=== PATIENT | female | born 1990 | race Caucasian/White ===

== ENCOUNTER 2016-09-25 00:46 | Emergency (ER) | payer BC, OTHER ==
[~2016-09-25] VITALS: Ht 160 cm; Wt 53.3 kg
[~2016-09-25 00:46] MED LIST: AZIT250T PO; CYAN500T PO; EFFSR150 PO; HYDR-3785 PO; LAMO100T16 PO; LAMO25TA PO; LITH300T2 PO; LITH600C PO; MULT-506 PO; NRNUNK PO
[2016-09-25 00:50] VITALS: Ht 160 cm; Wt 53.3 kg
[2016-09-25] MEDS ORDERED: ACETAMINOPHEN IV 1,000 MG in EMPTY BAG 0 ML IV STA (01:07)
[2016-09-25] MEDS ORDERED: SODIUM CHLORIDE 0.9% 1000ML 1,000 ML IV STA ×2 (01:07→05:06)
--- NOTE | 2016-09-25 01:07 | EMERGENCY ROOM VISIT NOTE ---
History Report prepared by Radha: Benjamin Howard Under the Supervision of: Dr. To Mccormick M.D. First contact with patient: 00:57 Chief Complaint: FEVER Stated Complaint: REFERRED BY DOCTOR History of Present Illness The patient is a 26 year old female who has a fistula and new ileostomy who presents to the Emergency Room with complaints of a worsening fever that started prior to arrival tonight. The patient says that she had 5 surgeries at [facility] last month, including a gastric bypass, a cleaning of her abdomen, and removal of 95% of her small intestine. She does have a feeding tube. The patient says that he was told that her white blood cell count was elevated, and to keep track of her temperature. Her temperature became elevated today, so she called [facility], and was told to come to the nearest ER for evaluation. The patient says that prior to arrival, she went to lay down, but started getting cold and shaky. She adds that her muscles tensed up, and she has been having abdominal pain around her feeding tube. The patient says that her tube has drained all day, and made her dress soaked. She states that this amount of drainage is unusual for her. The patient says that she had 1 tablet of Tylenol within the past 6 hours. She notes that she has a bit of sinus congestion. She denies any shortness of breath, cough, or urinary symptoms. She has Hepatitis C. The patient notes no history of kidney failure. She takes Heparin. Source of History: patient Onset: Prior to arrival tonight Position: other (global - fever) Timing: worsening Associated Symptoms: + chills, + abdominal pain, No cough, No SOB, No urinary symptoms Note: Associated symptoms: Increased drainage around tube. Sinus congestion. Shaky. Review of Systems See HPI for pertinent positives & negatives. A total of 10 systems reviewed and were otherwise negative. Past Medical & Surgical Medical Problems: (1) Depressive Disorder Nec (2) Fx Femur Shaft-Closed (3) Gastrojejunal Ulcer Nos (4) Nausea Alone (5) Opioid Abuse-Unspec Family History No pertinent family history Social History Smoking Status: Never Smoker Alcohol Use: none Marital Status: single Occupation Status: employed Current/Historical Medications Scheduled Calcium Carbonate-Vitamin D (Calcium), 1 TAB PO DAILY Cholecalciferol (Vitamin D3), Unknown Dose PO DAILY Citalopram Hydrobromide (Celexa), 40 MG PO DAILY Cyanocobalamin (Vitamin B-12), 500 MCG PO DAILY Loperamide Hcl (Imodium A-D), 4 MG PO TID Methadone Hcl (Methadone Hcl), 80 MG PO DAILY Methadone Hcl (Dolophine), 5 MG PO DAILY Multivitamin (Multivitamin), 1 TAB PO DAILY Omeprazole (Prilosec), 40 MG PO DAILY Scheduled PRN Acetaminophen (Tylenol), 500 MG PO Q4H PRN for Pain Allergies Coded Allergies: Adhesives (Verified Allergy, Mild, ERRYTHEMA, 09/25/16) Eucalyptus Oil (Verified Allergy, Mild, hives, 02/23/11) Physical Exam Vital Signs Date Time Temp Pulse Resp B/P (MAP) Pulse Ox O2 Delivery O2 Flow Rate FiO2 09/25/16 07:43 74 18 90/53 98 09/25/16 07:00 80 20 101/58 98 Room Air 09/25/16 06:32 76 20 96/55 92 Room Air 09/25/16 05:58 83 20 101/53 97 Room Air 09/25/16 05:30 38.6 09/25/16 05:20 90 20 104/50 98 Room Air 09/25/16 05:00 65 16 100/40 94 Room Air 09/25/16 04:03 39.3 105 18 105/55 95 Room Air 09/25/16 02:39 38.7 09/25/16 02:39 38.7 81 16 97/53 97 Room Air 09/25/16 00:50 39.4 102 16 103/68 99 Room Air Physical Exam GENERAL: Patient is uncomfortable and malnourished appearing and in mild acute distress. HEENT: No acute trauma, normocephalic atraumatic, mucous membranes moist, no nasal congestion, no scleral icterus. NECK: No stridor, no adenopathy, no meningismus, trachea is midline. CHEST: Central line in right upper chest with 2 ports - 1 with IV infusing. LUNGS: No dyspnea. Clear to auscultation and equal bilaterally. No wheeze, no rhonchi. HEART: Regular rate and rhythm. No murmurs, rubs, gallops appreciated. ABDOMEN: Left mid-abdominal PEG tube. Some purulent drainage around insertion site, minimal erythema. Large midline insertion which is dressed. Ostomy in left lower abdomen, draining green clear fluid. Vague left upper quadrant tenderness to palpation. BACK: No midline tenderness, no CVA tenderness EXTREMITIES: Normal motion all extremities, no cyanosis, no edema. NEUROLOGIC: Alert and oriented, no acute motor or sensory deficits, no focal weakness, cranial nerves grossly intact. SKIN: No rash, no jaundice, no diaphoresis. Medical Decision & Procedures ER Provider Diagnostic Interpretation: X ray results are stated below per my interpretation: Chest: 1 view: No infiltrate, no effusion, normal cardiac border. Zaldivar catheter in right upper chest, old rib fracture right lower chest. CT ABDOMEN & PELVIS: Minimal focal density at the right lung base may represent atelectasis versus early infectious/inflammatory process. Cholelithiasis with mild pericholecystic fluid and trace fluid among the inferior right hepatic lobe. Acute cholecystitis cannot be entirely excluded. Further evaluation could be performed with ultrasound if clinically indicated. Changes of prior gastric surgery. Percutaneous G-tube in place. Mild swelling and fat stranding in the left anterior abdominal wall at the G-tube site. Superimposed infection cannot be excluded. No organized fluid collection identified. Drain also noted along the central anterior abdominal wall with surrounding fat stranding as it courses through the subcutaneous fat of the abdominal wall. Superimposed infection again cannot be excluded. No organized fluid collection identified. Mild to moderate free fluid in the pelvis. Correlate with any recent surgery. Mild diffuse body wall edema. Intramedullary jeffrey in the left femur partially visualized. Mild hepatomegaly. Radiologist: Barber Larson M.D. Study ready at 02:18 and initial results transmitted at 03:05 Laboratory Results 09/25/16 01:14 Red Blood Count 3.15, Mean Corpuscular Volume 89.5, Mean Corpuscular Hemoglobin 27.9, Mean Corpuscular Hemoglobin Concent 31.2, Mean Platelet Volume 12.7, Neutrophils (%) (Auto) 87.7, Lymphocytes (%) (Auto) 5.7, Monocytes (%) (Auto) 5.5, Eosinophils (%) (Auto) 0.8, Basophils (%) (Auto) 0.3, Neutrophils # (Auto) 5.59, Lymphocytes # (Auto) 0.36, Monocytes # (Auto) 0.35, Eosinophils # (Auto) 0.05, Basophils # (Auto) 0.02 7/23/17 01:14 Test 09/25/16 01:14 09/25/16 01:20 09/25/16 01:23 09/25/16 04:08 White Blood Count 6.37 K/uL (4.8-10.8) Red Blood Count 3.15 M/uL (4.2-5.4) Hemoglobin 8.8 g/dL (12.0-16.0) Hematocrit 28.2 % (37-47) Mean Corpuscular Volume 89.5 fL (80-100) Mean Corpuscular Hemoglobin 27.9 pg (25-34) Mean Corpuscular Hemoglobin Concent 31.2 g/dl (32-36) Platelet Count 142 K/uL (130-400) Mean Platelet Volume 12.7 fL (7.4-10.4) Neutrophils (%) (Auto) 87.7 % Lymphocytes (%) (Auto) 5.7 % Monocytes (%) (Auto) 5.5 % Eosinophils (%) (Auto) 0.8 % Basophils (%) (Auto) 0.3 % Neutrophils # (Auto) 5.59 K/uL (1.4-6.5) Lymphocytes # (Auto) 0.36 K/uL (1.2-3.4) Monocytes # (Auto) 0.35 K/uL (0.11-0.59) Eosinophils # (Auto) 0.05 K/uL (0-0.5) Basophils # (Auto) 0.02 K/uL (0-0.2) RDW Standard Deviation 50.1 fL (36.4-46.3) RDW Coefficient of Variation 15.3 % (11.5-14.5) Immature Granulocyte % (Auto) 0.0 % Immature Granulocyte # (Auto) 0.00 K/uL (0.00-0.02) Platelet Estimate NORMAL Polychromasia 1+ Anisocytosis PRESENT Prothrombin Time 12.1 SECONDS (9.0-12.0) Prothromb Time International Ratio 1.1 (0.9-1.1) Est Creatinine Clear Calc Drug Dose 133.2 ml/min Estimated GFR () > 150.0 Estimated GFR (Non- 130.0 BUN/Creatinine Ratio 65.8 (10-20) Calcium Level 8.8 mg/dl (8.5-10.1) Phosphorus Level 1.6 mg/dl (2.5-4.9) Magnesium Level 1.9 mg/dl (1.8-2.4) Total Bilirubin 1.2 mg/dl (0.2-1) Direct Bilirubin 0.8 mg/dl (0-0.2) Aspartate Amino Transf (AST/SGOT) 18 U/L (15-37) Alanine Aminotransferase (ALT/SGPT) 27 U/L (12-78) Alkaline Phosphatase 226 U/L (45-117) Total Creatine Kinase 123 U/L (26-192) Creatine Kinase MB 0.7 ng/ml (0.5-3.6) Creatine Kinase MB Ratio 0.6 (0-3.0) Troponin I < 0.015 ng/ml (0-0.045) Total Protein 7.2 gm/dl (6.4-8.2) Albumin 2.8 gm/dl (3.4-5.0) Human Chorionic Gonadotropin, Qual NEG (NEG) [place] Level < 0.2 mMOL/L (0.6-1.2) Bedside Lactic Acid Venous 0.82 mmol/L (0.90-1.70) Bedside Hemoglobin 9.5 g/dl (12.0-16.0) Bedside Hematocrit 28 % (37-47) Bedside Sodium 136 mEq/L (135-144) Bedside Potassium 3.3 mEq/L (3.3-5.0) Bedside Chloride 96 mEq/L (101-112) Bedside Total CO2 26 mEq/l (24-31) Anion Gap 19.0 mmol/L (16-25) Bedside Blood Urea Nitrogen 32 mg/dl (7-18) Bedside Creatinine 0.5 mg/dl (0.6-1.3) Bedside Glucose (other) 110 mg/dl (70-99) Bedside Ionized Calcium (Cheryl) 1.19 mmol/l (1.12-1.32) Urine Color DK YELLOW Urine Appearance CLEAR (CLEAR) Urine pH 6.0 (4.5-7.5) Urine Specific [place] > 1.045 (1.000-1.030) Urine Protein NEG (NEG) Urine Glucose (UA) NEG (NEG) Urine Ketones NEG (NEG) Urine Occult Blood TRACE (NEG) Urine Nitrite NEG (NEG) Urine Bilirubin 1+ (NEG) Urine Urobilinogen NEG (NEG) Urine Leukocyte Esterase SMALL (NEG) Urine WBC (Auto) 1-5 /hpf (0-5) Urine RBC (Auto) 5-10 /hpf (0-4) Urine Hyaline Casts (Auto) 1-5 /lpf (0-5) Urine Epithelial Cells (Auto) 20-30 /lpf (0-5) Urine Bacteria (Auto) NEG (NEG) Date/Time Source Procedure Growth Status 09/25/16 01:43 Stool C.difficile Toxin B Gene (PCR) - Final No C. difficile toxin B gene detected Complete Laboratory results as reviewed by me. Medications Administered Medications (Trade) Dose Ordered Sig/Faith Route Start Time Stop Time Status Last Admin Dose Admin Sodium Chloride 1,000 ml @ 999 mls/hr Q1H1M STAT IV 09/25/16 01:07 09/25/16 02:07 DC 09/25/16 01:35 999 MLS/HR Acetaminophen 1000 mg/Empty Bag 100 ml @ 400 mls/hr NOW STAT IV 09/25/16 01:07 09/25/16 01:21 DC 09/25/16 01:35 400 MLS/HR Cefepime HCl 2000 mg/Dextrose 122.6 ml @ 200 mls/hr NOW STAT IV 09/25/16 03:30 09/25/16 04:06 DC 09/25/16 04:55 200 MLS/HR Vancomycin HCl 1250 mg/Sodium Chloride 525 ml @ 125 mls/hr ONE STAT IV 09/25/16 03:30 09/25/16 07:41 DC 09/25/16 05:45 125 MLS/HR Morphine Sulfate (MoRPHine SULFATE INJ) 8 mg STK-MED ONCE .ROUTE 09/25/16 03:50 09/25/16 03:51 DC 09/25/16 04:00 8 MG Morphine Sulfate (MoRPHine SULFATE INJ) 8 mg NOW STAT IV 09/25/16 05:06 09/25/16 05:07 DC 09/25/16 05:24 8 MG Sodium Chloride 1,000 ml @ 150 mls/hr Q6H40M STAT IV 09/25/16 05:06 09/25/16 08:22 DC 09/25/16 05:24 150 MLS/HR ECG Indication: abdominal pain Rate (beats per minute): 93 Rhythm: normal sinus Findings: no acute ischemic change, no ectopy ED Course 0058: The patient was evaluated in room B3B. A complete history and physical exam was performed. 0107: Ordered Acetaminophen 1000 mg/Empty Bag 100 ml @ 400 mls/hr IV, NSS 1000 ml @ 999 mls/hr IV. 0313: I reevaluated the patient and she notes feeling better, and is agreeable to call [facility] for treatment and possible transfer. 0327: I discussed the patient with Dr. Tanner - minimally invasive surgery at [facility] - he will accept the patient via transfer. 0330: Ordered Vancomycin HCl 1250 mg/Sodium Chloride 525 ml @ 200 mls/hr IV, Cefepime HCl 2000 m/Dextrose 122.6 ml @ 200 mls/hr IV. 0342: I reevaluated the patient and she says that her pain is increasing. She notes that she tolerated Morphine well previously. The patient is agreeable to be transferred to [facility] by ground. 0343: Ordered Morphine Sulfate Inj 8 mg IV. 0506: I reevaluated the patient and she says her pain improved but is coming back a bit. Her fever is breaking. Medical Decision Differential: Viral, Pharyngitis, Cellulitis, Pneumonia, Influenza, Meningitis, Sepsis, Bacteremia, UTI/Pyelonephritis, Endocrine, Toxicologic, amongst other pathologies entertained. 26 yr old female with complex abdominal surgical history arrives with complaint of fevers. In brief she had natalio-en-y gastric bypass in 2006, then had ruptured peptic ulcer in 2008 requiring emergent surgery. In Apr 2016 she had ventral hernia repair, however in August 2016 developed volvulus resulting in bowel and ~75% small bowel resection. Peg tube/ostomy in place with open wound. Has been on TPN through right chest Zaldivar catheter since. This morning she looks ill and clearly uncomfortable. No significant peritonitis on abdominal exam though is uncomfortable to palpation. Some drainage around G tube that is more than I would expect from typical irritation and she notes it was draining more over the last 24 hours. WBC is not elevated but she is febrile, tachycardic, mildly hypotension. Blood cultures from zaldivar and peripheral obtained. Lactic acid unremarkable. CXR clear. Concentrated urine though not infected. CT abdo with three areas of concern... doubt cholecystitis as no RUQ TTP, free fluid in pelvis likely surgical as she does not seem uncomfortable enough for this to be diffuse infectious free fluid , however G tube does demonstrate surrounding inflammation. Would have to suspect this is may cause of sepsis though can not be sure not other location, or possibly zaldivar for that matter. I do not feel it would be safe to discharge this patient from ED without surgical evaluation and she has far to complex history to be treated at this facility and needs to be at the tertiary care center she has been receiving treatment. Given empiric Cefepime/Vanco for broad spectrum coverage. Morphine PRN for pain. Fluids/Tylenol with improvement in vitals. Some continued fever but with her history will avoid NSAIDs. Discussed with MIS at [facility] who accept for further evaluation/ treatment. Monitored in ED over several hours as no available transfer ambulance and given morphine/fluids. Medication Reconcilliation Current Medication List: was personally reviewed by me Blood Pressure Screening Patient's blood pressure: Normal blood pressure Consults Time Called: 032 Consulting Physician: Dr. Tanner - minimally invasive surgery at [facility] Returned Call: 032 I discussed the patient with Dr. Tanner - minimally invasive surgery at [facility] - he will accept the patient via transfer. Impression Primary Impression: Sepsis Additional Impressions: Post op infection Free fluid in pelvis Abnormal computed tomography of gallbladder Critical Care I have personally spent greater than 45 minutes of critical care time in the direct management of this patient. This was a life/limb threatening event. This includes time spent evaluating patient, direct bedside care, chart review, placing orders, interpretation of diagnostic studies, discussion with consultants, patient, and family members, as well as other required patient management activities. This 45 minutes is in excess of all separately billable procedures. Scribe Attestation The scribe's documentation has been prepared under my direction and personally reviewed by me in its entirety. I confirm that the note above accurately reflects all work, treatment, procedures, and medical decision making performed by me. Departure Information Dispostion Transfer Acute Care Facility (by ground to [facility]) Referrals Edward Chin M.D. (PCP) Patient Instructions My [facility] Problem Qualifiers Primary Impression: Sepsis
[2016-09-25] MEDS ORDERED: OPTIRAY 320 IV PRN (01:15)
[2016-09-25] MEDS ORDERED: CITA40TA12 PO (01:26)
[2016-09-25] MEDS ORDERED: METH40TA15 PO (01:28)
[2016-09-25] MEDS ORDERED: METH5TAB PO (01:30)
[2016-09-25] MEDS ORDERED: PRLSR20 PO (01:32)
[2016-09-25] MEDS ORDERED: OMEP40CA41 PO (01:32)
[2016-09-25] MEDS ORDERED: LOPE-5 PO (01:33)
[2016-09-25] MEDS ORDERED: CHOL1000 PO (01:34)
[2016-09-25 01:36] LABS: ISTAT CREATININE 0.5 mg/dl (0.6-1.3); ISTAT HEMOGLOBIN 9.5 g/dl (12.0-16.0); ISTAT IONIZED CALCIUM 1.19 mmol/l (1.12-1.32)
[2016-09-25] MEDS ORDERED: CALC-51 PO (01:36)
[2016-09-25] MEDS ORDERED: ACET-1256 PO (01:37)
[2016-09-25 01:41] LABS: INR 1.1 (0.9-1.1); PROTHROMBIN TIME (PATIENT) 12.1 SECONDS (9.0-12.0)
[2016-09-25 01:54] LABS: ALT/SGPT 27 U/L (12-78); AST/SGOT 18 U/L (15-37); BLOOD UREA NITROGEN 34 mg/dl (7-18); BUN/CREATININE RATIO 65.8 (10-20); CALCIUM 8.8 mg/dl (8.5-10.1); CARBON DIOXIDE 31 mmol/L (21-32); CHLORIDE 102 mmol/L (98-107); CREATININE 0.52 mg/dl (0.60-1.20); GLUCOSE 106 mg/dl (70-99); MAGNESIUM 1.9 mg/dl (1.8-2.4); POTASSIUM 3.4 mmol/L (3.5-5.1); SODIUM 136 mmol/L (136-145)
[2016-09-25 02:02] LABS: MEAN CORPUSCULAR HGB CONC 31.2 g/dl (32-36)
[2016-09-25 02:05] LABS: ALKALINE PHOSPHATASE 226 U/L (45-117); CKMB/CK RATIO 0.6 (0-3.0); PHOSPHORUS 1.6 mg/dl (2.5-4.9)
[2016-09-25 02:06] LABS: HEMATOCRIT 28.2 % (37-47); MEAN CELL VOLUME 89.5 fL (80-100); MEAN CORPUSCULAR HEMOGLOBIN 27.9 pg (25-34); RED BLOOD COUNT 3.15 M/uL (4.2-5.4); WHITE BLOOD COUNT 6.37 K/uL (4.8-10.8)
[2016-09-25 02:20] LABS: ANISOCYTOSIS PRESENT; BASO % 0.3 %; BASO ABS # 0.02 K/uL (0-0.2); COMPLETE YES; EOS % 0.8 %; LYMPH % 5.7 %; LYMPH ABS # 0.36 K/uL (1.2-3.4); MEAN PLATELET VOLUME 12.7 fL (7.4-10.4); MONO % 5.5 %; NEUT % 87.7 %; PLATELET COUNT 142 K/uL (130-400); PLT ESTIMATE NORMAL; POLYCHROMASIA 1+
[2016-09-25 02:38] LABS: PREG INTERNAL NEGATIVE QC NEG CLEAR BACKGROUND; PREG INTERNAL POSITIVE QC POS CONTROL LINE
[2016-09-25] MEDS ORDERED: VANCOMYCIN INJ 1,250 MG in SODIUM CHLORIDE 0.9% 500ML 500 ML IV STA (03:30)
[2016-09-25] MEDS ORDERED: CEFEPIME IV 2,000 MG in DEXTROSE 5% 100ML 100 ML IV STA (03:30)
[2016-09-25] MEDS ORDERED: MoRPHine SULFATE 10 MG/ML CARP/VIAL IV STA ×2 (03:43→05:06)
[2016-09-25] MEDS ORDERED: MoRPHine SULFATE 4 MG/ML 1 ML CARP\\VIAL ONE (03:50)
[2016-09-25 04:19] LABS: URINE APPEARANCE CLEAR (CLEAR); URINE COLOR DK YELLOW; URINE EPITHELIAL CELL AUTO 20-30 /lpf (0-5); URINE NITRITE NEG (NEG); URINE SPECIFIC GRAVITY > 1.045 (1.000-1.030); UROBILINOGEN NEG (NEG); ZZUR CULT IF INDIC CLEAN CATCH NO
[2016-09-25 04:27] LABS: MANUAL MICROSCOPIC REQUIRED? NO; REVIEW REQ? NO; URINE BILIRUBIN 1+ (NEG)
[2016-09-25 05:30] VITALS: TEMP 38.6
--- NOTE | 2016-09-25 07:24 | DIAGNOSTIC IMAGING REPORT ---
CHEST ONE VIEW PORTABLE CLINICAL HISTORY: fever ELEVATED WHITE COUNT COMPARISON STUDY: 07/27/2008 FINDINGS: The cardiac and mediastinal contours are normal. There is no evidence of focal pulmonary consolidation. There is no evidence of failure. No pleural effusions are visualized.[ A right-sided A-Port catheter is visualized. IMPRESSION: No active disease in the chest. Electronically signed by: Eugene Luna M.D. 09/25/2016 7:23 AM Dictated Date/Time: 09/25/2016 7:22 AM
[2016-09-25 07:43] VITALS: BP 90/53; PULSE 74; O2SAT 98
--- NOTE | 2016-09-25 07:48 | DIAGNOSTIC IMAGING REPORT ---
CT ABD/PELVIS IV CONTRAST ONLY CLINICAL HISTORY: Fever, elevated white count. Drainage from PEG tube. History of gastric bypass reversal. COMPARISON STUDY: 06/16/2009 TECHNIQUE: Following the IV administration of 94 mL of Optiray-320, CT scan of the abdomen and pelvis was performed from the lung bases to the proximal femurs. Images are reviewed in the axial, sagittal, and coronal planes. IV contrast was administered without complication. A dose lowering technique was utilized adhering to the principles of ALARA. CT DOSE: 290.58 mGy.cm FINDINGS: Lower chest: There are minor basilar atelectatic changes. Liver: The contrast-enhanced liver is normal in size, contour, and attenuation. There is no intrahepatic biliary ductal dilatation. The hepatic veins and portal veins are patent. Gallbladder: Cholelithiasis Spleen: Mildly enlarged measuring 13 cm. No focal masses identified Pancreas: There is mild peripancreatic edema. Adrenal glands: Unremarkable. Kidneys: There is symmetric renal cortical enhancement. The kidneys are normal in size without hydronephrosis. Bowel: There are no transition zones indicate bowel obstruction. There is no acute diverticulitis. By history the appendix is surgically absent. Evaluation the bowel is limited due to the lack of orally administered contrast. There are postsurgical changes involving the stomach. There is a left upper quadrant percutaneous gastrostomy tube. There are defects within the left and right anterior abdominal wall with suture lines/drains. There is a left anterior abdominal wall drainage bag. Peritoneum: There is pelvic ascites. There is diffuse edema within the mesentery. There is a small amount of fluid within the right paracolic gutter. Vasculature: The abdominal aorta is normal in course and caliber. Adenopathy: None. Pelvic viscera: The bladder, and pelvic viscera are unremarkable. Skeletal structures: No destructive osseous lesions are seen. There is a left femoral intramedullary jeffrey IMPRESSION: 1. Difficult study to interpret given the postsurgical changes and lack of orally administered contrast 2. No evidence of bowel obstruction. No evidence of free air 3. Postsurgical changes involving the stomach with a left-sided gastrostomy tube 4. Soft tissue defects within the anterior abdominal wall bilaterally containing suture lines/drains. There is a left anterior abdominal wall drainage bag.. Correlation with surgical history is recommended 5. Mild diffuse mesenteric edema and peripancreatic edema. Correlation with appropriate biochemical markers is recommended to exclude pancreatitis. 6. Ascites 7. Cholelithiasis. 8. Generalized body wall edema Electronically signed by: Eugene Luna M.D. 09/25/2016 7:47 AM Dictated Date/Time: 09/25/2016 7:33 AM
[2016-11-21] MEDS ORDERED: METR-163 PO (16:17)
[2016-11-21] MEDS ORDERED: CNCI50 IV (16:17)
[2016-11-21] MEDS ORDERED: FLV400 PO (16:17)
[2016-11-21] MEDS ORDERED: CNT PO (16:17)
[2016-11-21] MEDS ORDERED: HYD10 PO (16:17)
[2016-11-21] MEDS ORDERED: ZNCS220 PO (16:17)
== END 2016-09-25 07:44 | disposition short-term general hospital (02) ==
LOC: C.EDB 00:48
DX: T81.4XXA Infection following a procedure, initial encounter (principal); Y83.8 Other surgical procedures as the cause of abnormal reaction of the patient, or of later complication, without mention of misadventure at the time of the procedure; A41.9 Sepsis, unspecified organism; Z98.84 Bariatric surgery status; Z93.1 Gastrostomy status; B19.20 Unspecified viral hepatitis C without hepatic coma; F32.9 Major depressive disorder, single episode, unspecified; F11.90 Opioid use, unspecified, uncomplicated; Z79.899 Other long term (current) drug therapy; Z93.3 Colostomy status

== ENCOUNTER → 2016-10-10 | Outpatient (CLI) | payer OTHER ==
[~2016-10-10] MED LIST changes: +ACET-1256 PO; +CALC-51 PO; +CHOL1000 PO; +CITA40TA12 PO; +CNCI50 IV; +CNT PO; -EFFSR150 PO; +FLV400 PO; +HYD10 PO; -HYDR-3785 PO; -LAMO100T16 PO; -LAMO25TA PO; -LITH300T2 PO; -LITH600C PO; +LOPE-5 PO; +METH10CO PO; +METH40TA15 PO; +METH5TAB PO; +METR-163 PO; -NRNUNK PO; +OMEP40CA41 PO; +SODI0.9S; +TPN; +ZNCS220 PO
[2016-10-10 17:31] LABS: HEMATOCRIT 34.6 % (37-47); MEAN CELL VOLUME 87.2 fL (80-100); MEAN CORPUSCULAR HGB CONC 30.9 g/dl (32-36); MEAN PLATELET VOLUME 12.6 fL (7.4-10.4); PLATELET COUNT 412 K/uL (130-400); RED BLOOD COUNT 3.97 M/uL (4.2-5.4); WHITE BLOOD COUNT 7.71 K/uL (4.8-10.8)
[2016-10-10 18:02] LABS: ALB/GLOB RATIO 0.7 (0.9-2); ALT/SGPT 40 U/L (12-78); AST/SGOT 29 U/L (15-37); BLOOD UREA NITROGEN 62 mg/dl (7-18); CALCIUM 10.6 mg/dl (8.5-10.1); CARBON DIOXIDE 34 mmol/L (21-32); CHLORIDE 101 mmol/L (98-107); GLUCOSE 85 mg/dl (70-99); MAGNESIUM 2.4 mg/dl (1.8-2.4); POTASSIUM 3.6 mmol/L (3.5-5.1); SODIUM 140 mmol/L (136-145)
[2016-10-10 18:07] LABS: ALKALINE PHOSPHATASE 357 U/L (45-117); PHOSPHORUS 4.1 mg/dl (2.5-4.9); PREALBUMIN 41.9 mg/dl (20-40)
--- NOTE | 2016-11-29 08:11 | CODING QUERY NO DIAGNOSIS ---
Valid Physician Order Needed 88 A valid physician order must be submitted in order to properly bill for the service(s) provided, including date of service(s), valid diagnosis, and physician signature. If these tests are done on a recurring basis the original physician order must be submitted in order to code and bill for the service(s) provided. Please fax us the original, signed physician order so that we may expedite billing to [phone] DOS 10/10/16 * CBC * MAGNESIUM * PHOSPHORUS * TRANSFERRIN * COMP METABOLIC Thank you [facility] Management
== END | disposition home or self-care (01) ==
LOC: C.LABSPEC 15:10
PROVIDERS: ATTEND Surgery
DX: Z48.815 Encounter for surgical aftercare following surgery on the digestive system (principal); Z43.2 Encounter for attention to ileostomy; Z45.2 Encounter for adjustment and management of vascular access device; J18.9 Pneumonia, unspecified organism; F32.9 Major depressive disorder, single episode, unspecified; F41.9 Anxiety disorder, unspecified

== ENCOUNTER → 2016-10-13 | Outpatient (CLI) | payer OTHER ==
[2016-10-13 16:23] LABS: HEMATOCRIT 32.5 % (37-47); MEAN CELL VOLUME 86.7 fL (80-100); MEAN CORPUSCULAR HEMOGLOBIN 27.5 pg (25-34); MEAN CORPUSCULAR HGB CONC 31.7 g/dl (32-36); MEAN PLATELET VOLUME 12.7 fL (7.4-10.4); PLATELET COUNT 303 K/uL (130-400); RED BLOOD COUNT 3.75 M/uL (4.2-5.4); WHITE BLOOD COUNT 6.19 K/uL (4.8-10.8)
[2016-10-13 16:31] LABS: ALT/SGPT 69 U/L (12-78); AST/SGOT 44 U/L (15-37); BLOOD UREA NITROGEN 54 mg/dl (7-18); BUN/CREATININE RATIO 55.4 (10-20); CALCIUM 10.2 mg/dl (8.5-10.1); CARBON DIOXIDE 34 mmol/L (21-32); CHLORIDE 98 mmol/L (98-107); CREATININE 0.98 mg/dl (0.60-1.20); GLUCOSE 67 mg/dl (70-99); MAGNESIUM 2.3 mg/dl (1.8-2.4); POTASSIUM 3.4 mmol/L (3.5-5.1); SODIUM 136 mmol/L (136-145)
[2016-10-13 16:34] LABS: ALB/GLOB RATIO 0.7 (0.9-2); ALKALINE PHOSPHATASE 366 U/L (45-117); PHOSPHORUS 3.8 mg/dl (2.5-4.9)
--- NOTE | 2016-11-10 08:36 | CODING QUERY NO DIAGNOSIS ---
Valid Physician Order Needed A valid physician order must be submitted in order to properly bill for the service(s) provided, including date of service(s), valid diagnosis, and physician signature. If these tests are done on a recurring basis the original physican order must be submitted in order to code and bill for the service(s) provided. Please fax us the original, signed physician order so that we may expedite billing to [phone] DOS 10/13/2016 * CBC W/O DIFF * CMP * MAGNESIUM * PHOSPHORUS Thank you Selena [facility] Information Management
== END | disposition home or self-care (01) ==
LOC: C.LABSPEC 16:03
PROVIDERS: ATTEND Surgery
DX: Z48.815 Encounter for surgical aftercare following surgery on the digestive system (principal)

== ENCOUNTER → 2016-10-17 | Outpatient (CLI) | payer OTHER ==
[2016-10-17 11:45] LABS: HEMATOCRIT 36.2 % (37-47); MEAN CORPUSCULAR HEMOGLOBIN 27.2 pg (25-34); MEAN CORPUSCULAR HGB CONC 31.2 g/dl (32-36); MEAN PLATELET VOLUME 13.1 fL (7.4-10.4); PLATELET COUNT 272 K/uL (130-400); RED BLOOD COUNT 4.16 M/uL (4.2-5.4); WHITE BLOOD COUNT 7.15 K/uL (4.8-10.8)
[2016-10-17 11:53] LABS: AST/SGOT 44 U/L (15-37); BLOOD UREA NITROGEN 63 mg/dl (7-18); BUN/CREATININE RATIO 57.5 (10-20); CALCIUM 10.8 mg/dl (8.5-10.1); CARBON DIOXIDE 37 mmol/L (21-32); CHLORIDE 92 mmol/L (98-107); GLUCOSE 271 mg/dl (70-99); MAGNESIUM 2.4 mg/dl (1.8-2.4); SODIUM 134 mmol/L (136-145)
[2016-10-17 12:05] LABS: ALB/GLOB RATIO 0.7 (0.9-2); ALKALINE PHOSPHATASE 357 U/L (45-117); ALT/SGPT 67 U/L (12-78); PHOSPHORUS 2.6 mg/dl (2.5-4.9)
[2016-10-17 12:40] LABS: PREALBUMIN 42.9 mg/dl (20-40)
--- NOTE | 2016-10-19 10:26 | CODING QUERY NO DIAGNOSIS ---
Valid Physician Order Needed A valid physician order must be submitted in order to properly bill for the service(s) provided, including date of service(s), valid diagnosis, and physician signature. If these tests are done on a recurring basis the original physician order must be submitted in order to code and bill for the service(s) provided. Please fax us the original, signed physician order so that we may expedite billing to [phone] DOS 10/17/2016 * CBC W/O DIFF * SERUM PHOSPHORUS * TRIGLYCERIDES * MAGNESIUM * CMP * TRANSFERRIN * PREALBUMIN * BILIRUBIN DIRECT Thank you [facility] Information Management
== END | disposition home or self-care (01) ==
LOC: C.LABSPEC 11:35
PROVIDERS: ATTEND Surgery
DX: Z48.815 Encounter for surgical aftercare following surgery on the digestive system (principal)

== ENCOUNTER → 2016-10-24 | Outpatient (CLI) | payer OTHER ==
[2016-10-24 12:50] LABS: BASO % 0.5 %; BASO ABS # 0.03 K/uL (0-0.2); COMPLETE YES; EOS % 6.8 %; HEMATOCRIT 35.4 % (37-47); IG% 0.2 %; LYMPH % 39.2 %; LYMPH ABS # 2.24 K/uL (1.2-3.4); MEAN CELL VOLUME 83.9 fL (80-100); MEAN CORPUSCULAR HEMOGLOBIN 26.5 pg (25-34); MEAN CORPUSCULAR HGB CONC 31.6 g/dl (32-36); MONO % 7.7 %; NEUT % 45.6 %; PLATELET COUNT 181 K/uL (130-400); RED BLOOD COUNT 4.22 M/uL (4.2-5.4); WHITE BLOOD COUNT 5.71 K/uL (4.8-10.8)
[2016-10-24 13:29] LABS: ALT/SGPT 72 U/L (12-78); BLOOD UREA NITROGEN 75 mg/dl (7-18); BUN/CREATININE RATIO 62.6 (10-20); CALCIUM 10.3 mg/dl (8.5-10.1); CARBON DIOXIDE 31 mmol/L (21-32); CHLORIDE 99 mmol/L (98-107); GLUCOSE 95 mg/dl (70-99); MAGNESIUM 2.1 mg/dl (1.8-2.4); POTASSIUM 3.5 mmol/L (3.5-5.1); SODIUM 136 mmol/L (136-145)
[2016-10-24 13:32] LABS: ALB/GLOB RATIO 0.7 (0.9-2); ALKALINE PHOSPHATASE 350 U/L (45-117); AST/SGOT 50 U/L (15-37); PHOSPHORUS 3.3 mg/dl (2.5-4.9); TRIGLYCERIDES 49 mg/dl (0-150)
== END | disposition home or self-care (01) ==
LOC: C.LABSPEC 11:59
PROVIDERS: ATTEND Surgery
DX: J18.9 Pneumonia, unspecified organism (principal); F32.9 Major depressive disorder, single episode, unspecified; F41.9 Anxiety disorder, unspecified

== ENCOUNTER → 2016-11-07 | Outpatient (CLI) | payer OTHER ==
[2016-11-07 14:41] LABS: BASO % 0.3 %; BASO ABS # 0.02 K/uL (0-0.2); COMPLETE YES; EOS % 5.4 %; HEMATOCRIT 31.9 % (37-47); IG% 0.2 %; LYMPH % 38.4 %; LYMPH ABS # 2.29 K/uL (1.2-3.4); MEAN CELL VOLUME 85.1 fL (80-100); MEAN CORPUSCULAR HEMOGLOBIN 25.6 pg (25-34); MEAN CORPUSCULAR HGB CONC 30.1 g/dl (32-36); MONO % 4.9 %; NEUT % 50.8 %; PLATELET COUNT 176 K/uL (130-400); RED BLOOD COUNT 3.75 M/uL (4.2-5.4); WHITE BLOOD COUNT 5.96 K/uL (4.8-10.8)
[2016-11-07 14:54] LABS: ALT/SGPT 67 U/L (12-78); AST/SGOT 43 U/L (15-37); BLOOD UREA NITROGEN 40 mg/dl (7-18); BUN/CREATININE RATIO 44.5 (10-20); CALCIUM 9.1 mg/dl (8.5-10.1); CARBON DIOXIDE 25 mmol/L (21-32); CHLORIDE 106 mmol/L (98-107); CREATININE 0.89 mg/dl (0.60-1.20); GLUCOSE 80 mg/dl (70-99); POTASSIUM 4.1 mmol/L (3.5-5.1); SODIUM 137 mmol/L (136-145); TRIGLYCERIDES 50 mg/dl (0-150)
[2016-11-07 14:56] LABS: ALB/GLOB RATIO 0.7 (0.9-2); ALKALINE PHOSPHATASE 349 U/L (45-117); PHOSPHORUS 3.2 mg/dl (2.5-4.9)
--- NOTE | 2016-11-09 20:11 | CODING QUERY NO DIAGNOSIS ---
Valid Physician Order Needed 88 A valid physician order must be submitted in order to properly bill for the service(s) provided, including date of service(s), valid diagnosis, and physician signature. If these tests are done on a recurring basis the original physician order must be submitted in order to code and bill for the service(s) provided. Please fax us the original, signed physician order so that we may expedite billing to [phone] DOS * COMPREHENSIVE METABOLIC * MAGNESIUM * PHOSPHORUS * TRIGLYCERIDES * CBC W/AUTO DIFF * GGT Thank you Amy [facility] Information Management
== END | disposition home or self-care (01) ==
LOC: C.LABSPEC 08:37
PROVIDERS: ATTEND Surgery
DX: Z45.2 Encounter for adjustment and management of vascular access device (principal); F32.9 Major depressive disorder, single episode, unspecified; J18.9 Pneumonia, unspecified organism; F41.9 Anxiety disorder, unspecified

== ENCOUNTER 2016-11-14 11:06 | Inpatient (IN) | payer OTHER ==
[~2016-11-14] VITALS: Ht 160 cm; Wt 72.1 kg
[~2016-11-14 11:06] MED LIST changes: -CNCI50 IV; -CNT PO; -FLV400 PO; -HYD10 PO; -METH10CO PO; -METR-163 PO; -SODI0.9S; -TPN; -ZNCS220 PO
[2016-11-14] MEDS ORDERED: TPN (11:21)
[2016-11-14] MEDS ORDERED: SODI0.9S (11:21)
[2016-11-14] MEDS ORDERED: METH10CO PO (11:21)
[2016-11-14] MEDS ORDERED: ACETAMINOPHEN 500 MG TAB PO STA (12:09)
[2016-11-14 12:51] LABS: URINE APPEARANCE CLOUDY (CLEAR); URINE COLOR DK YELLOW; URINE EPITHELIAL CELL AUTO >30 /lpf (0-5); URINE NITRITE NEG (NEG); URINE PH 5.5 (4.5-7.5); URINE SPECIFIC GRAVITY 1.027 (1.000-1.030); UROBILINOGEN NEG (NEG); ZZUR CULT IF INDIC CLEAN CATCH YES
[2016-11-14 12:58] LABS: URINE BILIRUBIN 2+ (NEG)
[2016-11-14 12:59] LABS: MANUAL MICROSCOPIC REQUIRED? NO; REVIEW REQ? YES
--- NOTE | 2016-11-14 13:08 | DIAGNOSTIC IMAGING REPORT ---
CHEST 2 VIEWS ROUTINE CLINICAL HISTORY: fever BODY ACHES, COUGH. COMPARISON STUDY: 09/25/2016 FINDINGS: The cardiac and mediastinal contours are normal. There is no evidence of focal pulmonary consolidation. There is no evidence of failure. No pleural effusions are visualized.[The left-sided dual-lumen central venous catheter remains unchanged in position. IMPRESSION: No active disease in the chest. Electronically signed by: Eugene Luna M.D. 11/14/2016 1:07 PM Dictated Date/Time: 11/14/2016 1:06 PM
[2016-11-14 13:12] LABS: MEAN CORPUSCULAR HGB CONC 33.3 g/dl (32-36)
[2016-11-14 13:13] LABS: URINE PATH CASTS 0-3 GRANULAR CASTS /lpf (0)
[2016-11-14 13:22] LABS: HEMATOCRIT 21.9 % (37-47); MEAN CORPUSCULAR HEMOGLOBIN 27.3 pg (25-34); RED BLOOD COUNT 2.67 M/uL (4.2-5.4); WHITE BLOOD COUNT 2.41 K/uL (4.8-10.8)
[2016-11-14 13:26] LABS: INR 1.2 (0.9-1.1); PARTIAL THROMBOPLASTIN RATIO 1.4
[2016-11-14 13:29] LABS: PLATELET COUNT 52 K/uL (130-400)
[2016-11-14 13:32] LABS: BUN/CREATININE RATIO 31.5 (10-20); CALCIUM 7.9 mg/dl (8.5-10.1); CREATININE 0.6 mg/dl (0.60-1.20); POTASSIUM 3.6 mmol/L (3.5-5.1)
[2016-11-14] MEDS ORDERED: OPTIRAY 320 IV PRN (13:45)
[2016-11-14 14:01] LABS: BASO % 0.4 %; BASO ABS # 0.01 K/uL (0-0.2); COMPLETE YES; DOHLE BODIES 1+; GIANT PLATELETS 3+; IG% 0.4 %; LYMPH % 17.8 %; LYMPH ABS # 0.43 K/uL (1.2-3.4); MONO % 4.6 %; NEUT % 76.8 %; PLT ESTIMATE DECREASED; POIKILOCYTOSIS PRESENT; VACUOLIZATION 1+
--- NOTE | 2016-11-14 14:15 | DIAGNOSTIC IMAGING REPORT ---
CT ABD/PELVIS IV CONTRAST ONLY CLINICAL HISTORY: Fever, bodyaches, history of multiple surgery. Sepsis. COMPARISON STUDY: 09/25/2016 TECHNIQUE: Following the IV administration of 94 mL of Optiray-320, CT scan of the abdomen and pelvis was performed from the lung bases to the proximal femurs. Images are reviewed in the axial, sagittal, and coronal planes. IV contrast was administered without complication. A dose lowering technique was utilized adhering to the principles of ALARA. CT DOSE: 292.52 mGy.cm FINDINGS: Lower chest: There are mild dependent atelectatic changes Liver: There is mild periportal edema, finding which may be secondary to aggressive hydration. There are no focal hepatic masses. Gallbladder: There is a gallstone present. There is pericholecystic fluid/ascites. Spleen: The spleen is enlarged measuring 13.2 cm. Pancreas: Unremarkable. Adrenal glands: Unremarkable. Kidneys: There is symmetric renal cortical enhancement. The kidneys are normal in size without hydronephrosis. Bowel: Postsurgical changes are present within the bowel. Anterior ostomies are visualized. There are no transition zones to indicate a bowel obstruction. The patient appears be status post resection of a significant portion of small bowel. There is a gastrostomy tube present. Peritoneum: There is increasing ascites which is of low to moderate volume. Vasculature: The abdominal aorta is normal in course and caliber. Adenopathy: None. Pelvic viscera: The bladder, and pelvic viscera are unremarkable. Skeletal structures: No destructive osseous lesions are seen. There is generalized body wall edema. IMPRESSION: 1. No evidence of bowel obstruction. No evidence of free air 2. Postsurgical changes involving the stomach and partial small bowel resection 3. Postsurgical changes involving the anterior abdominal wall presumably indicative of current or remote ostomies. 4. Cholelithiasis 5. Generalized body wall edema 6. Increasing ascites. Electronically signed by: Eugene Luna M.D. 11/14/2016 2:14 PM Dictated Date/Time: 11/14/2016 2:06 PM
--- NOTE | 2016-11-14 15:50 | EMERGENCY ROOM VISIT NOTE ---
History First contact with patient: 11:30 Chief Complaint: ILLNESS Stated Complaint: BODY ACHES, PAIN, FEVER, COUGH, MIGRAINE, SINUS History of Present Illness The patient is a 26 year old female who presents to the Emergency Room with complaints of fever, body aches, sinus congestion and headache. The patient states that she has had fever and. Frontal sinus pressure for 5 days. She states her temperature was 104 this morning. She took Tylenol. The patient also admits to diffuse body aches. The patient has had multiple abdominal surgeries as a result of gastric bypass performed in 2003 and then again in 2006. She currently has a PEG tube in place and states that she has constant pus from the PEG tube. She also has stabbing pains around her abdominal incision. She also has a ileostomy bag. The patient was seen here in September and was diagnosed with sepsis and was transferred to [facility] where she had her surgeries. Her surgeon is Dr. Chin. The patient states that her home nurse was there to see her this morning and told her to come to the emergency room. She did not call her surgeon in [place]. Review of Systems 10 system review was performed and was negative unless stated otherwise history of present illness. Past Medical/Surgical History Medical Problems: (1) Depressive Disorder Nec (2) Fx Femur Shaft-Closed (3) Gastrojejunal Ulcer Nos (4) Nausea Alone (5) Opioid Abuse-Unspec Family History No pertinent family history Social History Smoking Status: Current Every Day Smoker Alcohol Use: none Marital Status: single Occupation Status: employed Current/Historical Medications Scheduled Calcium Carbonate-Vitamin D (Calcium), 1 TAB PO DAILY Cholecalciferol (Vitamin D3), Unknown Dose PO DAILY Citalopram Hydrobromide (Celexa), 40 MG PO DAILY Cyanocobalamin (Vitamin B-12), 500 MCG PO DAILY Loperamide Hcl (Imodium A-D), 4 MG PO TID Methadone Hcl (Methadone Hcl Intensol), 103 MG PO DAILY Omeprazole (Prilosec), 40 MG PO DAILY Sodium Chloride (Gu Irrigant) (Sodium Chloride 0.9%), 500 ML DAILY Tpn Infusion (Tpn Infusion), 3,000 ML DAILY Scheduled PRN Acetaminophen (Tylenol), 500 MG PO Q4H PRN for Pain Physical Exam Vital Signs Date Time Temp Pulse Resp B/P (MAP) Pulse Ox O2 Delivery O2 Flow Rate FiO2 9/11/17 15:38 82 16 90/52 100 11/14/16 13:51 37.4 11/14/16 13:27 37.9 87 18 91/49 98 11/14/16 12:43 86 11/14/16 12:09 39.1 11/14/16 11:08 37.6 101 22 106/68 100 Room Air Physical Exam GENERAL: 26-year-old female appears in no acute distress. The patient is warm to the touch. MENTAL Status: Alert and oriented 3. EARS: Canals clear. TMs good light reflex. NOSE: Nasal mucosa with erythema and engorgement. SINUSES: Maxillary sinuses tender to percussion. PHARYNX: No erythema or edema noted. NECK: Supple, no lymphadenopathy noted. No carotid bruits noted. LUNGS: Clear auscultation without wheezes rales or rhonchi. CARDIAC: Regular rate and rhythm without murmur. Pulses is full and equal throughout. CHEST WALL: No erythema or edema noted in the anterior chest wall BACK: No CVA tenderness noted. ABDOMEN: Patient's abdomen is soft. There is no erythema surrounding the abdominal incision. There is no erythema around the ileostomy. EXTREMITIES: No cyanosis or edema noted. Medical Decision & Procedures ER Provider Diagnostic Interpretation: CT ABD/PELVIS IV CONTRAST ONLY CLINICAL HISTORY: Fever, bodyaches, history of multiple surgery. Sepsis. COMPARISON STUDY: 09/25/2016 TECHNIQUE: Following the IV administration of 94 mL of Optiray-320, CT scan of the abdomen and pelvis was performed from the lung bases to the proximal femurs. Images are reviewed in the axial, sagittal, and coronal planes. IV contrast was administered without complication. A dose lowering technique was utilized adhering to the principles of ALARA. CT DOSE: 292.52 mGy.cm FINDINGS: Lower chest: There are mild dependent atelectatic changes Liver: There is mild periportal edema, finding which may be secondary to aggressive hydration. There are no focal hepatic masses. Gallbladder: There is a gallstone present. There is pericholecystic fluid/ascites. Spleen: The spleen is enlarged measuring 13.2 cm. Pancreas: Unremarkable. Adrenal glands: Unremarkable. Kidneys: There is symmetric renal cortical enhancement. The kidneys are normal in size without hydronephrosis. Bowel: Postsurgical changes are present within the bowel. Anterior ostomies are visualized. There are no transition zones to indicate a bowel obstruction. The patient appears be status post resection of a significant portion of small bowel. There is a gastrostomy tube present. Peritoneum: There is increasing ascites which is of low to moderate volume. Vasculature: The abdominal aorta is normal in course and caliber. Adenopathy: None. Pelvic viscera: The bladder, and pelvic viscera are unremarkable. Skeletal structures: No destructive osseous lesions are seen. There is generalized body wall edema. IMPRESSION: 1. No evidence of bowel obstruction. No evidence of free air 2. Postsurgical changes involving the stomach and partial small bowel resection 3. Postsurgical changes involving the anterior abdominal wall presumably indicative of current or remote ostomies. 4. Cholelithiasis 5. Generalized body wall edema 6. Increasing ascites. Electronically signed by: Eugene Luna M.D. 11/14/2016 2:14 PM Dictated Date/Time: 11/14/2016 2:06 PM CHEST 2 VIEWS ROUTINE CLINICAL HISTORY: fever BODY ACHES, COUGH. COMPARISON STUDY: 09/25/2016 FINDINGS: The cardiac and mediastinal contours are normal. There is no evidence of focal pulmonary consolidation. There is no evidence of failure. No pleural effusions are visualized.[The left-sided dual-lumen central venous catheter remains unchanged in position. IMPRESSION: No active disease in the chest. Electronically signed by: Eugene Luna M.D. 11/14/2016 1:07 PM Dictated Date/Time: 11/14/2016 1:06 PM Laboratory Results 11/14/16 12:30 Red Blood Count 2.67, Mean Corpuscular Volume 82.0, Mean Corpuscular Hemoglobin 27.3, Mean Corpuscular Hemoglobin Concent 33.3, Neutrophils (%) (Auto) 76.8, Lymphocytes (%) (Auto) 17.8, Monocytes (%) (Auto) 4.6, Eosinophils (%) (Auto) 0.0, Basophils (%) (Auto) 0.4, Neutrophils # (Auto) 1.85, Lymphocytes # (Auto) 0.43, Monocytes # (Auto) 0.11, Eosinophils # (Auto) 0.00, Basophils # (Auto) 0.01 11/14/16 12:30 Test 11/14/16 11:17 11/14/16 12:30 Urine Color DK YELLOW Urine Appearance CLOUDY (CLEAR) Urine pH 5.5 (4.5-7.5) Urine Specific [place] 1.027 (1.000-1.030) Urine Protein 1+ (NEG) Urine Glucose (UA) NEG (NEG) Urine Ketones NEG (NEG) Urine Occult Blood 2+ (NEG) Urine Nitrite NEG (NEG) Urine Bilirubin 2+ (NEG) Urine Urobilinogen NEG (NEG) Urine Leukocyte Esterase SMALL (NEG) Urine WBC (Auto) 5-10 /hpf (0-5) Urine RBC (Auto) 5-10 /hpf (0-4) Urine Hyaline Casts (Auto) 5-10 /lpf (0-5) Urine Epithelial Cells (Auto) >30 /lpf (0-5) Urine Bacteria (Auto) NEG (NEG) Urine Pathogenic Casts 0-3 GRANULAR CASTS /lpf (0) Urine Yeast (Auto) (NONE PRSENT) White Blood Count 2.41 K/uL (4.8-10.8) Red Blood Count 2.67 M/uL (4.2-5.4) Hemoglobin 7.3 g/dL (12.0-16.0) Hematocrit 21.9 % (37-47) Mean Corpuscular Volume 82.0 fL (80-100) Mean Corpuscular Hemoglobin 27.3 pg (25-34) Mean Corpuscular Hemoglobin Concent 33.3 g/dl (32-36) Platelet Count 52 K/uL (130-400) Neutrophils (%) (Auto) 76.8 % Lymphocytes (%) (Auto) 17.8 % Monocytes (%) (Auto) 4.6 % Eosinophils (%) (Auto) 0.0 % Basophils (%) (Auto) 0.4 % Neutrophils # (Auto) 1.85 K/uL (1.4-6.5) Lymphocytes # (Auto) 0.43 K/uL (1.2-3.4) Monocytes # (Auto) 0.11 K/uL (0.11-0.59) Eosinophils # (Auto) 0.00 K/uL (0-0.5) Basophils # (Auto) 0.01 K/uL (0-0.2) RDW Standard Deviation 50.2 fL (36.4-46.3) RDW Coefficient of Variation 16.7 % (11.5-14.5) Immature Granulocyte % (Auto) 0.4 % Immature Granulocyte # (Auto) 0.01 K/uL (0.00-0.02) Toxic Vacuolation 1+ Dohle Bodies 1+ Platelet Estimate DECREASED Giant Platelets 3+ Poikilocytosis PRESENT Prothrombin Time 13.0 SECONDS (9.0-12.0) Prothromb Time International Ratio 1.2 (0.9-1.1) Activated Partial Thromboplast Time 37.0 SECONDS (21.0-31.0) Partial Thromboplastin Ratio 1.4 Anion Gap 9.0 mmol/L (3-11) Est Creatinine Clear Calc Drug Dose 115.4 ml/min Estimated GFR () 143.8 Estimated GFR (Non- 124.0 BUN/Creatinine Ratio 31.5 (10-20) Calcium Level 7.9 mg/dl (8.5-10.1) Total Bilirubin 2.0 mg/dl (0.2-1) Direct Bilirubin 1.6 mg/dl (0-0.2) Aspartate Amino Transf (AST/SGOT) 43 U/L (15-37) Alanine Aminotransferase (ALT/SGPT) 48 U/L (12-78) Alkaline Phosphatase 225 U/L (45-117) Total Protein 6.0 gm/dl (6.4-8.2) Albumin 2.2 gm/dl (3.4-5.0) Lipase 365 U/L (73-393) Medications Administered Medications (Trade) Dose Ordered Sig/Faith Route Start Time Stop Time Status Last Admin Dose Admin Acetaminophen (Tylenol Tab) 1,000 mg NOW STAT PO 11/14/16 12:09 11/14/16 12:12 DC 11/14/16 12:38 1,000 MG ED Course The patient was evaluated. I had the nurse recheck her temperature since I did not feel that the triage temperature was correct. Her temperature was 39.1. The patient's EMR medication list were reviewed. The patient was given Tylenol 1 g by mouth for fever. IV access was obtained. CBC and differential, renal profile, LFTs and lipase levels were ordered. Blood cultures 2 were ordered. Urinalysis was ordered. Urinalysis did not reveal reveal any bacteria but there was some blood as well as evidence of dehydration. Culture is pending. Chest x-ray was ordered interpreted by the radiologist as above without any acute findings Abdominal CT was ordered and interpreted by the radiologist as above no significant change from prior CT of 09/25 except for some increased ascites. No abscess collection noted. Labs are reviewed and she was pancytopenic. Her hemoglobin was also low at 7.3. It is also of note from labs that were drawn earlier today that her phosphate was only 0.9.. I contacted Dr. Chin, surgery at [facility] to discuss this patient. He stated that there was no reason that she needed to be transferred. He stated the only reason she was transferred in September was because she was only a few months out postsurgically. He stated that most likely her infection is coming from her port again which was infected the last time. I contacted Dr. Paz who wanted me to contact surgery to make sure that there was someone in- house that was able to change a line. Dr. Andrews was consulted and stated that Dr. Genao should have the line pulled and then consult him tomorrow for new line placement. I then spoke with Dr. Soliz who agreed to admit the patient. Medical Decision The patient has a history of multiple abdominal surgeries with recent sepsis. She presents today with fever. Diagnostic testing and labs to find out the etiology of the fever were performed. Due to the patient's multiple abdominal surgeries I consulted her surgeon at [place] to make sure that she did not need transferred. He stated that most likely the infection was coming from her port and that transfer was not necessary but he would be willing if our hospitalist would not admit the patient. I did not find any other source of infection. [place] Drug Monitoring Program Search Results: patient reviewed within database Medication Reconcilliation Current Medication List: was personally reviewed by me Blood Pressure Screening Patient's blood pressure: Normal blood pressure Impression Primary Impression: Fever and chills Additional Impressions: Anemia Pancytopenia Low serum phosphorus for age Departure Information Dispostion Being Evaluated By Hospitalist Condition FAIR (the initial) Referrals Talia Altamirano M.D. (PCP) Patient Instructions My [facility] Problem Qualifiers Additional Impressions: Anemia Anemia type: unspecified type Qualified Codes: D64.9 - Anemia, unspecified
[2016-11-14] MEDS ORDERED: CONSULT PHARMACY STA (16:09)
[2016-11-14] MEDS ORDERED: ONDANSETRON INJ 2 MG/ML 2 ML VIAL IV PRN (16:15)
[2016-11-14] MEDS ORDERED: MAGNESIUM HYDROXIDE SUSP 30 ML UDC PO PRN (16:15)
[2016-11-14] MEDS ORDERED: ZOLPIDEM TARTRATE 5 MG TAB PO PRN (16:15)
[2016-11-14] MEDS ORDERED: POLYETHYLENE (MIRALAX) 17 GM PACK PO PRN (16:15)
[2016-11-14] MEDS ORDERED: ALUMINUM/MAGNESIUM/SIMETH (MAALOX MAX) 30 ML UDC PO PRN (16:15)
[2016-11-14] MEDS ORDERED: TPN/PPN CONSULT PHARMACY STA (16:18)
[2016-11-14] MEDS ORDERED: POTASSIUM PHOS 3 MMOL/1 ML INFUSION IV STA (16:21)
[2016-11-14] MEDS ORDERED: PANTOprazole INJ 40 MG in SYRINGE 0 ML IV ONE (16:50)
--- NOTE | 2016-11-14 16:51 | History and Physical ---
History & Physical Date of Service Nov 14, 2016. History & Physical sepsis pancytopeniapossible peg abd area [id number]
[2016-11-14] MEDS ORDERED: AZTREONAM CONSULT ACTIVE PRN ×2 (18:00)
[2016-11-14] MEDS ORDERED: POTASSIUM PHOSPHATE INJ 40 MMOL in SODIUM CHLORIDE 0.9% 1000ML 1,000 ML IV SCH (18:00)
[2016-11-14] MEDS ORDERED: AZTREONAM IV 2,000 MG in DEXTROSE 5% 100ML 100 ML IV SCH (18:00)
[2016-11-14 18:27] LABS: TOTAL IRON BINDING CAPACITY 173 mcg/dl (250-450)
[2016-11-14 19:29] VITALS: BP 101/39; PULSE 101; TEMP 39.1; O2SAT 96; Ht 160 cm; Wt 72.1 kg
[2016-11-14] MEDS: ACETAMINOPHEN 325 MG TAB PO PRN (19:36)
--- NOTE | 2016-11-14 19:43 | HISTORY & PHYSICAL EXAMINATION ---
DATE OF ADMISSION: 11/14/2016 This is a level 3 inpatient admission, 45 minutes. CHIEF COMPLAINT: Fever, muscle ache and PEG tube area abdominal pain. HISTORY OF PRESENT ILLNESS: The patient is a 26-year-old white female with a significant past medical history of depression, femoral shaft closed fracture, GI ulceration, opiate abuse, had gastric bypass in 2003 and then again 2006. She came in to the hospital Emergency Department because of the above chief complaint. The information was obtained from the discussion with the ED physician, and patient herself, and mother at the bedside as well. Complained of fever up to 104 at home associated with muscle ache, sinus congestion, and headache. She reports to have frontal sinus pressure like sensation for 5 days associated with fever. Like I mentioned, temperature was 104 this morning. She took Tylenol. The body ache was a diffuse body ache. The patient was seen in this hospital ED in September, was diagnosed as sepsis and was transferred to [facility], where she had a surgeon Dr. Chin there. Today in the Emergency Room, the patient was found to have obvious fever, highest temperature was 39.4. She was having the PEG tube area pain in the abdomen. She was found to have pancytopenia as well. I was asked to see the patient for the admission. The patient has significant medical history of abdominal surgery. Gastric bypass 2 times. She currently has ileostomy, has some production of stools. She is having double-lumen central line in the left chest wall from that she is getting IV fluid and TPN. She was having PEG tube placed in September for as needed possible nutrition support, never been used. The patient denies anywhere new open wounds in the body. But there was some skin red/wound in the abdominal wall below the ileostomy bag. Currently, the patient denies nausea, vomiting, abdominal pain, diarrhea, or constipation. Denied chest pain, palpitation, lower extremity swelling. Denied cough, sputum, shortness of breath. Denied diarrhea or constipation. Denied dysuria, urgency and frequencies. Denied facial droop, slurry speeches or local weakness. No obvious skin rashes. PAST MEDICAL HISTORY: Like I mentioned in the above, which include, depression, femur shaft closed fracture, GI ulceration, nausea, opiate abuse, PEG tube placement, ileostomy. Gastric bypass in 2003 and 2016. She has a right anterior chest port removed. In last admission had a left double-lumen central line placed since September in [facility]. FAMILY HISTORY: Noncontributory. SOCIAL HISTORY: The patient currently smokes 1 pack per day. Denied alcohol abuse disorder. History of opiate abuse, currently is on methadone. CURRENT MEDICATIONS: Include: 1. Calcium carbonate and vitamin D one tab p.o. daily. 2. Vitamin D3 unknown dose. 3. Celexa 40 mg p.o. daily. 4. Vitamin B12 500 mcg p.o. daily. 5. Imodium 4 mg p.o. t.i.d. 6. Methadone 103 mg p.o. daily. 7. Prilosec 40 mg p.o. daily. 8. Sodium chloride 0.9% in 500 mL daily and TPN infusions. 9. As needed medications include, Tylenol 500 mg q. 4 hours p.r.n. for the pain. PHYSICAL EXAMINATION: VITAL SIGNS: Temperature 39.1, pulse highest was 101. Respiratory rate 22, blood pressure lowest was 90/52, currently is 106/68. Pulse ox was 100% on room air. GENERAL: The patient is a white female, looks much older than her age is, chronically ill looking, very frail and thin. Conversational, follows all commands. HEAD: Normocephalic. EYES: Pupils equal, round, responds to light. EARS: Ear was normal. NOSE: Normal. NECK: Supple. Thyroid no enlargement. Trachea midline. HEART: Regular rhythm. Mild tachycardia. S1, S2, has no murmur. LUNGS: Decreased breathing sounds. There was no wheezing, rhonchi or crackles. Left chest wall has double-lumen central line. Right chest wall has scars of the med port removal. There was no local tenderness in these 2 areas. ABDOMEN: Left lower abdomen PEG tube area has obvious tenderness. She also reported to have yellow drainages from the area. Ileostomy bag has clear yellow liquid in there. There was some open skin below the ileostomy bag, seems it is not new. There was no obvious drainage, nontender. Bilateral CVA was nontender. EXTREMITIES: Bilateral lower extremities: No swelling. Homans sign was negative. Calf was nontender. NEUROLOGICAL: Cranial nerves II-XII was intact. There was no local deficit. IMAGING STUDIES: In the Emergency Room, CT of abdomen with IV contrast was done. There were gallstones present in the gallbladder. There is pericholecystic fluid and ascites. Pancreas was unremarkable. There were anterior ostomies visualized and there is a gastrostomy tube present. In the peritoneum, there was increased ascites. It was low to moderate in volume. Chest x-ray has no acute disease. LABORATORY DATA: WBC 2.4, hemoglobin 7.3, platelet 52. Sodium 136, potassium 3.6, chloride 111, BUN 19, creatinine 0.6, blood glucose 117. In the Emergency Room, ED physician talked to [facility] surgeon, Dr. Chin. He does not feel the need to be transferred to [facility]. ED physician's communication with rock mason apprentice surgeon, he is happy to see the patient. ASSESSMENT AND PLAN: A 26-year-old white female with the problems below: 1. Spiking fever and pancytopenia with abdominal PEG area tenderness and double-lumen central line in place and ileostomy bag. 2. The source of sepsis is unknown for now, possible from PEG tube area infections, because it is obvious tenderness in the physical exam. So far, there was no evidence of double-lumen central line area infections because local looks good. No tenderness. 3. Pancytopenia, etiology unknown, which is definitely new. 4. Mild elevated total bili levels. 5. Significant history of gastric bypass x2, currently on TPN nutrition support. 6. Ileostomy bag. 7. PEG tube placement history. 8. Possible malnutrition. 9. History of tobacco abuse. 10. Possible history of opiate abuse, on methadone. ASSESSMENT AND PLAN: Because of the above patient's conditions, possible sepsis, I will have tele admission, continue IV fluid. Blood culture, urine culture has been sent in the Emergency Room. We will continue IV fluid. We will start broad-spectrum antibiotic coverage which include, Azactam and vancomycin. I will have infectious disease consultation. The patient's source of infection is unknown. Per physical exam, possible PEG tube area is infected. I have requested surgeon to see. Request infectious disease to be on board as well. The patient has TPN at home, we will consult pharmacist. I feel she should be okay to continue to use double-lumen central line for now. We will have wound care consultation to care upon some tiny open wounds below the ileostomy bag areas. The patient has significant new anemia. Etiology unknown. We will check H&H in midnight and tomorrow morning. Check anemia panel which include vitamin B12 and folic acid and iron panels and stool hemoccult studies. DVT prophylaxis will be SCD only. GI prophylaxis will be Protonix. We will have flu swab because she was having spiking fever. I discussed with patient and family and answered all their questions. TROY
[2016-11-14] MEDS ORDERED: VANCOMYCIN CONSULT ACTIVE PRN (19:56)
[2016-11-14 19:58] VITALS: BP 112/62; PULSE 97; TEMP 39.4; O2SAT 99
[2016-11-14 20:00] VITALS: O2SAT 95
[2016-11-14] MEDS ORDERED: VANCOMYCIN INJ 1,500 MG in SODIUM CHLORIDE 0.9% 500ML 500 ML IV SCH (20:00)
[2016-11-14] MEDS: NSS + 20MEQ KCL 1000ML 1,000 ML IV SCH (20:03)
[2016-11-14] MEDS: NICOTINE 14 MG/24 HR TDSY TD SCH (20:03)
[2016-11-14] MEDS ORDERED: MoRPHine SULFATE 2 MG/ML CARP ONE (20:28)
[2016-11-14 20:30] LABS: BUN/CREATININE RATIO 26.8 (10-20); CALCIUM 7.3 mg/dl (8.5-10.1); CREATININE 0.68 mg/dl (0.60-1.20); POTASSIUM 3.7 mmol/L (3.5-5.1)
[2016-11-14] MEDS ORDERED: NURSING VERBAL MED ORDER ONE (20:30)
[2016-11-14] MEDS: MoRPHine SULFATE 2 MG/ML CARP IV PRN (20:30)
--- NOTE | 2016-11-14 20:47 | Pharmacy Progress Note ---
Pharmacy Antibiotic Consult Date of Service: Nov 14, 2016. Pharmacy Dosing Scope Pharmacy is consulted to initiate vancomycin and Azactam IV dosing therapy, order appropriate labs and adjust drug dose/frequency. Subjective The patient is a 26 year old female admitted on Nov 14, 2016 at 16:18 with sepsis, possible source: infected A-port, possible PEG/abdominal area infection. Objective Height (Feet): 5 Height (Inches): 3.00 Weight (Kilograms): 58.000 Lab Results (24hrs): Test 11/14/16 11:17 11/14/16 12:30 11/14/16 19:44 Urine Color DK YELLOW Urine Appearance CLOUDY (CLEAR) Urine pH 5.5 (4.5-7.5) Urine Specific [place] 1.027 (1.000-1.030) Urine Protein 1+ (NEG) Urine Glucose (UA) NEG (NEG) Urine Ketones NEG (NEG) Urine Occult Blood 2+ (NEG) Urine Nitrite NEG (NEG) Urine Bilirubin 2+ (NEG) Urine Urobilinogen NEG (NEG) Urine Leukocyte Esterase SMALL (NEG) Urine WBC (Auto) 5-10 /hpf (0-5) Urine RBC (Auto) 5-10 /hpf (0-4) Urine Hyaline Casts (Auto) 5-10 /lpf (0-5) Urine Epithelial Cells (Auto) >30 /lpf (0-5) Urine Bacteria (Auto) NEG (NEG) Urine Pathogenic Casts 0-3 GRANULAR CASTS /lpf (0) Urine Yeast (Auto) (NONE PRSENT) White Blood Count 2.41 K/uL (4.8-10.8) Red Blood Count 2.67 M/uL (4.2-5.4) Hemoglobin 7.3 g/dL (12.0-16.0) Hematocrit 21.9 % (37-47) Mean Corpuscular Volume 82.0 fL (80-100) Mean Corpuscular Hemoglobin 27.3 pg (25-34) Mean Corpuscular Hemoglobin Concent 33.3 g/dl (32-36) Platelet Count 52 K/uL (130-400) Neutrophils (%) (Auto) 76.8 % Lymphocytes (%) (Auto) 17.8 % Monocytes (%) (Auto) 4.6 % Eosinophils (%) (Auto) 0.0 % Basophils (%) (Auto) 0.4 % Neutrophils # (Auto) 1.85 K/uL (1.4-6.5) Lymphocytes # (Auto) 0.43 K/uL (1.2-3.4) Monocytes # (Auto) 0.11 K/uL (0.11-0.59) Eosinophils # (Auto) 0.00 K/uL (0-0.5) Basophils # (Auto) 0.01 K/uL (0-0.2) RDW Standard Deviation 50.2 fL (36.4-46.3) RDW Coefficient of Variation 16.7 % (11.5-14.5) Immature Granulocyte % (Auto) 0.4 % Immature Granulocyte # (Auto) 0.01 K/uL (0.00-0.02) Toxic Vacuolation 1+ Dohle Bodies 1+ Platelet Estimate DECREASED Giant Platelets 3+ Poikilocytosis PRESENT Prothrombin Time 13.0 SECONDS (9.0-12.0) Prothromb Time International Ratio 1.2 (0.9-1.1) Activated Partial Thromboplast Time 37.0 SECONDS (21.0-31.0) Partial Thromboplastin Ratio 1.4 Sodium Level 136 mmol/L (136-145) 133 mmol/L (136-145) Potassium Level 3.6 mmol/L (3.5-5.1) 3.7 mmol/L (3.5-5.1) Chloride Level 111 mmol/L (98-107) 109 mmol/L (98-107) Carbon Dioxide Level 16 mmol/L (21-32) 19 mmol/L (21-32) Anion Gap 9.0 mmol/L (3-11) 5.0 mmol/L (3-11) Blood Urea Nitrogen 19 mg/dl (7-18) 18 mg/dl (7-18) Creatinine 0.60 mg/dl (0.60-1.20) 0.68 mg/dl (0.60-1.20) Est Creatinine Clear Calc Drug Dose 115.4 ml/min 101.9 ml/min Estimated GFR () 143.8 138.0 Estimated GFR (Non- 124.0 119.0 BUN/Creatinine Ratio 31.5 (10-20) 26.8 (10-20) Random Glucose 117 mg/dl (70-99) 89 mg/dl (70-99) Calcium Level 7.9 mg/dl (8.5-10.1) 7.3 mg/dl (8.5-10.1) Iron Level 8 mcg/dl (35-150) Total Iron Binding Capacity 173 mcg/dl (250-450) Total Bilirubin 2.0 mg/dl (0.2-1) Direct Bilirubin 1.6 mg/dl (0-0.2) Aspartate Amino Transf (AST/SGOT) 43 U/L (15-37) Alanine Aminotransferase (ALT/SGPT) 48 U/L (12-78) Alkaline Phosphatase 225 U/L (45-117) Total Protein 6.0 gm/dl (6.4-8.2) Albumin 2.2 gm/dl (3.4-5.0) Lipase 365 U/L (73-393) Lactic Acid Level 1.0 mmol/L (0.4-2.0) Vitamin B12 Level 482 pg/mL (211-911) Folate > 24.00 ng/mL (>5.38) Micro Results: BC's and urine cx pending Assessment & Plan Vancomycin and Azactam are ordered for sepsis, possible source: infected A-port , possible PEG/abdominal area infection. Pt with hx of gastric bypass in 2003 and again in 2006. A-port line is to be removed this evening and replaced tomorrow. Pharmacy is consulted for TPN to be started tomorrow. Vancomycin Loading dose: 1500 mg IV X 1 dose (25.8mg/kg) then: 750 mg IV every 8 hours (~13mg/kg). Goal trough level estimate: between 15 - 20 mcg/mL. Peak and trough or random level has been ordered for: 11/15 prior to 2000 dose. Azactam 2gm IV q 8 hrs, no dose adjustment for CrCl > 100ml/min. Pharmacy will continue to follow and will adjust dose/frequency as necessary. Thank you
--- NOTE | 2016-11-14 21:22 | Pre-Operative Consultation ---
History General Date of Service: Nov 14, 2016. HPI HPI: The patient is a 26 year old female being seen for possible infected PEG tube. She was admitted with fever, body aches, sinus congestion and headache. She has had subjective fevers and diffuse body aches. The patient has had multiple abdominal surgeries as a result of gastric bypass performed in 2003 and then again in 2006. She currently has a PEG tube in place and states that she has pain and drainage from the tube. She also has stabbing pains around her abdominal incision. She also has a ileostomy bag. The patient was seen here in September and was diagnosed with sepsis and was found to have an infected port. She does not have pain from the port. Historian: patient Procedure Urgency: Acute Risk Assessment Daily beta kay use?: No Problem List Medical Problems: (1) Abnormal computed tomography of gallbladder Status: Acute (2) Anemia Status: Acute (3) Fever and chills Status: Acute (4) Free fluid in pelvis Status: Acute (5) Low serum phosphorus for age Status: Acute (6) Pancytopenia Status: Acute (7) Post op infection Status: Acute (8) Sepsis Status: Acute Medical & Surgical History Past Medical History: anxiety, depression, fibromyalgia, other Past Surgical History: gastric bypass, ileostomy, orthopedic surgery, wisdom teeth, other (PEG) Family History Family History: cancer, diabetes, heart disease, lung disease Social History Smoking Status: Current Every Day Smoker Alcohol: none Marital status: single Housing status: lives with family Occupation status: employed Immunizations Have You Had Influenza Vaccine: No Date Of Influenza Vaccine: Nov 05, 2007 Have You Had Tetanus Vaccine: Unknown History of Pneumococcal: No History Hepatitis B Vaccine: Yes but date is unknown by patient Date Of Hepatitis Immunization: Feb 06, 2005 Allergies Allergies: Coded Allergies: Adhesives (Verified Allergy, Mild, ERRYTHEMA, 11/14/16) Eucalyptus Oil (Verified Allergy, Mild, hives, 11/14/16) Medications Current Inpatient Medications Current Inpatient Medications Medications (Trade) Dose Ordered Sig/Faith Route Start Time Stop Time Status Last Admin Dose Admin Ioversol (Optiray 320) 100 ml UD PRN IV 11/14/16 13:45 11/18/16 13:44 Potassium Chloride/Sodium Chloride 1,000 ml @ 150 mls/hr Q6H40M IV 11/14/16 19:30 12/14/16 19:29 11/14/16 20:03 150 MLS/HR Acetaminophen (Tylenol Tab) 650 mg Q4H PRN PO 11/14/16 16:15 12/14/16 16:14 11/14/16 19:36 650 MG Al Hydrox/Mg Hydrox/Simethicone (Maalox Max Susp) 15 ml Q4H PRN PO 11/14/16 16:15 12/14/16 16:14 Magnesium Hydroxide (Milk Of Magnesia Susp) 30 ml Q12H PRN PO 11/14/16 16:15 12/14/16 16:14 Zolpidem Tartrate (Ambien Tab) 5 mg HSZ PRN PO 11/14/16 16:15 12/14/16 16:14 Ondansetron HCl (Zofran Inj) 4 mg Q6H PRN IV 11/14/16 16:15 12/14/16 16:14 Polyethylene (Miralax Powder Packet) 17 gm DAILY PRN PO 11/14/16 16:15 12/14/16 16:14 Vancomycin HCl (Consult) 1 ea UD PRN N/A 11/14/16 19:56 12/14/16 19:55 Aztreonam 2000 mg/ Dextrose 110 ml @ 100 mls/hr Q8H IV 11/15/16 02:00 11/21/16 01:59 Citalopram Hydrobromide (celeXA TAB) 40 mg DAILY PO 11/15/16 09:00 12/15/16 08:59 Cyanocobalamin (Vitamin B-12 Tab) 500 mcg DAILY PO 11/15/16 09:00 12/15/16 08:59 Methadone HCl (Methadone HCl) 103 mg DAILY PO 11/15/16 09:00 12/15/16 08:59 Pantoprazole Sodium 40 mg/ Syringe 10 ml @ 5 mls/min DAILY@ IV 11/15/16 09:00 12/15/16 08:59 Nicotine (Nicoderm Cq 14MG Patch) 1 patch QAM TD 11/15/16 09:00 12/15/16 08:59 11/14/16 20:03 1 PATCH Miscellaneous (Remove Nicoderm Patch) 1 ea HS N/A 11/14/16 21:00 12/14/16 20:59 Aztreonam (Consult) 1 ea UD PRN N/A 11/14/16 18:00 12/14/16 17:59 Potassium Phosphate 40 mmol/ Sodium Chloride 1,013.3333 ml @ 145 mls/hr TODAY@1800 IV 11/14/16 18:00 11/15/16 01:00 11/14/16 19:36 145 MLS/HR Miscellaneous Information (Pharmacy Tpn/ Ppn Consult Active) 1 UD PRN N/A 11/15/16 16:00 12/15/16 15:59 Vancomycin HCl 1500 mg/Sodium Chloride 530 ml @ 200 mls/hr TODAY@2000 IV 11/14/16 20:00 11/14/16 22:38 11/14/16 20:17 200 MLS/HR Morphine Sulfate (MoRPHine SULFATE INJ) 2 mg Q2H PRN IV 11/14/16 20:30 11/28/16 20:29 11/14/16 20:30 2 MG Vancomycin HCl 750 mg/Sodium Chloride 265 ml @ 125 mls/hr Q8H IV 11/15/16 04:00 11/25/16 03:59 Review of Systems Review of Systems Constitutional: denies chills, fever, malaise Eyes: reports: no symptoms ENT: reports: no symptoms reported Cardiovascular: denies: chest pain, chest tightness, chest pressure, palpitations Respiratory: denies: cough, short of breath, stridor Gastrointestinal: abdominal pain, nausea, denies vomiting Genitourinary - Female: reports: no symptoms Musculoskeletal: joint pain, joint swelling Integumentary: change in hair/nails, dryness, lumps, rash Neurologic: reports: no symptoms Psychiatric: reports: no symptoms Endocrine: no symptoms Hematologic / Lymphatic: denies: anemia, easy bleeding Allergic / Immunologic: no symptoms Physical Exam Physical Exam General Appearance: + WD/WN, No distress Ears, Nose, Throat: + normal ENT inspection Neck: No tracheal deviation, No lymphadenophy, No stiffness, No tenderness Respiratory: + other (port OK), No decreased breath sounds, No rhonchi, No stridor, No wheezing Cardiovascular: No tachycardia, No gallop/S3, No diastolic murmur, No gallop/S4 , No bradycardia, No systolic murmur Abdomen: + tenderness, + other (PEG site OK; expected granulation and reactive erythema), No abnormal bowel sounds, No distension, No hernia Extremities: No deformity, No swelling, No calf tenderness, No inflammation Neurologic/Psychiatric: No motor deficit/weakness, No disorientation, No sensory deficit Skin Characteristics: No abnormal color, No diaphoresis, No pallor, No jaundice , No rash Lymphatic: No abnormal adenopathy Diagnostics Labs Labs Results Past 24 Hours Test 11/14/16 11:17 11/14/16 12:30 11/14/16 19:44 Range/Units Urine Color DK YELLOW Urine Appearance CLOUDY CLEAR Urine pH 5.5 4.5-7.5 Urine Specific [place] 1.027 1.000-1.030 Urine Protein 1+ NEG Urine Glucose (UA) NEG NEG Urine Ketones NEG NEG Urine Occult Blood 2+ NEG Urine Nitrite NEG NEG Urine Bilirubin 2+ NEG Urine Urobilinogen NEG NEG Urine Leukocyte Esterase SMALL NEG Urine WBC (Auto) 5-10 0-5 /hpf Urine RBC (Auto) 5-10 0-4 /hpf Urine Hyaline Casts (Auto) 5-10 0-5 /lpf Urine Epithelial Cells (Auto) >30 0-5 /lpf Urine Bacteria (Auto) NEG NEG Urine Pathogenic Casts 0-3 GRANULAR CASTS 0 /lpf Urine Yeast (Auto) NONE PRSENT White Blood Count 2.41 4.8-10.8 K/uL Red Blood Count 2.67 4.2-5.4 M/uL Hemoglobin 7.3 12.0-16.0 g/dL Hematocrit 21.9 37-47 % Mean Corpuscular Volume 82.0 80-100 fL Mean Corpuscular Hemoglobin 27.3 25-34 pg Mean Corpuscular Hemoglobin Concent 33.3 32-36 g/dl Platelet Count 52 130-400 K/uL Neutrophils (%) (Auto) 76.8 % Lymphocytes (%) (Auto) 17.8 % Monocytes (%) (Auto) 4.6 % Eosinophils (%) (Auto) 0.0 % Basophils (%) (Auto) 0.4 % Neutrophils # (Auto) 1.85 1.4-6.5 K/uL Lymphocytes # (Auto) 0.43 1.2-3.4 K/uL Monocytes # (Auto) 0.11 0.11-0.59 K/uL Eosinophils # (Auto) 0.00 0-0.5 K/uL Basophils # (Auto) 0.01 0-0.2 K/uL RDW Standard Deviation 50.2 36.4-46.3 fL RDW Coefficient of Variation 16.7 11.5-14.5 % Immature Granulocyte % (Auto) 0.4 % Immature Granulocyte # (Auto) 0.01 0.00-0.02 K/uL Toxic Vacuolation 1+ Dohle Bodies 1+ Platelet Estimate DECREASED Giant Platelets 3+ Poikilocytosis PRESENT Prothrombin Time 13.0 9.0-12.0 SECONDS Prothromb Time International Ratio 1.2 0.9-1.1 Activated Partial Thromboplast Time 37.0 21.0-31.0 SECONDS Partial Thromboplastin Ratio 1.4 Sodium Level 136 133 136-145 mmol/L Potassium Level 3.6 3.7 3.5-5.1 mmol/L Chloride Level 111 109 98-107 mmol/L Carbon Dioxide Level 16 19 21-32 mmol/L Anion Gap 9.0 5.0 3-11 mmol/L Blood Urea Nitrogen 19 18 7-18 mg/dl Creatinine 0.60 0.68 0.60-1.20 mg/dl Est Creatinine Clear Calc Drug Dose 115.4 101.9 ml/min Estimated GFR () 143.8 138.0 Estimated GFR (Non- 124.0 119.0 BUN/Creatinine Ratio 31.5 26.8 10-20 Random Glucose 117 89 70-99 mg/dl Calcium Level 7.9 7.3 8.5-10.1 mg/dl Iron Level 8 35-150 mcg/dl Total Iron Binding Capacity 173 250-450 mcg/dl Total Bilirubin 2.0 0.2-1 mg/dl Direct Bilirubin 1.6 0-0.2 mg/dl Aspartate Amino Transf (AST/SGOT) 43 15-37 U/L Alanine Aminotransferase (ALT/SGPT) 48 12-78 U/L Alkaline Phosphatase 225 45-117 U/L Total Protein 6.0 6.4-8.2 gm/dl Albumin 2.2 3.4-5.0 gm/dl Lipase 365 73-393 U/L Lactic Acid Level 1.0 0.4-2.0 mmol/L Vitamin B12 Level 482 211-911 pg/mL Folate > 24.00 >5.38 ng/mL Microbiology Results 11/14/16 Blood Culture, Received Pending 11/14/16 Blood Culture, Received Pending 11/14/16 Urine Culture, Received Pending Diagnostic Radiology Diagnostic Radiology CT ABD/PELVIS IV CONTRAST ONLY CLINICAL HISTORY: Fever, bodyaches, history of multiple surgery. Sepsis. COMPARISON STUDY: 09/25/2016 TECHNIQUE: Following the IV administration of 94 mL of Optiray-320, CT scan of the abdomen and pelvis was performed from the lung bases to the proximal femurs. Images are reviewed in the axial, sagittal, and coronal planes. IV contrast was administered without complication. A dose lowering technique was utilized adhering to the principles of ALARA. CT DOSE: 292.52 mGy.cm FINDINGS: Lower chest: There are mild dependent atelectatic changes Liver: There is mild periportal edema, finding which may be secondary to aggressive hydration. There are no focal hepatic masses. Gallbladder: There is a gallstone present. There is pericholecystic fluid/ascites. Spleen: The spleen is enlarged measuring 13.2 cm. Pancreas: Unremarkable. Adrenal glands: Unremarkable. Kidneys: There is symmetric renal cortical enhancement. The kidneys are normal in size without hydronephrosis. Bowel: Postsurgical changes are present within the bowel. Anterior ostomies are visualized. There are no transition zones to indicate a bowel obstruction. The patient appears be status post resection of a significant portion of small bowel. There is a gastrostomy tube present. Peritoneum: There is increasing ascites which is of low to moderate volume. Vasculature: The abdominal aorta is normal in course and caliber. Adenopathy: None. Pelvic viscera: The bladder, and pelvic viscera are unremarkable. Skeletal structures: No destructive osseous lesions are seen. There is generalized body wall edema. IMPRESSION: 1. No evidence of bowel obstruction. No evidence of free air 2. Postsurgical changes involving the stomach and partial small bowel resection 3. Postsurgical changes involving the anterior abdominal wall presumably indicative of current or remote ostomies. 4. Cholelithiasis 5. Generalized body wall edema 6. Increasing ascites. Impression Assessment and Plan Assessment and Plan Fever and possible sepsis with an Aport and PEG -Aport site looks OK -PEG without infection; patient wishes this removed; would get Surgeons approval [place] and then remove per patient but not infected or compromised
[2016-11-14 22:17] VITALS: TEMP 38.1
[2016-11-14 23:10] VITALS: BP 82/30; PULSE 82; TEMP 38.7; O2SAT 99
[2016-11-14] MEDS ORDERED: SODIUM CHLORIDE 0.9% 1000ML 1,000 ML IV STA (23:36)
[2016-11-14] MEDS ORDERED: ALBUMIN HUMAN 25% 12.5 GM/50 ML VIAL IV STA (23:36)
[2016-11-14] MEDS ORDERED: PIPERACILLIN/TAZOBACTAM 3.375 GM/100ML D5W IV STA (23:42)
[2016-11-15] VITALS (29 sets, daily range): BP systolic 72–116; BP diastolic 32–58; PULSE 68–104; TEMP 36.5–39.5; O2SAT 88–100
[2016-11-15 00:19] LABS: BUN/CREATININE RATIO 29.4 (10-20); CALCIUM 6.6 mg/dl (8.5-10.1); CREATININE 0.58 mg/dl (0.60-1.20); POTASSIUM 4.2 mmol/L (3.5-5.1)
[2016-11-15 00:29] LABS: ALB/GLOB RATIO 0.6 (0.9-2)
--- NOTE | 2016-11-15 00:29 | Progress Note ---
Progress Note Date of Service Nov 15, 2016. Progress Note Called due to high fevers and possibly hypotension - pt admitted earlier with sepsis - suspected due to possible peritonitis owing to peg tube placement Pt was evaluated by surgery on admission for removal of PEG CT abdomen obtained: 1. No evidence of bowel obstruction. No evidence of free air 2. Postsurgical changes involving the stomach and partial small bowel resection 3. Postsurgical changes involving the anterior abdominal wall presumably indicative of current or remote ostomies. 4. Cholelithiasis 5. Generalized body wall edema 6. Increasing ascites. Also reported is pericholecystic fluid without direct mention of cholecystitis Initial labs reveal worsening anemia with a Hb 7.2 - repeat pending P: We will obtain an US and contact surgery following read to r/o acute kieran Pt provided with IVF - responded with increase in BP from low 80s to 100 systolic - however, she states that she normally runs in 80s. She is not tachycardic Will transfuse 1 U PRBC Currently on broad spectrum antibiotics which are needed for multiple potential sites of infection. Will follow when results available Discussed above with pt
[2016-11-15] MEDS ORDERED: PIPERACILL/TAZOBAC CONSULT ACTIVE PRN (00:30)
[2016-11-15] MEDS ORDERED: PIPERACILL/TAZOBAC IV 3.375 GM in DEXTROSE 5% 100ML IV ONE (00:30)
[2016-11-15 00:35] LABS: HEMATOCRIT 19.6 % (37-47); MEAN CELL VOLUME 82.4 fL (80-100); MEAN CORPUSCULAR HEMOGLOBIN 25.6 pg (25-34); MEAN CORPUSCULAR HGB CONC 31.1 g/dl (32-36); PLATELET COUNT 47 K/uL (130-400); RED BLOOD COUNT 2.38 M/uL (4.2-5.4); WHITE BLOOD COUNT 2.33 K/uL (4.8-10.8)
[2016-11-15 00:39] LABS: COMPLETE YES; DOHLE BODIES 1+; LARGE PLATELETS 1+; LYMPH % 28.8 %; LYMPH ABS # 0.67 K/uL (1.2-3.4); MONO % 5.6 %; NEUT % 65.6 %; PLT ESTIMATE DECREASED; VACUOLIZATION 1+
[2016-11-15] MEDS: MoRPHine SULFATE 2 MG/ML CARP IV PRN ×3 (01:42→19:29)
[2016-11-15] MEDS: ACETAMINOPHEN 325 MG TAB PO PRN (01:42)
[2016-11-15] MEDS ORDERED: AZTREONAM IV 2,000 MG in DEXTROSE 5% 100ML 100 ML IV SCH (02:00)
[2016-11-15] MEDS: NSS + 20MEQ KCL 1000ML 1,000 ML IV SCH ×4 (02:19→23:46)
[2016-11-15] MEDS ORDERED: ACETAMINOPHEN IV 650 MG in EMPTY BAG 0 ML IV PRN (03:15)
[2016-11-15] MEDS ORDERED: CIPROFLOXACIN 400MG / 200ML D5W IV STA (03:19)
[2016-11-15] MEDS: VANCOMYCIN INJ 750 MG in SODIUM CHLORIDE 0.9% 250ML 250 ML IV SCH ×3 (03:38→19:53)
[2016-11-15 04:55] LABS: PREG INTERNAL NEGATIVE QC NEG CLEAR BACKGROUND; PREG INTERNAL POSITIVE QC POS CONTROL LINE
[2016-11-15 05:20] LABS: BENZODIAZEPINE, URINE NEG (NEG); COCAINE,URINE NEG (NEG); PHENCYCLIDINE, URINE NEG (NEG)
[2016-11-15] MEDS: PIPERACILL/TAZOBAC IV 3.375 GM in DEXTROSE 5% 100ML IV SCH ×3 (06:25→22:37)
--- NOTE | 2016-11-15 07:18 | DIAGNOSTIC IMAGING REPORT ---
GALLBLADDER-ABD LIMITED CLINICAL HISTORY: 26 years-old Female presenting with ?acute cholecystitis ?CBD dilatation, fever, abdominal pain. TECHNIQUE: Real-time grayscale and limited color Doppler ultrasound imaging of the abdomen limited to the right upper quadrant was performed. COMPARISON: CT from 11/14/2016. FINDINGS: Pancreas: Visualized portions of the pancreatic head and body normal. Liver: An apparent complex septated fluid collection along the superior lateral aspect of the left hepatic lobe may correlate to the stomach, as no discrete collection was noted on the CT performed the previous day on 11/14/2016 at 2:21 PM. Normal echogenicity and echotexture. The liver measures 19.9 cm in maximal sagittal dimension. No sonographic evidence of hepatic mass. Main portal vein patent with normal directional flow. Biliary: No intrahepatic biliary ductal dilatation. Common bile duct measures up to 2 mm in diameter. Gallbladder: Gallstones noted at the gallbladder fundus with possible associated sludge. Variable degrees of gallbladder wall thickening in some regions. No hyperemia of the gallbladder wall. The gallbladder is elongated, measuring 13.6 cm, although the lumen does not appear significantly distended in transverse dimension. Sonographic Lan's sign negative. Right kidney: No hydronephrosis. Ascites: Small amount of perihepatic ascites. IMPRESSION: 1. Gallstones with equivocal findings for cholecystitis. If there is continuing clinical concern for this diagnosis, hepatobiliary nuclear medicine scan could be obtained. 2. Hepatomegaly, which could indicate parenchymal edema. Correlate with LFTs to exclude hepatitis. 3. Septated perihepatic ascites, peritonitis/peritoneal infection not excluded. Electronically signed by: James Lobo M.D. 11/15/2016 7:17 AM Dictated Date/Time: 11/15/2016 7:08 AM
[2016-11-15 08:03] LABS: MEAN CORPUSCULAR HGB CONC 32.5 g/dl (32-36)
[2016-11-15 08:27] LABS: BUN/CREATININE RATIO 23.2 (10-20); CALCIUM 6.9 mg/dl (8.5-10.1); CREATININE 0.6 mg/dl (0.60-1.20); MAGNESIUM 1.5 mg/dl (1.8-2.4); POTASSIUM 3.9 mmol/L (3.5-5.1)
[2016-11-15 08:28] LABS: PHOSPHORUS 2.2 mg/dl (2.5-4.9)
[2016-11-15 08:29] LABS: HEMATOCRIT 27.1 % (37-47); MEAN CELL VOLUME 83.9 fL (80-100); MEAN CORPUSCULAR HEMOGLOBIN 27.2 pg (25-34); RED BLOOD COUNT 3.23 M/uL (4.2-5.4); WHITE BLOOD COUNT 3.51 K/uL (4.8-10.8)
[2016-11-15 08:34] LABS: PREG INTERNAL NEGATIVE QC NEG CLEAR BACKGROUND; PREG INTERNAL POSITIVE QC POS CONTROL LINE
[2016-11-15 08:36] LABS: PLATELET COUNT 44 K/uL (130-400)
[2016-11-15 08:39] LABS: PLT ESTIMATE DECREASED
--- NOTE | 2016-11-15 08:51 | Surgery Progress Note ---
Surgery Progress Note Date of Service Nov 15, 2016. Subjective Post OP Day: HD 2 + complaints (pain around PEG better), + pain controlled Objective Vital Signs: Date Time Temp Pulse Resp B/P (MAP) Pulse Ox O2 Delivery O2 Flow Rate FiO2 11/15/16 08:27 100 Room Air 11/15/16 07:52 100 Room Air 11/15/16 07:51 100 Room Air 11/15/16 07:37 36.8 70 20 85/49 (61) 100 Room Air 11/15/16 06:00 36.5 70 24 84/50 95 11/15/16 05:47 36.7 68 16 85/47 95 11/15/16 05:22 36.5 71 19 84/43 96 11/15/16 05:01 37.6 75 19 87/46 96 11/15/16 04:50 36.9 75 16 83/44 95 11/15/16 04:30 37.8 78 16 82/38 95 11/15/16 04:22 84 16 86/40 95 11/15/16 04:00 37.3 11/15/16 04:00 95 Room Air 11/15/16 04:00 87 19 85/40 91 11/15/16 03:45 88 14 93/45 11/15/16 03:30 38.7 89 17 94/52 93 11/15/16 03:15 39.5 90 20 85/42 95 11/15/16 03:11 39.4 93 20 72/32 95 11/15/16 02:30 39.3 99 18 87/43 91 11/15/16 02:03 39.5 103 18 86/45 92 11/15/16 01:50 39.5 97 20 95/45 91 11/15/16 01:35 39.5 104 23 90/42 88 11/15/16 01:30 39.5 92 30 88/45 90 11/15/16 01:25 39.5 96 19 88/52 95 11/15/16 00:00 95 Room Air 11/14/16 23:10 38.7 82 16 82/30 (47) 99 Room Air 11/14/16 22:17 38.1 11/14/16 20:00 95 Room Air 11/14/16 19:58 39.4 97 18 112/62 (79) 99 Room Air 11/14/16 19:29 39.1 101 18 101/39 96 Room Air 11/14/16 18:07 109 20 92/61 Room Air 11/14/16 16:50 84 11/14/16 15:38 82 16 90/52 100 11/14/16 13:51 37.4 11/14/16 13:27 37.9 87 18 91/49 98 11/14/16 12:43 86 11/14/16 12:09 39.1 11/14/16 11:08 37.6 101 22 106/68 100 Room Air General Appearance: WD/WN, no apparent distress Head: normocephalic, atraumatic Neck: supple, trachea midline Respiratory/Chest: chest non-tender, lungs clear Cardiovascular: regular rate, rhythm, no gallop, no murmur Abdomen: normal bowel sounds, soft, + distended, + tenderness (minimal diffuse) , + pertinent finding (ileostomy) Incision(s): clean, dry, intact Extremities: non-tender, no pedal edema Laboratory Results: Results Past 24 Hours Test 11/14/16 11:17 11/14/16 12:30 11/14/16 19:44 11/14/16 23:47 Range/Units Urine Color DK YELLOW Urine Appearance CLOUDY CLEAR Urine pH 5.5 4.5-7.5 Urine Specific [place] 1.027 1.000-1.030 Urine Protein 1+ NEG Urine Glucose (UA) NEG NEG Urine Ketones NEG NEG Urine Occult Blood 2+ NEG Urine Nitrite NEG NEG Urine Bilirubin 2+ NEG Urine Urobilinogen NEG NEG Urine Leukocyte Esterase SMALL NEG Urine WBC (Auto) 5-10 0-5 /hpf Urine RBC (Auto) 5-10 0-4 /hpf Urine Hyaline Casts (Auto) 5-10 0-5 /lpf Urine Epithelial Cells (Auto) >30 0-5 /lpf Urine Bacteria (Auto) NEG NEG Urine Pathogenic Casts 0-3 GRANULAR CASTS 0 /lpf Urine Yeast (Auto) NONE PRSENT White Blood Count 2.41 2.33 4.8-10.8 K/uL Red Blood Count 2.67 2.38 4.2-5.4 M/uL Hemoglobin 7.3 6.1 12.0-16.0 g/dL Hematocrit 21.9 19.6 37-47 % Mean Corpuscular Volume 82.0 82.4 80-100 fL Mean Corpuscular Hemoglobin 27.3 25.6 25-34 pg Mean Corpuscular Hemoglobin Concent 33.3 31.1 32-36 g/dl Platelet Count 52 47 130-400 K/uL Neutrophils (%) (Auto) 76.8 65.6 % Lymphocytes (%) (Auto) 17.8 28.8 % Monocytes (%) (Auto) 4.6 5.6 % Eosinophils (%) (Auto) 0.0 0.0 % Basophils (%) (Auto) 0.4 0.0 % Neutrophils # (Auto) 1.85 1.53 1.4-6.5 K/uL Lymphocytes # (Auto) 0.43 0.67 1.2-3.4 K/uL Monocytes # (Auto) 0.11 0.13 0.11-0.59 K/uL Eosinophils # (Auto) 0.00 0.00 0-0.5 K/uL Basophils # (Auto) 0.01 0.00 0-0.2 K/uL RDW Standard Deviation 50.2 50.8 36.4-46.3 fL RDW Coefficient of Variation 16.7 17.0 11.5-14.5 % Immature Granulocyte % (Auto) 0.4 0.0 % Immature Granulocyte # (Auto) 0.01 0.00 0.00-0.02 K/uL Toxic Vacuolation 1+ 1+ Dohle Bodies 1+ 1+ Platelet Estimate DECREASED DECREASED Giant Platelets 3+ Poikilocytosis PRESENT Prothrombin Time 13.0 9.0-12.0 SECONDS Prothromb Time International Ratio 1.2 0.9-1.1 Activated Partial Thromboplast Time 37.0 21.0-31.0 SECONDS Partial Thromboplastin Ratio 1.4 Sodium Level 136 133 137 136-145 mmol/L Potassium Level 3.6 3.7 4.2 3.5-5.1 mmol/L Chloride Level 111 109 111 98-107 mmol/L Carbon Dioxide Level 16 19 18 21-32 mmol/L Anion Gap 9.0 5.0 8.0 3-11 mmol/L Blood Urea Nitrogen 19 18 17 7-18 mg/dl Creatinine 0.60 0.68 0.58 0.60-1.20 mg/dl Est Creatinine Clear Calc Drug Dose 115.4 101.9 119.4 ml/min Estimated GFR () 143.8 138.0 145.4 Estimated GFR (Non- 124.0 119.0 125.4 BUN/Creatinine Ratio 31.5 26.8 29.4 10-20 Random Glucose 117 89 76 70-99 mg/dl Calcium Level 7.9 7.3 6.6 8.5-10.1 mg/dl Iron Level 8 35-150 mcg/dl Total Iron Binding Capacity 173 250-450 mcg/dl Total Bilirubin 2.0 2.3 0.2-1 mg/dl Direct Bilirubin 1.6 0-0.2 mg/dl Aspartate Amino Transf (AST/SGOT) 43 39 15-37 U/L Alanine Aminotransferase (ALT/SGPT) 48 46 12-78 U/L Alkaline Phosphatase 225 199 45-117 U/L Total Protein 6.0 5.3 6.4-8.2 gm/dl Albumin 2.2 1.9 3.4-5.0 gm/dl Lipase 365 73-393 U/L Lactic Acid Level 1.0 0.6 0.4-2.0 mmol/L Vitamin B12 Level 482 211-911 pg/mL Folate > 24.00 >5.38 ng/mL Large Platelets 1+ Globulin 3.4 2.5-4.0 gm/dl Albumin/Globulin Ratio 0.6 0.9-2 Test 11/15/16 00:00 11/15/16 00:07 11/15/16 04:30 11/15/16 07:46 Range/Units Stool Occult Blood POSITIVE NEGATIVE Procalcitonin 0.55 0-0.5 ng/ml Random Cortisol 15.06 mcg/dl Urine Test NEG NEG Urine Opiates Screen POS NEG Urine Methadone, Qualitative POS NEG Urine Barbiturates NEG NEG Urine Phencyclidine (PCP) Level NEG NEG Ur Amphetamine/Methamphetamine NEG NEG MDMA (Ecstasy) Screen NEG NEG Urine Benzodiazepines Screen NEG NEG Urine Cocaine Metabolite NEG NEG Urine Marijuana (THC) NEG NEG White Blood Count 3.51 4.8-10.8 K/uL Red Blood Count 3.23 4.2-5.4 M/uL Hemoglobin 8.8 12.0-16.0 g/dL Hematocrit 27.1 37-47 % Mean Corpuscular Volume 83.9 80-100 fL Mean Corpuscular Hemoglobin 27.2 25-34 pg Mean Corpuscular Hemoglobin Concent 32.5 32-36 g/dl RDW Standard Deviation 50.8 36.4-46.3 fL RDW Coefficient of Variation 16.4 11.5-14.5 % Platelet Count 44 130-400 K/uL Platelet Estimate DECREASED Sodium Level 135 136-145 mmol/L Potassium Level 3.9 3.5-5.1 mmol/L Chloride Level 111 98-107 mmol/L Carbon Dioxide Level 16 21-32 mmol/L Anion Gap 8.0 3-11 mmol/L Blood Urea Nitrogen 14 7-18 mg/dl Creatinine 0.60 0.60-1.20 mg/dl Est Creatinine Clear Calc Drug Dose 115.4 ml/min Estimated GFR () 143.8 Estimated GFR (Non- 124.0 BUN/Creatinine Ratio 23.2 10-20 Random Glucose 71 70-99 mg/dl Lactic Acid Level 0.8 0.4-2.0 mmol/L Calcium Level 6.9 8.5-10.1 mg/dl Phosphorus Level 2.2 2.5-4.9 mg/dl Magnesium Level 1.5 1.8-2.4 mg/dl Human Chorionic Gonadotropin, Qual NEG NEG Microbiology Results 11/14/16 Blood Culture, Received Pending 11/14/16 Blood Culture, Received Pending 11/14/16 Urine Culture, Received Pending Assessment & Plan PEG tube fine -will remove if needed ?cholecystitis -would order HIDA if positive would send to [place] for percutaneous drainage or lap kieran
[2016-11-15] MEDS: PANTOprazole INJ 40 MG in SYRINGE 0 ML IV SCH ×2 (09:34→22:37)
[2016-11-15] MEDS: MAGNESIUM SULFATE 1GM / D5W 1 GM in PREMIXED IN D5W 100 ML IV SCH ×2 (09:48→11:15)
--- NOTE | 2016-11-15 10:37 | Medical Consult ---
Consultation Date of Consultation: Nov 15, 2016. Attending Physician: Santiago Kirk MD Reason for Consultation: Sepsis, pancytopenia, possible PEG site infection History of Present Illness 18-year-old female with complicated past medical history including gastric bypass surgery x2, admission in September for gram-negative sepsis treated at [facility], who was admitted to the hospital with 5 day history beginning with sinus headache then fever as high as 104 degrees, chills and sweats, weakness and fatigue. She noted pain and some erythema and drainage around her PEG site. she has been started empirically on combination of vancomycin and Zosyn. Blood cultures and urine cultures are pending. She has significant pancytopenia, and mildly elevated procalcitonin. Further workup including abdominal CT scan and ultrasound, read by me, show evidence of gallstones and biliary sludge, some evidence of mild wall thickening but no definitive cholecystitis. HIDA scan has been ordered. Temperature appears to have decreased over the last 12 hours. No other significant travel or exposure history. Past Medical/Surgical History Medical Problems: (1) Abnormal computed tomography of gallbladder Status: Acute (2) Anemia Status: Acute (3) Fever and chills Status: Acute (4) Free fluid in pelvis Status: Acute (5) Low serum phosphorus for age Status: Acute (6) Pancytopenia Status: Acute (7) Post op infection Status: Acute (8) Sepsis Status: Acute Medical Problems: (1) Depressive Disorder Nec (2) Fx Femur Shaft-Closed (3) Gastrojejunal Ulcer Nos (4) Nausea Alone (5) Opioid Abuse-Unspec (6) sepsis pancytopeniapossible peg abd area infection Family History No pertinent family history Social History Smoking Status: Current Every Day Smoker Marital Status: single Occupation Status: employed Allergies Coded Allergies: Adhesives (Verified Allergy, Mild, ERRYTHEMA, 11/14/16) Eucalyptus Oil (Verified Allergy, Mild, hives, 11/14/16) Current Inpatient Medications Current Inpatient Medications Medications (Trade) Dose Ordered Sig/Faith Route Start Time Stop Time Status Last Admin Dose Admin Ioversol (Optiray 320) 100 ml UD PRN IV 11/14/16 13:45 11/18/16 13:44 Potassium Chloride/Sodium Chloride 1,000 ml @ 150 mls/hr Q6H40M IV 11/14/16 19:30 12/14/16 19:29 11/15/16 09:34 150 MLS/HR Acetaminophen (Tylenol Tab) 650 mg Q4H PRN PO 11/14/16 16:15 12/14/16 16:14 11/15/16 01:42 650 MG Al Hydrox/Mg Hydrox/Simethicone (Maalox Max Susp) 15 ml Q4H PRN PO 11/14/16 16:15 12/14/16 16:14 Magnesium Hydroxide (Milk Of Magnesia Susp) 30 ml Q12H PRN PO 11/14/16 16:15 12/14/16 16:14 Zolpidem Tartrate (Ambien Tab) 5 mg HSZ PRN PO 11/14/16 16:15 12/14/16 16:14 Ondansetron HCl (Zofran Inj) 4 mg Q6H PRN IV 11/14/16 16:15 12/14/16 16:14 Polyethylene (Miralax Powder Packet) 17 gm DAILY PRN PO 11/14/16 16:15 12/14/16 16:14 Vancomycin HCl (Consult) 1 ea UD PRN N/A 11/14/16 19:56 12/14/16 19:55 Citalopram Hydrobromide (celeXA TAB) 40 mg DAILY PO 11/15/16 09:00 12/15/16 08:59 Cyanocobalamin (Vitamin B-12 Tab) 500 mcg DAILY PO 11/15/16 09:00 12/15/16 08:59 Methadone HCl (Methadone HCl) 103 mg DAILY PO 11/15/16 09:00 12/15/16 08:59 Pantoprazole Sodium 40 mg/ Syringe 10 ml @ 5 mls/min DAILY@ IV 11/15/16 09:00 12/15/16 08:59 11/15/16 09:34 5 MLS/MIN Nicotine (Nicoderm Cq 14MG Patch) 1 patch QAM TD 11/15/16 09:00 12/15/16 08:59 11/14/16 20:03 1 PATCH Miscellaneous (Remove Nicoderm Patch) 1 ea HS N/A 11/14/16 21:00 12/14/16 20:59 Miscellaneous Information (Pharmacy Tpn/ Ppn Consult Active) 1 ea UD PRN N/A 11/15/16 16:00 12/15/16 15:59 Morphine Sulfate (MoRPHine SULFATE INJ) 2 mg Q2H PRN IV 11/14/16 20:30 11/28/16 20:29 11/15/16 08:04 2 MG Vancomycin HCl 750 mg/Sodium Chloride 265 ml @ 125 mls/hr Q8H IV 11/15/16 04:00 11/25/16 03:59 11/15/16 03:38 125 MLS/HR Piperacillin Sod/ Tazobactam Sod 3.375 gm/Dextrose 115 ml @ 28.75 mls/ hr Q8H IV 11/15/16 06:00 11/25/16 05:59 11/15/16 06:25 28.75 MLS/HR Piperacillin Sod/ Tazobactam Sod (Consult) 1 ea UD PRN N/A 11/15/16 00:30 12/15/16 00:29 Acetaminophen 650 mg/Empty Bag 65 ml @ 260 mls/hr Q6H PRN IV 11/15/16 03:15 12/15/16 03:14 11/15/16 03:38 260 MLS/HR Ciprofloxacin/ Dextrose 400 mg/ Prmx 200 ml @ 100 mls/hr Q12H IV 11/15/16 16:00 11/25/16 15:59 Non-Formulary Medication (Patient'S Own Controlled Med) 1 ea DAILY XX 11/15/16 09:00 11/29/16 08:59 Magnesium Sulfate 1 gm/Prmx 100 ml @ 100 mls/hr Q1H IV 11/15/16 09:30 11/15/16 11:29 11/15/16 09:48 100 MLS/HR Review of Systems Constitutional: + fever, + chills, + sweats, + weakness Eyes: No problem reported ENT: No problem reported Respiratory: No problem reported Cardiovascular: No problem reported Abdomen: + pain, + nausea, + vomiting Musculoskeletal: + joint pain, + muscle pain Genitourinary - Female: No problem reported Neurologic: No problem reported Psychiatric: No problem reported Endocrine: No problem reported Hematologic / Lymphatic: No problem reported Integumentary: + new/changing skin lesions Allergic / Immunologic: No problem reported Physical Exam Date Time Temp Pulse Resp B/P (MAP) Pulse Ox O2 Delivery O2 Flow Rate FiO2 11/15/16 08:27 100 Room Air 11/15/16 08:00 Room Air 11/15/16 07:52 100 Room Air 11/15/16 07:51 100 Room Air 11/15/16 07:37 36.8 70 20 85/49 (61) 100 Room Air 11/15/16 06:00 36.5 70 24 84/50 95 11/15/16 05:47 36.7 68 16 85/47 95 11/15/16 05:22 36.5 71 19 84/43 96 11/15/16 05:01 37.6 75 19 87/46 96 11/15/16 04:50 36.9 75 16 83/44 95 11/15/16 04:30 37.8 78 16 82/38 95 11/15/16 04:22 84 16 86/40 95 11/15/16 04:00 37.3 11/15/16 04:00 95 Room Air 11/15/16 04:00 87 19 85/40 91 11/15/16 03:45 88 14 93/45 11/15/16 03:30 38.7 89 17 94/52 93 11/15/16 03:15 39.5 90 20 85/42 95 11/15/16 03:11 39.4 93 20 72/32 95 11/15/16 02:30 39.3 99 18 87/43 91 11/15/16 02:03 39.5 103 18 86/45 92 11/15/16 01:50 39.5 97 20 95/45 91 11/15/16 01:35 39.5 104 23 90/42 88 11/15/16 01:30 39.5 92 30 88/45 90 11/15/16 01:25 39.5 96 19 88/52 95 11/15/16 00:00 95 Room Air 11/14/16 23:10 38.7 82 16 82/30 (47) 99 Room Air 11/14/16 22:17 38.1 11/14/16 20:00 95 Room Air 11/14/16 19:58 39.4 97 18 112/62 (79) 99 Room Air 11/14/16 19:29 39.1 101 18 101/39 96 Room Air 11/14/16 18:07 109 20 92/61 Room Air 11/14/16 16:50 84 11/14/16 15:38 82 16 90/52 100 11/14/16 13:51 37.4 11/14/16 13:27 37.9 87 18 91/49 98 11/14/16 12:43 86 11/14/16 12:09 39.1 11/14/16 11:08 37.6 101 22 106/68 100 Room Air General Appearance: WD/WN, no apparent distress Head: normocephalic, atraumatic Eyes: normal inspection, sclerae normal ENT: normal ENT inspection, pharynx normal Neck: supple, no adenopathy, thyroid normal, trachea midline Respiratory/Chest: chest non-tender (.), lungs clear, normal breath sounds, no respiratory distress Cardiovascular: regular rate, rhythm, no gallop, no murmur (ED) Abdomen/GI: normal bowel sounds (The), soft, no organomegaly, + tenderness ( Well. Multiple.) Back: normal inspection, no CVA tenderness Extremities/Musculoskelatal: no calf tenderness, normal capillary refill, non- tender Neurologic/Psych: alert, oriented x 3 Skin: normal color, warm/dry, no rash Lymphatic: no adenopathy Laboratory Results Date/Time Source Procedure Growth Status 11/14/16 12:40 Blood Blood Culture Pending Received 11/14/16 12:40 Blood Blood Culture Pending Received 11/14/16 11:17 Urine , Clean Catch Urine Culture Pending Received Last 24 Hours Test 11/14/16 11:17 11/14/16 12:30 11/14/16 19:44 11/14/16 23:47 Urine Color DK YELLOW Urine Appearance CLOUDY Urine pH 5.5 Urine Specific [place] 1.027 Urine Protein 1+ Urine Glucose (UA) NEG Urine Ketones NEG Urine Occult Blood 2+ Urine Nitrite NEG Urine Bilirubin 2+ Urine Urobilinogen NEG Urine Leukocyte Esterase SMALL Urine WBC (Auto) 5-10 /hpf Urine RBC (Auto) 5-10 /hpf Urine Hyaline Casts (Auto) 5-10 /lpf Urine Epithelial Cells (Auto) >30 /lpf Urine Bacteria (Auto) NEG Urine Pathogenic Casts 0-3 GRANULAR CASTS /lpf Urine Yeast (Auto) White Blood Count 2.41 K/uL 2.33 K/uL Red Blood Count 2.67 M/uL 2.38 M/uL Hemoglobin 7.3 g/dL 6.1 g/dL Hematocrit 21.9 % 19.6 % Mean Corpuscular Volume 82.0 fL 82.4 fL Mean Corpuscular Hemoglobin 27.3 pg 25.6 pg Mean Corpuscular Hemoglobin Concent 33.3 g/dl 31.1 g/dl Platelet Count 52 K/uL 47 K/uL Neutrophils (%) (Auto) 76.8 % 65.6 % Lymphocytes (%) (Auto) 17.8 % 28.8 % Monocytes (%) (Auto) 4.6 % 5.6 % Eosinophils (%) (Auto) 0.0 % 0.0 % Basophils (%) (Auto) 0.4 % 0.0 % Neutrophils # (Auto) 1.85 K/uL 1.53 K/uL Lymphocytes # (Auto) 0.43 K/uL 0.67 K/uL Monocytes # (Auto) 0.11 K/uL 0.13 K/uL Eosinophils # (Auto) 0.00 K/uL 0.00 K/uL Basophils # (Auto) 0.01 K/uL 0.00 K/uL RDW Standard Deviation 50.2 fL 50.8 fL RDW Coefficient of Variation 16.7 % 17.0 % Immature Granulocyte % (Auto) 0.4 % 0.0 % Immature Granulocyte # (Auto) 0.01 K/uL 0.00 K/uL Toxic Vacuolation 1+ 1+ Dohle Bodies 1+ 1+ Platelet Estimate DECREASED DECREASED Giant Platelets 3+ Poikilocytosis PRESENT Prothrombin Time 13.0 SECONDS Prothromb Time International Ratio 1.2 Activated Partial Thromboplast Time 37.0 SECONDS Partial Thromboplastin Ratio 1.4 Sodium Level 136 mmol/L 133 mmol/L 137 mmol/L Potassium Level 3.6 mmol/L 3.7 mmol/L 4.2 mmol/L Chloride Level 111 mmol/L 109 mmol/L 111 mmol/L Carbon Dioxide Level 16 mmol/L 19 mmol/L 18 mmol/L Anion Gap 9.0 mmol/L 5.0 mmol/L 8.0 mmol/L Blood Urea Nitrogen 19 mg/dl 18 mg/dl 17 mg/dl Creatinine 0.60 mg/dl 0.68 mg/dl 0.58 mg/dl Est Creatinine Clear Calc Drug Dose 115.4 ml/min 101.9 ml/min 119.4 ml/min Estimated GFR () 143.8 138.0 145.4 Estimated GFR (Non- 124.0 119.0 125.4 BUN/Creatinine Ratio 31.5 26.8 29.4 Random Glucose 117 mg/dl 89 mg/dl 76 mg/dl Calcium Level 7.9 mg/dl 7.3 mg/dl 6.6 mg/dl Iron Level 8 mcg/dl Total Iron Binding Capacity 173 mcg/dl Total Bilirubin 2.0 mg/dl 2.3 mg/dl Direct Bilirubin 1.6 mg/dl Aspartate Amino Transf (AST/SGOT) 43 U/L 39 U/L Alanine Aminotransferase (ALT/SGPT) 48 U/L 46 U/L Alkaline Phosphatase 225 U/L 199 U/L Total Protein 6.0 gm/dl 5.3 gm/dl Albumin 2.2 gm/dl 1.9 gm/dl Lipase 365 U/L Lactic Acid Level 1.0 mmol/L 0.6 mmol/L Vitamin B12 Level 482 pg/mL Folate > 24.00 ng/mL Large Platelets 1+ Globulin 3.4 gm/dl Albumin/Globulin Ratio 0.6 Test 11/15/16 00:00 11/15/16 00:07 11/15/16 04:30 11/15/16 07:46 Stool Occult Blood POSITIVE Procalcitonin 0.55 ng/ml 0.66 ng/ml Random Cortisol 15.06 mcg/dl Urine Test NEG Urine Opiates Screen POS Urine Methadone, Qualitative POS Urine Barbiturates NEG Urine Phencyclidine (PCP) Level NEG Ur Amphetamine/Methamphetamine NEG MDMA (Ecstasy) Screen NEG Urine Benzodiazepines Screen NEG Urine Cocaine Metabolite NEG Urine Marijuana (THC) NEG White Blood Count 3.51 K/uL Red Blood Count 3.23 M/uL Hemoglobin 8.8 g/dL Hematocrit 27.1 % Mean Corpuscular Volume 83.9 fL Mean Corpuscular Hemoglobin 27.2 pg Mean Corpuscular Hemoglobin Concent 32.5 g/dl RDW Standard Deviation 50.8 fL RDW Coefficient of Variation 16.4 % Platelet Count 44 K/uL Platelet Estimate DECREASED Sodium Level 135 mmol/L Potassium Level 3.9 mmol/L Chloride Level 111 mmol/L Carbon Dioxide Level 16 mmol/L Anion Gap 8.0 mmol/L Blood Urea Nitrogen 14 mg/dl Creatinine 0.60 mg/dl Est Creatinine Clear Calc Drug Dose 115.4 ml/min Estimated GFR () 143.8 Estimated GFR (Non- 124.0 BUN/Creatinine Ratio 23.2 Random Glucose 71 mg/dl Lactic Acid Level 0.8 mmol/L Calcium Level 6.9 mg/dl Phosphorus Level 2.2 mg/dl Magnesium Level 1.5 mg/dl Human Chorionic Gonadotropin, Qual NEG Patient Name: RHIANNA MARTINEZ Unit Number: [id number] Dictated: 11/14/161405 Transcribed: 11/14/161405 ARG Printed Date/Time: [~ rep prt dt]/[~ rep prt tm] [~ rep ct labl] - [~ rep ct ivnm] [facility] [place] [address] Dictated: 11/14/161405 Transcribed: 11/14/161405 ARG Printed Date/Time: [~ rep prt dt]/[~ rep prt tm] [~ rep ct labl] - [~ rep ct ivnm] [~ rep ct add3]] CT ABD/PELVIS IV CONTRAST ONLY CLINICAL HISTORY: Fever, bodyaches, history of multiple surgery. Sepsis. COMPARISON STUDY: 09/25/2016 TECHNIQUE: Following the IV administration of 94 mL of Optiray-320, CT scan of the abdomen and pelvis was performed from the lung bases to the proximal femurs. Images are reviewed in the axial, sagittal, and coronal planes. IV contrast was administered without complication. A dose lowering technique was utilized adhering to the principles of ALARA. CT DOSE: 292.52 mGy.cm FINDINGS: Lower chest: There are mild dependent atelectatic changes Liver: There is mild periportal edema, finding which may be secondary to aggressive hydration. There are no focal hepatic masses. Gallbladder: There is a gallstone present. There is pericholecystic fluid/ascites. Spleen: The spleen is enlarged measuring 13.2 cm. Pancreas: Unremarkable. Adrenal glands: Unremarkable. Kidneys: There is symmetric renal cortical enhancement. The kidneys are normal in size without hydronephrosis. Bowel: Postsurgical changes are present within the bowel. Anterior ostomies are visualized. There are no transition zones to indicate a bowel obstruction. The patient appears be status post resection of a significant portion of small bowel. There is a gastrostomy tube present. Peritoneum: There is increasing ascites which is of low to moderate volume. Vasculature: The abdominal aorta is normal in course and caliber. Adenopathy: None. Pelvic viscera: The bladder, and pelvic viscera are unremarkable. Skeletal structures: No destructive osseous lesions are seen. There is generalized body wall edema. IMPRESSION: 1. No evidence of bowel obstruction. No evidence of free air 2. Postsurgical changes involving the stomach and partial small bowel resection 3. Postsurgical changes involving the anterior abdominal wall presumably indicative of current or remote ostomies. 4. Cholelithiasis 5. Generalized body wall edema 6. Increasing ascites. Electronically signed by: Eugene Luna M.D. 11/14/2016 2:14 PM Dictated Date/Time: 11/14/2016 2:06 PM The status of this report is Signed. Draft = Not yet reviewed or approved by Radiologist. Signed = Reviewed and approved by Radiologist. <AttendingPhy></AttendingPhy> <FamilyPhy>Edward Chin M.D.</FamilyPhy> <PrimaryPhy >Talia Altamirano M.D.</PrimaryPhy> <UnitNumber>[id number]</UnitNumber> < VisitNumber>[id number]</VisitNumber> <PatientName>RHIANNA MARTINEZ</ PatientName> <DateOfBirth>1990</DateOfBirth> <Location>[facility]</Location> < ServiceDate>11/14/16</ServiceDate> <MNE>ESINDI</MNE> <OrderingPhy>Rachna Dunbar PA-C</OrderingPhy> <OrderingPhyMNE>f rep ord dr lane</OrderingPhyMNE> < DictatingPhyMNE>f rep dict dr lane</DictatingPhyMNE> <CCListMNE>f rep ct [place]</ CCListMNE> <AdmittingPhyMNE>f pt admit dr lane</AdmittingPhyMNE> <AttendingPhyMNE >f pt attend dr lane</AttendingPhyMNE> <ConsultingPhyMNE>f pt consult dr lane</ConsultingPhyMNE> <FamilyPhyMNE>f pt fam dr lane</FamilyPhyMNE> <OtherPhyMNE>f pt other dr lane</OtherPhyMNE> < PrimaryPhyMNE>f pt prim care dr lane</PrimaryPhyMNE> <ReferringPhyMNE>f pt referring dr lane</ReferringPhyMNE> Assessment & Plan Complicated picture of 26-year-old female with history of multiple prior gastric surgeries, Gram-negative sepsis, now with recurrent fever, abdominal pain around PEG site, gallstones with sludge, indwelling central line, and some pain and erythema around the PEG site, all potential sources of infection. Source a pancytopenia unclear, and would rule out possibility of parvovirus infection with appropriate serology. Patient to be continued on current broad- spectrum antibiotics pending final culture results as fever appears improved since institution. Will follow.
[2016-11-15] MEDS: NICOTINE 14 MG/24 HR TDSY TD SCH (11:15)
[2016-11-15] MEDS ORDERED: DEXTROSE 10% 1,000 ML IV PRN (11:57)
[2016-11-15] MEDS ORDERED: CASPOFUNGIN INJ 70 MG in SODIUM CHLORIDE 0.9% 250ML 250 ML IV SCH (12:00)
[2016-11-15] MEDS ORDERED: [UNRECOGNIZED DRUG - REMARK] PRN ×2 (13:45→14:00)
[2016-11-15] MEDS ORDERED: CASPOFUNGIN INJ 70 MG in SODIUM CHLORIDE 0.9% 250ML 250 ML IV ONE (14:00)
--- NOTE | 2016-11-15 14:17 | DIAGNOSTIC IMAGING REPORT ---
NUCLEAR MEDICINE HEPATOBILIARY SCAN CLINICAL HISTORY: Gallstones. Possible acute cholecystitis. COMPARISON STUDY: Ultrasound study dated 11/15/2016 FINDINGS: The patient was injected with 5.4 mCi of technetium 99m Choletec. Sequential anterior images were obtained up to 30 minutes. The patient was unable to lie for dynamic imaging. A 60 minute images then acquired. The patient refused additional imaging. The gallbladder was not visualized on the 60 minute image. There is no definite small bowel activity. IMPRESSION: 1. Nondiagnostic study. The patient refused to complete the examination. 2. The gallbladder was not visualized on the 60 minute image. Electronically signed by: Eugene Luna M.D. 11/15/2016 2:16 PM Dictated Date/Time: 11/15/2016 2:13 PM
[2016-11-15] MEDS: METHADONE ORAL SOLN 2 MG/1ML PO SCH (14:39)
[2016-11-15] MEDS: CITALOPRAM 40 MG TAB PO SCH (15:12)
[2016-11-15] MEDS: CYANOCOBALAMIN 500 MCG TAB (VIT B-12) PO SCH (15:13)
--- NOTE | 2016-11-15 15:26 | Pharmacy Progress Note ---
Parenteral Nutrition Consult Date of Service Nov 15, 2016. [facility] Pharmacy has been consulted to manage parenteral nutrition orders and order appropriate labs. As part of the Nutrition Support Team guidelines, pharmacy will work in conjunction with dietary when determining the patients caloric needs. Subjective The patient is a 26 year old female admitted on Nov 14, 2016 at 16:18 for Sepsis , Pancytopenia Possible Peg, Abd Area Infect. Patient is to receive parenteral nutrition for chronic TPN user. Pertinent PMH: multiple gastric bypass surgeries: ','07. PEG tube in place Objective Height (Feet): 5 Height (Inches): 3.00 Weight (Kilograms): 60.600 Diet: NPO Except Meds Vascular Access: Central line to be pulled 2/2 to confirmed candidemia. TPN subsequently placed on hold: verbal order per Dr. Kirk Intake & Output (Last 72 Hr): 11/14/16 11/15/16 11/16/16 08:00 08:00 08:00 Intake Total 4490 ml 2113 ml Output Total 3050 ml 1450 ml Balance 1440 ml 663 ml Laboratory Data (Last 24 Hr): Test 11/14/16 19:44 11/14/16 23:47 11/15/16 07:46 Blood Urea Nitrogen 18 mg/dl (7-18) 17 mg/dl (7-18) 14 mg/dl (7-18) Calcium Level 7.3 mg/dl (8.5-10.1) 6.6 mg/dl (8.5-10.1) 6.9 mg/dl (8.5-10.1) Carbon Dioxide Level 19 mmol/L (21-32) 18 mmol/L (21-32) 16 mmol/L (21-32) Chloride Level 109 mmol/L (98-107) 111 mmol/L (98-107) 111 mmol/L (98-107) Creatinine 0.68 mg/dl (0.60-1.20) 0.58 mg/dl (0.60-1.20) 0.60 mg/dl (0.60-1.20) Potassium Level 3.7 mmol/L (3.5-5.1) 4.2 mmol/L (3.5-5.1) 3.9 mmol/L (3.5-5.1) Random Glucose 89 mg/dl (70-99) 76 mg/dl (70-99) 71 mg/dl (70-99) Sodium Level 133 mmol/L (136-145) 137 mmol/L (136-145) 135 mmol/L (136-145) Alanine Aminotransferase (ALT/SGPT) 46 U/L (12-78) Albumin 1.9 gm/dl (3.4-5.0) Alkaline Phosphatase 199 U/L (45-117) Aspartate Amino Transf (AST/SGOT) 39 U/L (15-37) Total Bilirubin 2.3 mg/dl (0.2-1) Magnesium Level 1.5 mg/dl (1.8-2.4) Phosphorus Level 2.2 mg/dl (2.5-4.9) Nutrition Assessment Please refer to the Notes section of the EMR for the most recent piggyback clerk note. Plan TPN CURRENTLY ON HOLD 04/07 TO CONFIRMED CANDIDEMIA. STATUS OF CENTRAL LINE IS UNCERTAIN AT THIS JUNCTURE. For day 1 of PN administration, the following will be ordered: HOME Macronutrients Amino acids 110 grams/day Dextrose 250 grams/day Lipids 50 grams/day -,,,Tobar Home Micronutrients Combined electrolytes [ ] mL - contains 35 mEq Na, 20 meq K, 4.5 mEq Ca, 5 mEq Mg, 35 mEq Cl, 29.5 mEq acetate per 20 mL Sodium phosphate [] MMol Sodium chloride 442 mEq in 3 liters is about 147meq/L Sodium acetate 32 mEq Potassium phosphate 9 mMol Potassium chloride 77 mEq Potassium acetate [] mEq Magnesium sulfate 15 mEq Calcium gluconate 10 mEq Multivitamins 10 mL Trace Elements 10 mL Additional additives: ALL MACRO AND MICRO VALUES WERE CONFIRMED WITH [facility] Labs to be ordered per PN order protocol Pharmacy will follow and adjust parenteral nutrition orders on a daily basis. Thank you.
[2016-11-15] MEDS: METHADONE XX SCH (15:30)
[2016-11-15] MEDS ORDERED: CUSTOM CENTRAL PN 1 BAG IV SCH (16:00)
[2016-11-15] MEDS ORDERED: TPN/PPN CONSULT PHARMACY PRN (16:00)
[2016-11-15] MEDS: CIPROFLOXACIN / D5W 400 MG in PREMIXED IN D5W 200 ML IV SCH (16:30)
[2016-11-15] MEDS ORDERED: VANCOMYCIN TROUGH SCH (19:30)
--- NOTE | 2016-11-15 20:50 | Pharmacy Progress Note ---
Pharmacy Antibiotic Prog Note Date of Service Nov 15, 2016. Subjective The patient is currently receiving vancomycin 750 mg iv q 8 hrs The patient is currently on day #2 of IV therapy. Objective Height (Feet): 5 Height (Inches): 3.00 Weight (Kilograms): 60.600 Levels: Item Value Date Time Vancomycin Level Trough 12.9 mcg/ml 11/15/16 1936 Lab Results (24hrs): Test 11/14/16 23:47 11/15/16 00:00 11/15/16 00:07 11/15/16 04:30 White Blood Count 2.33 K/uL (4.8-10.8) Red Blood Count 2.38 M/uL (4.2-5.4) Hemoglobin 6.1 g/dL (12.0-16.0) Hematocrit 19.6 % (37-47) Mean Corpuscular Volume 82.4 fL (80-100) Mean Corpuscular Hemoglobin 25.6 pg (25-34) Mean Corpuscular Hemoglobin Concent 31.1 g/dl (32-36) Platelet Count 47 K/uL (130-400) Neutrophils (%) (Auto) 65.6 % Lymphocytes (%) (Auto) 28.8 % Monocytes (%) (Auto) 5.6 % Eosinophils (%) (Auto) 0.0 % Basophils (%) (Auto) 0.0 % Neutrophils # (Auto) 1.53 K/uL (1.4-6.5) Lymphocytes # (Auto) 0.67 K/uL (1.2-3.4) Monocytes # (Auto) 0.13 K/uL (0.11-0.59) Eosinophils # (Auto) 0.00 K/uL (0-0.5) Basophils # (Auto) 0.00 K/uL (0-0.2) RDW Standard Deviation 50.8 fL (36.4-46.3) RDW Coefficient of Variation 17.0 % (11.5-14.5) Immature Granulocyte % (Auto) 0.0 % Immature Granulocyte # (Auto) 0.00 K/uL (0.00-0.02) Toxic Vacuolation 1+ Dohle Bodies 1+ Platelet Estimate DECREASED Large Platelets 1+ Sodium Level 137 mmol/L (136-145) Potassium Level 4.2 mmol/L (3.5-5.1) Chloride Level 111 mmol/L (98-107) Carbon Dioxide Level 18 mmol/L (21-32) Anion Gap 8.0 mmol/L (3-11) Blood Urea Nitrogen 17 mg/dl (7-18) Creatinine 0.58 mg/dl (0.60-1.20) Est Creatinine Clear Calc Drug Dose 119.4 ml/min Estimated GFR () 145.4 Estimated GFR (Non- 125.4 BUN/Creatinine Ratio 29.4 (10-20) Random Glucose 76 mg/dl (70-99) Lactic Acid Level 0.6 mmol/L (0.4-2.0) Calcium Level 6.6 mg/dl (8.5-10.1) Total Bilirubin 2.3 mg/dl (0.2-1) Aspartate Amino Transf (AST/SGOT) 39 U/L (15-37) Alanine Aminotransferase (ALT/SGPT) 46 U/L (12-78) Alkaline Phosphatase 199 U/L (45-117) Total Protein 5.3 gm/dl (6.4-8.2) Albumin 1.9 gm/dl (3.4-5.0) Globulin 3.4 gm/dl (2.5-4.0) Albumin/Globulin Ratio 0.6 (0.9-2) Stool Occult Blood POSITIVE (NEGATIVE) Procalcitonin 0.55 ng/ml (0-0.5) Random Cortisol 15.06 mcg/dl Urine Test NEG (NEG) Urine Opiates Screen POS (NEG) Urine Methadone, Qualitative POS (NEG) Urine Barbiturates NEG (NEG) Urine Phencyclidine (PCP) Level NEG (NEG) Ur Amphetamine/Methamphetamine NEG (NEG) MDMA (Ecstasy) Screen NEG (NEG) Urine Benzodiazepines Screen NEG (NEG) Urine Cocaine Metabolite NEG (NEG) Urine Marijuana (THC) NEG (NEG) Test 11/15/16 07:46 11/15/16 11:09 11/15/16 19:36 White Blood Count 3.51 K/uL (4.8-10.8) Red Blood Count 3.23 M/uL (4.2-5.4) Hemoglobin 8.8 g/dL (12.0-16.0) Hematocrit 27.1 % (37-47) Mean Corpuscular Volume 83.9 fL (80-100) Mean Corpuscular Hemoglobin 27.2 pg (25-34) Mean Corpuscular Hemoglobin Concent 32.5 g/dl (32-36) RDW Standard Deviation 50.8 fL (36.4-46.3) RDW Coefficient of Variation 16.4 % (11.5-14.5) Platelet Count 44 K/uL (130-400) Platelet Estimate DECREASED Sodium Level 135 mmol/L (136-145) Potassium Level 3.9 mmol/L (3.5-5.1) Chloride Level 111 mmol/L (98-107) Carbon Dioxide Level 16 mmol/L (21-32) Anion Gap 8.0 mmol/L (3-11) Blood Urea Nitrogen 14 mg/dl (7-18) Creatinine 0.60 mg/dl (0.60-1.20) Est Creatinine Clear Calc Drug Dose 115.4 ml/min Estimated GFR () 143.8 Estimated GFR (Non- 124.0 BUN/Creatinine Ratio 23.2 (10-20) Random Glucose 71 mg/dl (70-99) Lactic Acid Level 0.8 mmol/L (0.4-2.0) Calcium Level 6.9 mg/dl (8.5-10.1) Phosphorus Level 2.2 mg/dl (2.5-4.9) Magnesium Level 1.5 mg/dl (1.8-2.4) Procalcitonin 0.66 ng/ml (0-0.5) Human Chorionic Gonadotropin, Qual NEG (NEG) Vancomycin Level Trough 12.9 mcg/ml (SEE COMMENT) Assessment & Plan Patient on vancomycin, zosyn, ciprofloxacin, and caspofungin. ID is following the patient. BC positive for yeast. Vancomycin: * Trough level slightly subtherapeutic at ~12.9 mcg/ml (goal 15-20 mcg/ml) however patient not currently at steady state therefore expect level to be higher within range; will plan to continue with current dosing regimen for now * Will plan to recheck level again in next 24-48 hrs if vancomycin is to be continued to ensure therapeutic Pharmacy will continue to follow and will adjust dose/frequency as necessary. Thank you
--- NOTE | 2016-11-15 21:48 | Progress Note ---
Subjective Date of Service: Nov 15, 2016. 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 She states it was "because of my bypass" [gastric]. Only has very small portion of her small bowel remaining and has ileostomy. Reports copious amounts of output from ileostomy (10 liters daily??). After August hospital stay she was d/c home on TPN via right-sided Zaldivar catheter. This became infected in September required 1-week stay at [place] again. Zaldivar removed, and new one placed on left. TPN continued following that discharge in September. Since then she has been maintained on 3 liters of TPN/day along with 500cc of NS. Takes minimal by mouth, just liquids, no solids really. Does NOT use PEG tube - wants this "out" at some point. Most of her abdominal pain today is near the PEG but also in the high epigastric region. Has been on methadone for several months at a dose of 103mg/day. Goes to methadone clinic. Reports that she will go "on the transplant list at [facility]" for "bowel transplant " but "my HepC needs to be treated first." Reports seeing a physician at [place] who has offered HepC treatment but this has not been started. Problem List Medical Problems: (1) Abnormal computed tomography of gallbladder Status: Acute (2) Anemia Status: Acute (3) Fever and chills Status: Acute (4) Free fluid in pelvis Status: Acute (5) Low serum phosphorus for age Status: Acute (6) Pancytopenia Status: Acute (7) Post op infection Status: Acute (8) Sepsis Status: Acute Review of Systems Constitutional: + fever, + chills, + fatigue Respiratory: No shortness of breath Cardiac: No chest pain Abdomen: + pain, + nausea, + vomiting, + diarrhea (via ileostomy) Musculoskeletal: + see HPI Psychiatric: + substance abuse Objective Vital Signs Date Time Temp Pulse Resp B/P (MAP) Pulse Ox O2 Delivery O2 Flow Rate FiO2 11/15/16 19:30 37.5 70 18 85/37 (53) 97 Room Air 11/15/16 16:34 37.7 71 18 83/49 (60) 100 Room Air 11/15/16 16:00 Room Air 11/15/16 13:36 37.7 78 18 95/55 (68) 98 11/15/16 12:00 Room Air 11/15/16 11:07 37.8 80 20 97/48 (64) 99 11/15/16 08:27 100 Room Air 11/15/16 08:00 Room Air 11/15/16 07:52 100 Room Air 11/15/16 07:51 100 Room Air 11/15/16 07:37 36.8 70 20 85/49 (61) 100 Room Air 11/15/16 06:00 36.5 70 24 84/50 95 11/15/16 05:47 36.7 68 16 85/47 95 11/15/16 05:22 36.5 71 19 84/43 96 11/15/16 05:01 37.6 75 19 87/46 96 11/15/16 04:50 36.9 75 16 83/44 95 11/15/16 04:30 37.8 78 16 82/38 95 11/15/16 04:22 84 16 86/40 95 11/15/16 04:00 37.3 11/15/16 04:00 95 Room Air 11/15/16 04:00 87 19 85/40 91 11/15/16 03:45 88 14 93/45 11/15/16 03:30 38.7 89 17 94/52 93 11/15/16 03:15 39.5 90 20 85/42 95 11/15/16 03:11 39.4 93 20 72/32 95 11/15/16 02:30 39.3 99 18 87/43 91 11/15/16 02:03 39.5 103 18 86/45 92 11/15/16 01:50 39.5 97 20 95/45 91 11/15/16 01:35 39.5 104 23 90/42 88 11/15/16 01:30 39.5 92 30 88/45 90 11/15/16 01:25 39.5 96 19 88/52 95 11/15/16 00:00 95 Room Air 11/14/16 23:10 38.7 82 16 82/30 (47) 99 Room Air 11/14/16 22:17 38.1 Physical Exam General Appearance: no apparent distress, + pertinent finding (chronically ill appearing) ENT: + pertinent finding (thrush on tongue, MMM) Neck: no JVD Respiratory/Chest: lungs clear, no respiratory distress, no accessory muscle use, + decreased breath sounds (bases), + pertinent finding (left sided Zaldivar clean) Cardiovascular: regular rate, rhythm, no gallop, no murmur Abdomen: + hepatomegaly (2-3cm below costal margin), + pertinent finding ( ileostomy in place on right with yellow fluid in bag; PEG tube in place left abdomen, mildly tender about the PEG tube site; mild tenderness high epigastric region and slightly to right of midline; numerous scars on abdominal wall) Extremities: no pedal edema Neurologic/Psychiatric: alert, oriented x 3 Skin: no rash, + pallor Laboratory Results Last 24 Hours Test 11/14/16 23:47 11/15/16 00:00 11/15/16 00:07 11/15/16 04:30 White Blood Count 2.33 K/uL Red Blood Count 2.38 M/uL Hemoglobin 6.1 g/dL Hematocrit 19.6 % Mean Corpuscular Volume 82.4 fL Mean Corpuscular Hemoglobin 25.6 pg Mean Corpuscular Hemoglobin Concent 31.1 g/dl Platelet Count 47 K/uL Neutrophils (%) (Auto) 65.6 % Lymphocytes (%) (Auto) 28.8 % Monocytes (%) (Auto) 5.6 % Eosinophils (%) (Auto) 0.0 % Basophils (%) (Auto) 0.0 % Neutrophils # (Auto) 1.53 K/uL Lymphocytes # (Auto) 0.67 K/uL Monocytes # (Auto) 0.13 K/uL Eosinophils # (Auto) 0.00 K/uL Basophils # (Auto) 0.00 K/uL RDW Standard Deviation 50.8 fL RDW Coefficient of Variation 17.0 % Immature Granulocyte % (Auto) 0.0 % Immature Granulocyte # (Auto) 0.00 K/uL Toxic Vacuolation 1+ Dohle Bodies 1+ Platelet Estimate DECREASED Large Platelets 1+ Sodium Level 137 mmol/L Potassium Level 4.2 mmol/L Chloride Level 111 mmol/L Carbon Dioxide Level 18 mmol/L Anion Gap 8.0 mmol/L Blood Urea Nitrogen 17 mg/dl Creatinine 0.58 mg/dl Est Creatinine Clear Calc Drug Dose 119.4 ml/min Estimated GFR () 145.4 Estimated GFR (Non- 125.4 BUN/Creatinine Ratio 29.4 Random Glucose 76 mg/dl Lactic Acid Level 0.6 mmol/L Calcium Level 6.6 mg/dl Total Bilirubin 2.3 mg/dl Aspartate Amino Transf (AST/SGOT) 39 U/L Alanine Aminotransferase (ALT/SGPT) 46 U/L Alkaline Phosphatase 199 U/L Total Protein 5.3 gm/dl Albumin 1.9 gm/dl Globulin 3.4 gm/dl Albumin/Globulin Ratio 0.6 Stool Occult Blood POSITIVE Procalcitonin 0.55 ng/ml Random Cortisol 15.06 mcg/dl Urine Test NEG Urine Opiates Screen POS Urine Methadone, Qualitative POS Urine Barbiturates NEG Urine Phencyclidine (PCP) Level NEG Ur Amphetamine/Methamphetamine NEG MDMA (Ecstasy) Screen NEG Urine Benzodiazepines Screen NEG Urine Cocaine Metabolite NEG Urine Marijuana (THC) NEG Test 11/15/16 07:46 11/15/16 11:09 11/15/16 19:36 White Blood Count 3.51 K/uL Red Blood Count 3.23 M/uL Hemoglobin 8.8 g/dL Hematocrit 27.1 % Mean Corpuscular Volume 83.9 fL Mean Corpuscular Hemoglobin 27.2 pg Mean Corpuscular Hemoglobin Concent 32.5 g/dl RDW Standard Deviation 50.8 fL RDW Coefficient of Variation 16.4 % Platelet Count 44 K/uL Platelet Estimate DECREASED Sodium Level 135 mmol/L Potassium Level 3.9 mmol/L Chloride Level 111 mmol/L Carbon Dioxide Level 16 mmol/L Anion Gap 8.0 mmol/L Blood Urea Nitrogen 14 mg/dl Creatinine 0.60 mg/dl Est Creatinine Clear Calc Drug Dose 115.4 ml/min Estimated GFR () 143.8 Estimated GFR (Non- 124.0 BUN/Creatinine Ratio 23.2 Random Glucose 71 mg/dl Lactic Acid Level 0.8 mmol/L Calcium Level 6.9 mg/dl Phosphorus Level 2.2 mg/dl Magnesium Level 1.5 mg/dl Procalcitonin 0.66 ng/ml Human Chorionic Gonadotropin, Qual NEG Vancomycin Level Trough 12.9 mcg/ml Assessment and Plan Complicated 26yo female with: 1. septicemia/fungemia - suspect the source is the left-sided Zaldivar catheter in setting of chronic TPN usage. Stop the TPN. Start caspofungin. I discussed this with Dr. Angel today. Repeat blood cx's in am. Continue IV antibiotics another day and if negative for bacteria can likely d/c the others (except caspofungin). Spoke with general surgery about removing the Zaldivar and culturing its tip. Tentatively scheduled for removal on 11/16/16. Place several peripheral IV sites in meantime. Check echo, r/o valvular vegetations. Doubt PEG tube is source for fungemia. Doubt GI tract (possible, but unlikely) . 2. pancytopenia - obtain records from [place]. Review of our EMR shows her Hb to be 9.6 or higher in October and early November. Could be 2nd to liver disease. B12/folate nl. check TSH in am r/o hypothyroid state. Could be 2nd to fungemia, viral process (parvo), etc. Repeat CBC am. 3. abnormal LFTs, hepatomegaly, h/o HepC - review of EMR shows her t. bili to be rising over the last 1-2 months. Due to TPN? Due to worsening HepC? other? repeat LFTs in am. unsure if she has acute cholecystitis making her LFTs worse. HIDA scan done today but unable to complete the study. Doubt the fungemia is from a gall bladder issue - would be unusual (not impossible but unusual). 4. anemia - worsening over the last 1-2 months. Could some of her epigastric pain be from a gastric ulcer (has remote history of such). other source of GI bleeding? NPO, PPI twice daily IV. s/p 3 units PRBCs last 24 hours. repeat CBC am. 5. severe protein calorie malnutrition 2nd to short gut syndrome - is TPN-dependent. TPN to be placed on hold due to fungemia. nutrition will be an ongoing issue long-term due to the short gut. dietary to follow while here. add daily MVI, folic acid, etc while NPO. 6. DVT proph - chemical means contraindicated due to severe thrombocytopenia. 7. chronic pain syndrome - methadone 103mg daily with morphine IV prn for breakthrough. Caution with latter and in light of liver dysfunction. 8. hypomagnesemia - 2nd to short gut and dumping. Replace, repeat mag level AM. 9. depression - continue outpatient meds. 10. hyperchloremic / nonanion gap acidosis - due to dumping from short gut. BMP daily. 11. FEN - getting NS hydration with KCL supplementation. Repeat all labs in am. NPO after MN for zaldivar catheter removal tomorrow. Hold TPN due to fungemia. 12. hypotension - despite low-normal BPs she has preserved Creatinine & good UOP. This may be baseline BPs for her. Follow carefully. Cortisol level acceptable. 13. ?acute cholecystitis - has gallstones and mild fluid around gall bladder - this could be due to liver disease/fluid resuscitation. HIDA scan unable to be completed due to patient not tolerating test. Defer to gen surg if test needs repeating but at this time will continue to follow this carefully. request records from [facility] ill & complicated patient low threshold for transfer to [place] if condition worsens or needs large/ intensive procedure I counseled pt & her mother regarding this as well as overall care plan total time today about 70 minutes including reviewing records, speaking w/ multiple consultants, etc Continued [facility] stay due to: fever, abnormal vital signs, inadequate po fluid intake, inadequate oral pain control, multiple IV medications needed Discharge planning: uncertain
[2016-11-16] VITALS (9 sets, daily range): BP systolic 70–86; BP diastolic 29–53; PULSE 59–93; TEMP 36.8–37.2; O2SAT 93–98
[2016-11-16] MEDS: MoRPHine SULFATE 2 MG/ML CARP IV PRN ×2 (01:10→17:41)
[2016-11-16] MEDS: CIPROFLOXACIN / D5W 400 MG in PREMIXED IN D5W 200 ML IV SCH ×2 (04:34→16:40)
[2016-11-16] MEDS: VANCOMYCIN INJ 750 MG in SODIUM CHLORIDE 0.9% 250ML 250 ML IV SCH ×3 (04:34→20:01)
[2016-11-16] MEDS ORDERED: SODIUM CHLORIDE 0.9% 1000ML 1,000 ML IV STA (05:18)
[2016-11-16] MEDS: PIPERACILL/TAZOBAC IV 3.375 GM in DEXTROSE 5% 100ML IV SCH ×2 (06:40→13:11)
[2016-11-16 08:11] LABS: MEAN CORPUSCULAR HGB CONC 33.6 g/dl (32-36)
[2016-11-16 08:29] LABS: HEMATOCRIT 26.5 % (37-47); MEAN CELL VOLUME 82.8 fL (80-100); MEAN CORPUSCULAR HEMOGLOBIN 27.8 pg (25-34); WHITE BLOOD COUNT 3.45 K/uL (4.8-10.8)
[2016-11-16 08:33] LABS: PLATELET COUNT 44 K/uL (130-400)
[2016-11-16 08:43] LABS: BUN/CREATININE RATIO 18.4 (10-20); CALCIUM 6.9 mg/dl (8.5-10.1); CREATININE 0.56 mg/dl (0.60-1.20)
[2016-11-16] MEDS ORDERED: SODIUM CHLORIDE 0.9% 500ML 500 ML IV ONE (08:45)
[2016-11-16] MEDS: NSS + 20MEQ KCL 1000ML 1,000 ML IV SCH (08:55)
[2016-11-16 08:56] LABS: ALB/GLOB RATIO 0.5 (0.9-2); THYROID STIMULATING HORMONE 1.89 uIu/ml (0.300-4.500)
[2016-11-16] MEDS: METHADONE XX SCH (09:00)
[2016-11-16] MEDS: PANTOprazole INJ 40 MG in SYRINGE 0 ML IV SCH ×2 (09:16→20:03)
[2016-11-16] MEDS: LOPERAMIDE HCL 2 MG CAP PO SCH ×3 (09:17→20:03)
[2016-11-16] MEDS: CYANOCOBALAMIN 500 MCG TAB (VIT B-12) PO SCH (09:17)
[2016-11-16] MEDS: CITALOPRAM 40 MG TAB PO SCH (09:17)
[2016-11-16] MEDS: METHADONE ORAL SOLN 2 MG/1ML PO SCH (09:20)
[2016-11-16] MEDS: NICOTINE 14 MG/24 HR TDSY TD SCH (09:20)
--- NOTE | 2016-11-16 10:20 | ECHOCARDIOGRAM REPORT ---
*NOTICE TO RECEIVING [employer] This information is strictly Confidential and protected under [place] law. [place] law prohibits you from making any further disclosure of this information unless further disclosure is expressly permitted by the written consent of the person to whom it pertains or is authorized by law. A general authorization for the release of medical or other information is not sufficient for this purpose. Hospital accepts no responsibility if the information is made available to any other person, INCLUDING THE PATIENT. Interpretation Summary * Name: RHIANNA MARTINEZ Study Date: 11/16/2016 07:52 AM BP: 74/35 mmHg * Patient Location: [id number].2E\S\E206\S\1 HR: 63 * : 1990 (M/d/yyyy) Gender: Female Height: 63 in * Age: 26 yrs Ethnicity: CA Weight: 133 lb * Ordering Physician: Santiago Kirk * Referring Physician: Self, Referred * Performed By: Lenora Santa, [facility] * * Reason For Study: ENDOCARDITIS * BSA: 1.6 m2 * -- Conclusions -- * Left ventricular systolic function is normal. * Grade I diastolic dysfunction, (abnormal relaxation pattern). * No valvular lesions/vegetations identified. Procedure Details * A complete two-dimensional transthoracic echocardiogram was performed (2D, M-mode, Doppler and color flow Doppler). Left Ventricle * The left ventricle is normal in size. * There is normal left ventricular wall thickness. * Left ventricular systolic function is normal. * Ejection Fraction = 55-60%. * Grade I diastolic dysfunction, (abnormal relaxation pattern). * The left ventricular wall motion is normal. Right Ventricle * The right ventricle is grossly normal size. Atria * The left atrial size is normal. * Right atrial size is normal. Mitral Valve * The mitral valve anatomy is normal. * Significant mitral regurgitation is absent. Tricuspid Valve * The tricuspid valve anatomy is normal. * There is trace tricuspid regurgitation. Aortic Valve * The aortic valve is normal in structure and function. * No hemodynamically significant valvular aortic stenosis. * There is no significant aortic regurgitation. Great Vessels * The aortic root is normal size. Pericardium/Pleural * There is no pericardial effusion. MMode 2D Measurements and Calculations IVSd 1.0 cm IVSs 1.1 cm LVIDd 4.0 cm LVIDs 3.2 cm LVPWd 0.91 cm LVPWs 1.2 cm IVS/LVPW 1.1 FS 20.0 % EDV(Teich) 71.9 ml ESV(Teich) 42.1 ml EF(Teich) 41.4 % EDV(cubed) 66.2 ml ESV(cubed) 33.9 ml EF(cubed) 48.7 % % IVS thick 2.5 % % LVPW thick 37.0 % LV mass(C)d 123.8 grams LV mass(C)dI 76.1 grams/m\S\2 LV mass(C)s 113.7 grams LV mass(C)sI 70.0 grams/m\S\2 SV(Teich) 29.8 ml SI(Teich) 18.3 ml/m\S\2 SV(cubed) 32.3 ml SI(cubed) 19.8 ml/m\S\2 Ao root diam 2.4 cm Ao root area 4.6 cm\S\2 LA dimension 3.4 cm LA/Ao 1.4 LVOT diam 2.0 cm LVOT area 3.1 cm\S\2 Doppler Measurements and Calculations MV E max kaley 105.7 cm/sec MV A max kaley 64.2 cm/sec MV E/A 1.6 MV P1/2t max kaley 127.3 cm/sec MV P1/2t 80.7 msec MVA(P1/2t) 2.7 cm\S\2 MV dec slope 462.3 cm/sec\S\2 MV dec time 0.16 sec Ao V2 max 113.9 cm/sec Ao max PG 5.2 mmHg Ao max PG (full) 2.1 mmHg KEV(V,A) 2.4 cm\S\2 KEV(V,D) 2.4 cm\S\2 LV V1 max PG 3.1 mmHg LV V1 max 88.4 cm/sec TR max kaley 229.5 cm/sec
[2016-11-16] MEDS: POTASSIUM CHLORIDE INJ 20 MEQ in D5W AND LACTATED RINGERS 1,000 ML IV SCH ×2 (10:28→20:03)
--- NOTE | 2016-11-16 12:27 | Surgery Progress Note ---
Surgery Progress Note Date of Service Nov 16, 2016. Subjective Patient examined at bedside this morning. Afebrile, vitals stable overnight on room air, no acute events. Patient feeling well today. Sauceda catheter in place to left upper chest. No surrounding erythema or drainage. Non tender to palpation. Objective Vital Signs: Date Time Temp Pulse Resp B/P (MAP) Pulse Ox O2 Delivery O2 Flow Rate FiO2 11/16/16 11:30 37.1 93 21 83/42 (56) 93 Room Air 11/16/16 11:21 36.9 68 20 79/29 (46) 95 Room Air 11/16/16 09:40 86/53 (64) 11/16/16 08:00 Room Air 11/16/16 08:00 97 Room Air 11/16/16 07:24 36.8 59 20 78/45 (56) 98 Room Air 11/16/16 04:00 Room Air 11/16/16 04:00 37.2 62 16 74/35 (48) 98 Room Air 11/15/16 23:59 Room Air 11/15/16 23:10 37.6 68 16 78/37 (51) 100 Room Air 11/15/16 20:00 Room Air 11/15/16 19:30 37.5 70 18 85/37 (53) 97 Room Air 11/15/16 16:34 37.7 71 18 83/49 (60) 100 Room Air 11/15/16 16:00 Room Air 11/15/16 13:36 37.7 78 18 95/55 (68) 98 General Appearance: WD/WN, no apparent distress Head: normocephalic Neck: supple Respiratory/Chest: chest non-tender, lungs clear, normal breath sounds Cardiovascular: regular rate, rhythm Abdomen: normal bowel sounds, non tender, non distended Laboratory Results: Results Past 24 Hours Test 11/15/16 19:36 11/16/16 07:48 Range/Units Vancomycin Level Trough 12.9 SEE COMMENT mcg/ml White Blood Count 3.45 4.8-10.8 K/uL Red Blood Count 3.20 4.2-5.4 M/uL Hemoglobin 8.9 12.0-16.0 g/dL Hematocrit 26.5 37-47 % Mean Corpuscular Volume 82.8 80-100 fL Mean Corpuscular Hemoglobin 27.8 25-34 pg Mean Corpuscular Hemoglobin Concent 33.6 32-36 g/dl RDW Standard Deviation 50.8 36.4-46.3 fL RDW Coefficient of Variation 16.6 11.5-14.5 % Platelet Count 44 130-400 K/uL Sodium Level 136 136-145 mmol/L Potassium Level 4.0 3.5-5.1 mmol/L Chloride Level 112 98-107 mmol/L Carbon Dioxide Level 17 21-32 mmol/L Anion Gap 7.0 3-11 mmol/L Blood Urea Nitrogen 10 7-18 mg/dl Creatinine 0.56 0.60-1.20 mg/dl Est Creatinine Clear Calc Drug Dose 139.0 ml/min Estimated GFR () 147.1 Estimated GFR (Non- 126.9 BUN/Creatinine Ratio 18.4 10-20 Random Glucose 68 70-99 mg/dl Calcium Level 6.9 8.5-10.1 mg/dl Phosphorus Level 2.0 2.5-4.9 mg/dl Magnesium Level 2.0 1.8-2.4 mg/dl Total Bilirubin 3.6 0.2-1 mg/dl Aspartate Amino Transf (AST/SGOT) 28 15-37 U/L Alanine Aminotransferase (ALT/SGPT) 37 12-78 U/L Alkaline Phosphatase 216 45-117 U/L Total Protein 5.0 6.4-8.2 gm/dl Albumin 1.7 3.4-5.0 gm/dl Globulin 3.3 2.5-4.0 gm/dl Albumin/Globulin Ratio 0.5 0.9-2 Thyroid Stimulating Hormone (TSH) 1.890 0.300-4.500 uIu/ml Microbiology Results 11/16/16 Blood Culture, Received Pending 11/16/16 Blood Culture, Received Pending Assessment & Plan Rebecca Curiel is a 26 year old woman with history of gastric bypass complicated by internal hernia, s/p resection of small bowel and now with short gut syndrome. She has a Sauceda catheter in place in the left chest for TPN administration. Admitted with fevers and leukocytosis, found to have fungemia on blood cultures. -Plan to remove left chest Sauceda catheter today. Indications, risks, benefits and potential complications of removing the catheter discussed at length with the patient. All questions answered to apparent satisfaction. Patient agrees to proceed with the operation and freely signed the consent form. -Once removed, plan to send the tip for culture -Patient agrees to attempt the procedure at bedside this afternoon. If unable to complete at bedside, will proceed to OR for removal. -Patient discussed with Dr. Kirk, also in agreement with the above plan. Kimberli Rodriguez MD 11/16/16
[2016-11-16] MEDS: CASPOFUNGIN INJ 50 MG in SODIUM CHLORIDE 0.9% 250ML 250 ML IV SCH (13:47)
[2016-11-16] MEDS ORDERED: LIDOCAINE HCL 1% 20 ML VIAL ONE (14:14)
[2016-11-16] MEDS ORDERED: XYLOCAINE 1%/SOD BICARB 20 ML VIAL INFIL ONE (14:15)
[2016-11-16] MEDS ORDERED: BACITRACIN OINT 15 GM TUBE EXT ONE (14:15)
--- NOTE | 2016-11-16 15:43 | Progress Note ---
Progress Note Date of Service Nov 16, 2016. Progress Note Left chest Sauceda catheter removal procedure Based on discussion with primary team, decision was made to remove Sauceda catheter due to fungemia on blood cultures. Indications, risks, benefits and potential complications of Sauceda catheter removal discussed in detail with the patient at bedside. All question answered to apparent satisfaction. Patient elected to proceed with the procedure and freely signed the consent form. Patient was placed supine in bed. The left chest was prepped and draped in the usual sterile fashion. A time out was held, verifying correct patient, procedure, site, equipment, allergies, and personnel. 1% local anesthetic was injected at the catheter puncture site and around the site where the subcutaneous cuff was palpable. The sutures holding the catheter in place were cut. The tunnel along the catheter was dissected out subcutaneously using a hemostat. A 0.5cm counter incision was made over the palpable cuff to aide in dissection around the cuff. Once freed circumferentially, the patient was placed in Trendelenburg position and breath was held at full inspiration; at full inspiration, the catheter tip was removed through the counter-incision. The tip was cut and placed in a sterile specimen cup to be taken for culture. The remainder of the catheter was then completely removed from under the skin. The counter incision was closed using 4-0 Monocryl. The catheter insertion site was not closed. Both sites were covered with Bacitracin, 4x4 gauze, and a Tegederm. -Follow up on catheter tip culture -Keep sterile dressing in place for 48 hours. After 48 hours, may remove and wash gently over the catheter site with warm, soapy water. May leave open to air after dressing removal (or may cover if friction from clothing or lines bothers patient). -Rest of care per primary team. Kimberli Rodriguez MD 11/16/16
--- NOTE | 2016-11-16 15:45 | Infectious Disease Progress Nt ---
Progress Note Date of Service Nov 16, 2016. Subjective Pt evaluation today including: conversation w/ patient, physical exam, chart review, lab review, review of studies, conversation w/ transformation consultant, review of inpatient medication list Patient has grown yeast from blood cultures. Appears to be non albicans species. Caspofungin started as discussed. Plans for removal of central catheter later today. Patient feeling somewhat better.No fever. All Other Systems: Reviewed and Negative Medications Current Inpatient Medications Medications (Trade) Dose Ordered Sig/Faith Route Start Time Stop Time Status Last Admin Dose Admin Ioversol (Optiray 320) 100 ml UD PRN IV 11/14/16 13:45 11/18/16 13:44 Acetaminophen (Tylenol Tab) 650 mg Q4H PRN PO 11/14/16 16:15 12/14/16 16:14 11/15/16 01:42 650 MG Al Hydrox/Mg Hydrox/Simethicone (Maalox Max Susp) 15 ml Q4H PRN PO 11/14/16 16:15 12/14/16 16:14 Magnesium Hydroxide (Milk Of Magnesia Susp) 30 ml Q12H PRN PO 11/14/16 16:15 12/14/16 16:14 Zolpidem Tartrate (Ambien Tab) 5 mg HSZ PRN PO 11/14/16 16:15 12/14/16 16:14 Ondansetron HCl (Zofran Inj) 4 mg Q6H PRN IV 11/14/16 16:15 12/14/16 16:14 Polyethylene (Miralax Powder Packet) 17 gm DAILY PRN PO 11/14/16 16:15 12/14/16 16:14 Vancomycin HCl (Consult) 1 ea UD PRN N/A 11/14/16 19:56 12/14/16 19:55 Citalopram Hydrobromide (celeXA TAB) 40 mg DAILY PO 11/15/16 09:00 12/15/16 08:59 11/16/16 09:17 40 MG Cyanocobalamin (Vitamin B-12 Tab) 500 mcg DAILY PO 11/15/16 09:00 12/15/16 08:59 11/16/16 09:17 500 MCG Methadone HCl (Methadone HCl) 103 mg DAILY PO 11/15/16 09:00 12/15/16 08:59 11/16/16 09:20 103 MG Pantoprazole Sodium 40 mg/ Syringe 10 ml @ 5 mls/min DAILY@ IV 11/15/16 09:00 12/15/16 08:59 11/16/16 09:16 5 MLS/MIN Nicotine (Nicoderm Cq 14MG Patch) 1 patch QAM TD 11/15/16 09:00 12/15/16 08:59 11/16/16 09:20 1 PATCH Miscellaneous (Remove Nicoderm Patch) 1 ea HS N/A 11/14/16 21:00 12/14/16 20:59 11/15/16 22:37 1 EA Miscellaneous Information (Pharmacy Tpn/ Ppn Consult Active) 1 ea UD PRN N/A 11/15/16 16:00 12/15/16 15:59 Future Hold Morphine Sulfate (MoRPHine SULFATE INJ) 2 mg Q2H PRN IV 11/14/16 20:30 11/28/16 20:29 11/16/16 01:10 2 MG Vancomycin HCl 750 mg/Sodium Chloride 265 ml @ 125 mls/hr Q8H IV 11/15/16 04:00 11/25/16 03:59 11/16/16 12:20 125 MLS/HR Piperacillin Sod/ Tazobactam Sod 3.375 gm/Dextrose 115 ml @ 28.75 mls/ hr Q8H IV 11/15/16 06:00 11/25/16 05:59 11/16/16 13:11 28.75 MLS/HR Piperacillin Sod/ Tazobactam Sod (Consult) 1 ea UD PRN N/A 11/15/16 00:30 12/15/16 00:29 Acetaminophen 650 mg/Empty Bag 65 ml @ 260 mls/hr Q6H PRN IV 11/15/16 03:15 12/15/16 03:14 11/15/16 03:38 260 MLS/HR Ciprofloxacin/ Dextrose 400 mg/ Prmx 200 ml @ 100 mls/hr Q12H IV 11/15/16 16:00 11/25/16 15:59 11/16/16 04:34 100 MLS/HR Non-Formulary Medication (Patient'S Own Controlled Med) 1 ea DAILY XX 11/15/16 09:00 11/29/16 08:59 Nutrition (Parenteral) 0 ml @ 0 mls/hr TODAY@1600 IV 11/15/16 16:00 11/16/16 15:59 Future Hold Dextrose 1,000 ml @ 0 mls/hr Q0M PRN IV 11/15/16 11:57 12/15/16 11:56 Caspofungin 50 mg/ Sodium Chloride 260 ml @ 260 mls/hr DAILY@1400 IV 11/16/16 14:00 12/16/16 13:59 11/16/16 13:47 260 MLS/HR Miscellaneous Information (Pharmacy Consult) 1 ea UD PRN N/A 11/15/16 14:00 12/15/16 13:44 Loperamide HCl (Imodium Cap) 2 mg TID PO 11/16/16 09:00 12/16/16 08:59 11/16/16 13:12 2 MG Potassium Chloride 20 meq/ Dextrose/Lactated Ringer's 1,010 ml @ 150 mls/hr Q6H44M IV 11/16/16 10:00 12/16/16 09:29 11/16/16 10:28 150 MLS/HR Objective Vital Signs Date Time Temp Pulse Resp B/P (MAP) Pulse Ox O2 Delivery O2 Flow Rate FiO2 11/16/16 12:00 Room Air 11/16/16 11:30 37.1 93 21 83/42 (56) 93 Room Air 11/16/16 11:21 36.9 68 20 79/29 (46) 95 Room Air 11/16/16 09:40 86/53 (64) 11/16/16 08:00 Room Air 11/16/16 08:00 97 Room Air 11/16/16 07:24 36.8 59 20 78/45 (56) 98 Room Air 11/16/16 04:00 Room Air 11/16/16 04:00 37.2 62 16 74/35 (48) 98 Room Air 11/15/16 23:59 Room Air 11/15/16 23:10 37.6 68 16 78/37 (51) 100 Room Air 11/15/16 20:00 Room Air 11/15/16 19:30 37.5 70 18 85/37 (53) 97 Room Air 11/15/16 16:34 37.7 71 18 83/49 (60) 100 Room Air 11/15/16 16:00 Room Air Physical Exam General Appearance: WD/WN, no apparent distress Eyes: normal inspection, EOMI, sclerae normal ENT: normal ENT inspection, pharynx normal Neck: supple, no adenopathy, trachea midline Respiratory/Chest: chest non-tender, lungs clear, normal breath sounds, no respiratory distress Cardiovascular: regular rate, rhythm, no gallop, no murmur Abdomen: normal bowel sounds, non tender, soft, no organomegaly Extremities: non-tender, no calf tenderness Neurologic/Psychiatric: alert, oriented x 3 Skin: normal color, no rash Lymphatic: no adenopathy Laboratory Results RUN DATE: 11/16/16 [facility] LAB PAGE 1 RUN TIME: 0720 Specimen Inquiry PATIENT[facility]ARTINEZ [facility]: [id number] LOC: [place] U # : [id number] AGE/SX: 26/F ROOM: E206 REG : 11/14/[address]: Santiago Kirk MD : [id number] BED: 1 DIS : STATUS: ADM IN TLOC: SPEC #: [id number] YESY: 11/14/16 STATUS: RES REQ #: [id number] RECD: 11/14/[address] [facility] [address]: Rachna Dunbar PA-C SOURCE: BLOOD ENTR: 11/14/16-[address] [facility] [address]: Talia Altamirano M.D. [facility]: Alanna Tyler M.D. ORDERED: BLOOD CULTURE COMMENTS: Comments to Health And Physical Education Teacher SAME TIME DIFFERENT SITES Procedure Result Verified Site BLD CULT Preliminary 11/16/16-719 Organism 1 YEAST SENS NO SENSITIVITY TO FOLLOW Phoned Positive Blood Culture Gram Stain Report to BENJIE Husain on 11/15/16 At 1144 By GARO. Results were verbalized back to GARO. Last 24 Hours Test 11/15/16 19:36 11/16/16 07:48 Vancomycin Level Trough 12.9 mcg/ml White Blood Count 3.45 K/uL Red Blood Count 3.20 M/uL Hemoglobin 8.9 g/dL Hematocrit 26.5 % Mean Corpuscular Volume 82.8 fL Mean Corpuscular Hemoglobin 27.8 pg Mean Corpuscular Hemoglobin Concent 33.6 g/dl RDW Standard Deviation 50.8 fL RDW Coefficient of Variation 16.6 % Platelet Count 44 K/uL Sodium Level 136 mmol/L Potassium Level 4.0 mmol/L Chloride Level 112 mmol/L Carbon Dioxide Level 17 mmol/L Anion Gap 7.0 mmol/L Blood Urea Nitrogen 10 mg/dl Creatinine 0.56 mg/dl Est Creatinine Clear Calc Drug Dose 139.0 ml/min Estimated GFR () 147.1 Estimated GFR (Non- 126.9 BUN/Creatinine Ratio 18.4 Random Glucose 68 mg/dl Calcium Level 6.9 mg/dl Phosphorus Level 2.0 mg/dl Magnesium Level 2.0 mg/dl Total Bilirubin 3.6 mg/dl Aspartate Amino Transf (AST/SGOT) 28 U/L Alanine Aminotransferase (ALT/SGPT) 37 U/L Alkaline Phosphatase 216 U/L Total Protein 5.0 gm/dl Albumin 1.7 gm/dl Globulin 3.3 gm/dl Albumin/Globulin Ratio 0.5 Thyroid Stimulating Hormone (TSH) 1.890 uIu/ml Assessment and Plan Complicated picture of 26-year-old female with history of multiple prior gastric surgeries, Gram-negative sepsis, now with recurrent fever with blood cultures now growing yeast. Most likely source would be central line and catheter to be removed later today. Would continue patient on caspofungin as isolate may be fluconazole resistant. Will likely need 10-14 days of therapy. Will follow.
--- NOTE | 2016-11-16 21:44 | Progress Note ---
Subjective Date of Service: Nov 16, 2016. Subjective Pt evaluation today including: conversation w/ patient, physical exam, chart review, lab review, conversation w/ architectural sales consultant (general surgery) Pain: abd pain improved today PO Intake: npo Voiding: no voiding problems tele stable overnight again had low BPs while sleeping but no symptoms of dizziness or lightheadedness she overall feels better had copious output from ileostomy overnight but she reports "this is actually good for me" (the volume) Problem List Medical Problems: (1) Abnormal computed tomography of gallbladder Status: Acute (2) Anemia Status: Acute (3) Fever and chills Status: Acute (4) Free fluid in pelvis Status: Acute (5) Low serum phosphorus for age Status: Acute (6) Pancytopenia Status: Acute (7) Post op infection Status: Acute (8) Sepsis Status: Acute Review of Systems Constitutional: No fever, No chills Respiratory: No cough, No shortness of breath Cardiac: No chest pain Abdomen: No nausea, No vomiting Objective Vital Signs Date Time Temp Pulse Resp B/P (MAP) Pulse Ox O2 Delivery O2 Flow Rate FiO2 11/16/16 18:55 37.0 69 17 84/29 (47) 97 Room Air 84/33 (50) 11/16/16 16:38 37.0 66 15 84/46 (59) 98 Room Air 11/16/16 16:00 Room Air 11/16/16 12:00 Room Air 11/16/16 11:30 37.1 93 21 83/42 (56) 93 Room Air 11/16/16 11:21 36.9 68 20 79/29 (46) 95 Room Air 11/16/16 09:40 86/53 (64) 11/16/16 08:00 Room Air 11/16/16 08:00 97 Room Air 11/16/16 07:24 36.8 59 20 78/45 (56) 98 Room Air 11/16/16 04:00 Room Air 11/16/16 04:00 37.2 62 16 74/35 (48) 98 Room Air 11/15/16 23:59 Room Air 11/15/16 23:10 37.6 68 16 78/37 (51) 100 Room Air Physical Exam General Appearance: no apparent distress, + pertinent finding (chronically ill appearing) ENT: pharynx normal Neck: no JVD Respiratory/Chest: lungs clear, no respiratory distress, no accessory muscle use, + decreased breath sounds (minimally at the bases) Cardiovascular: regular rate, rhythm, no gallop, no murmur Abdomen: normal bowel sounds, non tender, soft, + distended (mild), + hepatomegaly, + pertinent finding (PEG tube in place, insertion site clean; ileostomy with yellow fluid in the bag; multiple dressings on abdominal wall) Extremities: no pedal edema Neurologic/Psychiatric: alert, oriented x 3 Skin: no rash, + pallor Laboratory Results Last 24 Hours Test 11/16/16 07:48 White Blood Count 3.45 K/uL Red Blood Count 3.20 M/uL Hemoglobin 8.9 g/dL Hematocrit 26.5 % Mean Corpuscular Volume 82.8 fL Mean Corpuscular Hemoglobin 27.8 pg Mean Corpuscular Hemoglobin Concent 33.6 g/dl RDW Standard Deviation 50.8 fL RDW Coefficient of Variation 16.6 % Platelet Count 44 K/uL Sodium Level 136 mmol/L Potassium Level 4.0 mmol/L Chloride Level 112 mmol/L Carbon Dioxide Level 17 mmol/L Anion Gap 7.0 mmol/L Blood Urea Nitrogen 10 mg/dl Creatinine 0.56 mg/dl Est Creatinine Clear Calc Drug Dose 139.0 ml/min Estimated GFR () 147.1 Estimated GFR (Non- 126.9 BUN/Creatinine Ratio 18.4 Random Glucose 68 mg/dl Calcium Level 6.9 mg/dl Phosphorus Level 2.0 mg/dl Magnesium Level 2.0 mg/dl Total Bilirubin 3.6 mg/dl Aspartate Amino Transf (AST/SGOT) 28 U/L Alanine Aminotransferase (ALT/SGPT) 37 U/L Alkaline Phosphatase 216 U/L Total Protein 5.0 gm/dl Albumin 1.7 gm/dl Globulin 3.3 gm/dl Albumin/Globulin Ratio 0.5 Thyroid Stimulating Hormone (TSH) 1.890 uIu/ml Assessment and Plan Complicated 26yo female with: 1. septicemia/fungemia - suspected source - left-sided Sauceda catheter in setting of chronic TPN usage. s/p removal of catheter today by gen surg; tip sent to micro for culture. Fevers resolved. TPN has been held. Day #2 of caspofungin. Repeat blood cx's today pending. Since cultures are otherwise negative for bacteria will d/c zosyn and cipro along with vanco. ECHO negative for vegetations. Doubt PEG tube is source for fungemia. Doubt GI tract (possible, but unlikely) . 2. pancytopenia - no change overnight. Review of our EMR shows her Hb to be 9.6 or higher in October and early November. Could be 2nd to liver disease. B12/folate nl. TSH nl. Could also be 2nd to fungemia, viral process (parvo), etc. Repeat CBC am for stability. 3. abnormal LFTs, hepatomegaly, h/o HepC - review of EMR shows her t. bili to be rising over the last 1-2 months. Due to TPN (ie cholestasis)? Due to worsening HepC? other? repeat LFTs today largely the same. Doubt acute cholecystitis (upper abdominal pain is resolved). 4. anemia - worsening over the last 1-2 months but stable overnight. Could some of her epigastric pain be from a gastric ulcer (has remote history of such). other source of GI bleeding? NPO, PPI twice daily IV. s/p 3 units PRBCs this admission. repeat CBC am. 5. severe protein calorie malnutrition 2nd to short gut syndrome - is TPN-dependent. TPN on hold due to fungemia. nutrition will be an ongoing issue long-term due to the short gut. dietary to follow while here. add daily MVI, folic acid, etc while NPO. add immodium 2mg TID to help slow down output. 6. DVT proph - chemical means contraindicated due to severe thrombocytopenia. SCDs. 7. chronic pain syndrome - methadone 103mg daily with morphine IV prn for breakthrough. Caution with latter and in light of liver dysfunction. 8. hypomagnesemia - 2nd to short gut and dumping. Replaced and now nl. 9. depression - continue outpatient meds. 10. hyperchloremic / nonanion gap acidosis - due to dumping from short gut. BMP daily. Changed fluids to LR with KCL. 11. FEN - holding TPN. Lytes including mag/phos in am. Change fluids to D5LR with KCL today. 12. hypotension - despite low-normal BPs she has preserved Creatinine & good UOP. Gave additional fluid bolus this am. This may be baseline BPs for her. Follow carefully. In light of hypoglycemia will check cosyntropin stim test in am - r/o adrenal insufficiency. 13. ?acute cholecystitis - has gallstones and mild fluid around gall bladder - this could be due to liver disease/fluid resuscitation. HIDA scan unable to be completed due to patient not tolerating test. Upper abd pain resolved. Follow. 14. gardenella UTI - in light of immunocompromised status will Rx with flagyl 500mg IV q8h x 5-7 days. 15. 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 Consider GI consultation while hospitalized to get her linked with local GI physician. Continued [facility] stay due to: abnormal vital signs, inadequate po fluid intake, inadequate oral pain control, multiple IV medications needed Discharge planning: uncertain
[2016-11-16] MEDS: METRONIDAZOLE / NSS 500 MG in PREMIXED NSS 100 ML IV SCH (21:56)
[2016-11-17] VITALS (9 sets, daily range): BP systolic 72–90; BP diastolic 32–47; PULSE 45–59; TEMP 36.4–37.1; O2SAT 93–99
[2016-11-17] MEDS: MoRPHine SULFATE 2 MG/ML CARP IV PRN (00:14)
[2016-11-17] MEDS: METRONIDAZOLE / NSS 500 MG in PREMIXED NSS 100 ML IV SCH ×3 (05:42→20:58)
[2016-11-17] MEDS: POTASSIUM CHLORIDE INJ 20 MEQ in D5W AND LACTATED RINGERS 1,000 ML IV SCH ×3 (05:44→20:58)
[2016-11-17] MEDS ORDERED: COSYNTROPIN IV SCH (08:00)
[2016-11-17 08:38] LABS: MEAN CORPUSCULAR HGB CONC 32.5 g/dl (32-36)
[2016-11-17 08:47] LABS: HEMATOCRIT 26.8 % (37-47); MEAN CELL VOLUME 83.8 fL (80-100); MEAN CORPUSCULAR HEMOGLOBIN 27.2 pg (25-34); WHITE BLOOD COUNT 3.57 K/uL (4.8-10.8)
[2016-11-17] MEDS ORDERED: NURSING VERBAL MED ORDER ONE (09:00)
[2016-11-17] MEDS: METHADONE XX SCH (09:00)
[2016-11-17 09:09] LABS: PLATELET COUNT 60 K/uL (130-400)
[2016-11-17 09:13] LABS: ALT/SGPT 37 U/L (12-78); BLOOD UREA NITROGEN 8 mg/dl (7-18); BUN/CREATININE RATIO 15.6 (10-20); CALCIUM 7.7 mg/dl (8.5-10.1); CARBON DIOXIDE 18 mmol/L (21-32); CHLORIDE 112 mmol/L (98-107); GLUCOSE 92 mg/dl (70-99); POTASSIUM 3.8 mmol/L (3.5-5.1); SODIUM 138 mmol/L (136-145)
[2016-11-17 09:16] LABS: ALB/GLOB RATIO 0.5 (0.9-2); ALKALINE PHOSPHATASE 337 U/L (45-117); AST/SGOT 26 U/L (15-37); PHOSPHORUS 2.1 mg/dl (2.5-4.9)
[2016-11-17] MEDS ORDERED: POTASSIUM CHLORIDE INJ 20 MEQ in D5W AND LACTATED RINGERS 1,000 ML IV SCH (09:30)
[2016-11-17] MEDS ORDERED: POTASSIUM PHOS 3 MMOL/1 ML INFUSION IV STA (10:05)
--- NOTE | 2016-11-17 10:36 | Surgery Progress Note ---
Surgery Progress Note Date of Service Nov 17, 2016. Subjective Patient examined at bedside this morning. Afebrile, hypotensive (appears to be baseline) - otherwise vitals stable overnight on room air, no acute events. States she has some soreness of left chest at site of Sauceda catheter removal, but pain is under control. Dressing clean / dry / intact, no surrounding erythema or swelling. Objective Vital Signs: Date Time Temp Pulse Resp B/P (MAP) Pulse Ox O2 Delivery O2 Flow Rate FiO2 11/17/16 08:00 Room Air 11/17/16 07:23 36.7 59 16 82/35 (51) 96 Room Air 11/17/16 04:00 Room Air 11/17/16 03:00 36.7 54 16 72/32 (45) 96 Room Air 11/16/16 23:59 Room Air 11/16/16 23:20 37.1 60 16 70/31 (44) 96 Room Air 11/16/16 20:00 Room Air 11/16/16 18:55 37.0 69 17 84/29 (47) 97 Room Air 84/33 (50) 11/16/16 16:38 37.0 66 15 84/46 (59) 98 Room Air 11/16/16 16:00 Room Air 11/16/16 12:00 Room Air 11/16/16 11:30 37.1 93 21 83/42 (56) 93 Room Air 11/16/16 11:21 36.9 68 20 79/29 (46) 95 Room Air General Appearance: WD/WN, no apparent distress Head: normocephalic Neck: supple Respiratory/Chest: lungs clear, normal breath sounds Cardiovascular: regular rate, rhythm Abdomen: normal bowel sounds, non tender, non distended, soft Incision(s): clean, dry, intact Laboratory Results: Results Past 24 Hours Test 11/17/16 07:58 Range/Units White Blood Count 3.57 4.8-10.8 K/uL Red Blood Count 3.20 4.2-5.4 M/uL Hemoglobin 8.7 12.0-16.0 g/dL Hematocrit 26.8 37-47 % Mean Corpuscular Volume 83.8 80-100 fL Mean Corpuscular Hemoglobin 27.2 25-34 pg Mean Corpuscular Hemoglobin Concent 32.5 32-36 g/dl RDW Standard Deviation 51.6 36.4-46.3 fL RDW Coefficient of Variation 16.9 11.5-14.5 % Platelet Count 60 130-400 K/uL Sodium Level 138 136-145 mmol/L Potassium Level 3.8 3.5-5.1 mmol/L Chloride Level 112 98-107 mmol/L Carbon Dioxide Level 18 21-32 mmol/L Anion Gap 8.0 3-11 mmol/L Blood Urea Nitrogen 8 7-18 mg/dl Creatinine 0.50 0.60-1.20 mg/dl Est Creatinine Clear Calc Drug Dose 158.2 ml/min Estimated GFR () > 150.0 Estimated GFR (Non- 131.7 BUN/Creatinine Ratio 15.6 10-20 Random Glucose 92 70-99 mg/dl Calcium Level 7.7 8.5-10.1 mg/dl Phosphorus Level 2.1 2.5-4.9 mg/dl Magnesium Level 2.0 1.8-2.4 mg/dl Total Bilirubin 3.8 0.2-1 mg/dl Aspartate Amino Transf (AST/SGOT) 26 15-37 U/L Alanine Aminotransferase (ALT/SGPT) 37 12-78 U/L Alkaline Phosphatase 337 45-117 U/L Total Protein 5.0 6.4-8.2 gm/dl Albumin 1.7 3.4-5.0 gm/dl Globulin 3.3 2.5-4.0 gm/dl Albumin/Globulin Ratio 0.5 0.9-2 Cortisol Response to Stimulation Cortisol Baseline Microbiology Results 11/16/16 Catheter Tip Culture, Received Pending Assessment & Plan Rebecca Curiel is a 26 year old woman with history of gastric bypass complicated by internal hernia, s/p resection of small bowel and now with short gut syndrome. Found to have fungemia on blood cultures. Sauceda catheter was removed at bedside 11/16/16 without difficulty. -Catheter tip sent for culture, follow results -Keep catheter site dressing in place for another 24 hours. May be removed tomorrow. -Will continue to follow. Kimberli Rodriguez MD 11/17/16
[2016-11-17] MEDS: CITALOPRAM 40 MG TAB PO SCH (10:59)
[2016-11-17] MEDS: PANTOprazole INJ 40 MG in SYRINGE 0 ML IV SCH ×2 (10:59→20:59)
[2016-11-17] MEDS ORDERED: POTASSIUM PHOSPHATE INJ 15 MMOL in SODIUM CHLORIDE 0.9% 250ML 250 ML IV SCH (11:00)
[2016-11-17] MEDS: LOPERAMIDE HCL 2 MG CAP PO SCH ×3 (11:01→20:59)
[2016-11-17] MEDS: METHADONE ORAL SOLN 2 MG/1ML PO SCH (11:02)
[2016-11-17] MEDS: NICOTINE 14 MG/24 HR TDSY TD SCH (11:04)
[2016-11-17] MEDS: CYANOCOBALAMIN 500 MCG TAB (VIT B-12) PO SCH (11:04)
[2016-11-17 11:05] LABS: COD UR NEGATIVE NG/ML (CUTOFF=50); HYDROCOD UR NEGATIVE NG/ML (CUTOFF=50); HYDROMOR UR NEGATIVE NG/ML (CUTOFF=50); METHADONE METABOLITE 8350 NG/ML (CUTOFF=100); METHADONE VERIFIC 8690 NG/ML (CUTOFF=100); MORPHINE UR 2980 NG/ML (CUTOFF=50); NORHYDROCODONE CONF UR NEGATIVE NG/ML (CUTOFF=50); OXYMORPH UR NEGATIVE NG/ML (CUTOFF=50)
--- NOTE | 2016-11-17 13:54 | Infectious Disease Progress Nt ---
Progress Note Date of Service Nov 17, 2016. Subjective Pt evaluation today including: conversation w/ patient, physical exam, chart review, lab review, review of studies, conversation w/ fashion consultant sales, review of inpatient medication list Complaining of some pain at the site of removal of PICC line catheter, otherwise offers no new complaints. No temperature spikes. Tolerating antibiotic therapy without apparent difficulty. All Other Systems: Reviewed and Negative Medications Current Inpatient Medications Medications (Trade) Dose Ordered Sig/Faith Route Start Time Stop Time Status Last Admin Dose Admin Ioversol (Optiray 320) 100 ml UD PRN IV 11/14/16 13:45 11/18/16 13:44 Acetaminophen (Tylenol Tab) 650 mg Q4H PRN PO 11/14/16 16:15 12/14/16 16:14 11/15/16 01:42 650 MG Al Hydrox/Mg Hydrox/Simethicone (Maalox Max Susp) 15 ml Q4H PRN PO 11/14/16 16:15 12/14/16 16:14 Magnesium Hydroxide (Milk Of Magnesia Susp) 30 ml Q12H PRN PO 11/14/16 16:15 12/14/16 16:14 Zolpidem Tartrate (Ambien Tab) 5 mg HSZ PRN PO 11/14/16 16:15 12/14/16 16:14 Ondansetron HCl (Zofran Inj) 4 mg Q6H PRN IV 11/14/16 16:15 12/14/16 16:14 Polyethylene (Miralax Powder Packet) 17 gm DAILY PRN PO 11/14/16 16:15 12/14/16 16:14 Citalopram Hydrobromide (celeXA TAB) 40 mg DAILY PO 11/15/16 09:00 12/15/16 08:59 11/17/16 10:59 40 MG Cyanocobalamin (Vitamin B-12 Tab) 500 mcg DAILY PO 11/15/16 09:00 12/15/16 08:59 11/17/16 11:04 500 MCG Methadone HCl (Methadone HCl) 103 mg DAILY PO 11/15/16 09:00 12/15/16 08:59 11/17/16 11:02 103 MG Pantoprazole Sodium 40 mg/ Syringe 10 ml @ 5 mls/min DAILY@ IV 11/15/16 09:00 12/15/16 08:59 11/17/16 10:59 5 MLS/MIN Nicotine (Nicoderm Cq 14MG Patch) 1 patch QAM TD 11/15/16 09:00 12/15/16 08:59 11/17/16 11:04 1 PATCH Miscellaneous (Remove Nicoderm Patch) 1 ea HS N/A 11/14/16 21:00 12/14/16 20:59 11/16/16 20:03 1 EA Miscellaneous Information (Pharmacy Tpn/ Ppn Consult Active) 1 ea UD PRN N/A 11/15/16 16:00 12/15/16 15:59 Future Hold Morphine Sulfate (MoRPHine SULFATE INJ) 2 mg Q2H PRN IV 11/14/16 20:30 11/28/16 20:29 11/17/16 00:14 2 MG Acetaminophen 650 mg/Empty Bag 65 ml @ 260 mls/hr Q6H PRN IV 11/15/16 03:15 12/15/16 03:14 11/15/16 03:38 260 MLS/HR Non-Formulary Medication (Patient'S Own Controlled Med) 1 ea DAILY XX 11/15/16 09:00 11/29/16 08:59 Dextrose 1,000 ml @ 0 mls/hr Q0M PRN IV 11/15/16 11:57 12/15/16 11:56 Caspofungin 50 mg/ Sodium Chloride 260 ml @ 260 mls/hr DAILY@1400 IV 11/16/16 14:00 12/16/16 13:59 11/16/16 13:47 260 MLS/HR Miscellaneous Information (Pharmacy Consult) 1 ea UD PRN N/A 11/15/16 14:00 12/15/16 13:44 Loperamide HCl (Imodium Cap) 2 mg TID PO 11/16/16 09:00 12/16/16 08:59 11/17/16 11:01 2 MG Potassium Chloride 20 meq/ Dextrose/Lactated Ringer's 1,010 ml @ 100 mls/hr Q10H6M IV 11/16/16 10:00 12/16/16 09:29 11/17/16 05:44 150 MLS/HR Metronidazole 500 mg/Prmx 100 ml @ 100 mls/hr Q8H IV 11/16/16 21:00 11/26/16 20:59 11/17/16 12:34 100 MLS/HR Hydrocortisone Sodium Succinate 50 mg/Syringe 1 ml @ 4 mls/min Q8H IV 11/17/16 14:00 12/17/16 13:59 Objective Vital Signs Date Time Temp Pulse Resp B/P (MAP) Pulse Ox O2 Delivery O2 Flow Rate FiO2 11/17/16 12:00 Room Air 11/17/16 11:43 37.1 57 16 90/45 (60) 95 Room Air 11/17/16 08:00 Room Air 11/17/16 07:23 36.7 59 16 82/35 (51) 96 Room Air 11/17/16 04:00 Room Air 11/17/16 03:00 36.7 54 16 72/32 (45) 96 Room Air 11/16/16 23:59 Room Air 11/16/16 23:20 37.1 60 16 70/31 (44) 96 Room Air 11/16/16 20:00 Room Air 11/16/16 18:55 37.0 69 17 84/29 (47) 97 Room Air 84/33 (50) 11/16/16 16:38 37.0 66 15 84/46 (59) 98 Room Air 11/16/16 16:00 Room Air Physical Exam General Appearance: WD/WN, no apparent distress Eyes: normal inspection, EOMI, sclerae normal ENT: normal ENT inspection, pharynx normal Neck: supple, no adenopathy, thyroid normal, trachea midline Respiratory/Chest: lungs clear, normal breath sounds, no respiratory distress Cardiovascular: regular rate, rhythm, no gallop, no murmur Abdomen: normal bowel sounds, non tender, soft, no organomegaly Extremities: non-tender, no calf tenderness Neurologic/Psychiatric: alert, oriented x 3 Skin: normal color, no rash Lymphatic: no adenopathy Laboratory Results Date/Time Source Procedure Growth Status 11/16/16 15:40 Catheter Tip Central Venous Pressure Line Catheter Tip Culture Pending Received Last 24 Hours Test 11/17/16 07:58 White Blood Count 3.57 K/uL Red Blood Count 3.20 M/uL Hemoglobin 8.7 g/dL Hematocrit 26.8 % Mean Corpuscular Volume 83.8 fL Mean Corpuscular Hemoglobin 27.2 pg Mean Corpuscular Hemoglobin Concent 32.5 g/dl RDW Standard Deviation 51.6 fL RDW Coefficient of Variation 16.9 % Platelet Count 60 K/uL Sodium Level 138 mmol/L Potassium Level 3.8 mmol/L Chloride Level 112 mmol/L Carbon Dioxide Level 18 mmol/L Anion Gap 8.0 mmol/L Blood Urea Nitrogen 8 mg/dl Creatinine 0.50 mg/dl Est Creatinine Clear Calc Drug Dose 158.2 ml/min Estimated GFR () > 150.0 Estimated GFR (Non- 131.7 BUN/Creatinine Ratio 15.6 Random Glucose 92 mg/dl Calcium Level 7.7 mg/dl Phosphorus Level 2.1 mg/dl Magnesium Level 2.0 mg/dl Total Bilirubin 3.8 mg/dl Aspartate Amino Transf (AST/SGOT) 26 U/L Alanine Aminotransferase (ALT/SGPT) 37 U/L Alkaline Phosphatase 337 U/L Total Protein 5.0 gm/dl Albumin 1.7 gm/dl Globulin 3.3 gm/dl Albumin/Globulin Ratio 0.5 Cortisol Response to Stimulation Cortisol Baseline Assessment and Plan Complicated picture of 26-year-old female with history of multiple prior gastric surgeries, Gram-negative sepsis, now with recurrent fever with blood cultures now growing yeast. Most likely source would be central line and catheter now removed. Will continue caspofungin. Would obtain f/u cultures to insure clearance of fungemia. Will follow.
[2016-11-17] MEDS: CASPOFUNGIN INJ 50 MG in SODIUM CHLORIDE 0.9% 250ML 250 ML IV SCH (14:15)
[2016-11-17] MEDS: HYDROCORTISONE IV 50 MG in SYRINGE 0 ML IV SCH ×2 (14:16→22:00)
[2016-11-17] MEDS: ACETAMINOPHEN 325 MG TAB PO PRN ×2 (17:41→22:00)
--- NOTE | 2016-11-17 21:16 | Progress Note ---
Subjective Date of Service: Nov 17, 2016. Subjective Pt evaluation today including: conversation w/ patient, physical exam, chart review, lab review, review of studies (cosyntropin stim test), review of inpatient medication list Pain: abdominal - but improved PO Intake: essentially npo Voiding: no voiding problems patient feels swollen in her abdomen "with fluid" and her upper thighs denies any dyspnea or cough no vomiting ostomy output much improved to <2 liters last 24 hours denies any dizziness despite low bp feels better Problem List Medical Problems: (1) Abnormal computed tomography of gallbladder Status: Acute (2) Anemia Status: Acute (3) Fever and chills Status: Acute (4) Free fluid in pelvis Status: Acute (5) Low serum phosphorus for age Status: Acute (6) Pancytopenia Status: Acute (7) Post op infection Status: Acute (8) Sepsis Status: Acute Review of Systems Constitutional: No fever, No chills Respiratory: No shortness of breath, No dyspnea on exertion Cardiac: No chest pain Abdomen: + see HPI, + pain, No nausea, No vomiting Objective Vital Signs Date Time Temp Pulse Resp B/P (MAP) Pulse Ox O2 Delivery O2 Flow Rate FiO2 11/17/16 19:15 36.4 53 18 89/39 (56) 99 Room Air 11/17/16 15:56 36.9 58 13 76/37 (50) 97 11/17/16 14:15 Room Air 11/17/16 12:00 Room Air 11/17/16 11:43 37.1 57 16 90/45 (60) 95 Room Air 11/17/16 08:00 Room Air 11/17/16 07:23 36.7 59 16 82/35 (51) 96 Room Air 11/17/16 04:00 Room Air 11/17/16 03:00 36.7 54 16 72/32 (45) 96 Room Air 11/16/16 23:59 Room Air 11/16/16 23:20 37.1 60 16 70/31 (44) 96 Room Air Physical Exam General Appearance: + pertinent finding (chronically ill appearing but looks better than yesterday; NAD) ENT: pharynx normal (thrush on tongue resolved) Neck: no JVD Respiratory/Chest: lungs clear, no respiratory distress, no accessory muscle use, + decreased breath sounds (bases) Cardiovascular: regular rate, rhythm, no gallop, no murmur Abdomen: normal bowel sounds, soft, + tenderness (around PEG site), + hepatomegaly, + pertinent finding (ileostomy with yellow fluid in bag; PEG tube site clean; numerous scars on abdominal wall; mild fullness possibly due to ascites) Extremities: no pedal edema Neurologic/Psychiatric: alert, oriented x 3 Skin: + pallor Laboratory Results Last 24 Hours Test 11/17/16 07:58 White Blood Count 3.57 K/uL Red Blood Count 3.20 M/uL Hemoglobin 8.7 g/dL Hematocrit 26.8 % Mean Corpuscular Volume 83.8 fL Mean Corpuscular Hemoglobin 27.2 pg Mean Corpuscular Hemoglobin Concent 32.5 g/dl RDW Standard Deviation 51.6 fL RDW Coefficient of Variation 16.9 % Platelet Count 60 K/uL Sodium Level 138 mmol/L Potassium Level 3.8 mmol/L Chloride Level 112 mmol/L Carbon Dioxide Level 18 mmol/L Anion Gap 8.0 mmol/L Blood Urea Nitrogen 8 mg/dl Creatinine 0.50 mg/dl Est Creatinine Clear Calc Drug Dose 158.2 ml/min Estimated GFR () > 150.0 Estimated GFR (Non- 131.7 BUN/Creatinine Ratio 15.6 Random Glucose 92 mg/dl Calcium Level 7.7 mg/dl Phosphorus Level 2.1 mg/dl Magnesium Level 2.0 mg/dl Total Bilirubin 3.8 mg/dl Aspartate Amino Transf (AST/SGOT) 26 U/L Alanine Aminotransferase (ALT/SGPT) 37 U/L Alkaline Phosphatase 337 U/L Total Protein 5.0 gm/dl Albumin 1.7 gm/dl Globulin 3.3 gm/dl Albumin/Globulin Ratio 0.5 Cortisol Response to Stimulation Cortisol Baseline Assessment and Plan Complicated 26yo female with: 1. septicemia/fungemia - source - left-sided Sauceda catheter in setting of chronic TPN usage. Culture of catheter tip now + for fungus. s/p removal of catheter yesterday by gen surgery. Fevers resolved. TPN has been held. Day #3 of caspofungin. Repeat blood cx's from yesterday + once again for fungus; will repeat 2 sets of cultures in AM. zosyn and cipro along with vanco d/c due to lack of bacterial infection. ECHO negative for vegetations. 2. pancytopenia - all cell lines low but no worse than previous. Review of our EMR showed her Hb to be 9.6 or higher in October and early November. Could be 2nd to liver disease. B12/folate nl. TSH nl. Could also be 2nd to fungemia, viral process (parvo), etc. Repeat CBC am for stability. 3. abnormal LFTs, hepatomegaly, h/o HepC - review of EMR shows her t. bili to be rising over the last 1-2 months. Due to TPN (ie cholestasis)? Due to worsening HepC? other? repeat LFTs today modestly worse. Doubt acute cholecystitis (upper abdominal pain is resolved). If LFTs continue to rise then GI consultation. 4. anemia - worsening over the last 1-2 months but stable once again overnight. Change IV PPI to prevacid solutab. s/p 3 units PRBCs this admission. repeat CBC am for stability. 5. severe protein calorie malnutrition 2nd to short gut syndrome - is TPN-dependent. TPN on hold due to fungemia. nutrition will be an ongoing issue long-term due to the short gut. dietary to follow while here. add daily MVI, folic acid, etc while NPO. add immodium 2mg TID to help slow down output. 6. DVT proph - chemical means contraindicated due to severe thrombocytopenia. SCDs. 7. chronic pain syndrome - methadone 103mg daily with morphine IV prn for breakthrough. 8. hypomagnesemia - 2nd to short gut and dumping. Replaced and now nl. 9. depression - continue outpatient meds. 10. hyperchloremic / nonanion gap acidosis - due to dumping from short gut. BMP daily. Changed fluids to LR with KCL with some improvement. 11. FEN - holding TPN. Replace phos. Due to worsening fluid balance/ascites will lower fluid rate to 80cc/hr. Repeat all labs in am. 12. hypotension - this, along with hypoglycemia, was concerning for adrenal insufficiency. Although 30 minute cortisol level nancy to >18, her 60 minute level was not sustained and leveled at 18. In light of her fungemia and significant illness this is a failed test. Start hydrocortisone 50mg IV q8h. 13. abdominal pain - has gallstones and mild fluid around gall bladder - this could be due to liver disease/fluid resuscitation. HIDA scan was unable to be completed due to patient not tolerating test. Upper abd pain resolved making acute cholecystitis less likely. Continues with mild amount of abdominal pain. Could she have smoldering SBP? Consider diagnostic paracentesis. 14. gardenella UTI - in light of immunocompromised status will Rx with flagyl 500mg IV q8h x 5-7 days. Day #2 today. 15. 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 Consider GI consultation while hospitalized to get her linked with local GI physician. 16. hypophosphatemia - replace IV, repeat level am. PT consult leave on tele until BPs are consistently MAP >65 Continued [facility] stay due to: abnormal vital signs, inadequate po fluid intake, multiple IV medications needed, other (fungemia) Discharge planning: uncertain
[2016-11-17 23:35] LABS: PARVOVIRUS IgG INDEX 5.4 (<0.9); PARVOVIRUS IgM INDEX 0.1 (<0.9)
[2016-11-18] VITALS (7 sets, daily range): BP systolic 84–99; BP diastolic 51–58; PULSE 43–51; TEMP 36.2–36.7; O2SAT 93–100
--- NOTE | 2016-11-18 00:57 | Progress Note ---
Progress Note Date of Service Nov 18, 2016. Progress Note Called by RN overnight due to bradycardia with HR in 40's. Patient asymptomatic with this. No chest pain, shortness of breath or dizziness. EKG ordered showing sinus bradycardia without QTC prolongation. Electrolytes normal from previous morning labs (phosphorus is mildly reduced). - Sinus bradycardia secondary to malnutrition and ongoing infection (fungemia). The fungemia is being treated and unfortunately she has limited options for nutrition. TPN not appropriate due to ongoing fungemia with blood cultures as recently as 11/16/16 positive. As per nursing she has been eating but she clearly has limited absorption potential with her short gut. - No critical intervention needed overnight unless patient is symptomatic or HR persistently in 30's.
[2016-11-18] MEDS: METRONIDAZOLE / NSS 500 MG in PREMIXED NSS 100 ML IV SCH ×3 (04:49→20:15)
[2016-11-18] MEDS: HYDROCORTISONE IV 50 MG in SYRINGE 0 ML IV SCH ×3 (05:11→20:15)
[2016-11-18] MEDS: CYANOCOBALAMIN 500 MCG TAB (VIT B-12) PO SCH (08:11)
[2016-11-18] MEDS: LANSOPRAZOLE SOLUTAB 30 MG PO SCH (08:11)
[2016-11-18] MEDS: LOPERAMIDE HCL 2 MG CAP PO SCH ×3 (08:12→20:15)
[2016-11-18] MEDS: CITALOPRAM 40 MG TAB PO SCH (08:12)
[2016-11-18] MEDS: NICOTINE 14 MG/24 HR TDSY TD SCH (08:12)
[2016-11-18] MEDS: METHADONE ORAL SOLN 2 MG/1ML PO SCH (08:12)
[2016-11-18] MEDS: METHADONE XX SCH (08:13)
[2016-11-18 08:14] LABS: HEMATOCRIT 32.7 % (37-47); MEAN CELL VOLUME 83.8 fL (80-100); MEAN CORPUSCULAR HEMOGLOBIN 27.7 pg (25-34); PLATELET COUNT 95 K/uL (130-400)
[2016-11-18 08:21] LABS: ANISOCYTOSIS PRESENT; COMPLETE YES; IG% 0.3 %; LYMPH ABS # 0.68 K/uL (1.2-3.4); MONO % 4.3 %; NEUT % 78.4 %
[2016-11-18 08:26] LABS: ALB/GLOB RATIO 0.5 (0.9-2); BUN/CREATININE RATIO 14.3 (10-20); CALCIUM 8.1 mg/dl (8.5-10.1); CREATININE 0.56 mg/dl (0.60-1.20); POTASSIUM 4.6 mmol/L (3.5-5.1)
[2016-11-18 08:33] LABS: PHOSPHORUS 3.5 mg/dl (2.5-4.9)
--- NOTE | 2016-11-18 11:59 | Surgery Progress Note ---
Surgery Progress Note Date of Service Nov 18, 2016. Subjective Post OP Day: HD # 4 No pain at catheter removal site, no redness, drainage, bleeding, or bruising Overall feeling fine Sleeping/resting on encounter no chest pain Objective Vital Signs: Date Time Temp Pulse Resp B/P (MAP) Pulse Ox O2 Delivery O2 Flow Rate FiO2 11/18/16 08:13 36.4 51 16 94/57 (69) 94 Room Air 11/18/16 08:00 Room Air 11/18/16 04:03 Room Air 11/18/16 03:45 36.4 45 16 88/51 (63) 95 Room Air 11/18/16 00:00 Room Air 11/17/16 23:45 36.4 46 18 83/47 (59) 93 Room Air 11/17/16 21:11 45 79/35 (50) 96 Room Air 11/17/16 20:00 97 Room Air 11/17/16 19:15 36.4 53 18 89/39 (56) 99 Room Air 11/17/16 16:00 97 Room Air 11/17/16 15:56 36.9 58 13 76/37 (50) 97 11/17/16 14:15 Room Air 11/17/16 12:00 Room Air General Appearance: WD/WN, no apparent distress (resting on encounter) Head: normocephalic, atraumatic Neck: trachea midline Respiratory/Chest: no respiratory distress, no accessory muscle use, + pertinent finding (Left sterile dressing present, no surrounding erythema, edema , or subcutaneous emphysema, incision c/d/i) Incision(s): clean, dry, intact, no erythema, no drainage Laboratory Results: Results Past 24 Hours Test 11/18/16 07:25 Range/Units White Blood Count 4.00 4.8-10.8 K/uL Red Blood Count 3.90 4.2-5.4 M/uL Hemoglobin 10.8 12.0-16.0 g/dL Hematocrit 32.7 37-47 % Mean Corpuscular Volume 83.8 80-100 fL Mean Corpuscular Hemoglobin 27.7 25-34 pg Mean Corpuscular Hemoglobin Concent 33.0 32-36 g/dl Platelet Count 95 130-400 K/uL Neutrophils (%) (Auto) 78.4 % Lymphocytes (%) (Auto) 17.0 % Monocytes (%) (Auto) 4.3 % Eosinophils (%) (Auto) 0.0 % Basophils (%) (Auto) 0.0 % Neutrophils # (Auto) 3.14 1.4-6.5 K/uL Lymphocytes # (Auto) 0.68 1.2-3.4 K/uL Monocytes # (Auto) 0.17 0.11-0.59 K/uL Eosinophils # (Auto) 0.00 0-0.5 K/uL Basophils # (Auto) 0.00 0-0.2 K/uL RDW Standard Deviation 52.3 36.4-46.3 fL RDW Coefficient of Variation 17.1 11.5-14.5 % Immature Granulocyte % (Auto) 0.3 % Immature Granulocyte # (Auto) 0.01 0.00-0.02 K/uL Anisocytosis PRESENT Sodium Level 138 136-145 mmol/L Potassium Level 4.6 3.5-5.1 mmol/L Chloride Level 111 98-107 mmol/L Carbon Dioxide Level 21 21-32 mmol/L Anion Gap 6.0 3-11 mmol/L Blood Urea Nitrogen 8 7-18 mg/dl Creatinine 0.56 0.60-1.20 mg/dl Est Creatinine Clear Calc Drug Dose 142.2 ml/min Estimated GFR () 147.1 Estimated GFR (Non- 126.9 BUN/Creatinine Ratio 14.3 10-20 Random Glucose 144 70-99 mg/dl Calcium Level 8.1 8.5-10.1 mg/dl Phosphorus Level 3.5 2.5-4.9 mg/dl Magnesium Level 2.0 1.8-2.4 mg/dl Total Bilirubin 2.9 0.2-1 mg/dl Aspartate Amino Transf (AST/SGOT) 19 15-37 U/L Alanine Aminotransferase (ALT/SGPT) 40 12-78 U/L Alkaline Phosphatase 412 45-117 U/L Total Protein 5.9 6.4-8.2 gm/dl Albumin 2.0 3.4-5.0 gm/dl Globulin 3.9 2.5-4.0 gm/dl Albumin/Globulin Ratio 0.5 0.9-2 Microbiology Results 11/18/16 Blood Culture, Received Pending 11/18/16 Blood Culture, Received Pending Assessment & Plan Rebecca Curiel is a 26 year old woman with history of gastric bypass complicated by internal hernia, s/p resection of small bowel and now with short gut syndrome. Found to have fungemia on blood cultures. Sauceda catheter was removed at bedside 11/16/16 without difficulty. -Catheter tip sent for culture, positive for yeast -May remove catheter dressing today, does not need to be covered any further unless there is drainage -Continue current medical management -Our services signing off.
[2016-11-18] MEDS: ACETAMINOPHEN 325 MG TAB PO PRN (13:56)
[2016-11-18] MEDS: CASPOFUNGIN INJ 50 MG in SODIUM CHLORIDE 0.9% 250ML 250 ML IV SCH (15:13)
[2016-11-18] MEDS: POTASSIUM CHLORIDE INJ 20 MEQ in D5W AND LACTATED RINGERS 1,000 ML IV SCH ×2 (16:23→16:26)
[2016-11-18] MEDS: PEPTAMEN INTENSE VHP 1000ML BAG PEG SCH (17:33)
[2016-11-18] MEDS: [UNRECOGNIZED DRUG - REMARK] SCH ×2 (17:33→23:21)
--- NOTE | 2016-11-18 21:13 | Progress Note ---
Subjective Date of Service: Nov 18, 2016. Subjective Pt evaluation today including: conversation w/ patient, physical exam, chart review, lab review, conversation w/ business management consultant (nutrition), review of inpatient medication list Pain: abdominal pain nearly resolved PO Intake: eating some foods Voiding: no voiding problems tele stable overnight BPs improved she feels so much better no fevers/chills ileostomy output markedly improved she IS willing to try using her PEG for tube feedings but is concerned about discomfort Problem List Medical Problems: (1) Abnormal computed tomography of gallbladder Status: Acute (2) Anemia Status: Acute (3) Fever and chills Status: Acute (4) Free fluid in pelvis Status: Acute (5) Low serum phosphorus for age Status: Acute (6) Pancytopenia Status: Acute (7) Post op infection Status: Acute (8) Sepsis Status: Acute Review of Systems Constitutional: No fever, No chills Respiratory: No shortness of breath Cardiac: No chest pain Abdomen: No nausea, No vomiting Objective Vital Signs Date Time Temp Pulse Resp B/P (MAP) Pulse Ox O2 Delivery O2 Flow Rate FiO2 11/18/16 18:55 36.7 44 16 90/53 (65) 96 Room Air 11/18/16 16:00 Room Air 11/18/16 15:21 36.2 44 16 85/53 (64) 100 Room Air 11/18/16 14:47 44 98 11/18/16 12:24 36.5 47 16 99/58 (72) 94 Room Air 11/18/16 12:00 Room Air 11/18/16 08:13 36.4 51 16 94/57 (69) 94 Room Air 11/18/16 08:00 Room Air 11/18/16 04:03 Room Air 11/18/16 03:45 36.4 45 16 88/51 (63) 95 Room Air 11/18/16 00:00 Room Air 11/17/16 23:45 36.4 46 18 83/47 (59) 93 Room Air 11/17/16 21:11 45 79/35 (50) 96 Room Air Physical Exam General Appearance: no apparent distress, + pertinent finding ENT: pharynx normal Neck: no JVD Respiratory/Chest: lungs clear, no respiratory distress, no accessory muscle use, + decreased breath sounds (bases) Cardiovascular: no gallop, no murmur, + bradycardia Abdomen: normal bowel sounds, non tender, soft, + pertinent finding (ileostomy with dark yellow fluid; PEG tube in place, insertion site clean) Extremities: no pedal edema Neurologic/Psychiatric: alert, oriented x 3 Laboratory Results Last 24 Hours Test 11/18/16 07:25 White Blood Count 4.00 K/uL Red Blood Count 3.90 M/uL Hemoglobin 10.8 g/dL Hematocrit 32.7 % Mean Corpuscular Volume 83.8 fL Mean Corpuscular Hemoglobin 27.7 pg Mean Corpuscular Hemoglobin Concent 33.0 g/dl Platelet Count 95 K/uL Neutrophils (%) (Auto) 78.4 % Lymphocytes (%) (Auto) 17.0 % Monocytes (%) (Auto) 4.3 % Eosinophils (%) (Auto) 0.0 % Basophils (%) (Auto) 0.0 % Neutrophils # (Auto) 3.14 K/uL Lymphocytes # (Auto) 0.68 K/uL Monocytes # (Auto) 0.17 K/uL Eosinophils # (Auto) 0.00 K/uL Basophils # (Auto) 0.00 K/uL RDW Standard Deviation 52.3 fL RDW Coefficient of Variation 17.1 % Immature Granulocyte % (Auto) 0.3 % Immature Granulocyte # (Auto) 0.01 K/uL Anisocytosis PRESENT Sodium Level 138 mmol/L Potassium Level 4.6 mmol/L Chloride Level 111 mmol/L Carbon Dioxide Level 21 mmol/L Anion Gap 6.0 mmol/L Blood Urea Nitrogen 8 mg/dl Creatinine 0.56 mg/dl Est Creatinine Clear Calc Drug Dose 142.2 ml/min Estimated GFR () 147.1 Estimated GFR (Non- 126.9 BUN/Creatinine Ratio 14.3 Random Glucose 144 mg/dl Calcium Level 8.1 mg/dl Phosphorus Level 3.5 mg/dl Magnesium Level 2.0 mg/dl Total Bilirubin 2.9 mg/dl Aspartate Amino Transf (AST/SGOT) 19 U/L Alanine Aminotransferase (ALT/SGPT) 40 U/L Alkaline Phosphatase 412 U/L Total Protein 5.9 gm/dl Albumin 2.0 gm/dl Globulin 3.9 gm/dl Albumin/Globulin Ratio 0.5 Assessment and Plan Complicated 26yo female with: 1. septicemia/fungemia - source - left-sided Sauceda catheter in setting of chronic TPN usage. Culture of catheter tip now + for fungus (s/p removal of Sauceda this admission) . Fevers resolved. TPN has been held. Day #4 of caspofungin. ECHO negative for vegetations. Most recent blood cx's thus far negative. 2. pancytopenia - all cell lines improved today. Could be 2nd to liver disease. Could also be 2nd to fungemia, etc. Repeat CBC am for stability. B12, folate, TSH, and parvovirus titer - all normal/negative. 3. abnormal LFTs, hepatomegaly, h/o HepC - review of EMR shows her t. bili to be rising over the last 1-2 months. Due to TPN (ie cholestasis)? repeat LFTs today leveling off. Doubt acute cholecystitis (upper abdominal pain is resolved). If LFTs continue to rise then GI consultation. 4. anemia - stable H/H. 5. severe protein calorie malnutrition 2nd to short gut syndrome - is TPN-dependent. TPN on hold due to fungemia. nutrition will be an ongoing issue long-term due to the short gut. add daily MVI, folic acid, zinc. check iron studies in AM. add immodium 2mg TID to help slow down output. spoke with nutrition - elemental tube feedings recommended. patient concerned about nonuse of PEG since it was placed and possibility of pain/feeding intolerance. will give pedialyte at trophic levels to see if tolerates; if yes then start elemental feedings. watch for refeeding syndrome. 6. DVT proph - chemical means contraindicated due to severe thrombocytopenia. SCDs. 7. chronic pain syndrome - methadone 103mg daily with morphine IV prn for breakthrough. 8. hypomagnesemia - 2nd to short gut and dumping. Resolved. 9. depression - continue outpatient meds. 10. hyperchloremic / nonanion gap acidosis - resolved with LR. 11. FEN - holding TPN. Cont D5LR at 80cc/hr. Repeat all labs in am. 12. secondary adrenal insufficiency - hydrocortisone 50mg TID. BPs improved. hypoglycemia resolved. she overall feels better. anticipate we can taper steroids tomorrow. 13. abdominal pain - has gallstones and mild fluid around gall bladder - this could be due to liver disease/fluid resuscitation. HIDA scan was unable to be completed due to patient not tolerating test. Upper abd pain resolved making acute cholecystitis less likely. Continues with mild amount of abdominal pain. Could she have smoldering SBP? Consider diagnostic paracentesis. 14. gardenella UTI - in light of immunocompromised status will Rx with flagyl 500mg IV q8h x 5-7 days. Day #3 today. 15. 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 Consider GI consultation while hospitalized to get her linked with local GI physician. 16. hypophosphatemia - resolved. PT consult leave on tele until BPs are consistently MAP >65 progressing Continued [facility] stay due to: inadequate po fluid intake, multiple IV medications needed, other (fungemia) Discharge planning: home with home health
[2016-11-19 04:00] VITALS: BP 82/39; PULSE 49; TEMP 36.4; O2SAT 95
[2016-11-19] MEDS: POTASSIUM CHLORIDE INJ 20 MEQ in D5W AND LACTATED RINGERS 1,000 ML IV SCH ×2 (04:51→17:39)
[2016-11-19] MEDS: METRONIDAZOLE / NSS 500 MG in PREMIXED NSS 100 ML IV SCH ×3 (04:55→21:21)
[2016-11-19] MEDS: [UNRECOGNIZED DRUG - REMARK] SCH ×2 (05:54→18:11)
[2016-11-19] MEDS: HYDROCORTISONE IV 50 MG in SYRINGE 0 ML IV SCH (05:54)
[2016-11-19 06:06] LABS: MEAN CORPUSCULAR HGB CONC 33.9 g/dl (32-36)
[2016-11-19 06:31] LABS: HEMATOCRIT 29.5 % (37-47); MEAN CELL VOLUME 82.9 fL (80-100); MEAN CORPUSCULAR HEMOGLOBIN 28.1 pg (25-34); RED BLOOD COUNT 3.56 M/uL (4.2-5.4); WHITE BLOOD COUNT 6.23 K/uL (4.8-10.8)
[2016-11-19 06:37] LABS: BLOOD UREA NITROGEN 11 mg/dl (7-18); BUN/CREATININE RATIO 21.5 (10-20); CARBON DIOXIDE 21 mmol/L (21-32); CHLORIDE 113 mmol/L (98-107); CREATININE 0.52 mg/dl (0.60-1.20); GLUCOSE 147 mg/dl (70-99); MAGNESIUM 1.8 mg/dl (1.8-2.4); POTASSIUM 4.4 mmol/L (3.5-5.1); SODIUM 141 mmol/L (136-145)
[2016-11-19 06:42] LABS: FERRITIN 259.1 ng/ml (8.0-388.0); PHOSPHORUS 3.4 mg/dl (2.5-4.9); TOTAL IRON BINDING CAPACITY 144 mcg/dl (250-450)
[2016-11-19 07:02] LABS: PLATELET COUNT 128 K/uL (130-400)
[2016-11-19 08:20] VITALS: BP 87/58; PULSE 44; TEMP 36.3; O2SAT 96
[2016-11-19] MEDS: METHADONE XX SCH (09:00)
[2016-11-19] MEDS: FoLIC ACID TAB 400 MCG TAB PO SCH (09:03)
[2016-11-19] MEDS: ZINC SULFATE 220 MG CAP PO SCH (09:03)
[2016-11-19] MEDS: CEROVITE ADV FORMULA TAB PO SCH (09:03)
[2016-11-19] MEDS: LOPERAMIDE HCL 2 MG CAP PO SCH (09:04)
[2016-11-19] MEDS: CITALOPRAM 40 MG TAB PO SCH (09:04)
[2016-11-19] MEDS: CYANOCOBALAMIN 500 MCG TAB (VIT B-12) PO SCH (09:04)
[2016-11-19] MEDS: LANSOPRAZOLE SOLUTAB 30 MG PO SCH (09:04)
[2016-11-19] MEDS: NICOTINE 14 MG/24 HR TDSY TD SCH (09:04)
[2016-11-19] MEDS: METHADONE ORAL SOLN 2 MG/1ML PO SCH (09:11)
[2016-11-19 12:25] VITALS: BP 94/55; PULSE 62; TEMP 36.8; O2SAT 92
[2016-11-19] MEDS: CASPOFUNGIN INJ 50 MG in SODIUM CHLORIDE 0.9% 250ML 250 ML IV SCH (13:21)
[2016-11-19] MEDS: HYDROCORTISONE IV 25 MG in SYRINGE 0 ML IV SCH ×2 (14:27→21:22)
[2016-11-19 15:36] VITALS: BP 86/55; PULSE 40; TEMP 36.5; O2SAT 96
[2016-11-19] MEDS: PEPTAMEN INTENSE VHP 1000ML BAG PEG SCH (18:11)
[2016-11-19 19:32] VITALS: BP 101/68; PULSE 41; TEMP 36.7; O2SAT 98
[2016-11-19] MEDS ORDERED: LOPERAMIDE HCL 2 MG CAP PO SCH (21:00)
[2016-11-20 00:01] VITALS: BP_SYST 86; BP_SYST 93; BP_DIAS 51; BP_DIAS 59; PULSE 41; PULSE 52; TEMP 36.5; TEMP 36.6; O2SAT 95; O2SAT 98
[2016-11-20] MEDS: [UNRECOGNIZED DRUG - REMARK] SCH ×4 (00:01→23:34)
[2016-11-20 04:00] VITALS: BP 88/58; PULSE 48; TEMP 36.4; O2SAT 97
[2016-11-20] MEDS: HYDROCORTISONE IV 25 MG in SYRINGE 0 ML IV SCH (04:53)
[2016-11-20] MEDS: METRONIDAZOLE / NSS 500 MG in PREMIXED NSS 100 ML IV SCH ×3 (04:53→21:05)
[2016-11-20] MEDS: POTASSIUM CHLORIDE INJ 20 MEQ in D5W AND LACTATED RINGERS 1,000 ML IV SCH ×2 (04:55→21:09)
[2016-11-20] MEDS: ACETAMINOPHEN 325 MG TAB PO PRN (04:57)
[2016-11-20 07:39] VITALS: BP 98/62; PULSE 39; TEMP 36.9; O2SAT 96
--- NOTE | 2016-11-20 08:05 | Progress Note ---
Subjective Date of Service: Nov 19, 2016. Subjective Pt evaluation today including: conversation w/ patient, physical exam, chart review, lab review, review of studies (including telemetry), review of inpatient medication list Pain: abdominal pain nearly resolved PO Intake: tolerating PEG tube feedings and diet Voiding: no voiding problems telemetry with sinus bradycardia and one brief run of type 1 mobitz and some ectopy despite the bradycardia she was walking the hallways WITHOUT any dizziness, CP, dyspnea HR with walking about 50 no h/o bradycardia feels good otherwise denies other complaints tolerating PEG tube feedings without pain or nausea or emesis Problem List Medical Problems: (1) Abnormal computed tomography of gallbladder Status: Acute (2) Anemia Status: Acute (3) Fever and chills Status: Acute (4) Free fluid in pelvis Status: Acute (5) Low serum phosphorus for age Status: Acute (6) Pancytopenia Status: Acute (7) Post op infection Status: Acute (8) Sepsis Status: Acute Review of Systems Constitutional: No fever Respiratory: No wheezing, No shortness of breath, No dyspnea on exertion Cardiac: No chest pain Abdomen: No pain, No nausea, No vomiting Objective Vital Signs Date Time Temp Pulse Resp B/P (MAP) Pulse Ox O2 Delivery O2 Flow Rate FiO2 11/19/16 20:00 Room Air 11/19/16 19:32 36.7 41 16 101/68 (79) 98 Room Air 11/19/16 16:00 Room Air 11/19/16 15:36 36.5 40 18 86/55 (65) 96 Room Air 11/19/16 12:25 36.8 62 16 94/55 (68) 92 Room Air 11/19/16 12:00 Room Air 11/19/16 08:20 36.3 44 16 87/58 (68) 96 Room Air 11/19/16 08:00 Room Air 11/19/16 04:00 36.4 49 18 82/39 (53) 95 Room Air 11/19/16 04:00 Room Air 11/18/16 23:59 Room Air 11/18/16 23:05 36.4 43 16 85/52 (63) 93 Room Air Physical Exam General Appearance: no apparent distress ENT: pharynx normal (thrush resolved) Neck: no JVD Respiratory/Chest: lungs clear, no respiratory distress, no accessory muscle use Cardiovascular: no gallop, no murmur, + bradycardia Abdomen: normal bowel sounds, non tender, soft, no organomegaly, + pertinent finding (ileostomy with brown fluid in bag; PEG tube insertion site clean) Extremities: no pedal edema Neurologic/Psychiatric: alert, oriented x 3 Skin: no rash Laboratory Results Last 24 Hours Test 11/19/16 05:35 White Blood Count 6.23 K/uL Red Blood Count 3.56 M/uL Hemoglobin 10.0 g/dL Hematocrit 29.5 % Mean Corpuscular Volume 82.9 fL Mean Corpuscular Hemoglobin 28.1 pg Mean Corpuscular Hemoglobin Concent 33.9 g/dl RDW Standard Deviation 52.0 fL RDW Coefficient of Variation 17.1 % Platelet Count 128 K/uL Sodium Level 141 mmol/L Potassium Level 4.4 mmol/L Chloride Level 113 mmol/L Carbon Dioxide Level 21 mmol/L Anion Gap 7.0 mmol/L Blood Urea Nitrogen 11 mg/dl Creatinine 0.52 mg/dl Est Creatinine Clear Calc Drug Dose 153.2 ml/min Estimated GFR () > 150.0 Estimated GFR (Non- 130.0 BUN/Creatinine Ratio 21.5 Random Glucose 147 mg/dl Calcium Level 8.0 mg/dl Phosphorus Level 3.4 mg/dl Magnesium Level 1.8 mg/dl Iron Level 28 mcg/dl Total Iron Binding Capacity 144 mcg/dl Transferrin 121 mg/dl Transferrin % Saturation 17 % Ferritin 259.1 ng/ml Assessment and Plan Complicated 26yo female with: 1. septicemia/fungemia - source - left-sided Sauceda catheter in setting of chronic TPN usage. Shelli tropicalis. Culture of catheter tip now + for fungus (s/p removal of Sauceda this admission) . Fevers resolved. TPN has been held. Day #5 of caspofungin. ECHO negative for vegetations. Most recent blood cx's thus far negative. Cont caspofungin. 2. pancytopenia - all cell lines continue to improve. Could be 2nd to liver disease. Could also be 2nd to fungemia, etc. Repeat CBC am for stability. B12, folate, TSH, and parvovirus titer - all normal/negative. 3. abnormal LFTs, hepatomegaly, h/o HepC - review of EMR shows her t. bili to be rising over the last 1-2 months. Due to TPN (ie cholestasis)? repeat LFTs have improved. No symptoms of acute cholecystitis (upper abdominal pain is resolved, no pain w / eating). If LFTs continue to rise then GI consultation. 4. anemia - stable H/H and improving. 5. severe protein calorie malnutrition 2nd to short gut syndrome - is TPN-dependent. TPN on hold due to fungemia. nutrition will be an ongoing issue long-term due to the short gut. added daily MVI, folic acid, zinc. iron studies adequate. hold immodium (see below). appreciate dietary consultation for tube feed recommendations. tolerating such thus far. watch for refeeding syndrome. daily BMP/mag/phos. 6. DVT proph - chemical means contraindicated due to severe thrombocytopenia. SCDs. But may be able to restart heparin BID tomorrow. 7. chronic pain syndrome - methadone 103mg daily with morphine IV prn for breakthrough. 8. hypomagnesemia - 2nd to short gut and dumping. Resolved. 9. depression - continue outpatient meds. 10. hyperchloremic / nonanion gap acidosis - resolved with LR. 11. FEN - holding TPN. Cont D5LR at 80cc/hr. Tube feedings. Diet as tolerated/desires. Repeat all labs in am. 12. secondary adrenal insufficiency - wean hydrocortisone 25mg TID. BPs improved. hypoglycemia resolved. she overall feels better. anticipate we can taper steroids tomorrow once again. 13. abdominal pain - resolved. 14. gardenella UTI - in light of immunocompromised status will Rx with flagyl 500mg IV q8h x 5-7 days. Day #4 today. 15. 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 Consider GI consultation while hospitalized to get her linked with local GI physician. 16. hypophosphatemia - resolved. 17. bradycardia - this began when we started immodium. There are studies suggesting that bradycardia can occur w/ immodium. HOLD immodium. Half life is about 10-12 hours and thus this could take time. TSH normal, but check Free T4 to be complete. Continue on tele PT consult progressing nicely Continued [facility] stay due to: multiple IV medications needed, other (fungemia, bradycardia) Discharge planning: home with home health
[2016-11-20 08:06] LABS: BUN/CREATININE RATIO 23.4 (10-20); CALCIUM 8.1 mg/dl (8.5-10.1); CREATININE 0.58 mg/dl (0.60-1.20); MAGNESIUM 1.9 mg/dl (1.8-2.4); POTASSIUM 4.1 mmol/L (3.5-5.1)
[2016-11-20] MEDS: FoLIC ACID TAB 400 MCG TAB PO SCH (08:08)
[2016-11-20] MEDS: CITALOPRAM 40 MG TAB PO SCH (08:08)
[2016-11-20] MEDS: LANSOPRAZOLE SOLUTAB 30 MG PO SCH (08:08)
[2016-11-20] MEDS: ZINC SULFATE 220 MG CAP PO SCH (08:08)
[2016-11-20] MEDS: CYANOCOBALAMIN 500 MCG TAB (VIT B-12) PO SCH (08:08)
[2016-11-20] MEDS: NICOTINE 14 MG/24 HR TDSY TD SCH (08:09)
[2016-11-20] MEDS: CEROVITE ADV FORMULA TAB PO SCH (08:09)
[2016-11-20 08:10] LABS: PHOSPHORUS 3.1 mg/dl (2.5-4.9)
[2016-11-20] MEDS: METHADONE XX SCH (08:13)
[2016-11-20] MEDS: METHADONE ORAL SOLN 2 MG/1ML PO SCH (08:13)
[2016-11-20] MEDS: HEPARIN SOD 5000 UNIT/0.5 ML CARP SQ SCH ×4 (09:00→21:13)
[2016-11-20] MEDS: HYDROCORTISONE 10 MG TAB PO SCH ×2 (12:00→21:05)
[2016-11-20 12:14] VITALS: BP 116/94; PULSE 40; O2SAT 99
[2016-11-20] MEDS: CASPOFUNGIN INJ 50 MG in SODIUM CHLORIDE 0.9% 250ML 250 ML IV SCH (13:24)
[2016-11-20 16:07] VITALS: BP 125/81; PULSE 79; TEMP 36.8; O2SAT 96
[2016-11-20] MEDS: PEPTAMEN INTENSE VHP 1000ML BAG PEG SCH (18:25)
--- NOTE | 2016-11-20 19:35 | Progress Note ---
Subjective Date of Service: Nov 20, 2016. Subjective Pt evaluation today including: conversation w/ patient, physical exam, chart review, lab review, review of inpatient medication list Pain: none - abdominal pain resolved PO Intake: tolerating some PO; tolerating PEG tube feedings Voiding: no voiding problems tele overnight - sinus antwan (occasional 30s, even 20s) but NO AV block, NO type 1 Mobitz, NO pauses, no other dysrhythmia she "feels good" - anxious to go home ileostomy output significantly worse given the tube feedings no residuals from PEG tube no pain with PEG tube infusions at night-time Problem List Medical Problems: (1) Abnormal computed tomography of gallbladder Status: Acute (2) Anemia Status: Acute (3) Fever and chills Status: Acute (4) Free fluid in pelvis Status: Acute (5) Low serum phosphorus for age Status: Acute (6) Pancytopenia Status: Acute (7) Post op infection Status: Acute (8) Sepsis Status: Acute Review of Systems Constitutional: No fever, No chills Respiratory: No shortness of breath, No dyspnea on exertion Cardiac: + edema (thighs), No chest pain, No orthopnea, No PND, No palpitations Abdomen: No pain, No nausea, No vomiting Neurologic: No weakness, No balance problems, No problem reported (no dizziness ) Objective Vital Signs Date Time Temp Pulse Resp B/P (MAP) Pulse Ox O2 Delivery O2 Flow Rate FiO2 11/20/16 16:07 36.8 79 18 125/81 (96) 96 11/20/16 16:00 Room Air 11/20/16 12:14 40 16 116/94 (101) 99 Room Air 11/20/16 12:00 Room Air 11/20/16 08:00 Room Air 11/20/16 07:39 36.9 39 16 98/62 (74) 96 Room Air 11/20/16 04:00 Room Air 11/20/16 04:00 36.4 48 18 88/58 (68) 97 Room Air 11/20/16 00:01 36.6 52 18 93/59 (70) 98 Room Air 11/20/16 00:01 36.5 41 16 86/51 (63) 95 Room Air 11/19/16 23:59 Room Air 11/19/16 20:00 Room Air 11/19/16 19:32 36.7 41 16 101/68 (79) 98 Room Air Physical Exam General Appearance: no apparent distress, + pertinent finding (looks much better) ENT: pharynx normal (MMM) Neck: no JVD Respiratory/Chest: lungs clear, no respiratory distress, no accessory muscle use, + decreased breath sounds (modestly decreased at the bases) Cardiovascular: no gallop, no murmur, + bradycardia Abdomen: normal bowel sounds, non tender, soft, no organomegaly, + pertinent finding (ileostomy in place; copious yellow fluid in the bag; mucous fistula site clean; PEG tube site clean; at top of a midline vertical scar there is a small ulceration - also clean) Extremities: no pedal edema Neurologic/Psychiatric: alert, oriented x 3 Skin: no rash Laboratory Results Last 24 Hours Test 11/20/16 06:44 Sodium Level 141 mmol/L Potassium Level 4.1 mmol/L Chloride Level 110 mmol/L Carbon Dioxide Level 25 mmol/L Anion Gap 6.0 mmol/L Blood Urea Nitrogen 14 mg/dl Creatinine 0.58 mg/dl Est Creatinine Clear Calc Drug Dose 137.3 ml/min Estimated GFR () 145.4 Estimated GFR (Non- 125.4 BUN/Creatinine Ratio 23.4 Random Glucose 111 mg/dl Calcium Level 8.1 mg/dl Phosphorus Level 3.1 mg/dl Magnesium Level 1.9 mg/dl Free Thyroxine 0.87 ng/dl Assessment and Plan Complicated 26yo female with: 1. septicemia/fungemia - source - left-sided Sauceda catheter in setting of chronic TPN usage. Catheter was removed; tip grew henry tropicalis - same as all other blood cultures. Fevers resolved. TPN has been held. Day #6 of caspofungin. ECHO negative for vegetations. Most recent blood cx's thus far negative. Cont caspofungin - minimum 14 days per ID. 2. pancytopenia - all cell lines continue to improve. Could be 2nd to liver disease. Could also be 2nd to fungemia, etc. Repeat CBC am for stability. B12, folate, TSH, and parvovirus titer - all normal/negative. 3. abnormal LFTs, hepatomegaly, h/o HepC - Due to TPN (ie cholestasis)? HepC? repeat LFTs have improved. No symptoms of acute cholecystitis (upper abdominal pain is resolved, no pain w / eating). LFTs in AM for stability. 4. anemia - stable H/H and improving. 5. severe protein calorie malnutrition 2nd to short gut syndrome - was TPN-dependent. TPN on hold due to fungemia. nutrition will be an ongoing issue long-term due to the short gut. added daily MVI, folic acid, zinc, etc iron studies adequate. holding immodium (see below). appreciate dietary consultation for tube feed recommendations. tolerating such thus far. watch for refeeding syndrome. daily BMP/mag/phos. as expected she has started to dump via the ileostomy given the tube feedings; immodium on hold due to concern it caused bradycardia; start questran BID and consult GI for additional recommendations. I am concerned that lomotil would cause bradycardia as well. 6. DVT proph - since platelets have rebounded start heparin BID today. 7. chronic pain syndrome - methadone 103mg daily with morphine IV prn for breakthrough. 8. hypomagnesemia - 2nd to short gut and dumping. Resolved. 9. depression - continue outpatient meds. 10. hyperchloremic / nonanion gap acidosis - resolved with LR. 11. FEN - holding TPN. Cont D5LR at 80cc/hr. Try to match intake and output. Tube feedings as recommended by java swing developer. Diet as tolerated but try to avoid high fructose containing products, caffeine, etc. Repeat all labs in am. 12. secondary adrenal insufficiency - stop IV hydrocortisone, change to hydrocortisone 30mg BID and wean over next few days to 15mg in AM and 5mg in afternoon. Will need endocrinology follow-up. BPs improved. hypoglycemia resolved. she overall feels better. 13. abdominal pain - resolved. 14. gardenella UTI - in light of immunocompromised status will Rx with flagyl 500mg IV q8h x 5-7 days. Day #5 today. 15. 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 GI consultation. 16. hypophosphatemia - resolved. 17. bradycardia - this began when we started immodium. There are studies suggesting that bradycardia can occur w/ immodium. HOLD immodium. Half life is about 10-12 hours and thus this could take another 24-36 hours to see improvement in HR. TSH and free T4 normal. ECHO normal. 18. Brief run of type 1 mobitz on 11/19/16 - has not recurred. Immodium on hold. place PICC line on 11/21/16 as long as repeat blood cx's remain negative? consent obtained & on chart progressing nicely Continued [facility] stay due to: multiple IV medications needed, other (fungemia, bradycardia, dumping via ileostomy) Discharge planning: home with home health
[2016-11-20 19:37] VITALS: BP 112/77; PULSE 44; TEMP 36.7; O2SAT 99
[2016-11-20] MEDS: CHOLESTYRAMINE LIGHT 4 GM PKT PO SCH (21:59)
[2016-11-21] VITALS: BP 97/59; PULSE 47; TEMP 36.7; O2SAT 97
[2016-11-21 04:22] VITALS: BP 105/65; PULSE 42; TEMP 36.4; O2SAT 96
[2016-11-21] MEDS: [UNRECOGNIZED DRUG - REMARK] SCH (05:11)
[2016-11-21] MEDS: METRONIDAZOLE / NSS 500 MG in PREMIXED NSS 100 ML IV SCH ×2 (05:11→15:59)
[2016-11-21 06:06] LABS: HEMATOCRIT 30.7 % (37-47); MEAN CELL VOLUME 84.3 fL (80-100); MEAN CORPUSCULAR HEMOGLOBIN 27.7 pg (25-34); MEAN CORPUSCULAR HGB CONC 32.9 g/dl (32-36); PLATELET COUNT 208 K/uL (130-400); RED BLOOD COUNT 3.64 M/uL (4.2-5.4); WHITE BLOOD COUNT 5.46 K/uL (4.8-10.8)
[2016-11-21 06:35] LABS: ALB/GLOB RATIO 0.6 (0.9-2); BUN/CREATININE RATIO 18.2 (10-20); CALCIUM 7.8 mg/dl (8.5-10.1); CREATININE 0.62 mg/dl (0.60-1.20); MAGNESIUM 1.8 mg/dl (1.8-2.4); PHOSPHORUS 3.2 mg/dl (2.5-4.9); POTASSIUM 3.4 mmol/L (3.5-5.1)
[2016-11-21 07:52] VITALS: BP 119/76; PULSE 44; TEMP 36.6; O2SAT 99
[2016-11-21] MEDS: LANSOPRAZOLE SOLUTAB 30 MG PO SCH (08:58)
[2016-11-21] MEDS: CEROVITE ADV FORMULA TAB PO SCH (08:59)
[2016-11-21] MEDS: NICOTINE 14 MG/24 HR TDSY TD SCH (08:59)
[2016-11-21] MEDS: ZINC SULFATE 220 MG CAP PO SCH (08:59)
[2016-11-21] MEDS: CYANOCOBALAMIN 500 MCG TAB (VIT B-12) PO SCH (09:00)
[2016-11-21] MEDS: HEPARIN SOD 5000 UNIT/0.5 ML CARP SQ SCH (09:00)
[2016-11-21] MEDS: CITALOPRAM 40 MG TAB PO SCH (09:00)
[2016-11-21] MEDS: FoLIC ACID TAB 400 MCG TAB PO SCH (09:00)
[2016-11-21] MEDS: CHOLESTYRAMINE LIGHT 4 GM PKT PO SCH (09:01)
[2016-11-21] MEDS: HYDROCORTISONE 10 MG TAB PO SCH (09:01)
[2016-11-21] MEDS: METHADONE ORAL SOLN 2 MG/1ML PO SCH (09:07)
--- NOTE | 2016-11-21 09:26 | Gastroenterology Progress Note ---
Progress Note Date of Service: Nov 21, 2016 Medications Current Inpatient Medications Medications (Trade) Dose Ordered Sig/Faith Route Start Time Stop Time Status Last Admin Dose Admin Acetaminophen (Tylenol Tab) 650 mg Q4H PRN PO 11/14/16 16:15 12/14/16 16:14 11/20/16 04:57 650 MG Al Hydrox/Mg Hydrox/Simethicone (Maalox Max Susp) 15 ml Q4H PRN PO 11/14/16 16:15 12/14/16 16:14 11/20/16 19:07 15 ML Magnesium Hydroxide (Milk Of Magnesia Susp) 30 ml Q12H PRN PO 11/14/16 16:15 12/14/16 16:14 Zolpidem Tartrate (Ambien Tab) 5 mg HSZ PRN PO 11/14/16 16:15 12/14/16 16:14 Ondansetron HCl (Zofran Inj) 4 mg Q6H PRN IV 11/14/16 16:15 12/14/16 16:14 Polyethylene (Miralax Powder Packet) 17 gm DAILY PRN PO 11/14/16 16:15 12/14/16 16:14 Citalopram Hydrobromide (celeXA TAB) 40 mg DAILY PO 11/15/16 09:00 12/15/16 08:59 11/21/16 09:00 40 MG Cyanocobalamin (Vitamin B-12 Tab) 500 mcg DAILY PO 11/15/16 09:00 12/15/16 08:59 11/21/16 09:00 500 MCG Methadone HCl (Methadone HCl) 103 mg DAILY PO 11/15/16 09:00 12/15/16 08:59 11/21/16 09:07 103 MG Nicotine (Nicoderm Cq 14MG Patch) 1 patch QAM TD 11/15/16 09:00 12/15/16 08:59 11/21/16 08:59 1 PATCH Miscellaneous (Remove Nicoderm Patch) 1 ea HS N/A 11/14/16 21:00 12/14/16 20:59 11/20/16 21:05 1 EA Miscellaneous Information (Pharmacy Tpn/ Ppn Consult Active) 1 ea UD PRN N/A 11/15/16 16:00 12/15/16 15:59 Future Hold Morphine Sulfate (MoRPHine SULFATE INJ) 2 mg Q2H PRN IV 11/14/16 20:30 11/28/16 20:29 11/17/16 00:14 2 MG Non-Formulary Medication (Patient'S Own Controlled Med) 1 ea DAILY XX 11/15/16 09:00 11/29/16 08:59 Dextrose 1,000 ml @ 0 mls/hr Q0M PRN IV 11/15/16 11:57 12/15/16 11:56 Caspofungin 50 mg/ Sodium Chloride 260 ml @ 260 mls/hr DAILY@1400 IV 11/16/16 14:00 12/16/16 13:59 11/20/16 13:24 260 MLS/HR Miscellaneous Information (Pharmacy Consult) 1 ea UD PRN N/A 11/15/16 14:00 12/15/16 13:44 Potassium Chloride 20 meq/ Dextrose/Lactated Ringer's 1,010 ml @ 80 mls/hr [id number] IV 11/16/16 10:00 12/16/16 09:29 11/20/16 21:09 80 MLS/HR Metronidazole 500 mg/Prmx 100 ml @ 100 mls/hr Q8H IV 11/16/16 21:00 11/26/16 20:59 11/21/16 05:11 100 MLS/HR Lansoprazole (Prevacid Solutab) 30 mg QAM PO 11/18/16 09:00 12/18/16 08:59 11/21/16 08:58 30 MG Enteral Nutritional Formula (Peptamen Intense VHP) 1,000 ml UD PEG 11/18/16 18:00 12/18/16 17:59 11/20/16 18:25 1,000 ML Miscellaneous Information (Pending Order) 1 ea DAILY@0000,0600,1800 N/A 11/18/16 18:00 12/18/16 17:59 11/21/16 05:11 1 EA Multivitamins/ Minerals (Multivitamin W/ Minerals Tab) 1 tab QAM PO 11/19/16 09:00 12/19/16 08:59 11/21/16 08:59 1 TAB Folic Acid (Folvite Tab) 400 mcg QAM PO 11/19/16 09:00 12/19/16 08:59 11/21/16 09:00 400 MCG Zinc Sulfate (Zinc Sulfate Cap) 220 mg QAM PO 11/19/16 09:00 12/19/16 08:59 11/21/16 08:59 220 MG Loperamide HCl (Imodium Cap) 2 mg BID PO 11/19/16 21:00 12/16/16 08:59 Future Hold Heparin Sodium (Porcine) (Heparin Sq 5000 Unit/0.5ml) 5,000 unit Q12 SQ 11/20/16 09:00 12/20/16 08:59 Hydrocortisone (Cortef Tab) 30 mg BID PO 11/20/16 09:15 12/20/16 09:14 11/21/16 09:01 30 MG Cholestyramine Resin (Questran Powder Light) 4 gm BID@ PO 11/20/16 22:00 12/20/16 21:59 11/21/16 09:01 4 GM Objective Vital Signs Date Time Temp Pulse Resp B/P (MAP) Pulse Ox O2 Delivery O2 Flow Rate FiO2 11/21/16 08:00 Room Air 11/21/16 07:52 36.6 44 14 119/76 (90) 99 Room Air 11/21/16 04:22 36.4 42 18 105/65 (78) 96 Room Air 11/21/16 04:00 Room Air 11/21/16 00:00 36.7 47 18 97/59 (72) 97 Room Air 11/20/16 23:59 Room Air 11/20/16 20:00 Room Air 11/20/16 19:37 36.7 44 18 112/77 (89) 99 11/20/16 16:07 36.8 79 18 125/81 (96) 96 11/20/16 16:00 Room Air 11/20/16 12:14 40 16 116/94 (101) 99 Room Air 11/20/16 12:00 Room Air Laboratory Results Last 24 Hours Test 11/21/16 05:23 White Blood Count 5.46 K/uL Red Blood Count 3.64 M/uL Hemoglobin 10.1 g/dL Hematocrit 30.7 % Mean Corpuscular Volume 84.3 fL Mean Corpuscular Hemoglobin 27.7 pg Mean Corpuscular Hemoglobin Concent 32.9 g/dl RDW Standard Deviation 54.1 fL RDW Coefficient of Variation 17.7 % Platelet Count 208 K/uL Sodium Level 145 mmol/L Potassium Level 3.4 mmol/L Chloride Level 109 mmol/L Carbon Dioxide Level 29 mmol/L Anion Gap 7.0 mmol/L Blood Urea Nitrogen 11 mg/dl Creatinine 0.62 mg/dl Est Creatinine Clear Calc Drug Dose 128.6 ml/min Estimated GFR () 142.2 Estimated GFR (Non- 122.7 BUN/Creatinine Ratio 18.2 Random Glucose 92 mg/dl Calcium Level 7.8 mg/dl Phosphorus Level 3.2 mg/dl Magnesium Level 1.8 mg/dl Total Bilirubin 1.4 mg/dl Aspartate Amino Transf (AST/SGOT) 15 U/L Alanine Aminotransferase (ALT/SGPT) 33 U/L Alkaline Phosphatase 307 U/L Total Protein 5.6 gm/dl Albumin 2.1 gm/dl Globulin 3.5 gm/dl Albumin/Globulin Ratio 0.6 Assessment and Plan Attempted to see patient this morning. After introducing myself, the patient reports that she sees [facility] and would like to keep her care consistent.
[2016-11-21 11:11] VITALS: BP 126/84; PULSE 44; TEMP 36.3; O2SAT 98
[2016-11-21] MEDS ORDERED: METR-163 PO (16:17)
[2016-11-21] MEDS ORDERED: FLV400 PO (16:17)
[2016-11-21] MEDS ORDERED: CNCI50 IV (16:17)
[2016-11-21] MEDS ORDERED: HYD10 PO (16:17)
[2016-11-21] MEDS ORDERED: ZNCS220 PO (16:17)
[2016-11-21] MEDS ORDERED: CNT PO (16:17)
--- NOTE | 2016-11-21 16:34 | Discharge Instructions ---
Discharge Instructions Date of Service Nov 21, 2016. Admission Reason for Admission: Sepsis, Pancytopenia Possible Peg, Abd Area Infect Discharge Discharge Diagnosis / Problem: Fungemia from Sauceda catheter, short gut syndrome Discharge Goals Goal(s): Improve function, Improve disease control, Specific goals (improve nutritional status) Activity Recommendations Activity Limitations: resume your previous activity Lifting Limitations: none Exercise/Sports Limitations: as tolerated May Resume Sexual Activity: when tolerated Shower/Bathe: no limitations . Instructions / Follow-Up Instructions / Follow-Up Medications: - HYDROCORTISONE: follow instructions to taper down to 15mg in the morning and 5mg in the afternoon - FLAGYL: antibiotic for UTI, only need three more doses for a total of 7 days - CASPOFUNGIN: 50mg IV daily for 7 more days to completely treat Shelli fungemia (infection in blood stream) - ZINC, FOLATE AND MULTIVITAMIN: supplements I will be in contact regarding nutrition, for now you can eat small amounts by mouth Will determine plan with Dr. Lopez and will implement tomorrow over the phone FOLLOW UP - [facility] endocrinology in several weeks, my nurse navigator will be in contact - [facility]: follow up closely for short gut syndrome and hepatitis C treatment - Dr. Altamirano in one week Current Hospital Diet Patient's current hospital diet: Regular Diet Discharge Diet Recommended Diet: Regular Diet Procedures Procedures Performed: new PICC line placed Pending Studies Studies pending at discharge: no Laboratory Results Lipid Panel Test 11/14/16 09:30 Range/Units Triglycerides Level 128 0-150 mg/dl Medical Emergencies . Who to Call and When: Medical Emergencies: If at any time you feel your situation is an emergency, please call 911 immediately. . Non-Emergent Contact Non-Emergency issues call your: Primary Care Provider, Housekeeping Director Call Non-Emergent contact if: you have any medication questions . . "Provider Documentation" section prepared by Alcon Blackmon. . VTE Core Measure Inpt VTE Proph given/why not?: Unfractionated heparin SQ [place] Drug Monitoring Program Search Results: patient reviewed within database
[2016-11-21 16:54] VITALS: BP 126/84; PULSE 44; TEMP 36.3; O2SAT 98
--- NOTE | 2016-11-22 01:27 | GASTROINTESTINAL CONSULTATION ---
DATE OF CONSULTATION: 11/21/2016 CHIEF COMPLAINT: Short gut syndrome, chronic hepatitis C infection. REQUESTING PROVIDER: Alcon Blackmon DO HISTORY OF PRESENT ILLNESS: Ms. Curiel is a 26-year-old white female with a lengthy and complex surgical history. The patient was admitted on 11/14/2016 with fever, muscle ache, PEG tube area with abdominal pain, short gut syndrome and diarrhea. The patient was admitted on 11/14/2016 with the above symptoms and was found to have a fungal infection in the bloodstream from an indwelling central line for which she receives chronic TPN therapy. From a surgical standpoint, patient underwent extensive surgery in September 2016 for results of perforation, for which she has also had previous surgeries. With these multiple surgeries, which she reports 13 separate surgeries since her original gastric bypass in 2003. She has by her description approximately 18 cm of small bowel remaining. She has an ileostomy on the left side which generally has a high output with any oral intake involved. For nutrition support, she has been receiving TPN. She also has a PEG tube. Initially patient had denied any nausea, vomiting, abdominal pain. PAST MEDICAL HISTORY: Opiate abuse, chronic hepatitis C infection, gastric bypass in 2013 with revision a few years later, multiple surgeries in the interim, and the most recent surgery in 2016. On admission, patient had a history of opiate use, on methadone. Her current medications on admission were calcium carbonate, vitamin D3, Celexa, vitamin B12, Imodium, methadone, Prilosec, TPN daily infusions along with saline infusions. FAMILY HISTORY: Noncontributory. SOCIAL HISTORY: She smokes 1 pack a day, but denies alcohol use. She reports that she has been drug free for several years. REVIEW OF SYSTEMS: Otherwise noncontributory based on 13-point exam except for mentioned above. The patient does have an intact colon by her description. There is no rectal bleeding reported. HOSPITAL COURSE: The patient has had consultations by surgery and infectious disease. Over the past 6-7 days of admission, patient has resolved her abdominal pain, overall feels well, has been on caspofungin for fungal infection in the bloodstream with no bacteremia. All of her original central lines have been removed, but a new PICC line has been placed that has been in use. CURRENT MEDICATIONS: Cholestyramine, DVT heparin, hydrocortisone 30 mg twice daily, multivitamins, folic acid, zinc, enteral nutrition formula through the PEG along with oral intake, lansoprazole, Flagyl, caspofungin 50 mg daily, potassium replacement, Celexa, B12, methadone, nicotine patch, morphine as needed for pain control initially during the hospitalization. LABORATORY STUDIES: Today showed a stable pattern to her hemoglobin with a hemoglobin today of 10.1, white count is up to 5.46, platelets are 208,000. On admission; however, she had a white count of 2.41, hemoglobin 7.3, platelets 52,000 and had received 3 units of packed red blood cells on 11/15/2016. PHYSICAL EXAMINATION: GENERAL: Today patient is awake, alert and oriented x3, sitting in bed comfortably, anxious to go home after her lengthy hospitalization. VITAL SIGNS: The patient is afebrile today, respirations 14, 98% on room air, blood pressure 126/84, heart rate is 44. HEENT: Sclerae are anicteric, conjunctiva moist. Oral mucosa moist. HEART: Normal S1, S2. LUNGS: Clear to auscultation. ABDOMEN: Soft, without rebound or guarding. There positive bowel sounds. There is a nearly healed incision in the midline with a transparent occlusive dressing. She has an ileostomy in place. EXTREMITIES: Without clubbing, cyanosis or edema. RECTAL: Deferred. IMAGING STUDIES: During this hospitalization included a gallbladder workup and ultrasound along with CT scan. Chest x-ray on admission revealed no active disease. CT scan on 11/14/2016 revealed presence of gallstones, no pericholecystic fluid, mild periportal edema, no focal hepatic masses, spleen is prominent 13.2, peritoneum showed increasing ascites which is of [id number] volume. There is no free air, postsurgical change in the stomach and partial small bowel resection, postsurgical changes to the anterior abdominal wall, generalized body wall edema. Gallbladder workup showed gallstones, hepatomegaly, septated perihepatic ascites, gallstones with equivocal findings of cholecystitis. HIDA scan to assess for acute cholecystitis revealed a nondiagnostic study as patient refused to complete the exam, gallbladder however, was not visualized at 60 minutes. OTHER LABORATORY STUDIES: On admission include today's chemistries which showed potassium slightly low at 3.4, BUN and creatinine are 11 and 0.6. Transaminase alkaline phosphatase 307, albumin is 2.1. Alkaline phosphatase is down from 412. Transaminases are normal. AST 15, ALT 33, total bilirubin is 1.4 and down considerably from admission at which time total and direct was 2.0 with 1.6 respectively. However, this had risen to a total bilirubin as high as 3.8. IMPRESSION AND PLAN: The patient with a complicated surgical history, reported of chronic hepatitis C infection for patient is naive to treatment; multiple surgeries, most recently in September 2016, ultimately with short gut syndrome requiring total parenteral nutrition for a significant amount of her nutritional support. She was also hospitalized with Shelli tropicalis infection on blood cultures and central line catheter tip. Subsequent studies on 11/18/2016 showed no growth to date; these occurred from to , which Shelli was present. The planned therapy for this infection is 7 additional days of caspofungin. There is currently a newly placed PICC line, which could be used for total parenteral nutrition support if acceptable with infectious disease as along as patient maintains good hygiene in hooking up her total parenteral nutrition solutions daily. There was some discussion by patient that at some point she may need to entertain a possibility of small bowel transplantation at [facility], however, 1 additional aspect would be her chronic hepatitis C infection that will also need further evaluation and treatment. She is unaware of the type genotype identified. This will need further addressed over the next several weeks and can be arranged as an outpatient and follow up of their office. One aspect is her methadone use and this will need to be fully addressed in order for insurance to consider hepatitis C treatment. I recommend following LFTs as an outpatient to ensure that they are resolving. Also, it may be prudent for her to reconsider retesting of the gallbladder to see if there is any evidence of acute or chronic cholecystitis. I will make arrangements to have patient seen in the office over the next 2-4 weeks to address her progress as well as start to evaluate for potential hepatitis treatment. All questions answered for patient. Thank you for allowing us to participate in this patient's care. TROY
--- NOTE | 2016-11-29 11:59 | Discharge Summary ---
Discharge Summary Date of Service Nov 21, 2016. Discharge Summary Admission Date: Nov 14, 2016 at 16:18 Discharge Date: Nov 21, 2016 Discharge Disposition: Home with services Principal Diagnosis: Fungemia secondary to TPN via central line Problems/Secondary Diagnoses: Adrenal insufficiency Severe protein calorie malnutrition Short gut syndrome Bradycardia Pancytopenia s/p small bowel resection s/p gastric bypass Hepatitis C, untreated Transaminitis Immunizations: Have You Had Influenza Vaccine: No Influenza Vaccine Date: Nov 05, 2007 History of Tetanus Vaccine?: Unknown History of Pneumococcal: No History of Hepatitis B Vaccine: Yes but date is unknown by patient Hepatitis Immunization Date: Feb 06, 2005 Procedures: PICC line placement Consultations: Infectious disease Gastroenterology Medication Reconciliation New Medications: Caspofungin (Cancidas) 50 Mg/10 Ml Inj 50 MG IV DAILY for 7 Days, #7 DOSE 0 Refills Folic Acid (Folic Acid) 400 Mcg Tab 400 MCG PO QAM, #30 TAB 3 Refills Hydrocortisone (Cortef) 10 Mg Tab 30 MG PO BID, #60 TAB 1 Refill 11/22 take 30mg twice a day, 11/23 and 11/24 take 20mg twice a day, 11/25 take 15mg AM and 10mg PM, 11/26 start 15mg AM / 5mg PM Multivitamins/Minerals (Certavite/Antioxidants) 1 Tab Tab 1 TAB PO QAM, #30 TAB 3 Refills Zinc Sulfate (Zinc Sulfate) 220 Mg Cap 220 MG PO QAM, #30 CAP 3 Refills Continued Medications: Acetaminophen (Tylenol) 500 Mg Tab 500 MG PO Q4H PRN for Pain, TAB Calcium Carbonate-Vitamin D (Calcium) 1 Tab Tab 1 TAB PO DAILY Cholecalciferol (Vitamin D3) Unknown Strength Tab Unknown Dose PO DAILY, TAB Citalopram Hydrobromide (Celexa) 40 Mg Tab 40 MG PO DAILY, TAB Cyanocobalamin (Vitamin B-12) 500 Mcg Tab 500 MCG PO DAILY, 0 Refills Methadone Hcl (Methadone Hcl Intensol) 10 Mg/Ml Con 103 MG PO DAILY Omeprazole (Prilosec) 40 Mg Cap 40 MG PO DAILY, CAP Sodium Chloride (Gu Irrigant) (Sodium Chloride 0.9%) 0.9 % Marisa 500 ML DAILY Discontinued Medications: Loperamide Hcl (Imodium A-D) 2 Mg Tab 4 MG PO TID Tpn Infusion (Tpn Infusion) 1 Ea Inj 3000 ML DAILY, EA Discharge Exam Patient was feeling quite well on 11/21, ambulating around the RN station. Still having high output from ostomy. PICC line placed after repeat blood cultures returned negative for Henry. Evaluated by Dr. Lopez with [facility], he recommended to continue TPN as she would not be able to maintain nutrition via enteral feedings with short gut syndrome and malabsorption. TPN was arranged for home. Review of Systems: Constitutional: No fever, No chills, No sweats, No weight loss, No weakness , No fatigue, No problem reported Eyes: No worsening of vision, No eye pain, No redness, No discharge, No diplopia, No problem reported ENT: No hearing loss, No unusual epistaxis, No nasal symptoms, No sore throat, No tinnitus, No dental problems, No trouble swallowing, No problem reported Respiratory: No cough, No sputum, No wheezing, No shortness of breath, No dyspnea on exertion, No dyspnea at rest, No hemoptysis, No problem reported Cardiovascular: No chest pain, No orthopnea, No PND, No edema, No claudication, No palpitations, No problem reported Abdomen: + diarrhea (ostomy with high output, 3L a day with tube feeds), No pain, No nausea, No vomiting, No constipation, No GI bleeding, No problem reported Musculoskeletal: No joint pain, No muscle pain, No swelling, No calf pain, No problem reported Genitourinary - Female: No dysuria, No urinary frequency, No urinary urgency , No urinary incontinence, No urinary retention, No hematuria Neurologic: No memory loss, No paralysis, No weakness, No numbness/tingling , No vertigo, No balance problems, No problem reported Psychiatric: No depression symptoms, No anhedonism, No anxiety, No insomnia , No substance abuse, No problem reported Endocrine: No fatigue, No excessive thirst, No excessive urination, No problem reported Hematologic / Lymphatic: No abnormal bleeding/bruising, No clotting problems , No swollen lymph nodes, No night sweats, No problem reported Integumentary: No rash, No itch, No new/changing skin lesions, No color change, No bleeding, No problem reported Physical Exam: General Appearance: no apparent distress, + thin Eyes: normal inspection, EOMI, sclerae normal ENT: normal ENT inspection, hearing grossly normal, pharynx normal Neck: supple, no adenopathy, no JVD, trachea midline Respiratory/Chest: chest non-tender, lungs clear, normal breath sounds, no respiratory distress, no accessory muscle use Cardiovascular: no edema, no gallop, no JVD, no murmur, normal peripheral pulses, + bradycardia Abdomen / GI: normal bowel sounds, non tender, soft, no organomegaly, + pertinent finding (ostomy with high output, numerous well healed scars) Extremities: normal inspection, no calf tenderness, normal capillary refill , no pedal edema, normal range of motion, pelvis stable Neurologic/Psychiatric: engineer automated equipment II-XII nml as tested, no motor/sensory deficits , alert, normal mood/affect, normal reflexes, oriented x 3 Skin: normal color, warm/dry, no rash Hospital Course Complicated 26yo female with: 1. septicemia/fungemia - source - left-sided Sauceda catheter in setting of chronic TPN usage. Catheter was removed; tip grew henry tropicalis - same as all other blood cultures. Fevers resolved. TPN held entire length of hospitalization Day #7 of caspofungin. script written for 7 more days to continue at home with home nursing ECHO negative for vegetations. Repeat blood cultures all negative New PICC line placed on 11/21 and home nursing arranged for Caspofungin infusions 2. pancytopenia - all cell lines improved with treatment of infection and proper nutritional support Could be 2nd to liver disease. Could also be 2nd to fungemia, etc. B12, folate, TSH, and parvovirus titer - all normal/negative. 3. abnormal LFTs, hepatomegaly, h/o HepC - Due to TPN (ie cholestasis)? HepC? repeat LFTs have improved. No symptoms of acute cholecystitis (upper abdominal pain is resolved, no pain w / eating). LFT stabilized, can be follow by GI as outpatient 4. anemia - stable H/H and improving. 5. severe protein calorie malnutrition 2nd to short gut syndrome - was TPN-dependent. TPN was held due to fungemia. evaluated by GI, best way to provide nutrition and electrolyte balance will still be TPN going forward [facility] discussion about small bowel transplant but that is in the future, will need Hepatitic C treated added daily MVI, folic acid, zinc, etc iron studies adequate. 6. DVT proph - since platelets have rebounded start heparin BID today. 7. chronic pain syndrome - methadone 103mg daily with morphine IV prn for breakthrough. 8. hypomagnesemia - 2nd to short gut and dumping. Resolved. 9. depression - continue outpatient meds. 10. hyperchloremic / nonanion gap acidosis - resolved with LR. 11. FEN - resume TPN as outpatient now that fungemia treated adequately, cannot maintain nutrition enterally 12. secondary adrenal insufficiency - responded quite well to Hydrocortisone discharge on quick taper with final dosing of 15mg in the AM and 5mg in the PM Will need endocrinology follow-up. arranged by nurse navigator BPs improved. hypoglycemia resolved. she overall feels better. 13. abdominal pain - resolved. 14. gardenella UTI - in light of immunocompromised status will Rx with flagyl 500mg IV q8h, received 6 days, no further treatment 15. 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 GI consultation. follow up with [facility] 16. hypophosphatemia - resolved. 17. bradycardia - this began when we started immodium. held immodium but still with bradycardia 48 hours later d/w Dr. Lopez, doubst immodium as cause can use PRN as outpatient TSH and free T4 normal. ECHO normal. Total Time Spent: Greater than 30 minutes This includes examination of the patient, discharge planning, medication reconciliation, and communication with other providers. Discharge Instructions Please refer to the electronic Patient Visit Report (Discharge Instructions) for additional information. Follow-Up Dr. Altamirano in one week Dr. Lopez in 1-[address] Angel in 1-2 weeks Additional Copies To Talia Altamirano M.D.; Supa Angel MD; Carlos Lopez M.D.
== END 2016-11-21 17:25 | disposition home or self-care (01) | DRG 871 ==
LOC: C.EDB 11:08 → C.2E 16:18 → ENRESERV 17:21
PROVIDERS: ADMIT Hospitalist; ATTEND Internal Medicine
PROC: 05PY33Z Removal of Infusion Device from Upper Vein, Percutaneous Approach (ICD-10-PCS; principal; 2016-11-16)
PROC: 05HA33Z Insertion of Infusion Device into Left Brachial Vein, Percutaneous Approach (ICD-10-PCS; 2016-11-21)
DX: B37.7 Candidal sepsis (principal); E43 Unspecified severe protein-calorie malnutrition; T80.211A Bloodstream infection due to central venous catheter, initial encounter; N39.0 Urinary tract infection, site not specified; D61.818 Other pancytopenia; K91.2 Postsurgical malabsorption, not elsewhere classified; E27.40 Unspecified adrenocortical insufficiency; F11.20 Opioid dependence, uncomplicated; B96.89 Other specified bacterial agents as the cause of diseases classified elsewhere; R79.89 Other specified abnormal findings of blood chemistry; B18.2 Chronic viral hepatitis C; R16.0 Hepatomegaly, not elsewhere classified; G89.29 Other chronic pain; E83.42 Hypomagnesemia; K80.20 Calculus of gallbladder without cholecystitis without obstruction; E87.8 Other disorders of electrolyte and fluid balance, not elsewhere classified; F32.9 Major depressive disorder, single episode, unspecified; I95.9 Hypotension, unspecified; R00.1 Bradycardia, unspecified; T47.6X5A Adverse effect of antidiarrheal drugs, initial encounter; E83.39 Other disorders of phosphorus metabolism; E16.2 Hypoglycemia, unspecified; F17.200 Nicotine dependence, unspecified, uncomplicated; Z93.2 Ileostomy status; Z93.1 Gastrostomy status; Z95.828 Presence of other vascular implants and grafts; Z98.84 Bariatric surgery status; Z87.19 Personal history of other diseases of the digestive system; Z90.49 Acquired absence of other specified parts of digestive tract; Z87.81 Personal history of (healed) traumatic fracture; Z83.3 Family history of diabetes mellitus; Z82.49 Family history of ischemic heart disease and other diseases of the circulatory system; Z83.6 Family history of other diseases of the respiratory system

== ENCOUNTER → 2016-11-14 | Outpatient (CLI) | payer OTHER ==
[2016-11-14 10:39] LABS: MEAN CORPUSCULAR HGB CONC 30.8 g/dl (32-36)
[2016-11-14 10:46] LABS: ALT/SGPT 46 U/L (12-78); BLOOD UREA NITROGEN 19 mg/dl (7-18); BUN/CREATININE RATIO 30.5 (10-20); CALCIUM 7.5 mg/dl (8.5-10.1); CARBON DIOXIDE 18 mmol/L (21-32); CHLORIDE 110 mmol/L (98-107); CREATININE 0.61 mg/dl (0.60-1.20); GLUCOSE 88 mg/dl (70-99); MAGNESIUM 1.8 mg/dl (1.8-2.4); POTASSIUM 3.8 mmol/L (3.5-5.1); SODIUM 135 mmol/L (136-145); TRIGLYCERIDES 128 mg/dl (0-150)
[2016-11-14 10:57] LABS: HEMATOCRIT 23.7 % (37-47); MEAN CELL VOLUME 83.2 fL (80-100); MEAN CORPUSCULAR HEMOGLOBIN 25.6 pg (25-34); RED BLOOD COUNT 2.85 M/uL (4.2-5.4); WHITE BLOOD COUNT 2.16 K/uL (4.8-10.8)
[2016-11-14 11:16] LABS: PLATELET COUNT 51 K/uL (130-400)
[2016-11-14 11:21] LABS: ANISOCYTOSIS PRESENT; COMPLETE YES; DOHLE BODIES 1+; GIANT PLATELETS 2+; LYMPH % 23.6 %; LYMPH ABS # 0.51 K/uL (1.2-3.4); MONO % 2.8 %; NEUT % 73.6 %; PLT ESTIMATE DECREASED; VACUOLIZATION 1+
[2016-11-14 15:08] LABS: ALB/GLOB RATIO 0.6 (0.9-2); ALKALINE PHOSPHATASE 230 U/L (45-117); AST/SGOT 42 U/L (15-37); PHOSPHORUS 0.9 mg/dl (2.5-4.9)
== END | disposition home or self-care (01) ==
LOC: C.LABSPEC 10:26
PROVIDERS: ATTEND Surgery
DX: J18.9 Pneumonia, unspecified organism (principal); F41.9 Anxiety disorder, unspecified; F32.9 Major depressive disorder, single episode, unspecified; Z45.2 Encounter for adjustment and management of vascular access device

== ENCOUNTER → 2016-11-28 | Outpatient (CLI) | payer OTHER ==
[~2016-11-28] MED LIST changes: -AZIT250T PO; +CNCI50 IV; +CNT PO; +FLV400 PO; +HYD10 PO; -LOPE-5 PO; +METH10CO PO; -METH40TA15 PO; -METH5TAB PO; -MULT-506 PO; +SODI0.9S; +ZNCS220 PO
[2016-11-28 11:30] LABS: BASO % 0.7 %; BASO ABS # 0.05 K/uL (0-0.2); COMPLETE YES; EOS % 3.5 %; HEMATOCRIT 38.6 % (37-47); IG% 0.1 %; LYMPH % 45.7 %; LYMPH ABS # 3.12 K/uL (1.2-3.4); MEAN CELL VOLUME 87.1 fL (80-100); MEAN CORPUSCULAR HEMOGLOBIN 27.3 pg (25-34); MEAN CORPUSCULAR HGB CONC 31.3 g/dl (32-36); MEAN PLATELET VOLUME 12.2 fL (7.4-10.4); MONO % 6.4 %; NEUT % 43.6 %; PLATELET COUNT 255 K/uL (130-400); RED BLOOD COUNT 4.43 M/uL (4.2-5.4); WHITE BLOOD COUNT 6.83 K/uL (4.8-10.8)
[2016-11-28 11:50] LABS: ALT/SGPT 25 U/L (12-78); BLOOD UREA NITROGEN 54 mg/dl (7-18); BUN/CREATININE RATIO 64.8 (10-20); CALCIUM 9.6 mg/dl (8.5-10.1); CARBON DIOXIDE 20 mmol/L (21-32); CHLORIDE 108 mmol/L (98-107); CREATININE 0.84 mg/dl (0.60-1.20); GLUCOSE 74 mg/dl (70-99); MAGNESIUM 2.5 mg/dl (1.8-2.4); POTASSIUM 4.1 mmol/L (3.5-5.1); SODIUM 138 mmol/L (136-145); TRIGLYCERIDES 138 mg/dl (0-150)
[2016-11-28 11:53] LABS: ALB/GLOB RATIO 0.7 (0.9-2); ALKALINE PHOSPHATASE 276 U/L (45-117); AST/SGOT 14 U/L (15-37); PHOSPHORUS 2.5 mg/dl (2.5-4.9)
== END | disposition home or self-care (01) ==
LOC: C.LABSPEC 11:17
PROVIDERS: ATTEND Surgery
DX: Z45.2 Encounter for adjustment and management of vascular access device (principal); F32.9 Major depressive disorder, single episode, unspecified; F41.9 Anxiety disorder, unspecified; J18.9 Pneumonia, unspecified organism

== ENCOUNTER → 2016-12-05 | Outpatient (CLI) | payer OTHER ==
[2016-12-05 15:48] LABS: MEAN CORPUSCULAR HGB CONC 32.3 g/dl (32-36)
[2016-12-05 15:55] LABS: ALT/SGPT 37 U/L (12-78); BLOOD UREA NITROGEN 41 mg/dl (7-18); BUN/CREATININE RATIO 45.3 (10-20); CALCIUM 10.2 mg/dl (8.5-10.1); CARBON DIOXIDE 20 mmol/L (21-32); CHLORIDE 109 mmol/L (98-107); CREATININE 0.91 mg/dl (0.60-1.20); GLUCOSE 89 mg/dl (70-99); HEMATOCRIT 36.2 % (37-47); MAGNESIUM 1.9 mg/dl (1.8-2.4); MEAN CORPUSCULAR HEMOGLOBIN 27.5 pg (25-34); POTASSIUM 3.5 mmol/L (3.5-5.1); RED BLOOD COUNT 4.26 M/uL (4.2-5.4); SODIUM 140 mmol/L (136-145); TRIGLYCERIDES 66 mg/dl (0-150); WHITE BLOOD COUNT 6.85 K/uL (4.8-10.8)
[2016-12-05 15:58] LABS: ALB/GLOB RATIO 0.7 (0.9-2); ALKALINE PHOSPHATASE 255 U/L (45-117); AST/SGOT 28 U/L (15-37); PHOSPHORUS 4.8 mg/dl (2.5-4.9)
[2016-12-05 16:17] LABS: ANISOCYTOSIS PRESENT; BASO % 0.4 %; BASO ABS # 0.03 K/uL (0-0.2); COMPLETE YES; EOS % 2.9 %; IG% 0.1 %; LYMPH ABS # 3.08 K/uL (1.2-3.4); MONO % 4.4 %; NEUT % 47.2 %; PLATELET COUNT 130 K/uL (130-400); PLT ESTIMATE DECREASED
--- NOTE | 2016-12-07 10:27 | CODING QUERY NO DIAGNOSIS ---
: 1990 TREATMENT RENDERED WITHOUT A DIAGNOSIS To promote full compliance with coding requirements relating to patient care, physician participation is requested in all cases of soccer referee uncertainty. Please assist us with providing a diagnosis/symptom for the test(s) below: A diagnosis/symptom was not documented on your Order. A valid diagnosis/symptom is required to bill all insurances. Please remember that we are unable to code a diagnosis of rule out, probable, possible, questionable, or suspected. Tests that require a diagnosis: DOS: 12/05/16 * GAMMA GLUTAMYL TRANSPEPTIDASE DIAGNOSIS: * COMPREHENSIVE METABOLIC PANEL DIAGNOSIS: * MAGNESIUM DIAGNOSIS: * PHOSPHORUS DIAGNOSIS: * TRIGLYCERIDES DIAGNOSIS: * CBC WITH AUTO DIFFERENTIAL DIAGNOSIS: : Provider Signature: Date: Thank you Rena Luna Health Information Management Once completed, please kindly fax back to [phone] For questions please call [phone]
== END | disposition home or self-care (01) ==
LOC: C.LABSPEC 15:31
PROVIDERS: ATTEND Surgery
DX: K91.2 Postsurgical malabsorption, not elsewhere classified (principal)

== ENCOUNTER → 2016-12-05 | Outpatient (CLI) | payer OTHER ==
[2016-12-05 13:04] LABS: MEAN CORPUSCULAR HGB CONC 31.9 g/dl (32-36)
[2016-12-05 13:10] LABS: INR 1.1 (0.9-1.1); PROTHROMBIN TIME (PATIENT) 11.9 SECONDS (9.0-12.0)
[2016-12-05 13:21] LABS: HEMATOCRIT 34.8 % (37-47); MEAN CELL VOLUME 85.7 fL (80-100); MEAN CORPUSCULAR HEMOGLOBIN 27.3 pg (25-34); RED BLOOD COUNT 4.06 M/uL (4.2-5.4); WHITE BLOOD COUNT 6.44 K/uL (4.8-10.8)
[2016-12-05 13:29] LABS: ALT/SGPT 37 U/L (12-78); AST/SGOT 27 U/L (15-37); BLOOD UREA NITROGEN 42 mg/dl (7-18); CALCIUM 9.8 mg/dl (8.5-10.1); CARBON DIOXIDE 23 mmol/L (21-32); CHLORIDE 108 mmol/L (98-107); CREATININE 0.86 mg/dl (0.60-1.20); GLUCOSE 75 mg/dl (70-99); POTASSIUM 3.5 mmol/L (3.5-5.1); SODIUM 140 mmol/L (136-145); URIC ACID 3.2 mg/dl (2.6-7.2)
[2016-12-05 13:40] LABS: ALB/GLOB RATIO 0.7 (0.9-2); ALKALINE PHOSPHATASE 242 U/L (45-117); THYROID STIMULATING HORMONE 0.125 uIu/ml (0.300-4.500)
[2016-12-05 13:47] LABS: BASO % 0.5 %; BASO ABS # 0.03 K/uL (0-0.2); COMPLETE YES; IG% 0.3 %; LYMPH % 35.4 %; LYMPH ABS # 2.28 K/uL (1.2-3.4); MONO % 5.4 %; NEUT % 55.4 %; PLATELET COUNT 126 K/uL (130-400); PLT ESTIMATE DECREASED
== END | disposition home or self-care (01) ==
LOC: C.LAB1850 11:26
PROVIDERS: ATTEND Internal Medicine Infectious Disease
DX: B18.2 Chronic viral hepatitis C (principal)

== ENCOUNTER → 2016-12-06 | Outpatient (CLI) | payer OTHER ==
[2016-12-09 14:32] LABS: URCREATININE 99.2 MG/DL (>/= 20)
== END | disposition home or self-care (01) ==
LOC: C.LAB1850 12:39
PROVIDERS: ATTEND Internal Medicine Infectious Disease
DX: B18.2 Chronic viral hepatitis C (principal)

== ENCOUNTER → 2016-12-07 | Outpatient (CLI) | payer OTHER ==
[2016-12-07 13:40] LABS: PROLACTIN 4.36 ng/mL; T3 TOTAL 0.81 ng/ml (0.60-1.81)
== END | disposition home or self-care (01) ==
LOC: C.LAB1850 10:59
PROVIDERS: ATTEND Internal Medicine
DX: R94.6 Abnormal results of thyroid function studies (principal); N91.1 Secondary amenorrhea

== ENCOUNTER → 2016-12-12 | Outpatient (CLI) | payer OTHER ==
[2016-12-12 18:17] LABS: BASO % 0.3 %; BASO ABS # 0.02 K/uL (0-0.2); COMPLETE YES; HEMATOCRIT 35.5 % (37-47); IG% 0.1 %; LYMPH % 34.7 %; LYMPH ABS # 2.55 K/uL (1.2-3.4); MEAN CELL VOLUME 84.9 fL (80-100); MEAN CORPUSCULAR HEMOGLOBIN 27.8 pg (25-34); MEAN CORPUSCULAR HGB CONC 32.7 g/dl (32-36); MONO % 7.1 %; NEUT % 54.8 %; PLATELET COUNT 204 K/uL (130-400); RED BLOOD COUNT 4.18 M/uL (4.2-5.4); WHITE BLOOD COUNT 7.35 K/uL (4.8-10.8)
[2016-12-12 18:41] LABS: ALT/SGPT 35 U/L (12-78); AST/SGOT 23 U/L (15-37); BLOOD UREA NITROGEN 52 mg/dl (7-18); BUN/CREATININE RATIO 43.7 (10-20); CALCIUM 10.4 mg/dl (8.5-10.1); CARBON DIOXIDE 30 mmol/L (21-32); CHLORIDE 102 mmol/L (98-107); GLUCOSE 70 mg/dl (70-99); MAGNESIUM 2.2 mg/dl (1.8-2.4); POTASSIUM 3.9 mmol/L (3.5-5.1); SODIUM 138 mmol/L (136-145); TRIGLYCERIDES 103 mg/dl (0-150)
[2016-12-12 18:51] LABS: ALB/GLOB RATIO 0.8 (0.9-2); ALKALINE PHOSPHATASE 210 U/L (45-117); PHOSPHORUS 2.9 mg/dl (2.5-4.9)
== END | disposition home or self-care (01) ==
LOC: C.LABSPEC 16:08
PROVIDERS: ATTEND Surgery
DX: Z45.2 Encounter for adjustment and management of vascular access device (principal); J18.9 Pneumonia, unspecified organism; F32.9 Major depressive disorder, single episode, unspecified; F41.9 Anxiety disorder, unspecified

== ENCOUNTER → 2016-12-26 | Outpatient (CLI) | payer OTHER ==
[~2016-12-26] MED LIST changes: +CASPOFUNGIN IV; +HYDR1CAP85 PO; +HYDR5TAB57 PO; +TPN IV; +levaquin IV
[2016-12-26 11:53] LABS: MEAN CORPUSCULAR HGB CONC 33.2 g/dl (32-36)
[2016-12-26 12:00] LABS: HEMATOCRIT 27.1 % (37-47); MEAN CELL VOLUME 84.7 fL (80-100); MEAN CORPUSCULAR HEMOGLOBIN 28.1 pg (25-34); WHITE BLOOD COUNT 6.19 K/uL (4.8-10.8)
[2016-12-26 12:18] LABS: ALT/SGPT 27 U/L (12-78); AST/SGOT 15 U/L (15-37); BLOOD UREA NITROGEN 30 mg/dl (7-18); BUN/CREATININE RATIO 37.6 (10-20); CALCIUM 8.7 mg/dl (8.5-10.1); CARBON DIOXIDE 27 mmol/L (21-32); CHLORIDE 102 mmol/L (98-107); CREATININE 0.81 mg/dl (0.60-1.20); GLUCOSE 90 mg/dl (70-99); MAGNESIUM 2.2 mg/dl (1.8-2.4); POTASSIUM 3.6 mmol/L (3.5-5.1); SODIUM 137 mmol/L (136-145)
[2016-12-26 12:19] LABS: PLATELET COUNT 118 K/uL (130-400)
[2016-12-26 12:20] LABS: ALB/GLOB RATIO 0.6 (0.9-2); ALKALINE PHOSPHATASE 275 U/L (45-117); PHOSPHORUS 3.1 mg/dl (2.5-4.9); TRIGLYCERIDES 116 mg/dl (0-150)
[2016-12-26 12:21] LABS: ANISOCYTOSIS PRESENT; BASO % 0.3 %; BASO ABS # 0.02 K/uL (0-0.2); COMPLETE YES; EOS % 3.1 %; IG% 0.3 %; LYMPH % 30.9 %; LYMPH ABS # 1.91 K/uL (1.2-3.4); MONO % 8.4 %; PLT ESTIMATE DECREASED; SPHEROCYTE 1+
== END | disposition home or self-care (01) ==
LOC: C.LABSPEC 11:34
PROVIDERS: ATTEND Surgery
DX: Z01.89 Encounter for other specified special examinations (principal)

== ENCOUNTER → 2016-12-27 | Day surgery (SDC) | payer OTHER ==
[~2016-12-27] VITALS: Ht 160 cm; Wt 49.5 kg
[~2016-12-27] MED LIST changes: -CASPOFUNGIN IV; +COSYNTROPIN INJ 1 MCG in SYRINGE 0 ML IV SCH; -TPN IV; -levaquin IV
[2016-12-27 08:24] VITALS: BP 91/51; PULSE 76; TEMP 37.2; O2SAT 98; Ht 160 cm; Wt 49.5 kg
[2016-12-27 09:00] VITALS: BP 93/60; PULSE 82; TEMP 37; O2SAT 96
[2016-12-27 09:30] VITALS: BP 95/59; PULSE 85; TEMP 37.1; O2SAT 96
== END | disposition home or self-care (01) ==
LOC: C.MTU 07:48
PROVIDERS: ATTEND Internal Medicine Endocrinology, Diabetes & Metabolism
DX: E27.40 Unspecified adrenocortical insufficiency (principal)

== ENCOUNTER → 2017-01-02 | Outpatient (CLI) | payer OTHER ==
[~2017-01-02] MED LIST changes: +CASPOFUNGIN IV; -COSYNTROPIN INJ 1 MCG in SYRINGE 0 ML IV SCH; +TPN IV; +levaquin IV
[2017-01-02 15:31] LABS: ALB/GLOB RATIO 0.6 (0.9-2); ALKALINE PHOSPHATASE 327 U/L (45-117); ALT/SGPT 30 U/L (12-78); AST/SGOT 18 U/L (15-37); BLOOD UREA NITROGEN 30 mg/dl (7-18); BUN/CREATININE RATIO 33.5 (10-20); CALCIUM 9.2 mg/dl (8.5-10.1); CARBON DIOXIDE 25 mmol/L (21-32); CHLORIDE 100 mmol/L (98-107); CREATININE 0.88 mg/dl (0.60-1.20); GLUCOSE 87 mg/dl (70-99); MAGNESIUM 2.1 mg/dl (1.8-2.4); PHOSPHORUS 3.9 mg/dl (2.5-4.9); POTASSIUM 3.6 mmol/L (3.5-5.1); SODIUM 133 mmol/L (136-145); TRIGLYCERIDES 146 mg/dl (0-150)
--- NOTE | 2017-02-03 07:09 | CODING QUERY NO DIAGNOSIS ---
Valid Physician Order Needed A valid physician order must be submitted in order to properly bill for the service(s) provided, including date of service(s), valid diagnosis, and physician signature. If these tests are done on a recurring basis the original physican order must be submitted in order to code and bill for the service(s) provided. Please fax us the original, signed physician order so that we may expedite billing to [phone] DOS 01/02/17 * CBC W/ AUTO DIFF * GAMMA GLUTAMYL TRANSPEPRIDASE * CMP * MAGNESIUM * PHOSPHORUS * TRIGLYCERIDES Thank you Selena [facility] Information Management
== END | disposition home or self-care (01) ==
LOC: C.LABSPEC 14:11
PROVIDERS: ATTEND Surgery
DX: K65.2 Spontaneous bacterial peritonitis (principal)

== ENCOUNTER → 2017-01-09 | Outpatient (CLI) | payer OTHER ==
[2017-01-09 14:41] LABS: BASO % 0.3 %; BASO ABS # 0.02 K/uL (0-0.2); COMPLETE YES; EOS % 0.5 %; HEMATOCRIT 29.7 % (37-47); IG% 0.3 %; LYMPH % 18.8 %; MEAN CELL VOLUME 84.6 fL (80-100); MEAN CORPUSCULAR HEMOGLOBIN 26.5 pg (25-34); MEAN CORPUSCULAR HGB CONC 31.3 g/dl (32-36); MONO % 3.4 %; NEUT % 76.7 %; PLATELET COUNT 154 K/uL (130-400); RED BLOOD COUNT 3.51 M/uL (4.2-5.4); WHITE BLOOD COUNT 5.85 K/uL (4.8-10.8)
[2017-01-09 15:06] LABS: ALT/SGPT 35 U/L (12-78); AST/SGOT 20 U/L (15-37); BLOOD UREA NITROGEN 39 mg/dl (7-18); BUN/CREATININE RATIO 39.5 (10-20); CALCIUM 9.1 mg/dl (8.5-10.1); CARBON DIOXIDE 27 mmol/L (21-32); CHLORIDE 97 mmol/L (98-107); CREATININE 0.98 mg/dl (0.60-1.20); GLUCOSE 67 mg/dl (70-99); MAGNESIUM 2.2 mg/dl (1.8-2.4); POTASSIUM 3.8 mmol/L (3.5-5.1); SODIUM 131 mmol/L (136-145)
[2017-01-09 15:09] LABS: ALB/GLOB RATIO 0.5 (0.9-2); ALKALINE PHOSPHATASE 384 U/L (45-117); PHOSPHORUS 3.9 mg/dl (2.5-4.9); TRIGLYCERIDES 232 mg/dl (0-150)
== END | disposition home or self-care (01) ==
LOC: C.LABSPEC 14:29
PROVIDERS: ATTEND Surgery
DX: Z45.2 Encounter for adjustment and management of vascular access device (principal); F32.9 Major depressive disorder, single episode, unspecified; F41.9 Anxiety disorder, unspecified; J18.9 Pneumonia, unspecified organism

== ENCOUNTER → 2017-01-13 | Outpatient (CLI) | payer OTHER ==
[2017-01-13 15:31] LABS: BLOOD UREA NITROGEN 32 mg/dl (7-18); CALCIUM 8.8 mg/dl (8.5-10.1); CARBON DIOXIDE 28 mmol/L (21-32); CREATININE 0.86 mg/dl (0.60-1.20); GLUCOSE 99 mg/dl (70-99); POTASSIUM 3.9 mmol/L (3.5-5.1); SODIUM 140 mmol/L (136-145)
== END | disposition home or self-care (01) ==
LOC: C.LABSPEC 13:25
PROVIDERS: ATTEND Surgery
DX: Z45.2 Encounter for adjustment and management of vascular access device (principal); F32.9 Major depressive disorder, single episode, unspecified; J18.9 Pneumonia, unspecified organism; F41.9 Anxiety disorder, unspecified

== ENCOUNTER → 2017-01-16 | Outpatient (CLI) | payer OTHER ==
[2017-01-16 10:50] LABS: HEMATOCRIT 22.2 % (37-47); MEAN CELL VOLUME 89.9 fL (80-100); MEAN CORPUSCULAR HEMOGLOBIN 27.5 pg (25-34); MEAN CORPUSCULAR HGB CONC 30.6 g/dl (32-36); MEAN PLATELET VOLUME 11.6 fL (7.4-10.4); PLATELET COUNT 276 K/uL (130-400); RED BLOOD COUNT 2.47 M/uL (4.2-5.4); WHITE BLOOD COUNT 10.67 K/uL (4.8-10.8)
[2017-01-16 10:55] LABS: ALT/SGPT 32 U/L (12-78); BLOOD UREA NITROGEN 23 mg/dl (7-18); BUN/CREATININE RATIO 38.9 (10-20); CALCIUM 8.6 mg/dl (8.5-10.1); CARBON DIOXIDE 26 mmol/L (21-32); CHLORIDE 105 mmol/L (98-107); CREATININE 0.58 mg/dl (0.60-1.20); GLUCOSE 83 mg/dl (70-99); MAGNESIUM 2.3 mg/dl (1.8-2.4); POTASSIUM 4.2 mmol/L (3.5-5.1); SODIUM 140 mmol/L (136-145); TRIGLYCERIDES 148 mg/dl (0-150)
[2017-01-16 10:57] LABS: ALB/GLOB RATIO 0.5 (0.9-2); ALKALINE PHOSPHATASE 392 U/L (45-117); AST/SGOT 19 U/L (15-37); PHOSPHORUS 2.7 mg/dl (2.5-4.9)
[2017-01-16 11:29] LABS: ANISOCYTOSIS PRESENT; BASO % 0.3 %; BASO ABS # 0.03 K/uL (0-0.2); COMPLETE YES; EOS % 1.3 %; HYPOCHROMIA PRESENT; IG% 0.5 %; LYMPH % 19.2 %; LYMPH ABS # 2.05 K/uL (1.2-3.4); MONO % 5.2 %; NEUT % 73.5 %
== END | disposition home or self-care (01) ==
LOC: C.LABSPEC 10:26
PROVIDERS: ATTEND Surgery
DX: Z45.2 Encounter for adjustment and management of vascular access device (principal); J18.9 Pneumonia, unspecified organism; F32.9 Major depressive disorder, single episode, unspecified; F41.9 Anxiety disorder, unspecified

== ENCOUNTER 2017-01-18 12:54 | Emergency (ER) | payer OTHER ==
[~2017-01-18] VITALS: Ht 160 cm; Wt 55.6 kg
[~2017-01-18 12:54] MED LIST changes: -CASPOFUNGIN IV; -CNCI50 IV; -TPN IV; -levaquin IV
[2017-01-18] MEDS ORDERED: SODIUM CHLORIDE 0.9% 1000ML 1,500 ML IV ONE (13:16)
[2017-01-18] MEDS ORDERED: ACETAMINOPHEN 500 MG TAB PO STA (13:31)
--- NOTE | 2017-01-18 13:44 | EMERGENCY ROOM VISIT NOTE ---
History First contact with patient: 13:04 Chief Complaint: RESPIRATORY PROBLEMS Stated Complaint: SINUS PRESSURE,SOB,CHEST PAIN,ELEVATED HEART RATE History of Present Illness The patient is a 26 year old female who presents to the Emergency Room with complaints of cough and congestion for the past 2 weeks that has been getting progressively worse, and she states "I feel terrible." She was seen today at her PCP office and was sent to ED for further evaluation. She is also complaining of right sided chest pain and shortness of breath with coughing. She states that her chest pain is sharp, intermittent, worse with coughing and moving, denies pain at rest, 8/10. She is on methadone for chronic pain, and states she also takes Tylenol as needed, but has not taken Tylenol today. She reports low-grade fevers of 99-100 and increased chills for the past few days as well. She states that she has been very fatigued for the past few weeks, and states her hemoglobin level was 6.8 on recent labs. She reports having previous blood transfusions, her last admission for this was in November and she received 3 units of blood. 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 She has a right upper chest Sauceda port, through which she gets TPN at night for 12 hours, and she states she also gives herself about 500 mL of fluid every day through her port. She reports a history of fungal and bacterial infections in her port in the past, she states she was recently down at [facility] and had a new Sauceda port placed 1 week ago. She does also take daily steroids, which she states is to treat her low blood pressure. She has a left-sided PEG tube and an ileostomy, she reports her ileostomy output has been normal. She does note some drainage from the PEG tube that has caused redness and irritation around the tube insertion site for the past several days. She denies any headaches, neck pain or stiffness, abdominal pain, back pain, dysuria or urinary frequency. Review of Systems A complete 10 point review of systems was reviewed with the patient with pertinent positives and negatives as per history of present illness. All else were negative. 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 Family History No pertinent family history Social History Smoking Status: Current Every Day Smoker Alcohol Use: none Marital Status: single Occupation Status: employed Current/Historical Medications Scheduled Calcium Carbonate-Vitamin D (Calcium), 1 TAB PO DAILY Cholecalciferol (Vitamin D3), Unknown Dose PO DAILY Citalopram Hydrobromide (Celexa), 40 MG PO DAILY Folic Acid (Folic Acid), 1 TAB PO DAILY Hydrocortisone (Cortef), 5 MG PO BID Hydrocortisone (Cortef), 10 MG PO QAM Methadone Hcl (Methadone Hcl Intensol), 111 MG PO DAILY Omeprazole (Prilosec), 40 MG PO DAILY Tpn Infusion (Tpn Infusion), 1 EA IV DAILY [capsofungin], 50 MG IV DAILY [levaquin], 750 MG IV DAILY Scheduled PRN Acetaminophen (Tylenol), 500 MG PO Q4H PRN for Pain Hydroxyzine Pamoate (Vistaril), 25 MG PO HS PRN for Sleep Allergies Reviewed in chart Physical Exam Vital Signs Date Time Temp Pulse Resp B/P (MAP) Pulse Ox O2 Delivery O2 Flow Rate FiO2 01/18/17 17:37 82 18 99/52 98 01/18/17 17:24 82 18 99/52 98 Room Air 01/18/17 15:02 37.0 84 18 91/41 98 Room Air 01/18/17 14:12 95 Room Air 01/18/17 13:55 86 01/18/17 13:50 95 Room Air 01/18/17 13:30 38.4 01/18/17 12:57 37.5 88 20 108/66 95 Room Air Physical Exam CONSTITUTIONAL: No acute distress, but the patient does appear uncomfortable. Cachectic. Dehydrated. Alert and oriented X 4. HEENT: Normocephalic, atraumatic. Pupils equal, round and reactive to light, EOMI. TMs normal. Pharynx normal. Dry mucous membranes. NECK: Supple, full active range of motion without discomfort. RESPIRATORY: Scattered expiratory wheezes, diminished in the right base. No rhonchi or stridor. Equal expansion bilaterally. CARDIOVASCULAR: Regular rate and rhythm with no murmurs, rubs or gallops. Normal peripheral perfusion. No edema. CHEST WALL: Right anterior and lateral chest wall tenderness to palpation. No crepitus. Right upper chest wall Sauceda catheter, no erythema or drainage noted at the port site. GASTROINTESTINAL: Soft, nontender, nondistended. Bowel sounds present in all quadrants. PEG tube with mildly excoriated skin around the insertion site, no purulence. Ileostomy stoma with normal-appearing drainage in the back. MUSCULOSKELETAL: Full range of motion of all joints without discomfort. INTEGUMENTARY: Dry skin. Poor skin turgor. No rash or other significant dermatologic conditions noted. NEUROLOGIC: Cranial nerves II-XII grossly intact. No focal neurologic deficits noted. Generally weak, but equal strength in all 4 extremities, normal sensation, normal speech, normal gait observed. Medical Decision & Procedures ER Provider Diagnostic Interpretation: CHEST 2 VIEWS ROUTINE CLINICAL HISTORY: Cough. Fever. COMPARISON STUDY: Chest radiograph December 31, 2016. FINDINGS: A dual lumen right internal jugular catheter is in place. Tip projects over the distal SVC. There is no pneumothorax or pleural effusion. Cardiomediastinal silhouette is normal. Pulmonary vascularity is normal. There has been interval development of mild right midlung opacity and a suspected 1.2 cm nodular left upper lung airspace opacity since exam of December 23, 2016. A gastrostomy tube is incidentally noted. IMPRESSION: Interval development of mild right midlung airspace opacity and a 1.2 cm nodular left upper lung opacity. The findings favor pneumonia. Radiographic follow up to ensure resolution is recommended. Laboratory Results 01/18/17 13:40 Red Blood Count 2.82, Mean Corpuscular Volume 91.8, Mean Corpuscular Hemoglobin 28.4, Mean Corpuscular Hemoglobin Concent 30.9, Mean Platelet Volume 10.9, Neutrophils (%) (Auto) 88.3, Lymphocytes (%) (Auto) 8.2, Monocytes (%) (Auto) 3.1, Eosinophils (%) (Auto) 0.0, Basophils (%) (Auto) 0.2, Neutrophils # (Auto) 7.06, Lymphocytes # (Auto) 0.66, Monocytes # (Auto) 0.25, Eosinophils # (Auto) 0.00, Basophils # (Auto) 0.02 01/18/17 13:40 Test 01/18/17 13:40 01/18/17 13:54 01/18/17 13:55 01/18/17 14:05 White Blood Count 8.01 K/uL (4.8-10.8) Red Blood Count 2.82 M/uL (4.2-5.4) Hemoglobin 8.0 g/dL (12.0-16.0) Hematocrit 25.9 % (37-47) Mean Corpuscular Volume 91.8 fL (80-100) Mean Corpuscular Hemoglobin 28.4 pg (25-34) Mean Corpuscular Hemoglobin Concent 30.9 g/dl (32-36) Platelet Count 285 K/uL (130-400) Mean Platelet Volume 10.9 fL (7.4-10.4) Neutrophils (%) (Auto) 88.3 % Lymphocytes (%) (Auto) 8.2 % Monocytes (%) (Auto) 3.1 % Eosinophils (%) (Auto) 0.0 % Basophils (%) (Auto) 0.2 % Neutrophils # (Auto) 7.06 K/uL (1.4-6.5) Lymphocytes # (Auto) 0.66 K/uL (1.2-3.4) Monocytes # (Auto) 0.25 K/uL (0.11-0.59) Eosinophils # (Auto) 0.00 K/uL (0-0.5) Basophils # (Auto) 0.02 K/uL (0-0.2) RDW Standard Deviation 63.3 fL (36.4-46.3) RDW Coefficient of Variation 18.9 % (11.5-14.5) Immature Granulocyte % (Auto) 0.2 % Immature Granulocyte # (Auto) 0.02 K/uL (0.00-0.02) Hypersegmented Polys 1+ Anisocytosis PRESENT Stomatocytes 1+ Anion Gap 9.0 mmol/L (3-11) Est Creatinine Clear Calc Drug Dose 94.9 ml/min Estimated GFR () 129.9 Estimated GFR (Non- 112.1 BUN/Creatinine Ratio 29.0 (10-20) Calcium Level 8.4 mg/dl (8.5-10.1) Total Bilirubin 1.9 mg/dl (0.2-1) Direct Bilirubin 1.5 mg/dl (0-0.2) Aspartate Amino Transf (AST/SGOT) 25 U/L (15-37) Alanine Aminotransferase (ALT/SGPT) 40 U/L (12-78) Alkaline Phosphatase 411 U/L (45-117) Troponin I < 0.015 ng/ml (0-0.045) Total Protein 8.3 gm/dl (6.4-8.2) Albumin 2.5 gm/dl (3.4-5.0) Lipase 335 U/L (73-393) Lactic Acid Level 1.1 mmol/L (0.4-2.0) Influenza Type A Antigen Neg for Influ A (NEG) Influenza Type B Antigen Neg for Influ B (NEG) Urine Color DK YELLOW Urine Appearance CLEAR (CLEAR) Urine pH >= 9.0 (4.5-7.5) Urine Specific [place] 1.027 (1.000-1.030) Urine Protein NEG (NEG) Urine Glucose (UA) NEG (NEG) Urine Ketones NEG (NEG) Urine Occult Blood NEG (NEG) Urine Nitrite NEG (NEG) Urine Bilirubin 1+ (NEG) Urine Urobilinogen NEG (NEG) Urine Leukocyte Esterase TRACE (NEG) Urine WBC (Auto) 1-5 /hpf (0-5) Urine RBC (Auto) 0-4 /hpf (0-4) Urine Hyaline Casts (Auto) 1-5 /lpf (0-5) Urine Epithelial Cells (Auto) >30 /lpf (0-5) Urine Bacteria (Auto) NEG (NEG) Medications Administered Medications (Trade) Dose Ordered Sig/Faith Route Start Time Stop Time Status Last Admin Dose Admin Sodium Chloride 1,500 ml @ 1,000 mls/hr Q1H30M ONCE IV 01/18/17 13:16 01/18/17 14:45 DC 01/18/17 13:49 1,000 MLS/HR Acetaminophen (Tylenol Tab) 1,000 mg NOW STAT PO 01/18/17 13:31 01/18/17 13:32 DC 01/18/17 13:46 1,000 MG Heparin Sodium (Porcine) (Heparin 100 Unit/ml 5ml Flush) 5 ml STK-MED ONCE .ROUTE 01/18/17 13:41 01/18/17 13:42 DC 01/18/17 13:41 5 ML Cefepime HCl 2000 mg/Syringe 20 ml @ 5 mls/min 1445 IV 01/18/17 14:45 01/18/17 16:00 DC 01/18/17 14:59 5 MLS/MIN Levofloxacin (Levaquin / D5W) 750 mg NOW STAT IV 01/18/17 14:55 01/18/17 14:57 DC 01/18/17 15:23 750 MG Heparin Sodium (Porcine) (Heparin 100 Unit/ml 5ml Flush) 5 ml STK-MED ONCE .ROUTE 01/18/17 17:17 01/18/17 17:18 DC 01/18/17 17:17 5 ML ECG Indication: chest pain, SOB/dyspnea, weakness Rate (beats per minute): 90 Rhythm: normal sinus Findings: no acute ischemic change, no ectopy Change: Compared to EKG from 11/17/2016, the ventricular rate has increased by 44 bpm. No other significant changes noted. Medical Decision CC: Patient presenting with complaint of cough, chest pain, shortness of breath , fevers Interpretation of Labs: No leukocytosis, anemia (decreased from baseline), no significant electrolyte abnormalities, normal renal function, elevated T bili and Alk Phos (baseline), liver enzymes otherwise normal, lactic acid within normal limits. UA consistent with dehydration, no infection. Negative for influenza. Differential Diagnosis: Includes, but not limited to pneumonia, bronchitis, viral URI, influenza, pleural effusion, sepsis/bacteremia, central line infection, UTI, dehydration, among others. Medication Reconciliation: I attest that I have personally reviewed the patient' s current medication list. Initial vital signs review: I reviewed the patient's vital signs and interpret them as follows: T: Febrile; BP: Normotensive; HR: Within normal limits; RR: Within normal limits; Pulse Ox: Within normal limits on room air. Blood pressure screening: The patient was found to have normal blood pressure on screening and does not require follow-up for repeat blood pressure check. Summary: Patient was evaluated at bedside, history and physical exam performed. She is alert and oriented, in no acute distress, but does appear to be ill. She appears moderately dehydrated and malnourished, cachectic. Lung exam reveals some scant wheezes, right base lung sounds are diminished. Productive cough noted with green sputum. She denies any chest pain or shortness of breath at rest, states this is brought on with coughing fits. She feels very warm on exam. I rechecked her temperature at bedside, noted to be 38.4 orally. Review of the patient's chart and documentation sent over from her office visit today was done. It is noted the patient was tachycardic heart rate of 112 and hypotensive with a blood pressure of 90/30 at her office visit today. Patient does note that she has chronic hypotension, and is on daily steroids for this. I am primarily concerned for infectious etiology, given her multiple risk factors, immunocompromised state, and history of both central line related bacteremia and fungemia in the past. Orders were placed at bedside for labs, UA, lactic acid, urine culture, blood cultures 3, EKG, chest x-ray to evaluate for cardiopulmonary disease. Tylenol for fever. I spoke with the inpatient clinical pharmacist regarding antibiotic choice, given patient's risk factors of probable pulmonary source for infection. She recommended cefepime and Levaquin to cover for hospital-acquired pneumonia. I am awaiting the chest x-ray results, will order cefepime now for broad coverage and reassess for further antibiotic need after chest x-ray results. Patient discussed with Dr. Patel, who agrees with my assessment and plan. Labs reviewed as above, no significant abnormalities. Lactic acid is WNL. Her anemia today seems consistent with her baseline, this was drawn from a straight stick today. I suspect her level of 6.8 may have been dilutional related to drawing blood off of her central line. I do not believe blood transfusion is indicated at this time. EKG shows normal sinus rhythm with no acute ischemic changes. Chest x-ray shows right middle lung airspace opacity most likely representing a developing pneumonia. IV Levaquin ordered. I am additionally concerned for bacteremia, given the presence of fevers, mild hypotension, and history of previous bacteremia in the past, and felt the patient should be admitted for further IV antibiotics and close monitoring. I spoke on the phone with Dr. Gutierrez, hospitalist, who agrees to evaluate the patient for possible admission. Dr. Gutierrez spoke with me after evaluating the patient, he states that she has home infusion therapy well established and could be discharged on IV antibiotics at home, with close follow up in the office tomorrow. He reports the patient prefers to be discharged home with this plan. He is arranging prescriptions and appointment scheduling for follow up. I feel comfortable with this plan as well. Patient reassessed multiple times throughout ED stay, she reports feeling much better after IV fluids. I discussed again with her the plan for her discharge with IV antibiotics at home, she verbalized agreement with this plan and states she is comfortable and prefers to be discharged home. I encouraged the patient to keep her scheduled follow-up this week, and to return for any worsening symptoms or concerns, she verbalized understanding. Patient was discharged home in stable condition and ambulatory. Head Trauma GCS Score: 15 Medication Reconcilliation Current Medication List: was personally reviewed by me Blood Pressure Screening Patient's blood pressure: Low blood pressure Blood pressure disposition: Referred to PCP Impression Primary Impression: HCAP (healthcare-associated pneumonia) Additional Impression: Fever Departure Information Dispostion Home / Self-Care Condition GOOD Prescriptions [capsofungin] No Conflict Check 50 MG IV DAILY, #21 DOSE Prov: Neymar Gutierrez M.D. 01/19/17 [levaquin] No Conflict Check 750 MG IV DAILY, #7 DOSE Prov: Neymar Gutierrez M.D. 01/18/17 Referrals Talia Altamirano M.D. (PCP) Neymar Gutierrez M.D. Patient Instructions ED Pneumonia Adult, My [facility] Additional Instructions You have being discharged home with plans for IV antibiotics to be given through your Sauceda port. Prescriptions are being sent to your infusion center for these antibiotics. You have been scheduled for a follow-up appointment with Dr. Altamirano on Monday , 01/20/2017 at 9:30 AM. Please keep this appointment. Please return to the emergency department for any worsening symptoms, including increased shortness of breath, severe chest pain, dizziness or passing out, persistent fevers/chills, or any other concerns. Problem Qualifiers Additional Impression: Fever Fever type: due to other condition Qualified Codes: R50.81 - Fever presenting with conditions classified elsewhere
[2017-01-18 13:50] VITALS: O2SAT 95; Ht 160 cm; Wt 55.6 kg
[2017-01-18] MEDS ORDERED: CEFEPIME IV 2,000 MG in DEXTROSE 5% 100ML 100 ML IV STA (13:51)
[2017-01-18 14:01] LABS: BASO % 0.2 %; BASO ABS # 0.02 K/uL (0-0.2); HEMATOCRIT 25.9 % (37-47); IG% 0.2 %; LYMPH % 8.2 %; LYMPH ABS # 0.66 K/uL (1.2-3.4); MEAN CELL VOLUME 91.8 fL (80-100); MEAN CORPUSCULAR HEMOGLOBIN 28.4 pg (25-34); MEAN CORPUSCULAR HGB CONC 30.9 g/dl (32-36); MEAN PLATELET VOLUME 10.9 fL (7.4-10.4); MONO % 3.1 %; NEUT % 88.3 %; PLATELET COUNT 285 K/uL (130-400); RED BLOOD COUNT 2.82 M/uL (4.2-5.4); WHITE BLOOD COUNT 8.01 K/uL (4.8-10.8)
[2017-01-18 14:10] LABS: ALT/SGPT 40 U/L (12-78); AST/SGOT 25 U/L (15-37); BLOOD UREA NITROGEN 21 mg/dl (7-18); CALCIUM 8.4 mg/dl (8.5-10.1); CARBON DIOXIDE 27 mmol/L (21-32); CHLORIDE 102 mmol/L (98-107); CREATININE 0.73 mg/dl (0.60-1.20); GLUCOSE 90 mg/dl (70-99); POTASSIUM 3.7 mmol/L (3.5-5.1); SODIUM 138 mmol/L (136-145)
[2017-01-18] MEDS ORDERED: FLV400 PO (14:10)
[2017-01-18] MEDS ORDERED: TPN IV (14:10)
[2017-01-18 14:16] LABS: ALKALINE PHOSPHATASE 411 U/L (45-117)
[2017-01-18 14:28] LABS: ANISOCYTOSIS PRESENT; COMPLETE YES; HYPERSEGMENTED POLYS 1+; STOMATOCYTE 1+
--- NOTE | 2017-01-18 14:29 | DIAGNOSTIC IMAGING REPORT ---
CHEST 2 VIEWS ROUTINE CLINICAL HISTORY: Cough. Fever. COMPARISON STUDY: Chest radiograph December 31, 2016. FINDINGS: A dual lumen right internal jugular catheter is in place. Tip projects over the distal SVC. There is no pneumothorax or pleural effusion. Cardiomediastinal silhouette is normal. Pulmonary vascularity is normal. There has been interval development of mild right midlung opacity and a suspected 1.2 cm nodular left upper lung airspace opacity since exam of December 23, 2016. A gastrostomy tube is incidentally noted. IMPRESSION: Interval development of mild right midlung airspace opacity and a 1.2 cm nodular left upper lung opacity. The findings favor pneumonia. Radiographic follow up to ensure resolution is recommended. Electronically signed by: Adam Altamirano M.D. 01/18/2017 2:28 PM Dictated Date/Time: 01/18/2017 2:25 PM
[2017-01-18] MEDS ORDERED: CEFEPIME IV 2,000 MG in SYRINGE 7.5 ML IV SCH (14:45)
[2017-01-18] MEDS ORDERED: LEVAQUIN 750MG / 150ML D5W IV STA (14:55)
[2017-01-18 15:29] LABS: URINE APPEARANCE CLEAR (CLEAR); URINE COLOR DK YELLOW; URINE EPITHELIAL CELL AUTO >30 /lpf (0-5); URINE NITRITE NEG (NEG); URINE PH >= 9.0 (4.5-7.5); URINE SPECIFIC GRAVITY 1.027 (1.000-1.030); UROBILINOGEN NEG (NEG)
[2017-01-18 15:33] LABS: MANUAL MICROSCOPIC REQUIRED? NO; REVIEW REQ? NO; SULFASALICYLIC ACID NEG (NEG); URINE BILIRUBIN 1+ (NEG)
[2017-01-18] MEDS ORDERED: levaquin IV (15:54)
--- NOTE | 2017-01-18 15:57 | Discharge Instructions ---
Discharge Instructions Date of Service Jan 18, 2017. Admission Reason for Admission: Sinus Pressure,Sob,Chest Pain,Elevated Heart Rate Discharge Discharge Diagnosis / Problem: right middle lobe pneumonia Discharge Goals Goal(s): Diagnostic testing, Therapeutic intervention Activity Recommendations Activity Limitations: resume your previous activity . Current Hospital Diet Patient's current hospital diet: AHA Diet (Heart Healthy) Discharge Diet Recommended Diet: Regular Diet, N/A (continue home tpn) Pending Studies Studies pending at discharge: yes List of pending studies: cultures will result in 48 hours Laboratory Results Hemoglobin A1c Test 12/05/16 11:39 Range/Units Estimated Average Glucose 114 mg/dl Hemoglobin A1c 5.6 4.5-5.6 % Lipid Panel Test 01/16/17 09:15 Range/Units Triglycerides Level 148 0-150 mg/dl Medical Emergencies . Who to Call and When: Medical Emergencies: If at any time you feel your situation is an emergency, please call 911 immediately. . Non-Emergent Contact Non-Emergency issues call your: Primary Care Provider Call Non-Emergent contact if: temperature is above 101.5, your pain is unusual for you . . "Provider Documentation" section prepared by Neymar Gutierrez. . Vehicle Maintenance Technician Recommendations Vehicle Maintenance Technician Recommendations: follow up with Dr eTjada office monday01/20/2017, you will see Ms Avendano. VTE Core Measure Inpt VTE Proph given/why not?: Treatment not indicated
--- NOTE | 2017-01-18 16:24 | Medical Consult ---
History General Date of Service: Jan 18, 2017. Stated Complaint: Sinus Pressure,Sob,Chest Pain,Elevated Heart Rate HPI The patient is a 26 year old female who presents to [facility] with complaints of Sinus Pressure,Sob,Chest Pain,Elevated Heart Rate. The patient's primary care provider is Talia Altamirano M.D.. This patient presents after seeing her family doctor having a fever with productive cough and concern for pneumonia. In the emergency department she was evaluated and does have a very small right middle lobe infiltrate seen on chest x-ray as well as a left lung nodule. The patient however has had a significant past history of abdominal surgeries and she currently receives home TPN. She is just coming out of having a Sauceda line infection with a line replacement at [place] approximately 1 week ago and she is tearful to the point where she says she really doesn't was in the hospital is absolutely necessary. The patient did have a fever upon presentation but has had no fever since she does not have elevation of her white count she is not hypoxic. She did receive a dose of intravenous cefepime and levofloxacin in the ER and we will continue IV levofloxacin at home through home infusion company of which I spoke personally this evening. The patient also has an outpatient appointment arranged for 9:30 on 01/20 with her primary care and I personally foam and office with message regarding her care. The patient is extremely happy with this plan and she does not wish to stay in the hospital although she reassures me that since she lives at home with her father if she has any concerns she'll return to the ER for reevaluation. Historian: patient Review of Systems ROS: Patient looks older than her age she is edentulous she appears fatigued No double vision blurry vision No problems with speech or swallowing No palpitations, chest pain or pressure No Wheezing patient has a loose cough in the ER which has not been productive here but she states at home his yellow-green phlegm No new abdominal pain she has an ileostomy in the central abdomen draining liquid her abdominal wound is various open areas which she states is from her sutures being pushed out states these all look in her normal state No burning urine urine frequency or changes in color No focal joint pain or muscle pain No skin rashes or oral lesions No unusual bruising or bleeding No focused back pain or numbness or loss of strength No changes in memory or confusion Family History No pertinent family history Social History Hx Tobacco Use In Past Year?: Yes Smoking Status: Current Every Day Smoker Marital status: single Housing status: lives with family Occupational Status: employed Immunizations History of Influenza Vaccine: No Influenza Vaccine Date: Nov 05, 2007 History of Tetanus Vaccine?: Unknown History of Pneumococcal: No History of Hepatitis B Vaccine: Yes but date is unknown by patient Hepatitis Immunization Date: Feb 06, 2005 History of MDRO History of MDRO: No Allergies Coded Allergies: Adhesives (Verified Allergy, Mild, ERRYTHEMA, 01/18/17) Eucalyptus Oil (Verified Allergy, Mild, hives, 01/18/17) Current Medications Reported Home Medications Medications Dose Route/Sig Max Daily Dose Days Date Category Dose Instructions [levaquin] 750 Mg IV DAILY 01/18/17 Rx Tpn Infusion (Total Parenteral Nutrition) 1 Ea Inj 1 Ea IV DAILY 01/18/17 Reported Folic Acid 400 Mcg Tab 1 Tab PO DAILY 01/18/17 Reported Cortef (Hydrocortisone) 10 Mg Tab 10 Mg PO QAM 12/31/16 Reported pt takes 15mg in the morning and 5mg at night Cortef (Hydrocortisone) 5 Mg Tab 5 Mg PO BID 12/31/16 Reported pt takes 15mg in the morning and 5mg at night Vistaril (Hydroxyzine Pamoate) 25 Mg Cap 25 Mg PO HS PRN 12/31/16 Reported Methadone Hcl Intensol (Methadone Hcl) 10 Mg/Ml Con 111 Mg PO DAILY 11/14/16 Reported Tylenol (Acetaminophen) 500 Mg Tab 500 Mg PO Q4H PRN 09/25/16 Reported Calcium (Calcium Carbonate-Vitamin D) 1 Tab Tab 1 Tab PO DAILY 09/25/16 Reported Vitamin D3 (Cholecalciferol) Unknown Strength Tab Unknown Dose PO DAILY 09/25/16 Reported Prilosec (Omeprazole) 40 Mg Cap 40 Mg PO DAILY 09/25/16 Reported Celexa (Citalopram Hydrobromide) 40 Mg Tab 40 Mg PO DAILY 09/25/16 Reported Physical Physical Exam Vital Signs: Date Time Temp Pulse Resp B/P (MAP) Pulse Ox O2 Delivery O2 Flow Rate FiO2 01/18/17 15:02 37.0 84 18 91/41 98 Room Air 01/18/17 14:12 95 Room Air 01/18/17 13:55 86 01/18/17 13:50 95 Room Air 01/18/17 13:30 38.4 01/18/17 12:57 37.5 88 20 108/66 95 Room Air General Appearance: uncomfortable, thin Head: NORMOCEPHALIC, ATRAUMATIC Eyes: PERRLA, SCLERAE NORMAL Neck: SUPPLE, NO THYROMEGALY Respiratory: BREATH SOUNDS NORMAL, CLEAR TO AUSCULTATION (there was description by the ER PA of some absent breath sounds in the right side during my exam she had good air movement in all lung vergara) Cardiovasular: REGULAR RATE/RHYTHM, NORMAL S1S2 Abdomen: NORMAL BOWEL SOUNDS, other (the patient has an abnormal abdominal exam visually with her ileostomy PEG tube official extraction right lower quadrant and some openings were central incision) Upper Extremities: NO EDEMA, NORMAL ROM Lower Extremities: NO EDEMA, NORMAL ROM Neuro: ALERT, ORIENTED x 3 Psychiatric: NORMAL AFFECT, NO SUICIDAL IDEATION Diagnostics Labs Results Past 24 Hours Test 01/18/17 13:40 01/18/17 13:54 01/18/17 13:55 01/18/17 14:05 Range/Units White Blood Count 8.01 4.8-10.8 K/uL Red Blood Count 2.82 4.2-5.4 M/uL Hemoglobin 8.0 12.0-16.0 g/dL Hematocrit 25.9 37-47 % Mean Corpuscular Volume 91.8 80-100 fL Mean Corpuscular Hemoglobin 28.4 25-34 pg Mean Corpuscular Hemoglobin Concent 30.9 32-36 g/dl Platelet Count 285 130-400 K/uL Mean Platelet Volume 10.9 7.4-10.4 fL Neutrophils (%) (Auto) 88.3 % Lymphocytes (%) (Auto) 8.2 % Monocytes (%) (Auto) 3.1 % Eosinophils (%) (Auto) 0.0 % Basophils (%) (Auto) 0.2 % Neutrophils # (Auto) 7.06 1.4-6.5 K/uL Lymphocytes # (Auto) 0.66 1.2-3.4 K/uL Monocytes # (Auto) 0.25 0.11-0.59 K/uL Eosinophils # (Auto) 0.00 0-0.5 K/uL Basophils # (Auto) 0.02 0-0.2 K/uL RDW Standard Deviation 63.3 36.4-46.3 fL RDW Coefficient of Variation 18.9 11.5-14.5 % Immature Granulocyte % (Auto) 0.2 % Immature Granulocyte # (Auto) 0.02 0.00-0.02 K/uL Hypersegmented Polys 1+ Anisocytosis PRESENT Stomatocytes 1+ Sodium Level 138 136-145 mmol/L Potassium Level 3.7 3.5-5.1 mmol/L Chloride Level 102 98-107 mmol/L Carbon Dioxide Level 27 21-32 mmol/L Anion Gap 9.0 3-11 mmol/L Blood Urea Nitrogen 21 7-18 mg/dl Creatinine 0.73 0.60-1.20 mg/dl Est Creatinine Clear Calc Drug Dose 94.9 ml/min Estimated GFR () 129.9 Estimated GFR (Non- 112.1 BUN/Creatinine Ratio 29.0 10-20 Random Glucose 90 70-99 mg/dl Calcium Level 8.4 8.5-10.1 mg/dl Total Bilirubin 1.9 0.2-1 mg/dl Direct Bilirubin 1.5 0-0.2 mg/dl Aspartate Amino Transf (AST/SGOT) 25 15-37 U/L Alanine Aminotransferase (ALT/SGPT) 40 12-78 U/L Alkaline Phosphatase 411 45-117 U/L Troponin I < 0.015 0-0.045 ng/ml Total Protein 8.3 6.4-8.2 gm/dl Albumin 2.5 3.4-5.0 gm/dl Lipase 335 73-393 U/L Lactic Acid Level 1.1 0.4-2.0 mmol/L Influenza Type A Antigen Neg for Influ A NEG Influenza Type B Antigen Neg for Influ B NEG Urine Color DK YELLOW Urine Appearance CLEAR CLEAR Urine pH >= 9.0 4.5-7.5 Urine Specific [place] 1.027 1.000-1.030 Urine Protein NEG NEG Urine Glucose (UA) NEG NEG Urine Ketones NEG NEG Urine Occult Blood NEG NEG Urine Nitrite NEG NEG Urine Bilirubin 1+ NEG Urine Urobilinogen NEG NEG Urine Leukocyte Esterase TRACE NEG Urine WBC (Auto) 1-5 0-5 /hpf Urine RBC (Auto) 0-4 0-4 /hpf Urine Hyaline Casts (Auto) 1-5 0-5 /lpf Urine Epithelial Cells (Auto) >30 0-5 /lpf Urine Bacteria (Auto) NEG NEG Microbiology Results 01/18/17 Blood Culture, Received Pending 01/18/17 Blood Culture, Received Pending 01/18/17 Blood Culture, Received Pending 01/18/17 Gram Stain, Received Pending 01/18/17 Sputum Culture, Received Pending 01/18/17 Urine Culture, Received Pending Diagnostic Radiology This note that her hemoglobin is low, this is better than it was before, the patient is augmenting herself with iron and vitamins. 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 She is however on Cortef daily which could suppress her immune response. She will be given intravenous levofloxacin at home for 7 more day total. Cultures were obtained both of sputum and from her Sauceda. Sputum culture is less likely be to direct care however if she has any serology of blood culture positivity and would require IV antibiotics Dr. Angel has treated her the past. The patient is hopeful she can remain out of the hospital even if she would come to the [facility] for antibiotic therapy. Regarding her anemia this is likely mixed both from iron deficiency and chronic disease her last iron level was very low in November we discussed discussed the possibility of intravenous iron infusion that could be arranged by her outpatient provider Adrenal insufficiency? The patient is following up with Dr. Blackmon in endocrinology to evaluate ongoing need of hydrocortisone at this point time I do not believe we need any stress dosing but we'll maintain her other daily dosing as mentioned in her medication section I discussed this with the emergency room attending who is in agreement with this plan
[2017-01-18 17:37] VITALS: BP 99/52; PULSE 82; O2SAT 98
[2017-01-19] MEDS ORDERED: CASPOFUNGIN IV (10:25)
--- NOTE | 2017-01-19 10:27 | Progress Note ---
Progress Note Date of Service Jan 19, 2017. Progress Note NOTED 2 OF 2 BLOOD CULTURES SHOWING YEAST Pt did have similar issue in past, I phoned Dr Angel who recommended 3 weeks of capsofungin of which she did have in the past, will also work to arrange folllow up with Dr Angel Faxed Rx to [facility], [phone]
== END 2017-01-18 17:38 | disposition home or self-care (01) ==
LOC: C.EDB 12:55 → C.EDA 17:38
DX: J18.9 Pneumonia, unspecified organism (principal); R50.81 Fever presenting with conditions classified elsewhere; F32.9 Major depressive disorder, single episode, unspecified; D64.9 Anemia, unspecified; F17.200 Nicotine dependence, unspecified, uncomplicated; Z93.2 Ileostomy status; Z93.1 Gastrostomy status; Z98.84 Bariatric surgery status; Z98.890 Other specified postprocedural states; Z79.899 Other long term (current) drug therapy

== ENCOUNTER → 2017-01-23 | Outpatient (CLI) | payer OTHER ==
[~2017-01-23] MED LIST changes: +CASPOFUNGIN IV; -CNT PO; -CYAN500T PO; -SODI0.9S; +TPN IV; -ZNCS220 PO; +levaquin IV
[2017-01-23 11:42] LABS: BASO % 0.4 %; BASO ABS # 0.03 K/uL (0-0.2); EOS % 1.2 %; HEMATOCRIT 25.8 % (37-47); IG% 0.1 %; LYMPH % 34.2 %; LYMPH ABS # 2.38 K/uL (1.2-3.4); MEAN CELL VOLUME 93.1 fL (80-100); MEAN CORPUSCULAR HEMOGLOBIN 27.8 pg (25-34); MEAN CORPUSCULAR HGB CONC 29.8 g/dl (32-36); MEAN PLATELET VOLUME 10.8 fL (7.4-10.4); MONO % 3.9 %; NEUT % 60.2 %; PLATELET COUNT 252 K/uL (130-400); RED BLOOD COUNT 2.77 M/uL (4.2-5.4); WHITE BLOOD COUNT 6.95 K/uL (4.8-10.8)
[2017-01-23 11:50] LABS: ALT/SGPT 26 U/L (12-78); AST/SGOT 13 U/L (15-37); BLOOD UREA NITROGEN 30 mg/dl (7-18); BUN/CREATININE RATIO 42.9 (10-20); CALCIUM 8.6 mg/dl (8.5-10.1); CARBON DIOXIDE 37 mmol/L (21-32); CHLORIDE 98 mmol/L (98-107); CREATININE 0.69 mg/dl (0.60-1.20); GLUCOSE 72 mg/dl (70-99); MAGNESIUM 2.1 mg/dl (1.8-2.4); POTASSIUM 3.2 mmol/L (3.5-5.1); SODIUM 140 mmol/L (136-145)
[2017-01-23 11:52] LABS: ALB/GLOB RATIO 0.4 (0.9-2); ALKALINE PHOSPHATASE 281 U/L (45-117); PHOSPHORUS 3.1 mg/dl (2.5-4.9); TRIGLYCERIDES 151 mg/dl (0-150)
[2017-01-23 12:09] LABS: ANISOCYTOSIS PRESENT; COMPLETE YES; HYPOCHROMIA PRESENT; STOMATOCYTE 1+
== END | disposition home or self-care (01) ==
LOC: C.LABSPEC 11:30
PROVIDERS: ATTEND Surgery
DX: Z45.2 Encounter for adjustment and management of vascular access device (principal); F32.9 Major depressive disorder, single episode, unspecified; J18.9 Pneumonia, unspecified organism; F41.9 Anxiety disorder, unspecified

== ENCOUNTER 2017-01-27 20:31 | Emergency (ER) | payer OTHER ==
[~2017-01-27] VITALS: Ht 162.6 cm; Wt 54.4 kg
[2017-01-27 20:40] VITALS: TEMP 36.5; Ht 162.6 cm; Wt 54.4 kg
--- NOTE | 2017-01-27 22:16 | DIAGNOSTIC IMAGING REPORT ---
CHEST ONE VIEW PORTABLE HISTORY: lightheadedness COMPARISON: Chest 01/18/2017. FINDINGS: Right jugular central venous catheter terminates in the SVC. The heart is normal in size. No pleural effusions. No pneumothorax. Subcentimeter left upper lobe nodular density has almost resolved. Small right upper lobe nodular airspace opacities have also improved. No new focal lung consolidations. No evidence for pulmonary edema. IMPRESSION: Improvement in the bilateral upper lobe nodular airspace opacities. This likely represents a resolving pneumonia. Recommend follow-up to ensure complete resolution. No new focal lung consolidations. Electronically signed by: Adal Ramos M.D. 01/27/2017 10:15 PM Dictated Date/Time: 01/27/2017 10:13 PM
[2017-01-27 22:21] LABS: URINE APPEARANCE CLEAR (CLEAR); URINE COLOR DK YELLOW; URINE EPITHELIAL CELL AUTO >30 /lpf (0-5); URINE NITRITE NEG (NEG); URINE PH 6.5 (4.5-7.5); URINE SPECIFIC GRAVITY 1.028 (1.000-1.030); UROBILINOGEN NEG (NEG); ZZUR CULT IF INDIC CLEAN CATCH NO
[2017-01-27 22:23] LABS: MANUAL MICROSCOPIC REQUIRED? NO; REVIEW REQ? NO
[2017-01-27 22:24] LABS: URINE BILIRUBIN NEG (NEG)
[2017-01-27 22:33] LABS: BASO % 0.8 %; BASO ABS # 0.04 K/uL (0-0.2); EOS % 2.9 %; HEMATOCRIT 24.2 % (37-47); IG% 0.2 %; LYMPH ABS # 1.92 K/uL (1.2-3.4); MEAN CELL VOLUME 94.9 fL (80-100); MEAN CORPUSCULAR HEMOGLOBIN 29.8 pg (25-34); MEAN CORPUSCULAR HGB CONC 31.4 g/dl (32-36); MEAN PLATELET VOLUME 10.6 fL (7.4-10.4); MONO % 4.6 %; NEUT % 51.5 %; PLATELET COUNT 235 K/uL (130-400); RED BLOOD COUNT 2.55 M/uL (4.2-5.4)
[2017-01-27] MEDS ORDERED: CNCI50 IV (22:38)
[2017-01-27 23:00] LABS: BUN/CREATININE RATIO 38.2 (10-20); CALCIUM 8.4 mg/dl (8.5-10.1); CREATININE 0.74 mg/dl (0.60-1.20); MAGNESIUM 1.9 mg/dl (1.8-2.4); POTASSIUM 3.9 mmol/L (3.5-5.1)
[2017-01-27 23:03] LABS: ALB/GLOB RATIO 0.5 (0.9-2)
[2017-01-27 23:06] LABS: ANISOCYTOSIS PRESENT; COMPLETE YES
[2017-01-27] MEDS ORDERED: HYDROCORTISONE SOD SUCCINATE 100 MG/2 ML VIAL IV STA (23:23)
[2017-01-27] MEDS ORDERED: HYD10 PO (23:32)
[2017-01-27] MEDS ORDERED: HYDR5TAB57 PO (23:32)
--- NOTE | 2017-01-27 23:33 | EMERGENCY ROOM VISIT NOTE ---
History First contact with patient: 21:35 Chief Complaint: DIZZY Stated Complaint: Dizzy, lethargic Nursing Triage Summary: Pt c/o dizziness and weakness since earlier this evening, states that she thinks it may be from being off blood pressure medications, felt a little better after 500 cc fluid bolus at home. Pt also c/o nausea. History of Present Illness The patient is a 27 year old female who presents to the Emergency Room with complaints of symptoms and lightheadedness. The patient states she feels like her blood pressure is low. She typically takes hydrocortisone for low blood pressure and states that she ran out of her prescription and has not taken in 3- 4 days. She states she has been dizzy and lightheaded, especially with standing. Patient has a complicated medical history. Apparently, she had a surgery for "twisted bowel" and now has a Sauceda catheter, ileostomy and feeding tube. The patient states she has been nauseous and feels weak and unbalanced. She denies any trauma. She has recently been treated for a pneumonia and states she is feeling much better from that. She is still receiving IV antibiotics. Review of Systems A complete 10 point review of systems was reviewed with the patient with pertinent positives and negatives as per history of present illness. All else were negative. 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 Family History No pertinent family history Social History Smoking Status: Current Every Day Smoker Alcohol Use: none Marital Status: single Occupation Status: employed Current/Historical Medications Scheduled Caspofungin (Cancidas), 50 MG IV DAILY Citalopram Hydrobromide (Celexa), 40 MG PO DAILY Folic Acid (Folic Acid), 1 TAB PO DAILY Hydrocortisone (Cortef), 5 MG PO BID Hydrocortisone (Cortef), 10 MG PO QAM Hydrocortisone (Cortef), 5 MG PO BID Hydrocortisone (Cortef), 10 MG PO DAILY Methadone Hcl (Methadone Hcl Intensol), 117 MG PO DAILY Omeprazole (Prilosec), 40 MG PO DAILY Tpn Infusion (Tpn Infusion), 1 EA IV DAILY Scheduled PRN Acetaminophen (Tylenol), 500 MG PO Q4H PRN for Pain Hydroxyzine Pamoate (Vistaril), 25 MG PO HS PRN for Sleep Physical Exam Vital Signs Date Time Temp Pulse Resp B/P (MAP) Pulse Ox O2 Delivery O2 Flow Rate FiO2 01/28/17 00:17 63 18 98/56 99 01/27/17 22:42 60 18 102/62 99 Room Air 67 93/59 73 93/55 01/27/17 21:01 58 01/27/17 20:40 36.5 63 20 103/61 98 Room Air Physical Exam VITALS: Vitals are noted on the nurse's note and reviewed by myself. Vital signs stable. GENERAL: This is a 27-year-old female, chronically ill-appearing, in no acute distress. SKIN: The skin was without rashes. EARS: External auditory canals clear, tympanic membranes pearly murrell without erythema or effusion bilaterally. EYES: Pupils equal round and reactive to light and accommodation. MOUTH: Mucous membranes slightly dry. Tonsils are not enlarged. Pharynx without erythema or exudate. NECK: Supple without nuchal rigidity. No lymphadenopathy. HEART: Regular rate and rhythm without murmurs gallops or rubs. LUNGS: Clear to auscultation bilaterally without wheezes, rales or rhonchi. NEURO: Patient was alert and oriented to person place and time. Medical Decision & Procedures ER Provider Diagnostic Interpretation: CHEST ONE VIEW PORTABLE HISTORY: lightheadedness COMPARISON: Chest 01/18/2017. FINDINGS: Right jugular central venous catheter terminates in the SVC. The heart is normal in size. No pleural effusions. No pneumothorax. Subcentimeter left upper lobe nodular density has almost resolved. Small right upper lobe nodular airspace opacities have also improved. No new focal lung consolidations. No evidence for pulmonary edema. IMPRESSION: Improvement in the bilateral upper lobe nodular airspace opacities. This likely represents a resolving pneumonia. Recommend follow-up to ensure complete resolution. No new focal lung consolidations. Laboratory Results 01/27/17 22:15 Red Blood Count 2.55, Mean Corpuscular Volume 94.9, Mean Corpuscular Hemoglobin 29.8, Mean Corpuscular Hemoglobin Concent 31.4, Mean Platelet Volume 10.6, Neutrophils (%) (Auto) 51.5, Lymphocytes (%) (Auto) 40.0, Monocytes (%) (Auto) 4.6, Eosinophils (%) (Auto) 2.9, Basophils (%) (Auto) 0.8, Neutrophils # (Auto) 2.47, Lymphocytes # (Auto) 1.92, Monocytes # (Auto) 0.22, Eosinophils # (Auto) 0.14, Basophils # (Auto) 0.04 01/27/17 22:15 Test 01/27/17 22:00 01/27/17 22:15 Urine Color DK YELLOW Urine Appearance CLEAR (CLEAR) Urine pH 6.5 (4.5-7.5) Urine Specific [place] 1.028 (1.000-1.030) Urine Protein 1+ (NEG) Urine Glucose (UA) NEG (NEG) Urine Ketones NEG (NEG) Urine Occult Blood TRACE (NEG) Urine Nitrite NEG (NEG) Urine Bilirubin NEG (NEG) Urine Urobilinogen NEG (NEG) Urine Leukocyte Esterase TRACE (NEG) Urine WBC (Auto) 1-5 /hpf (0-5) Urine RBC (Auto) 0-4 /hpf (0-4) Urine Hyaline Casts (Auto) 1-5 /lpf (0-5) Urine Epithelial Cells (Auto) >30 /lpf (0-5) Urine Bacteria (Auto) NEG (NEG) Urine Test NEG (NEG) White Blood Count 4.80 K/uL (4.8-10.8) Red Blood Count 2.55 M/uL (4.2-5.4) Hemoglobin 7.6 g/dL (12.0-16.0) Hematocrit 24.2 % (37-47) Mean Corpuscular Volume 94.9 fL (80-100) Mean Corpuscular Hemoglobin 29.8 pg (25-34) Mean Corpuscular Hemoglobin Concent 31.4 g/dl (32-36) Platelet Count 235 K/uL (130-400) Mean Platelet Volume 10.6 fL (7.4-10.4) Neutrophils (%) (Auto) 51.5 % Lymphocytes (%) (Auto) 40.0 % Monocytes (%) (Auto) 4.6 % Eosinophils (%) (Auto) 2.9 % Basophils (%) (Auto) 0.8 % Neutrophils # (Auto) 2.47 K/uL (1.4-6.5) Lymphocytes # (Auto) 1.92 K/uL (1.2-3.4) Monocytes # (Auto) 0.22 K/uL (0.11-0.59) Eosinophils # (Auto) 0.14 K/uL (0-0.5) Basophils # (Auto) 0.04 K/uL (0-0.2) RDW Standard Deviation 67.6 fL (36.4-46.3) RDW Coefficient of Variation 19.6 % (11.5-14.5) Immature Granulocyte % (Auto) 0.2 % Immature Granulocyte # (Auto) 0.01 K/uL (0.00-0.02) Anisocytosis PRESENT Anion Gap 5.0 mmol/L (3-11) Est Creatinine Clear Calc Drug Dose 96.3 ml/min Estimated GFR () 126.9 Estimated GFR (Non- 109.5 BUN/Creatinine Ratio 38.2 (10-20) Calcium Level 8.4 mg/dl (8.5-10.1) Magnesium Level 1.9 mg/dl (1.8-2.4) Total Bilirubin 0.9 mg/dl (0.2-1) Aspartate Amino Transf (AST/SGOT) 13 U/L (15-37) Alanine Aminotransferase (ALT/SGPT) 19 U/L (12-78) Alkaline Phosphatase 204 U/L (45-117) Total Protein 7.0 gm/dl (6.4-8.2) Albumin 2.2 gm/dl (3.4-5.0) Globulin 4.8 gm/dl (2.5-4.0) Albumin/Globulin Ratio 0.5 (0.9-2) Medications Administered Medications (Trade) Dose Ordered Sig/Faith Route Start Time Stop Time Status Last Admin Dose Admin Hydrocortisone Sodium Succinate (Solu-Cortef IV) 100 mg NOW STAT IV 01/27/17 23:23 01/27/17 23:25 DC 01/27/17 23:48 100 MG Heparin Sodium (Porcine) (Heparin 100 Unit/ml 5ml Flush) 5 ml STK-MED ONCE .ROUTE 01/27/17 23:46 01/27/17 23:47 DC 01/27/17 23:49 5 ML Medical Decision Differential diagnosis includes infection, dehydration, electrolyte abnormality , among others. The patient is a 27-year-old female who presents today complaining of dizziness/ lightheadedness. Patient believes this is because she has not been taking her hydrocortisone. Chest x-ray shows a resolving pneumonia. Labs showed a stable anemia and elevation of LFTs which is chronic for the patient. Vital signs are within normal limits. Patient was given IV steroids and will be given a prescription for hydrocortisone. She will need close follow-up with her primary care provider. The patient's case was reviewed with Dr. Garcia, ED attending physician, who agreed with my assessment and treatment plan. Based on the patient's presentation and work up, I feel the patient is stable for outpatient treatment. The patient was educated to return to the emergency department for any worsening of their current condition or new/concerning symptoms. She will follow up with her PCP. Medication Reconcilliation Current Medication List: was personally reviewed by me Blood Pressure Screening Patient's blood pressure: Low blood pressure (patient's baseline) Impression Primary Impression: Dizziness Departure Information Dispostion Home / Self-Care Condition GOOD Prescriptions Hydrocortisone (CORTEF) 10 Mg Tab 10 MG PO DAILY for 14 Days, #14 TAB Prov: Adri Brand PA-C 01/27/17 Hydrocortisone (CORTEF) 5 Mg Tab 5 MG PO BID for 14 Days, #28 TAB Prov: Adri Brand PA-C 01/27/17 Referrals Talia Altamirano M.D. (PCP) Patient Instructions My [facility] Additional Instructions Take your Cortef as prescribed. Rest and stay well hydrated. Follow-up with her primary care provider first thing Monday morning. Return to the emergency department with worsening lightheadedness, fevers, passing out or any other new/concerning symptoms.
[2017-01-28 00:17] VITALS: BP 98/56; PULSE 63; O2SAT 99
== END 2017-01-28 00:18 | disposition home or self-care (01) ==
LOC: EDBD 20:31 → C.ED 20:33 → C.EDC 01-28 00:18
DX: R42 Dizziness and giddiness (principal); F32.9 Major depressive disorder, single episode, unspecified; F17.200 Nicotine dependence, unspecified, uncomplicated; Z87.19 Personal history of other diseases of the digestive system; Z87.81 Personal history of (healed) traumatic fracture; Z79.899 Other long term (current) drug therapy

== ENCOUNTER → 2017-01-30 | Outpatient (CLI) | payer OTHER ==
[~2017-01-30] MED LIST changes: +CNCI50 IV
[2017-01-30 10:44] LABS: BASO % 0.4 %; BASO ABS # 0.03 K/uL (0-0.2); COMPLETE YES; EOS % 0.9 %; HEMATOCRIT 35.9 % (37-47); IG% 0.1 %; MEAN CORPUSCULAR HEMOGLOBIN 28.5 pg (25-34); MEAN CORPUSCULAR HGB CONC 30.6 g/dl (32-36); MEAN PLATELET VOLUME 11.2 fL (7.4-10.4); MONO % 6.8 %; NEUT % 64.8 %; PLATELET COUNT 347 K/uL (130-400); RED BLOOD COUNT 3.86 M/uL (4.2-5.4); WHITE BLOOD COUNT 7.79 K/uL (4.8-10.8)
[2017-01-30 10:52] LABS: ALB/GLOB RATIO 0.5 (0.9-2); ALT/SGPT 25 U/L (12-78); AST/SGOT 26 U/L (15-37); BLOOD UREA NITROGEN 21 mg/dl (7-18); BUN/CREATININE RATIO 33.1 (10-20); CALCIUM 8.9 mg/dl (8.5-10.1); CARBON DIOXIDE 25 mmol/L (21-32); CHLORIDE 103 mmol/L (98-107); CREATININE 0.64 mg/dl (0.60-1.20); GLUCOSE 84 mg/dl (70-99); POTASSIUM 3.9 mmol/L (3.5-5.1); SODIUM 136 mmol/L (136-145)
[2017-01-30 10:53] LABS: ALKALINE PHOSPHATASE 186 U/L (45-117); PHOSPHORUS 2.7 mg/dl (2.5-4.9); TRIGLYCERIDES 144 mg/dl (0-150)
== END | disposition home or self-care (01) ==
LOC: C.LABSPEC 10:08
PROVIDERS: ATTEND Surgery
DX: Z45.2 Encounter for adjustment and management of vascular access device (principal); F32.9 Major depressive disorder, single episode, unspecified; J18.9 Pneumonia, unspecified organism; F41.9 Anxiety disorder, unspecified

== ENCOUNTER → 2017-02-06 | Outpatient (CLI) | payer OTHER ==
[~2017-02-06] MED LIST changes: -CALC-51 PO; -CASPOFUNGIN IV; -CHOL1000 PO; -levaquin IV
[2017-02-06 10:22] LABS: BASO % 0.2 %; BASO ABS # 0.02 K/uL (0-0.2); COMPLETE YES; EOS % 1.3 %; HEMATOCRIT 31.2 % (37-47); IG% 0.2 %; LYMPH % 19.4 %; LYMPH ABS # 2.03 K/uL (1.2-3.4); MEAN CORPUSCULAR HEMOGLOBIN 28.6 pg (25-34); MEAN CORPUSCULAR HGB CONC 31.4 g/dl (32-36); MEAN PLATELET VOLUME 11.9 fL (7.4-10.4); MONO % 11.5 %; NEUT % 67.4 %; PLATELET COUNT 226 K/uL (130-400); RED BLOOD COUNT 3.43 M/uL (4.2-5.4); WHITE BLOOD COUNT 10.47 K/uL (4.8-10.8)
[2017-02-06 10:41] LABS: ALT/SGPT 30 U/L (12-78); AST/SGOT 23 U/L (15-37); BLOOD UREA NITROGEN 24 mg/dl (7-18); BUN/CREATININE RATIO 31.7 (10-20); CARBON DIOXIDE 27 mmol/L (21-32); CHLORIDE 105 mmol/L (98-107); CREATININE 0.75 mg/dl (0.60-1.20); GLUCOSE 108 mg/dl (70-99); MAGNESIUM 2.1 mg/dl (1.8-2.4); POTASSIUM 3.6 mmol/L (3.5-5.1); SODIUM 140 mmol/L (136-145)
[2017-02-06 10:44] LABS: ALB/GLOB RATIO 0.5 (0.9-2); ALKALINE PHOSPHATASE 124 U/L (45-117); PHOSPHORUS 3.1 mg/dl (2.5-4.9); TRIGLYCERIDES 128 mg/dl (0-150)
== END | disposition home or self-care (01) ==
LOC: C.LABSPEC 10:03
PROVIDERS: ATTEND Surgery
DX: Z45.2 Encounter for adjustment and management of vascular access device (principal); F32.9 Major depressive disorder, single episode, unspecified; F41.9 Anxiety disorder, unspecified; J18.9 Pneumonia, unspecified organism

== ENCOUNTER 2017-02-13 10:14 | Inpatient (IN) | payer OTHER ==
[~2017-02-13] VITALS: Ht 160 cm; Wt 50.6 kg
[2017-02-13] MEDS ORDERED: SODIUM CHLORIDE 0.9% 1000ML 1,000 ML IV STA ×3 (11:14→12:56)
[2017-02-13] MEDS ORDERED: ALBUT/IPRATROP 3MG/0.5MG NEB 3 ML VIAL INH STA (11:18)
--- NOTE | 2017-02-13 11:35 | DIAGNOSTIC IMAGING REPORT ---
CHEST ONE VIEW PORTABLE CLINICAL HISTORY: shortness of breath, cough cough. Dyspnea. COMPARISON STUDY: 01/27/2017 FINDINGS: Central catheter in superior vena cava. Lungs are considered clear. Diaphragms smooth. Costophrenic angles are sharp. IMPRESSION: Lungs are now considered clear. The above report was generated using voice recognition software. It may contain grammatical, syntax or spelling errors. Electronically signed by: Jerardo Dunbar M.D. 02/13/2017 11:33 AM Dictated Date/Time: 02/13/2017 11:32 AM
[2017-02-13 12:00] LABS: INFLUENZA B ANTIGEN Neg for Influ B (NEG)
[2017-02-13] MEDS ORDERED: OPTIRAY 320 IV PRN (12:00)
[2017-02-13 12:04] LABS: ALBUMIN 2.5 gm/dl (3.4-5.0); CALCIUM 9.2 mg/dl (8.5-10.1); CREATININE 1.29 mg/dl (0.60-1.20); POTASSIUM 3.7 mmol/L (3.5-5.1)
[2017-02-13 12:09] LABS: INR 1.2 (0.9-1.1); PTT PATIENT 28.7 SECONDS (21.0-31.0)
[2017-02-13 12:21] LABS: TOTAL PROTEIN 8.8 gm/dl (6.4-8.2)
[2017-02-13 12:34] LABS: HEMATOCRIT 33.2 % (37-47); HEMOGLOBIN 10.8 g/dL (12.0-16.0); MEAN CELL VOLUME 87.1 fL (80-100); MEAN CORPUSCULAR HEMOGLOBIN 28.3 pg (25-34); MEAN CORPUSCULAR HGB CONC 32.5 g/dl (32-36); RED CELL DISTRIBUTION WIDTH CV 17.4 % (11.5-14.5); RED CELL DISTRIBUTION WIDTH SD 55.4 fL (36.4-46.3); WHITE BLOOD COUNT 4.66 K/uL (4.8-10.8)
[2017-02-13] MEDS ORDERED: HYDROCORTISONE IV 100 MG in SYRINGE 0 ML IV SCH (12:43)
[2017-02-13] MEDS ORDERED: HYDROCORTISONE SOD SUCCINATE 100 MG/2 ML VIAL IV STA (12:43)
[2017-02-13 12:49] LABS: EOS % 0.2 %; EOS ABS # 0.01 K/uL (0-0.5); IG# 0.06 K/uL (0.00-0.02); LYMPH % 6.2 %; LYMPH ABS # 0.29 K/uL (1.2-3.4); MONO % 0.4 %; MONO ABS # 0.02 K/uL (0.11-0.59); NEUT % 91.9 %; NEUT ABS # 4.28 K/uL (1.4-6.5); PLATELET COUNT 150 K/uL (130-400)
--- NOTE | 2017-02-13 12:50 | DIAGNOSTIC IMAGING REPORT ---
CT ANGIOGRAM OF THE CHEST CLINICAL HISTORY: Atypical chest pain and shortness of breath COMPARISON STUDY: CT scan of the abdomen pelvis dated 11/14/2016, chest x-ray dated 02/13/2017 TECHNIQUE: Following the IV administration of 92 mL of [id number]-320, CT angiogram of the thorax was performed from the thoracic inlet to the lung bases utilizing the pulmonary embolus protocol. Images are reviewed in the axial, sagittal, and coronal planes. IV contrast was administered without complication. MIP imaging was performed. A dose lowering technique was utilized adhering to the principles of ALARA. CT DOSE: 238.84 mGycm FINDINGS: There are borderline enlarged bilateral hilar lymph nodes. There is no pathologic mediastinal lymphadenopathy. There is no pathologic axillary lymphadenopathy. There was no evidence of thoracic aortic dilatation. The study is compromised due to respiratory motion artifact. There are no pulmonary artery filling defects viewed as suspicious for acute pulmonary embolism. No pleural effusions are visualized. There are multifocal bilateral nodular airspace opacities. Several these demonstrate cavitation including an 8 mm left apical nodule, and 13 mm right upper lobe nodule. There is mucoid impaction within the right lower lobe bronchus. There is suspected splenomegaly. IMPRESSION: 1. Technically limited study secondary to patient motion artifact 2. There are no pulmonary artery filling defects visualized to indicate acute pulmonary embolism 3. Right lower lobe bronchus mucoid impaction 4. Multiple bilateral point nodules/airspace opacities the largest of which is located within the right lower lobe measuring 2.5 cm. 2 of these nodules demonstrate cavitation. 5. Diagnostic considerations include infection, collagen vascular disease, septic emboli, and less likely given the patient's age, metastatic disease. 6. Clinical and imaging follow-up is recommended Electronically signed by: Eugene Luna M.D. 02/13/2017 12:48 PM Dictated Date/Time: 02/13/2017 12:41 PM
[2017-02-13] MEDS ORDERED: METHADONE ORAL SOLN 10 MG/5 ML UDP PO STA (12:56)
[2017-02-13] MEDS ORDERED: METHADONE ORAL SOLN 2 MG/1ML PO SCH (12:56)
[2017-02-13] MEDS ORDERED: VANCOMYCIN INJ 1,250 MG in SODIUM CHLORIDE 0.9% 250ML 250 ML IV ONE (13:15)
[2017-02-13] MEDS ORDERED: IMIPENEM/CILASTATIN IV 500 MG in D5W 100ML IV ONE (13:15)
[2017-02-13] MEDS ORDERED: IMIPENEM/CILASTATIN IV 500 MG in DEXTROSE 5% 100ML 100 ML IV SCH (13:45)
[2017-02-13] MEDS ORDERED: ONDANSETRON INJ 2 MG/ML 2 ML VIAL IV PRN (13:45)
--- NOTE | 2017-02-13 16:21 | Pharmacy Progress Note ---
Pharmacy Antibiotic Consult Date of Service: Feb 13, 2017. Pharmacy Dosing Scope Pharmacy is consulted to initiate vancomycin IV dosing therapy, order appropriate labs and adjust drug dose/frequency. Subjective The patient is a 27 year old female admitted on . Objective Height (Feet): 5 Height (Inches): 3.00 Weight (Kilograms): 50.000 Lab Results (24hrs): Test 02/13/17 11:14 02/13/17 11:30 02/13/17 11:41 02/13/17 14:23 White Blood Count 4.66 K/uL (4.8-10.8) Red Blood Count 3.81 M/uL (4.2-5.4) Hemoglobin 10.8 g/dL (12.0-16.0) Hematocrit 33.2 % (37-47) Mean Corpuscular Volume 87.1 fL (80-100) Mean Corpuscular Hemoglobin 28.3 pg (25-34) Mean Corpuscular Hemoglobin Concent 32.5 g/dl (32-36) Platelet Count 150 K/uL (130-400) Neutrophils (%) (Auto) 91.9 % Lymphocytes (%) (Auto) 6.2 % Monocytes (%) (Auto) 0.4 % Eosinophils (%) (Auto) 0.2 % Basophils (%) (Auto) 0.0 % Neutrophils # (Auto) 4.28 K/uL (1.4-6.5) Lymphocytes # (Auto) 0.29 K/uL (1.2-3.4) Monocytes # (Auto) 0.02 K/uL (0.11-0.59) Eosinophils # (Auto) 0.01 K/uL (0-0.5) Basophils # (Auto) 0.00 K/uL (0-0.2) RDW Standard Deviation 55.4 fL (36.4-46.3) RDW Coefficient of Variation 17.4 % (11.5-14.5) Immature Granulocyte % (Auto) 1.3 % Immature Granulocyte # (Auto) 0.06 K/uL (0.00-0.02) Toxic Vacuolation 3+ Platelet Estimate NORMAL Large Platelets 1+ Prothrombin Time 12.3 SECONDS (9.0-12.0) Prothromb Time International Ratio 1.2 (0.9-1.1) Activated Partial Thromboplast Time 28.7 SECONDS (21.0-31.0) Partial Thromboplastin Ratio 1.1 D-Dimer 6020 ug/L FEU (0-500) Sodium Level 132 mmol/L (136-145) Potassium Level 3.7 mmol/L (3.5-5.1) Chloride Level 101 mmol/L (98-107) Carbon Dioxide Level 19 mmol/L (21-32) Anion Gap 12.0 mmol/L (3-11) Blood Urea Nitrogen 38 mg/dl (7-18) Creatinine 1.29 mg/dl (0.60-1.20) Est Creatinine Clear Calc Drug Dose 50.8 ml/min Estimated GFR () 64.8 Estimated GFR (Non- 55.9 BUN/Creatinine Ratio 29.2 (10-20) Random Glucose 117 mg/dl (70-99) Calcium Level 9.2 mg/dl (8.5-10.1) Magnesium Level 1.7 mg/dl (1.8-2.4) Total Bilirubin 2.9 mg/dl (0.2-1) Aspartate Amino Transf (AST/SGOT) 12 U/L (15-37) Alanine Aminotransferase (ALT/SGPT) 25 U/L (12-78) Alkaline Phosphatase 695 U/L (45-117) Troponin I 0.036 ng/ml (0-0.045) Total Protein 8.8 gm/dl (6.4-8.2) Albumin 2.5 gm/dl (3.4-5.0) Globulin 6.3 gm/dl (2.5-4.0) Albumin/Globulin Ratio 0.4 (0.9-2) Influenza Type A Antigen Neg for Influ A (NEG) Influenza Type B Antigen Neg for Influ B (NEG) Bedside Lactic Acid Venous 2.83 mmol/L (0.90-1.70) Lactic Acid Level 2.0 mmol/L (0.4-2.0) Assessment & Plan Assessment * 27 yo F with complicated medical history admitted with possible PNA * PMH includes ileostomy, TPN, C. 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 Baseline 0.5 mg/dL. Concern for significant DYLLAN Vancomycin * 25 mg/kg IV administered in ED. * Concern for DYLLAN (above) - will dose based on level Plan * Random vancomycin level tonight @ 2100 (~8 hr after loading dose) * Also obtain SCr at same time to help determine trend in renal function Pharmacy will continue to follow and will adjust dose/frequency as necessary. Thank you
[2017-02-13] MEDS ORDERED: VANCOMYCIN CONSULT ACTIVE PRN (16:30)
--- NOTE | 2017-02-13 16:40 | EMERGENCY ROOM VISIT NOTE ---
History First contact with patient: 11:05 Chief Complaint: RESPIRATORY PROBLEMS Stated Complaint: TROUBLE BREATHING BACK PAIN History of Present Illness The patient is a 27 year old female who presents to the Emergency Room with complaints of difficulty breathing. The patient reports that she has had cough , shortness of breath and pain in both sides of her chest for the past one week. She believes she has had fevers, stating they have been "100 something." She reports decreased energy. Patient does report she has been treated for pneumonia recently. She states that she took Augmentin which was prescribed by her primary care provider. She finished this medication yesterday. The patient was also recently on antifungal medications at home. She states she is unsure how long that she was supposed to take this medication for, but she is no longer taking it now. She has not followed up with an infectious disease specialist regarding her fungal infection. The patient has a history of multiple gastrointestinal surgeries and has a Sauceda catheter, ileostomy, and PEG tube. She receives TPN. The patient states that her PEG tube fell out one week ago. She was told to follow-up in [place] to have this replaced, but states that she did not go because she is "sick of going to the hospital." The patient has had infections of her Sauceda catheter in the past. She denies any history of blood clots. She denies recent leg pain or swelling, but states that she has had "pain all over." She does smoke heavily and uses a control patch. The patient receives methadone daily and states that she missed her dose today due to coming here. Review of Systems A complete 10 point review of systems was reviewed with the patient with pertinent positives and negatives as per history of present illness. All else were negative. Past Medical/Surgical History Medical Problems: (1) Cavitary lesion of lung (2) Depressive Disorder Nec (3) Fx Femur Shaft-Closed (4) Gastrojejunal Ulcer Nos (5) Nausea Alone (6) Opioid Abuse-Unspec (7) Sepsis (8) sepsis pancytopeniapossible peg abd area infection Family History No pertinent family history Social History Smoking Status: Current Every Day Smoker Alcohol Use: none Marital Status: single Occupation Status: employed Current/Historical Medications Scheduled Citalopram Hydrobromide (Celexa), 40 MG PO DAILY Folic Acid (Folic Acid), 1 TAB PO DAILY Hydrocortisone (Cortef), 5 MG PO HS Hydrocortisone (Cortef), 15 MG PO QAM Methadone Hcl (Methadone Hcl Intensol), 117 MG PO DAILY Omeprazole (Prilosec), 40 MG PO DAILY Tpn Infusion (Tpn Infusion), 1 EA IV DAILY Scheduled PRN Acetaminophen (Tylenol), 500 MG PO Q4H PRN for Pain Hydroxyzine Pamoate (Vistaril), 25 MG PO HS PRN for Sleep Physical Exam Vital Signs Date Time Temp Pulse Resp B/P (MAP) Pulse Ox O2 Delivery O2 Flow Rate FiO2 02/13/17 12:08 116 02/13/17 11:53 120 109/61 100 Nasal Cannula 3.0 02/13/17 11:50 100 Nasal Cannula 3.0 02/13/17 11:43 100 Nasal Cannula 3.0 02/13/17 11:43 100 Nasal Cannula 3.0 02/13/17 10:18 36.7 113 26 105/69 Room Air Physical Exam VITALS: Vitals are noted on the nurse's note and reviewed by myself. The patient is tachycardic and tachypneic. GENERAL: This is a 27-year-old female, appears to be in moderate distress, chronically ill-appearing. SKIN: The skin was without rashes. EARS: External auditory canals clear, tympanic membranes pearly murrell without erythema or effusion bilaterally. EYES: Pupils equal round and reactive to light and accommodation. MOUTH: Mucous membranes dry. NECK: Supple without nuchal rigidity. HEART: Tachycardic, regular rhythm without murmurs gallops or rubs. LUNGS: Tachypneic. The patient appears short of breath at rest. Clear to auscultation bilaterally without wheezes, rales or rhonchi. ABDOMEN: There is an ileostomy bag in the left lower abdomen. There is a second bag lateral to this at the site of the patient's usual PEG tube. NEURO: Patient was alert and oriented to person place and time. Medical Decision & Procedures ER Provider Diagnostic Interpretation: CHEST ONE VIEW PORTABLE FINDINGS: Central catheter in superior vena cava. Lungs are considered clear. Diaphragms smooth. Costophrenic angles are sharp. IMPRESSION: Lungs are now considered clear. CT ANGIOGRAM OF THE CHEST FINDINGS: There are borderline enlarged bilateral hilar lymph nodes. There is no pathologic mediastinal lymphadenopathy. There is no pathologic axillary lymphadenopathy. There was no evidence of thoracic aortic dilatation. The study is compromised due to respiratory motion artifact. There are no pulmonary artery filling defects viewed as suspicious for acute pulmonary embolism. No pleural effusions are visualized. There are multifocal bilateral nodular airspace opacities. Several these demonstrate cavitation including an 8 mm left apical nodule, and 13 mm right upper lobe nodule. There is mucoid impaction within the right lower lobe bronchus. There is suspected splenomegaly. IMPRESSION: 1. Technically limited study secondary to patient motion artifact 2. There are no pulmonary artery filling defects visualized to indicate acute pulmonary embolism 3. Right lower lobe bronchus mucoid impaction 4. Multiple bilateral point nodules/airspace opacities the largest of which is located within the right lower lobe measuring 2.5 cm. 2 of these nodules demonstrate cavitation. 5. Diagnostic considerations include infection, collagen vascular disease, septic emboli, and less likely given the patient's age, metastatic disease. 6. Clinical and imaging follow-up is recommended Laboratory Results Test 02/13/17 11:30 02/13/17 11:41 Toxic Vacuolation 3+ Large Platelets 1+ Prothrombin Time 12.3 SECONDS (9.0-12.0) Prothromb Time International Ratio 1.2 (0.9-1.1) Activated Partial Thromboplast Time 28.7 SECONDS (21.0-31.0) Partial Thromboplastin Ratio 1.1 D-Dimer 6020 ug/L FEU (0-500) Total Bilirubin 2.9 mg/dl (0.2-1) Aspartate Amino Transf (AST/SGOT) 12 U/L (15-37) Alanine Aminotransferase (ALT/SGPT) 25 U/L (12-78) Alkaline Phosphatase 695 U/L (45-117) Troponin I 0.036 ng/ml (0-0.045) Total Protein 8.8 gm/dl (6.4-8.2) Albumin 2.5 gm/dl (3.4-5.0) Globulin 6.3 gm/dl (2.5-4.0) Albumin/Globulin Ratio 0.4 (0.9-2) Human Chorionic Gonadotropin, Qual NEG (NEG) Influenza Type A Antigen Neg for Influ A (NEG) Influenza Type B Antigen Neg for Influ B (NEG) Bedside Lactic Acid Venous 2.83 mmol/L (0.90-1.70) Medications Administered Medications (Trade) Dose Ordered Sig/Faith Route Start Time Stop Time Status Last Admin Dose Admin Sodium Chloride 1,000 ml @ 999 mls/hr Q1H1M STAT IV 02/13/17 11:14 02/13/17 12:14 DC 02/13/17 11:50 999 MLS/HR Albuterol/ Ipratropium (Duoneb) 3 ml NOW STAT INH 02/13/17 11:18 02/13/17 11:19 DC 02/13/17 11:50 3 ML Sodium Chloride 1,000 ml @ 999 mls/hr Q1H1M STAT IV 02/13/17 12:55 02/13/17 13:55 DC 02/13/17 13:58 999 MLS/HR Sodium Chloride 1,000 ml @ 999 mls/hr Q1H1M STAT IV 02/13/17 12:56 02/13/17 13:56 DC 02/13/17 12:56 999 MLS/HR Methadone HCl (Methadone HCl) 117 mg TODAY@1256 PO 02/13/17 12:56 02/13/17 17:43 DC 02/13/17 13:46 117 MG Vancomycin HCl 1250 mg/Sodium Chloride 275 ml @ 125 mls/hr NOW ONCE IV 02/13/17 13:15 02/13/17 15:26 DC 02/13/17 13:15 125 MLS/HR Imipenem/ Cilastatin Sodium 500 mg/Dextrose 110 ml @ 110 mls/hr NOW ONCE IV 02/13/17 13:15 02/13/17 14:14 DC 02/13/17 13:57 110 MLS/HR Hydrocortisone Sodium Succinate 100 mg/Syringe 2 ml @ 4 mls/min 1243 IV 02/13/17 12:43 02/13/17 15:00 DC 02/13/17 14:47 4 MLS/MIN ECG Rate (beats per minute): 136 Rhythm: sinus tachycardia ED Course The patient was evaluated as above. Labs were drawn and IV access was obtained. Patient was medicated with 1 L NSS bolus. Patient was given a dose of Solu-Cortef. I spoke with the patient's methadone clinic to confirm her dosage. They do report the patient missed her dose today. 117 mg of methadone were ordered for the patient. Patient was reassessed and states she is feeling slightly better. Oxygen saturations are improving, however she remains tachycardic. An additional saline bolus was ordered. CT of the chest was performed and read by radiology as above. Patient was reevaluated and findings discussed. She is agreeable to admission. Case was discussed with the pharmacist. They recommend vancomycin and Primaxin based on patient's previous cultures Case was discussed with the [facility] hospitalist, Dr. Blackmon. They agreed to evaluate the patient for admission. Medical Decision Differential diagnosis includes pulmonary embolism, sepsis, dehydration, pneumonia, fungal infection, urinary tract infection, among others. The patient is a 27-year-old female with complicated past medical history who presents today complaining of significant shortness of breath 1 week. Labs revealed no leukocytosis. The patient is anemic which is chronic for her. LFTs are elevated which appears to be baseline for patient. BUN and creatinine are elevated consistent with dehydration. Patient presented complaining of shortness of breath and was persistently tachycardic. Initially I was concerned for pulmonary embolism, as patient is on a control patch and is a smoker. D-dimer was not be significantly elevated and patient was sent for CT of the chest. This did not show any pulmonary embolism, but did show multiple lesions in bilateral lungs including cavitary lesions which could be consistent with infection versus septic emboli. I do feel this is consistent with sepsis, although source is unknown at this time. Urine pending. Patient has had sepsis in the past and most recently had blood cultures positive for Shelli tropicalis. She was on an antifungal for an unknown period of time. [id number] lactic acid was elevated at 2.8. Patient was hydrated aggressively and broad-spectrum antibiotics were started based on pharmacist's recommendations. She was given a stress dose of steroids. She was given her dose of methadone, as I was concerned that some of her symptoms may have been secondary to withdrawal. Patient did become slightly hypotensive near the end of her ED stay, however blood pressure was rechecked and was near patient's baseline. Patient will be admitted by the [facility] Hospitalist service for further evaluation and inpatient treatment. The patient's case was reviewed with Dr. Little, ED attending physician, who agreed with my assessment and treatment plan. Medication Reconcilliation Current Medication List: was personally reviewed by me Blood Pressure Screening Patient's blood pressure: Low blood pressure (will be followed by hospitalist) Impression Primary Impression: Sepsis Additional Impressions: Shortness of breath Cavitary lesion of lung Critical Care I have personally spent greater than 35 minutes of critical care time in the direct management of this patient. This includes bedside care, interpretation of diagnostic studies, and testing, discussion with consultants, patient, and family members, and other required patient management activities. This 35 minutes is in excess of all separately billable procedures. Departure Information Referrals Talia Altamirano M.D. (PCP) Patient Instructions My [facility] Problem Qualifiers Primary Impression: Sepsis Sepsis type: sepsis due to unspecified organism Qualified Codes: A41.9 - Sepsis, unspecified organism
[2017-02-13 16:41] VITALS: O2SAT 96
[2017-02-13 17:40] VITALS: BP 88/47; PULSE 105; TEMP 36.4; O2SAT 100
[2017-02-13] MEDS: SODIUM CHLORIDE 0.9% 1000ML 1,000 ML IV SCH (17:40)
[2017-02-13 17:41] VITALS: BP 88/47; PULSE 105; PULSE 108; TEMP 36.4; Ht 160 cm; Wt 50.6 kg
[2017-02-13] MEDS ORDERED: CEFEPIME CONSULT ACTIVE PRN (17:45)
[2017-02-13] MEDS: CEFEPIME IV 2,000 MG in SYRINGE 7.5 ML IV SCH (17:58)
[2017-02-13 19:12] VITALS: BP 73/33; PULSE 94; TEMP 36.4; O2SAT 98
[2017-02-13] MEDS ORDERED: CASPOFUNGIN INJ 70 MG in SODIUM CHLORIDE 0.9% 250ML 250 ML IV ONE (19:15)
--- NOTE | 2017-02-13 19:22 | Pulmonary Consultation ---
History General Date of Service: Feb 13, 2017. Stated Complaint: Cavitary Lesion Of Lung, Sepsis HPI The patient is a 27 year old female who presents to [facility] with complaints of Cavitary Lesion Of Lung, Sepsis. The patient's primary care provider is Talia Altamirano M.D.. 27-year-old female admitted for progressive shortness of breath, cough, bilateral chest pain, progressive fatigue and subjective fevers over the past week.She was recently treated with Augmentin by her PCP for possible PEG tube infection. She has a PmHx: fungemia, multiple abdominal surgeries, Sauceda catheter, ileostomy, PEG tube, receiving TPN as an outpatient, heavy tobacco use , short gut since, history of hepatitis but no signs of active disease and currently on control patch. Patient has a complex medical history going back to 2006 when she initially had a gastric bypass for morbid obesity and has had subsequently 13 different GI surgeries as well as PEG tube placement for multiple different complications and infections. Recently she was admitted to the [facility] with notable fungi me an treated with cast both fungus at that time. Review of her chest x-ray and CT of the abdomen showed some small pulmonary nodules but no signs of active cavitation. During our interview the patient did note progressive dyspnea on exertion and increasing fatigue over the last 1-2 weeks. She currently denies: Fever, chills, hemoptysis, change in abdominal pain or bloating, unintentional weight loss, pleurisy, night sweats, rigors, recent travel or drug abuse. She did state she had been drug free for 2 year window and currently treated with methadone. Work-Up EKG: sinus tachy rate 150, poor R wave progression WBC: 12K5K PLT: [id number] BUN: 38 Cr: 1.29 T Bili: >2.9 AST: <12 ALT: 25 AO: >>695 T Pro: >8.8 Alb: <2.5 Globulin: >6.3 Troponin I: 0.036 POC Lactic: >2.83 D-dimer: >>6020 INR: >1.2 Quant-Gold: Pending CTA Chest: bilateral lung nodules/infiltrates with some cavitations CT Abd (11/14/16) possible small RLL nodules CT ABD (09/25/16) RML nodule has increased in size CT ABD (06/16/09) lung are clear Previous Work-Up Cardiac Echo (11/16/16) LV: EF=55-60%, grade 1 diastolic dysfunction RV: WNL Atria: WNL Valves: grossly WNL Microbiology Urine 11/29/08: E Coli (multi-drug resistant) 06/16/09: Gardnerella-Like Bacillis 11/11/09: Gardnerella-Like Bacillis 11/14/16: Gardnerella-Like Bacillis 01/18/17: Gardnerella-Like Bacillis Abd 11/29/08: E Coli (multi-drug resistant), MSSA, Corynebacterium Blood 09/25/16: E Coli, Klebsiella Pneumoniae, Enterobacer Cloacae 11/14/16: Shelli Tropicalis x 2 11/16/16: Shelli Tropicalis 01/18/17: Shelli Tropicalis Sputum Moraxella Catarrahalis Serum HIV (12/05/16) Negative Active Problems 1) Abnormal weight loss 2) Acid reflux 3) Adrenal insufficiency 4) Amenorrhea 5) Anxiety 6) Arthritis 7) Bleeding disorder 8) Chronic hepatitis C (Viral Load un-dectatble) 9) Depression 10) Elevated TSH 11) Fatigue 12) Female infertility 13) Fungemia 14) Gastrointestinal bleeding 15) Hepatitis 16) History of gastric bypass 17) Hypercalcemia 18) Infected venous access port 19) Obstructive chronic bronchitis with exacerbation 20) Opioid abuse, in remission 21) Polycystic ovarian syndrome 22) Secondary amenorrhea 23) Sepsis 24) Short gut syndrome 25) UTI (urinary tract infection) 26) History of Closed Avulsion Fracture Of The Lesser Trochanter Of The Femur Surgical History History of colon surgery History of Gastric Surgery For Morbid Obesity History of Oral Surgery Tooth Extraction History of percutaneous endoscopic gastrostomy tube insertion History of PICC line insertion History of stomach surgery History of wisdom tooth extraction Family History Father Family history of Alcohol abuse Family history of depression Family history of diabetes mellitus Family History Denied: Family history of Breast Cancer Denied: Family history of Colon Cancer Family history of myocardial infarction Denied: Family history of Ovarian Cancer Social History Dental care, regularly Exercise limited by physical condition History of drug useused heroin, cocaine, meth Living situation lives with father Never used moist powdered tobacco No alcohol use Secondhand smoke exposure Smokes 1/2 pack per day Denied: History of Special needs due to hearing impairment Denied: History of Special needs due to visual impairment Unemployed Current Meds 1) Omeprazole 40 MG Oral Capsule Delayed Release; TAKE 1 CAPSULE BY MOUTH 2) Hydrocortisone 5 MG Oral Tablet; follow instructions to taper down to 15 mgs in the 3) MedroxyPROGESTERone Acetate 10 MG Oral Tablet; take 1 tablet daily by mouth for 7 4) Vistaril 25 MG Oral Capsule; TAKE 1 CAPSULE 3 TIMES DAILY NEEDED FOR 5) CeleXA 40 MG Oral Tablet; Take 1 tablet daily; 6) Cyanocobalamin 1000 MCG/ML Injection Solution; INJECT 1 ML INTRAMUSCULARLY 7) Folic Acid 20 MG Oral Capsule; TAKE 2 CAPSULE Daily; 8) Zinc Sulfate 220 (50 Zn) MG Oral Tablet; Take 1 tablet daily; 9) ZyrTEC Allergy 10 MG Oral Capsule; TAKE 1 CAPSULE Daily; 10) Methadone HCl - 10 MG Oral Tablet; PATIENT TAKES A TOTAL OF 103MG DAILY; 11) Xulane 150-35 MCG/24HR Transdermal Patch Weekly; apply 1 patch weekly for 3 weeks 12) Xulane 150-35 MCG/24HR Transdermal Patch Weekly; i box of replacement pataches to be used PRN 13) Ventolin HFA 108 (90 Base) MCG/ACT Inhalation Aerosol Solution; INHALE 2 PUFFS EVERY 4 HOURS prn 14) HydrOXYzine Pamoate 25 MG Oral Capsule; TAKE 1 CAPSULE 4 TIMES DAILY 15) Lidocaine 5 % External Patch; APPLY 1 PATCH TO THE AFFECTED AREA AND LEAVE IN 16) Multi Vitamin Oral Tablet; TAKE 1 TABLET DAILY 17) Vitamin D 1000 UNIT Oral Tablet; TAKE 1 TABLET DAILY Allergies Eucalyptus Oil External Oil Adhesive Tape Historian: patient, EMS Review of Systems Constitutional: reports: malaise, weakness Eyes: reports: no symptoms ENT: reports: no symptoms Cardiovascular: reports: no symptoms Respiratory: reports: as stated in HPI Gastrointestinal: reports: as stated in HPI Genitourinary - Female: reports: no symptoms Musculoskeletal: reports: myalgias Neurologic: reports: no symptoms Psychiatric: reports: depression Endocrine: no symptoms Hematologic / Lymphatic: no symptoms Allergic / Immunologic: no symptoms Past Medical History Past Medical History: Please refer to HPI Past Surgical History: Please refer to HPI Family History No pertinent family history Please refer to HPI Social History Please refer to HPI Hx Tobacco Use In Past Year?: Yes Smoking Status: Current Every Day Smoker Marital status: single Housing status: lives with family Occupational Status: employed Immunizations History of Influenza Vaccine: No Influenza Vaccine Date: Nov 05, 2007 History of Tetanus Vaccine?: Unknown History of Pneumococcal: No History of Hepatitis B Vaccine: Yes but date is unknown by patient Hepatitis Immunization Date: Feb 06, 2005 History of MDRO History of MDRO: No Allergies Coded Allergies: Adhesives (Verified Allergy, Mild, ERRYTHEMA, 02/13/17) Eucalyptus Oil (Verified Allergy, Mild, hives, 02/13/17) Current Medications Reported Home Medications Medications Dose Route/Sig Max Daily Dose Days Date Category Tpn Infusion (Total Parenteral Nutrition) 1 Ea Inj 1 Ea IV DAILY 01/18/17 Reported Folic Acid 400 Mcg Tab 1 Tab PO DAILY 01/18/17 Reported Cortef (Hydrocortisone) 10 Mg Tab 15 Mg PO QAM 12/31/16 Reported Cortef (Hydrocortisone) 5 Mg Tab 5 Mg PO HS 12/31/16 Reported Vistaril (Hydroxyzine Pamoate) 25 Mg Cap 25 Mg PO HS PRN 12/31/16 Reported Methadone Hcl Intensol (Methadone Hcl) 10 Mg/Ml Con 117 Mg PO DAILY 11/14/16 Reported Tylenol (Acetaminophen) 500 Mg Tab 500 Mg PO Q4H PRN 09/25/16 Reported Prilosec (Omeprazole) 40 Mg Cap 40 Mg PO DAILY 09/25/16 Reported Celexa (Citalopram Hydrobromide) 40 Mg Tab 40 Mg PO DAILY 09/25/16 Reported Physical Physical Exam Vital Signs: Date Time Temp Pulse Resp B/P (MAP) Pulse Ox O2 Delivery O2 Flow Rate FiO2 02/13/17 19:12 36.4 94 16 73/33 (46) 98 Room Air 02/13/17 17:41 36.4 105 20 88/47 Room Air 3.0 108 02/13/17 17:40 36.4 105 20 88/47 (61) 100 Room Air 02/13/17 16:41 115 77/42 96 02/13/17 15:33 116 87/50 100 Nasal Cannula 3.0 02/13/17 14:48 112 92/59 100 Nasal Cannula 3.0 02/13/17 14:42 110 75/44 98 Nasal Cannula 3.0 02/13/17 14:26 106 85/52 100 Nasal Cannula 3.0 02/13/17 14:01 116 88/48 100 Nasal Cannula 3.0 02/13/17 12:08 116 02/13/17 11:53 120 109/61 100 Nasal Cannula 3.0 02/13/17 11:50 100 Nasal Cannula 3.0 02/13/17 11:43 100 Nasal Cannula 3.0 02/13/17 11:43 100 Nasal Cannula 3.0 02/13/17 10:18 36.7 113 26 105/69 Room Air General Appearance: NO APPARENT DISTRESS, uncomfortable, cachetic Head: NORMOCEPHALIC, ATRAUMATIC Eyes: PERRLA, NO DISCHARGE, EOMI, SCLERAE NORMAL, CONJUNCTIVAE NORMAL, other ( Unable to perform funduscopic examination, even with ophthalmic scope) Neck: NORMAL RANGE OF MOTION, NO TENDERNESS, TRACHEA MIDLINE, NO STRIDOR Respiratory: BREATH SOUNDS NORMAL, CLEAR TO AUSCULTATION, CLEAR TO PERCUSSION Cardiovasular: REGULAR RATE/RHYTHM, NORMAL S1S2, other (1/6 systolic murmur best appreciated over the left upper sternal border) Abdomen: NON TENDER, other (Active bowel sounds, ostomy with diffuse output, peg tube ostomy well perfused but notably externally rotated with diffuse output ) Genitourinary - Female: EXTERNAL GENITALIA NORMAL Back: NORMAL INSPECTION, NO MIDLINE TENDERNESS, NO CVA TENDERNESS, NO PARAVERTEBRAL TTP Upper Extremities: NO EDEMA, NO DEFORMITY, NORMAL ROM, other (Right Nando catheter in place) Lower Extremities: other (Right grade 2 Yo notably ingrown toenails no signs of active infection) Pulses: carotid (R) (2+), carotid (L) (2+), posterior tibial (R) (2+), posterior tibial (L) (2+) Neuro: ALERT, ORIENTED x 3, NORMAL MOTOR EXAM, NORMAL SENSATION Reflexes: biceps (R) (1+), bicpes (L) (1+), achilles (R) (1+), achilles (L) (1+ ) Babinski Testing: right (downgoing), left (downgoing) Psychiatric: NO SUICIDAL IDEATION, flat affect Diagnostics Labs Results Past 24 Hours Test 02/13/17 11:30 02/13/17 11:41 02/13/17 14:23 Range/Units White Blood Count 4.66 4.8-10.8 K/uL Red Blood Count 3.81 4.2-5.4 M/uL Hemoglobin 10.8 12.0-16.0 g/dL Hematocrit 33.2 37-47 % Mean Corpuscular Volume 87.1 80-100 fL Mean Corpuscular Hemoglobin 28.3 25-34 pg Mean Corpuscular Hemoglobin Concent 32.5 32-36 g/dl Platelet Count 150 130-400 K/uL Neutrophils (%) (Auto) 91.9 % Lymphocytes (%) (Auto) 6.2 % Monocytes (%) (Auto) 0.4 % Eosinophils (%) (Auto) 0.2 % Basophils (%) (Auto) 0.0 % Neutrophils # (Auto) 4.28 1.4-6.5 K/uL Lymphocytes # (Auto) 0.29 1.2-3.4 K/uL Monocytes # (Auto) 0.02 0.11-0.59 K/uL Eosinophils # (Auto) 0.01 0-0.5 K/uL Basophils # (Auto) 0.00 0-0.2 K/uL RDW Standard Deviation 55.4 36.4-46.3 fL RDW Coefficient of Variation 17.4 11.5-14.5 % Immature Granulocyte % (Auto) 1.3 % Immature Granulocyte # (Auto) 0.06 0.00-0.02 K/uL Toxic Vacuolation 3+ Platelet Estimate NORMAL Large Platelets 1+ Prothrombin Time 12.3 9.0-12.0 SECONDS Prothromb Time International Ratio 1.2 0.9-1.1 Activated Partial Thromboplast Time 28.7 21.0-31.0 SECONDS Partial Thromboplastin Ratio 1.1 D-Dimer 6020 0-500 ug/L FEU Sodium Level 132 136-145 mmol/L Potassium Level 3.7 3.5-5.1 mmol/L Chloride Level 101 98-107 mmol/L Carbon Dioxide Level 19 21-32 mmol/L Anion Gap 12.0 3-11 mmol/L Blood Urea Nitrogen 38 7-18 mg/dl Creatinine 1.29 0.60-1.20 mg/dl Est Creatinine Clear Calc Drug Dose 50.8 ml/min Estimated GFR () 64.8 Estimated GFR (Non- 55.9 BUN/Creatinine Ratio 29.2 10-20 Random Glucose 117 70-99 mg/dl Calcium Level 9.2 8.5-10.1 mg/dl Magnesium Level 1.7 1.8-2.4 mg/dl Total Bilirubin 2.9 0.2-1 mg/dl Aspartate Amino Transf (AST/SGOT) 12 15-37 U/L Alanine Aminotransferase (ALT/SGPT) 25 12-78 U/L Alkaline Phosphatase 695 45-117 U/L Troponin I 0.036 0-0.045 ng/ml Total Protein 8.8 6.4-8.2 gm/dl Albumin 2.5 3.4-5.0 gm/dl Globulin 6.3 2.5-4.0 gm/dl Albumin/Globulin Ratio 0.4 0.9-2 Influenza Type A Antigen Neg for Influ A NEG Influenza Type B Antigen Neg for Influ B NEG Bedside Lactic Acid Venous 2.83 0.90-1.70 mmol/L Lactic Acid Level 2.0 0.4-2.0 mmol/L Microbiology Results 02/13/17 Fungal Smear, Received Pending 02/13/17 Fungal Culture, Received Pending 02/13/17 Blood Culture, Received Pending 02/13/17 Blood Culture, Received Pending 02/13/17 MRSA DNA Surveillance Screen, Received Pending Diagnostic Radiology Please refer to HPI EKG Please refer to HPI Impression Assessment and Plan 27-year-old female admitted with progressive dyspnea on exertion now multiple small nodules some cavitatin. Pulmonary Nodules: Reviewing the patient's previous chest x-ray is and CT scans of the abdomen do show increasing bilateral pulmonary infiltrates with no previous signs of cavitation on the CT of the abdomen and the lower 1/3 of the lungs. With this patient's previous history and clinical appearance bacteremia and repeat fungemia or possible etiologies for these pulmonary nodules. At this time I do suggest we perform echocardiogram/DEVIN, there was a normal echocardiogram 11/16/2016. Will also try to obtain sputum for AFB, fungal and bacterial analysis. QuantiFERON GOLD has already been sent for TB analysis but most likely is secondary to bacteremia versus fungal me in our patient. Highly suggest we include infectious disease at this time and panculture this patient. No acute bronchoscopic intervention warranted at this time. 2. Ostomy Output: Patient has a high ostomy output has a previous history of working with C diff patient is at a long term as well as a possible history of C diff the past. Will send off for C diff analysis and placed on contact isolation. 3. History of drug abuse: Will send off a urine tox screen 4. Routine evaluation: In this age group I will send off a urine test. 5. Elevated D-dimer: Most likely secondary to infection versus vasculitis. Patient's previous vasculitic evaluation was notably within normal limits. Will not send off at this time but possibly repeat in the future if no active infection is noted.
[2017-02-13] MEDS: HEPARIN SOD 5000 UNIT/0.5 ML CARP SQ SCH (20:12)
[2017-02-13] MEDS: HYDROCORTISONE IV 50 MG in SYRINGE 0 ML IV SCH (20:13)
[2017-02-13] MEDS ORDERED: VANCOMYCIN INJ 1,000 MG in SODIUM CHLORIDE 0.9% 250ML 250 ML IV SCH (21:00)
[2017-02-13 21:56] LABS: CREATININE 1.23 mg/dl (0.60-1.20)
[2017-02-13 23:30] VITALS: BP 83/39; PULSE 73; TEMP 37.1; O2SAT 99
--- NOTE | 2017-02-13 23:45 | History and Physical ---
History & Physical Date & Time of Service: Feb 13, 2017 at 14:16 Chief Complaint: Trouble Breathing Back Pain Primary Care Physician: Talia Altamirano M.D. History of Present Illness Source: patient, hospital records 27 yo female with complicated medical history. s/p gastric bypass with complications of ileostomy and subsequent short gut syndrome. Has been receiving nutrition via TPN through Sauceda catheter. Over past several months she has had several bouts of fungemia. In November she has a week long hospitalization for Shelli tropicalis and was treated with Caspofungin. After repeat cultures were clean, a new central line was placed and she completed an additional week of treatment. She returned to the hospital in early January with pneumonia and requested to be treated as outpatient since she already had the central line access. Discharged on Levaquin. However, blood cultures grew out Shelli tropicalis again and she was treated again with Caspofungin. The patient recovered from that infection and was doing reasonably well. Of note, her PEG tube fell out recently and was going to have it replaced but did not go down to [place]. Over the past week she has felt weak and generally malaised. Fever and chills, dyspnea, cough with yellow/green sputum, no blood. Poor appetite. Still getting nutrition via TPN. In the ED her WBC was 4 but with 91% neutrophils. Cr was elevated for her at 1.3 (baseline 0.9). CT of the chest showed several nodules, two of which had cavitations. Risk factors for TB include incarceration for a total of 13 months, out for over a year. Her weight has been stable. No night sweats. Past Medical/Surgical History Medical Problems: (1) Depressive Disorder Nec Status: Chronic (2) Fx Femur Shaft-Closed Status: Resolved (3) Gastrojejunal Ulcer Nos Status: Resolved (4) Nausea Alone Status: Chronic (5) Opioid Abuse-Unspec Status: Chronic Family History No pertinent family history Social History Smoking Status: Current Every Day Smoker Marital Status: single Housing status: lives with family Occupational Status: employed Immunizations History of Influenza Vaccine: No Influenza Vaccine Date: Nov 05, 2007 History of Tetanus Vaccine?: Unknown History of Pneumococcal: No History of Hepatitis B Vaccine: Yes but date is unknown by patient Hepatitis Immunization Date: Feb 06, 2005 Multi-Drug Resistant Organisms History of MDRO: No Allergies Coded Allergies: Adhesives (Verified Allergy, Mild, ERRYTHEMA, 02/13/17) Eucalyptus Oil (Verified Allergy, Mild, hives, 02/13/17) Home Medications Scheduled Citalopram Hydrobromide (Celexa), 40 MG PO DAILY Folic Acid (Folic Acid), 1 TAB PO DAILY Hydrocortisone (Cortef), 5 MG PO HS Hydrocortisone (Cortef), 15 MG PO QAM Methadone Hcl (Methadone Hcl Intensol), 117 MG PO DAILY Omeprazole (Prilosec), 40 MG PO DAILY Tpn Infusion (Tpn Infusion), 1 EA IV DAILY Scheduled PRN Acetaminophen (Tylenol), 500 MG PO Q4H PRN for Pain Hydroxyzine Pamoate (Vistaril), 25 MG PO HS PRN for Sleep Review of Systems Constitutional: + fever, + chills, + weakness, + fatigue, No sweats, No weight loss Eyes: No worsening of vision, No eye pain, No redness, No discharge, No diplopia, No problem reported ENT: No hearing loss, No unusual epistaxis, No nasal symptoms, No sore throat, No tinnitus, No dental problems, No trouble swallowing, No problem reported Respiratory: + cough, + sputum, + shortness of breath, + dyspnea on exertion, No wheezing, No dyspnea at rest, No hemoptysis Cardiovascular: No chest pain, No orthopnea, No PND, No edema, No claudication , No palpitations, No problem reported Abdomen: + diarrhea (in ostomy), No pain, No nausea, No vomiting, No constipation, No GI bleeding, No problem reported Musculoskeletal: + joint pain (back and ribs), No muscle pain, No swelling, No calf pain, No problem reported Genitourinary - Female: No dysuria, No urinary frequency, No urinary urgency, No urinary incontinence, No urinary retention, No hematuria Neurologic: + weakness, No memory loss, No paralysis, No numbness/tingling, No vertigo, No balance problems, No problem reported Psychiatric: No depression symptoms, No anhedonism, No anxiety, No insomnia, No substance abuse, No problem reported Endocrine: No fatigue, No excessive thirst, No excessive urination, No problem reported Hematologic / Lymphatic: No abnormal bleeding/bruising, No clotting problems, No swollen lymph nodes, No night sweats, No problem reported Integumentary: No rash, No itch, No new/changing skin lesions, No color change , No bleeding, No problem reported Allergic / Immunologic: No environmental allergies, No seasonal allergies, No pet sensitivities, No food allergies, No hives, No frequent infections, No poor healing, No prolonged convalescence, No problem reported Physical Exam Vital Signs Date Time Temp Pulse Resp B/P (MAP) Pulse Ox O2 Delivery O2 Flow Rate FiO2 02/13/17 14:01 116 88/48 100 Nasal Cannula 3.0 02/13/17 12:08 116 02/13/17 11:53 120 109/61 100 Nasal Cannula 3.0 02/13/17 11:50 100 Nasal Cannula 3.0 02/13/17 11:43 100 Nasal Cannula 3.0 02/13/17 11:43 100 Nasal Cannula 3.0 02/13/17 10:18 36.7 113 26 105/69 Room Air General Appearance: no apparent distress, + thin Head: normocephalic, atraumatic Eyes: normal inspection, EOMI, sclerae normal ENT: hearing grossly normal, + pertinent finding (dry MM) Neck: supple, no adenopathy, no JVD, trachea midline Respiratory/Chest: chest non-tender, lungs clear, normal breath sounds, no respiratory distress, no accessory muscle use Cardiovascular: regular rate, rhythm, no edema, no gallop, no JVD, no murmur, normal peripheral pulses Abdomen/GI: normal bowel sounds, non tender, soft, no organomegaly, + pertinent finding (ostomy in place with liquid stool) Back: normal inspection, no CVA tenderness, no muscle spasm, normal range of motion Extremities/Musculoskelatal: normal inspection, no calf tenderness, normal capillary refill, no pedal edema, normal range of motion, non-tender, pelvis stable 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, alert, normal mood/affect, normal reflexes, oriented x 3, + motor weakness Skin: normal color, warm/dry, no rash Diagnostics Laboratory Results Results Past 24 Hours Test 02/13/17 11:14 02/13/17 11:30 02/13/17 11:41 02/13/17 14:00 Range/Units White Blood Count 4.66 4.8-10.8 K/uL Red Blood Count 3.81 4.2-5.4 M/uL Hemoglobin 10.8 12.0-16.0 g/dL Hematocrit 33.2 37-47 % Mean Corpuscular Volume 87.1 80-100 fL Mean Corpuscular Hemoglobin 28.3 25-34 pg Mean Corpuscular Hemoglobin Concent 32.5 32-36 g/dl Platelet Count 150 130-400 K/uL Neutrophils (%) (Auto) 91.9 % Lymphocytes (%) (Auto) 6.2 % Monocytes (%) (Auto) 0.4 % Eosinophils (%) (Auto) 0.2 % Basophils (%) (Auto) 0.0 % Neutrophils # (Auto) 4.28 1.4-6.5 K/uL Lymphocytes # (Auto) 0.29 1.2-3.4 K/uL Monocytes # (Auto) 0.02 0.11-0.59 K/uL Eosinophils # (Auto) 0.01 0-0.5 K/uL Basophils # (Auto) 0.00 0-0.2 K/uL RDW Standard Deviation 55.4 36.4-46.3 fL RDW Coefficient of Variation 17.4 11.5-14.5 % Immature Granulocyte % (Auto) 1.3 % Immature Granulocyte # (Auto) 0.06 0.00-0.02 K/uL Toxic Vacuolation 3+ Platelet Estimate NORMAL Large Platelets 1+ Prothrombin Time 12.3 9.0-12.0 SECONDS Prothromb Time International Ratio 1.2 0.9-1.1 Activated Partial Thromboplast Time 28.7 21.0-31.0 SECONDS Partial Thromboplastin Ratio 1.1 D-Dimer 6020 0-500 ug/L FEU Sodium Level 132 136-145 mmol/L Potassium Level 3.7 3.5-5.1 mmol/L Chloride Level 101 98-107 mmol/L Carbon Dioxide Level 19 21-32 mmol/L Anion Gap 12.0 3-11 mmol/L Blood Urea Nitrogen 38 7-18 mg/dl Creatinine 1.29 0.60-1.20 mg/dl Est Creatinine Clear Calc Drug Dose 50.8 ml/min Estimated GFR () 64.8 Estimated GFR (Non- 55.9 BUN/Creatinine Ratio 29.2 10-20 Random Glucose 117 70-99 mg/dl Calcium Level 9.2 8.5-10.1 mg/dl Magnesium Level 1.7 1.8-2.4 mg/dl Total Bilirubin 2.9 0.2-1 mg/dl Aspartate Amino Transf (AST/SGOT) 12 15-37 U/L Alanine Aminotransferase (ALT/SGPT) 25 12-78 U/L Alkaline Phosphatase 695 45-117 U/L Troponin I 0.036 0-0.045 ng/ml Total Protein 8.8 6.4-8.2 gm/dl Albumin 2.5 3.4-5.0 gm/dl Globulin 6.3 2.5-4.0 gm/dl Albumin/Globulin Ratio 0.4 0.9-2 Influenza Type A Antigen Neg for Influ A NEG Influenza Type B Antigen Neg for Influ B NEG Bedside Lactic Acid Venous 2.83 0.90-1.70 mmol/L Microbiology Results 02/13/17 Fungal Smear, Ordered Pending 02/13/17 Fungal Culture, Ordered Pending 02/13/17 Blood Culture, Received Pending 02/13/17 Blood Culture, Received Pending Diagnostic Radiology CT chest IMPRESSION: 1. Technically limited study secondary to patient motion artifact 2. There are no pulmonary artery filling defects visualized to indicate acute pulmonary embolism 3. Right lower lobe bronchus mucoid impaction 4. Multiple bilateral point nodules/airspace opacities the largest of which is located within the right lower lobe measuring 2.5 cm. 2 of these nodules demonstrate cavitation. 5. Diagnostic considerations include infection, collagen vascular disease, septic emboli, and less likely given the patient's age, metastatic disease. 6. Clinical and imaging follow-up is recommended Impression Assessment and Plan 27 yo female with sepsis secondary to pneumonia, possible bacteremia, possible fungemia - Sepsis: WBC 4 with 91% neutrophils, tachycardia, low blood pressure likely source is pulmonary, possible line infection, possible UTI with 10-30 WBC Vancomycin, Cefepime, Caspofungin initially consult ID NSS at 100cc/hr after boluses in the ED - Cavitary lung lesions: consult pulmonary airborn precautions, Quantiferon gold sent will likely need DEVIN to r/o vegetations causing septic emboli other work up per pulmonary - DYLLAN: Cr up to 1.3, due to dehydration NSS at 100cc/hr, follow BMP - Short gut syndrome with nutrition via TPN: hold on nutrition, may have to pull line depending on culture results - Adrenal insufficiency: given hypotension, acute illness, will treat with Hydrocortisone 50mg q8 discussed [address] Dr[address] Garcia total time on admission 45 minutes Level of Care Telemetry Resuscitation Status FULL RESUSCITATION VTE Prophylaxis VTE Risk Assessment Done? Y/N: Yes Risk Level: High Given or contraindicated: Unfractionated heparin SQ
[2017-02-14] VITALS (13 sets, daily range): BP systolic 73–85; BP diastolic 35–78; PULSE 61–95; TEMP 36.1–37; O2SAT 92–100
[2017-02-14] MEDS ORDERED: VANCOMYCIN INJ 750 MG in SODIUM CHLORIDE 0.9% 250ML 250 ML IV SCH ×2
[2017-02-14] MEDS: SODIUM CHLORIDE 0.9% 1000ML 1,000 ML IV SCH ×2 (04:18→13:30)
[2017-02-14] MEDS: HYDROCORTISONE IV 50 MG in SYRINGE 0 ML IV SCH ×2 (04:18→13:04)
[2017-02-14] MEDS: HEPARIN SOD 5000 UNIT/0.5 ML CARP SQ SCH ×3 (05:29→21:08)
[2017-02-14] MEDS: CEFEPIME IV 2,000 MG in SYRINGE 7.5 ML IV SCH (05:56)
[2017-02-14 06:47] LABS: CALCIUM 7.4 mg/dl (8.5-10.1); CREATININE 0.88 mg/dl (0.60-1.20); PHOSPHORUS 3.7 mg/dl (2.5-4.9); POTASSIUM 4.2 mmol/L (3.5-5.1)
[2017-02-14 07:12] LABS: HEMATOCRIT 21.8 % (37-47); MEAN CELL VOLUME 87.2 fL (80-100); MEAN CORPUSCULAR HGB CONC 32.1 g/dl (32-36); RED CELL DISTRIBUTION WIDTH CV 17.2 % (11.5-14.5); RED CELL DISTRIBUTION WIDTH SD 55.3 fL (36.4-46.3); WHITE BLOOD COUNT 24.12 K/uL (4.8-10.8)
[2017-02-14 07:19] LABS: MEAN PLATELET VOLUME 12.3 fL (7.4-10.4); PLATELET COUNT 152 K/uL (130-400)
[2017-02-14 07:20] LABS: BASO ABS # 0.01 K/uL (0-0.2); EOS ABS # 0.01 K/uL (0-0.5); IG# 0.14 K/uL (0.00-0.02); LYMPH % 6.9 %; LYMPH ABS # 1.66 K/uL (1.2-3.4); MONO % 2.2 %; MONO ABS # 0.53 K/uL (0.11-0.59); NEUT % 90.3 %; NEUT ABS # 21.77 K/uL (1.4-6.5)
[2017-02-14] MEDS ORDERED: PIPERACILL/TAZOBAC IV 3.375 GM in DEXTROSE 5% 100ML IV ONE (07:45)
[2017-02-14] MEDS ORDERED: PIPERACILL/TAZOBAC CONSULT ACTIVE PRN (07:45)
[2017-02-14] MEDS ORDERED: VANCOMYCIN INJ 1,000 MG in SODIUM CHLORIDE 0.9% 250ML 250 ML IV STA (08:27)
[2017-02-14] MEDS ORDERED: SODIUM CHLORIDE 0.9% 1000ML 1,000 ML IV SCH (08:30)
--- NOTE | 2017-02-14 08:47 | Pharmacy Progress Note ---
Pharmacy Antibiotic Prog Note Date of Service Feb 14, 2017. Subjective The patient is currently receiving vancomycin prn levels The patient is currently on day # 2 of vancomycin IV therapy. Objective Height (Feet): 5 Height (Inches): 3.00 Weight (Kilograms): 50.300 Lab Results (24hrs): Test 02/13/17 11:30 02/13/17 11:41 02/13/17 14:23 02/13/17 20:18 White Blood Count 4.66 K/uL (4.8-10.8) Red Blood Count 3.81 M/uL (4.2-5.4) Hemoglobin 10.8 g/dL (12.0-16.0) Hematocrit 33.2 % (37-47) Mean Corpuscular Volume 87.1 fL (80-100) Mean Corpuscular Hemoglobin 28.3 pg (25-34) Mean Corpuscular Hemoglobin Concent 32.5 g/dl (32-36) Platelet Count 150 K/uL (130-400) Neutrophils (%) (Auto) 91.9 % Lymphocytes (%) (Auto) 6.2 % Monocytes (%) (Auto) 0.4 % Eosinophils (%) (Auto) 0.2 % Basophils (%) (Auto) 0.0 % Neutrophils # (Auto) 4.28 K/uL (1.4-6.5) Lymphocytes # (Auto) 0.29 K/uL (1.2-3.4) Monocytes # (Auto) 0.02 K/uL (0.11-0.59) Eosinophils # (Auto) 0.01 K/uL (0-0.5) Basophils # (Auto) 0.00 K/uL (0-0.2) RDW Standard Deviation 55.4 fL (36.4-46.3) RDW Coefficient of Variation 17.4 % (11.5-14.5) Immature Granulocyte % (Auto) 1.3 % Immature Granulocyte # (Auto) 0.06 K/uL (0.00-0.02) Toxic Vacuolation 3+ Platelet Estimate NORMAL Large Platelets 1+ Prothrombin Time 12.3 SECONDS (9.0-12.0) Prothromb Time International Ratio 1.2 (0.9-1.1) Activated Partial Thromboplast Time 28.7 SECONDS (21.0-31.0) Partial Thromboplastin Ratio 1.1 D-Dimer 6020 ug/L FEU (0-500) Sodium Level 132 mmol/L (136-145) Potassium Level 3.7 mmol/L (3.5-5.1) Chloride Level 101 mmol/L (98-107) Carbon Dioxide Level 19 mmol/L (21-32) Anion Gap 12.0 mmol/L (3-11) Blood Urea Nitrogen 38 mg/dl (7-18) BUN/Creatinine Ratio 29.2 (10-20) Random Glucose 117 mg/dl (70-99) Calcium Level 9.2 mg/dl (8.5-10.1) Magnesium Level 1.7 mg/dl (1.8-2.4) Total Bilirubin 2.9 mg/dl (0.2-1) Aspartate Amino Transf (AST/SGOT) 12 U/L (15-37) Alanine Aminotransferase (ALT/SGPT) 25 U/L (12-78) Alkaline Phosphatase 695 U/L (45-117) Troponin I 0.036 ng/ml (0-0.045) Total Protein 8.8 gm/dl (6.4-8.2) Albumin 2.5 gm/dl (3.4-5.0) Globulin 6.3 gm/dl (2.5-4.0) Albumin/Globulin Ratio 0.4 (0.9-2) Human Chorionic Gonadotropin, Qual NEG (NEG) Influenza Type A Antigen Neg for Influ A (NEG) Influenza Type B Antigen Neg for Influ B (NEG) Bedside Lactic Acid Venous 2.83 mmol/L (0.90-1.70) Lactic Acid Level 2.0 mmol/L (0.4-2.0) Urine Color DK YELLOW Urine Appearance CLEAR (CLEAR) Urine pH 6.0 (4.5-7.5) Urine Specific [place] > 1.045 (1.000-1.030) Urine Protein 2+ (NEG) Urine Glucose (UA) NEG (NEG) Urine Ketones TRACE (NEG) Urine Occult Blood 2+ (NEG) Urine Nitrite POS (NEG) Urine Bilirubin 2+ (NEG) Urine Urobilinogen NEG (NEG) Urine Leukocyte Esterase TRACE (NEG) Urine WBC (Auto) 10-30 /hpf (0-5) Urine RBC (Auto) >30 /hpf (0-4) Urine Hyaline Casts (Auto) 1-5 /lpf (0-5) Urine Epithelial Cells (Auto) >30 /lpf (0-5) Urine Bacteria (Auto) NEG (NEG) Urine Test NEG (NEG) Test 02/13/17 21:08 02/14/17 05:25 Creatinine 1.23 mg/dl (0.60-1.20) 0.88 mg/dl (0.60-1.20) Est Creatinine Clear Calc Drug Dose 50.6 ml/min 74.9 ml/min Estimated GFR () 68.6 102.9 Estimated GFR (Non- 59.2 88.8 Random Vancomycin Level 21.1 mcg/ml 22.2 mcg/ml White Blood Count 24.12 K/uL (4.8-10.8) Red Blood Count 2.50 M/uL (4.2-5.4) Hemoglobin 7.0 g/dL (12.0-16.0) Hematocrit 21.8 % (37-47) Mean Corpuscular Volume 87.2 fL (80-100) Mean Corpuscular Hemoglobin 28.0 pg (25-34) Mean Corpuscular Hemoglobin Concent 32.1 g/dl (32-36) Platelet Count 152 K/uL (130-400) Mean Platelet Volume 12.3 fL (7.4-10.4) Neutrophils (%) (Auto) 90.3 % Lymphocytes (%) (Auto) 6.9 % Monocytes (%) (Auto) 2.2 % Eosinophils (%) (Auto) 0.0 % Basophils (%) (Auto) 0.0 % Neutrophils # (Auto) 21.77 K/uL (1.4-6.5) Lymphocytes # (Auto) 1.66 K/uL (1.2-3.4) Monocytes # (Auto) 0.53 K/uL (0.11-0.59) Eosinophils # (Auto) 0.01 K/uL (0-0.5) Basophils # (Auto) 0.01 K/uL (0-0.2) RDW Standard Deviation 55.3 fL (36.4-46.3) RDW Coefficient of Variation 17.2 % (11.5-14.5) Immature Granulocyte % (Auto) 0.6 % Immature Granulocyte # (Auto) 0.14 K/uL (0.00-0.02) Platelet Estimate NORMAL Giant Platelets 1+ Spherocytes 1+ Sodium Level 133 mmol/L (136-145) Potassium Level 4.2 mmol/L (3.5-5.1) Chloride Level 105 mmol/L (98-107) Carbon Dioxide Level 19 mmol/L (21-32) Anion Gap 8.0 mmol/L (3-11) Blood Urea Nitrogen 30 mg/dl (7-18) BUN/Creatinine Ratio 34.6 (10-20) Random Glucose 97 mg/dl (70-99) Calcium Level 7.4 mg/dl (8.5-10.1) Phosphorus Level 3.7 mg/dl (2.5-4.9) Magnesium Level 1.8 mg/dl (1.8-2.4) Assessment & Plan Assessment * 27 yo F with complicated medical history admitted with cavitary lung lesion/ PNA, now also with confirmed GPC bacteremia * Patient remains afebrile, but WBC with significant increase from 4.6 to 24.1 K/uL * Pulmonary and ID consulted * PMH * Gastric bypass in 2006 with 13 different subsequent GI surgeries for multiple complications * Multiple infections including recent C. tropicalis bacteremia and MDR E. coli (resistant to Zosyn, but not ESBL), Klebsiella bacteremia * Antimicrobials * Imipenem and vancomycin started in ED x1 on 02/13 * Switched to cefepime, vancomycin on admission 2nd history of E. coli R to Zosyn. Caspofungin also added as well. * Broadened to Zosyn, vancomycin, caspofungin this AM (02/14) by pulmonary - likely for better anaerobic coverage in setting of cavitary lesion * Cultures * 2/2 Blood cultures with GPC * Nasal MRSA positive * C. diff negative * Quantiferon Gold test for TB pending * Urine, surface drainage, and fungal blood cultures all still pending * Renal function likely improving, evidenced by SCr trending down from 1.2 mg/ dL yesterday PM to 0.9 mg/dL this AM. Baseline 0.5 mg/dL. Vancomycin * Goal vancomycin trough 15-20 mcg/mL * Random level of 22.2 mcg/mL is slightly supratherapeutic. However, this was obtained 5.5 hr after a 15 mg/kg dose, indicating that patient is likely clearing vancomycin well and needs another dose now * OK to schedule vancomycin 2nd improvement in renal function * Despite recent possible renal function, will be aggressive 2nd confirmed Gram positive bacteremia, positive MRSA nasal swab, and significantly increasing WBC * Will check early level in 24 hours to ensure dosing is not too aggressive Plan * Vancomycin 1000 mg IV q8h * Trough 02/15 @ 0730 Pharmacy will continue to follow and will adjust dose/frequency as necessary. Thank you
[2017-02-14] MEDS: PATIENT'S OWN CONTROLLED MED SCH (09:00)
[2017-02-14] MEDS: FoLIC ACID TAB 400 MCG TAB PO SCH (09:27)
[2017-02-14] MEDS: PANTOprazole SOD 40 MG TAB PO SCH (09:27)
[2017-02-14] MEDS: CITALOPRAM 40 MG TAB PO SCH (09:27)
--- NOTE | 2017-02-14 10:22 | Medical Consult ---
Consultation Date of Consultation: Feb 14, 2017. Attending Physician: Yoan Renteria D.O. 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 Recently treated for Shelli tropicalis infection. She came to the emergency room with 1 week history of progressively worsening fever, cough, shortness of breath, and chest pain. She was found on CT scan to have several cavitary lung nodules most consistent with septic pulmonary emboli. Blood cultures this morning are positive for gram-positive cocci in clusters consistent with staph infection. MRSA screen is positive. Patient currently receiving IV vancomycin,Zosyn, and caspofungin.Patient afebrile this morning and feeling slightly better. Past Medical/Surgical History Medical Problems: (1) Abnormal computed tomography of gallbladder Status: Acute (2) Anemia Status: Acute (3) Fever Status: Acute (4) Fever and chills Status: Acute (5) Free fluid in pelvis Status: Acute (6) HCAP (healthcare-associated pneumonia) Status: Acute (7) Leaking PEG tube Status: Acute (8) Low serum phosphorus for age Status: Acute (9) Occluded PICC line Status: Acute (10) Pancytopenia Status: Acute (11) Post op infection Status: Acute (12) Sepsis Status: Acute Medical Problems: (1) Cavitary lesion of lung (2) Depressive Disorder Nec (3) Fx Femur Shaft-Closed (4) Gastrojejunal Ulcer Nos (5) Nausea Alone (6) Opioid Abuse-Unspec (7) Sepsis (8) sepsis pancytopeniapossible peg abd area infection Family History No pertinent family history Social History Smoking Status: Current Every Day Smoker Marital Status: single Occupation Status: employed Allergies Coded Allergies: Adhesives (Verified Allergy, Mild, ERRYTHEMA, 02/13/17) Eucalyptus Oil (Verified Allergy, Mild, hives, 02/13/17) Current Inpatient Medications Current Inpatient Medications Medications (Trade) Dose Ordered Sig/Faith Route Start Time Stop Time Status Last Admin Dose Admin Ioversol (Optiray 320) 100 ml UD PRN IV 02/13/17 12:00 02/17/17 11:59 Heparin Sodium (Porcine) (Heparin Sq 5000 Unit/0.5ml) 5,000 unit Q8 SQ 02/13/17 22:00 03/15/17 13:59 Sodium Chloride 1,000 ml @ 100 mls/hr Q10H IV 02/13/17 17:30 03/15/17 13:33 02/14/17 04:18 100 MLS/HR Acetaminophen (Tylenol Tab) 650 mg Q4H PRN PO 02/13/17 13:45 03/15/17 13:44 Ondansetron HCl (Zofran Inj) 4 mg Q6H PRN IV 02/13/17 13:45 03/15/17 13:44 Hydrocortisone Sodium Succinate 50 mg/Syringe 1 ml @ 4 mls/min Q8H IV 02/13/17 20:00 03/15/17 13:59 02/14/17 04:18 4 MLS/MIN Citalopram Hydrobromide (celeXA TAB) 40 mg DAILY PO 02/14/17 09:00 03/16/17 08:59 02/14/17 09:27 40 MG Folic Acid (Folvite Tab) 400 mcg DAILY PO 02/14/17 09:00 03/16/17 08:59 02/14/17 09:27 400 MCG Methadone HCl (Methadone HCl) 117 mg DAILY PO 02/14/17 09:00 03/16/17 08:59 Pantoprazole Sodium (Protonix Tab) 40 mg QAM PO 02/14/17 09:00 03/16/17 08:59 02/14/17 09:27 40 MG Vancomycin HCl (Consult) 1 ea UD PRN N/A 02/13/17 16:30 03/15/17 16:29 Non-Formulary Medication (Patient'S Own Controlled Med) 1 ea DAILY N/A 02/14/17 09:00 02/28/17 08:59 Caspofungin 50 mg/ Sodium Chloride 260 ml @ 260 mls/hr Q24H IV 02/14/17 20:00 03/16/17 19:59 Piperacillin Sod/ Tazobactam Sod 3.375 gm/Dextrose 115 ml @ 28.75 mls/ hr Q8H IV 02/14/17 14:00 02/21/17 13:59 Piperacillin Sod/ Tazobactam Sod (Consult) 1 ea UD PRN N/A 02/14/17 07:45 03/16/17 07:44 Vancomycin HCl 1000 mg/Sodium Chloride 270 ml @ 125 mls/hr NOW STAT IV 02/14/17 08:27 02/14/17 10:36 02/14/17 09:19 125 MLS/HR Vancomycin HCl 1000 mg/Sodium Chloride 270 ml @ 125 mls/hr Q8@0000,0800,1600 IV 02/14/17 16:00 02/27/17 15:59 Review of Systems Constitutional: + fever, + weakness, + fatigue Eyes: No problem reported ENT: No problem reported Respiratory: + cough, + shortness of breath, No hemoptysis Cardiovascular: + chest pain Abdomen: + pain, + nausea Musculoskeletal: No problem reported (The) Genitourinary - Female: No problem reported Neurologic: No problem reported (The) Psychiatric: No problem reported Endocrine: No problem reported Hematologic / Lymphatic: No problem reported Integumentary: No problem reported Allergic / Immunologic: No problem reported Physical Exam Date Time Temp Pulse Resp B/P (MAP) Pulse Ox O2 Delivery O2 Flow Rate FiO2 02/14/17 08:09 37.0 75 16 79/36 (50) 98 Room Air 02/14/17 05:45 85/78 (80) 02/14/17 04:23 36.9 77 20 77/35 (49) 100 Room Air 02/14/17 04:00 Room Air 02/14/17 00:00 Room Air 02/13/17 23:30 37.1 73 16 83/39 (54) 99 Room Air 02/13/17 20:00 Room Air 02/13/17 19:12 36.4 94 16 73/33 (46) 98 Room Air 02/13/17 17:41 36.4 105 20 88/47 Room Air 3.0 108 02/13/17 17:40 36.4 105 20 88/47 (61) 100 Room Air 02/13/17 16:41 115 77/42 96 02/13/17 15:33 116 87/50 100 Nasal Cannula 3.0 02/13/17 14:48 112 92/59 100 Nasal Cannula 3.0 02/13/17 14:42 110 75/44 98 Nasal Cannula 3.0 02/13/17 14:26 106 85/52 100 Nasal Cannula 3.0 02/13/17 14:01 116 88/48 100 Nasal Cannula 3.0 02/13/17 12:08 116 02/13/17 11:53 120 109/61 100 Nasal Cannula 3.0 02/13/17 11:50 100 Nasal Cannula 3.0 02/13/17 11:43 100 Nasal Cannula 3.0 02/13/17 11:43 100 Nasal Cannula 3.0 02/13/17 10:18 36.7 113 26 105/69 Room Air General Appearance: no apparent distress, + cachetic, + thin Head: normocephalic, atraumatic Eyes: normal inspection, EOMI, sclerae normal ENT: normal ENT inspection, hearing grossly normal, pharynx normal Neck: supple, no adenopathy, thyroid normal, trachea midline Respiratory/Chest: chest non-tender, lungs clear, normal breath sounds, no respiratory distress Cardiovascular: regular rate, rhythm, no gallop, + systolic murmur Abdomen/GI: normal bowel sounds, non tender, soft, no organomegaly Back: normal inspection, no CVA tenderness Extremities/Musculoskelatal: no calf tenderness, non-tender Neurologic/Psych: alert, normal mood/affect, oriented x 3 Skin: normal color, warm/dry, no rash Lymphatic: no adenopathy Laboratory Results Date/Time Source Procedure Growth Status 02/13/17 14:23 Blood Fungal Smear - Final Resulted 02/13/17 14:23 Blood Fungal Culture Pending Resulted 02/13/17 11:35 Blood Blood Culture - Preliminary Gram Positive Cocci Resulted 02/13/17 11:30 Blood Blood Culture - Preliminary Gram Positive Cocci Resulted 02/13/17 17:30 Nasal MRSA DNA Surveillance Screen - Final Specimen Positive for MRSA by DNA Probe Complete 02/13/17 20:18 Stool C.difficile Toxin B Gene (PCR) - Final No C. difficile toxin B gene detected Complete 02/13/17 20:18 Stool Shiga Toxin Test Pending Received 02/13/17 20:18 Stool Stool Culture Pending Received 02/13/17 20:18 Urine,Catheterized Urine Culture Pending Received 02/13/17 20:18 Drainage - Surface Abdomen Gram Stain - Final Resulted 02/13/17 20:18 Drainage - Surface Abdomen Wound Culture Pending Resulted Last 24 Hours Test 02/13/17 11:30 02/13/17 11:41 02/13/17 14:23 02/13/17 20:18 White Blood Count 4.66 K/uL Red Blood Count 3.81 M/uL Hemoglobin 10.8 g/dL Hematocrit 33.2 % Mean Corpuscular Volume 87.1 fL Mean Corpuscular Hemoglobin 28.3 pg Mean Corpuscular Hemoglobin Concent 32.5 g/dl Platelet Count 150 K/uL Neutrophils (%) (Auto) 91.9 % Lymphocytes (%) (Auto) 6.2 % Monocytes (%) (Auto) 0.4 % Eosinophils (%) (Auto) 0.2 % Basophils (%) (Auto) 0.0 % Neutrophils # (Auto) 4.28 K/uL Lymphocytes # (Auto) 0.29 K/uL Monocytes # (Auto) 0.02 K/uL Eosinophils # (Auto) 0.01 K/uL Basophils # (Auto) 0.00 K/uL RDW Standard Deviation 55.4 fL RDW Coefficient of Variation 17.4 % Immature Granulocyte % (Auto) 1.3 % Immature Granulocyte # (Auto) 0.06 K/uL Toxic Vacuolation 3+ Platelet Estimate NORMAL Large Platelets 1+ Prothrombin Time 12.3 SECONDS Prothromb Time International Ratio 1.2 Activated Partial Thromboplast Time 28.7 SECONDS Partial Thromboplastin Ratio 1.1 D-Dimer 6020 ug/L FEU Sodium Level 132 mmol/L Potassium Level 3.7 mmol/L Chloride Level 101 mmol/L Carbon Dioxide Level 19 mmol/L Anion Gap 12.0 mmol/L Blood Urea Nitrogen 38 mg/dl Creatinine 1.29 mg/dl Est Creatinine Clear Calc Drug Dose 50.8 ml/min Estimated GFR () 64.8 Estimated GFR (Non- 55.9 BUN/Creatinine Ratio 29.2 Random Glucose 117 mg/dl Calcium Level 9.2 mg/dl Magnesium Level 1.7 mg/dl Total Bilirubin 2.9 mg/dl Aspartate Amino Transf (AST/SGOT) 12 U/L Alanine Aminotransferase (ALT/SGPT) 25 U/L Alkaline Phosphatase 695 U/L Troponin I 0.036 ng/ml Total Protein 8.8 gm/dl Albumin 2.5 gm/dl Globulin 6.3 gm/dl Albumin/Globulin Ratio 0.4 Human Chorionic Gonadotropin, Qual NEG Influenza Type A Antigen Neg for Influ A Influenza Type B Antigen Neg for Influ B Bedside Lactic Acid Venous 2.83 mmol/L Lactic Acid Level 2.0 mmol/L Urine Color DK YELLOW Urine Appearance CLEAR Urine pH 6.0 Urine Specific [place] > 1.045 Urine Protein 2+ Urine Glucose (UA) NEG Urine Ketones TRACE Urine Occult Blood 2+ Urine Nitrite POS Urine Bilirubin 2+ Urine Urobilinogen NEG Urine Leukocyte Esterase TRACE Urine WBC (Auto) 10-30 /hpf Urine RBC (Auto) >30 /hpf Urine Hyaline Casts (Auto) 1-5 /lpf Urine Epithelial Cells (Auto) >30 /lpf Urine Bacteria (Auto) NEG Urine Test NEG Test 02/13/17 21:08 02/14/17 05:25 Creatinine 1.23 mg/dl 0.88 mg/dl Est Creatinine Clear Calc Drug Dose 50.6 ml/min 74.9 ml/min Estimated GFR () 68.6 102.9 Estimated GFR (Non- 59.2 88.8 Random Vancomycin Level 21.1 mcg/ml 22.2 mcg/ml White Blood Count 24.12 K/uL Red Blood Count 2.50 M/uL Hemoglobin 7.0 g/dL Hematocrit 21.8 % Mean Corpuscular Volume 87.2 fL Mean Corpuscular Hemoglobin 28.0 pg Mean Corpuscular Hemoglobin Concent 32.1 g/dl Platelet Count 152 K/uL Mean Platelet Volume 12.3 fL Neutrophils (%) (Auto) 90.3 % Lymphocytes (%) (Auto) 6.9 % Monocytes (%) (Auto) 2.2 % Eosinophils (%) (Auto) 0.0 % Basophils (%) (Auto) 0.0 % Neutrophils # (Auto) 21.77 K/uL Lymphocytes # (Auto) 1.66 K/uL Monocytes # (Auto) 0.53 K/uL Eosinophils # (Auto) 0.01 K/uL Basophils # (Auto) 0.01 K/uL RDW Standard Deviation 55.3 fL RDW Coefficient of Variation 17.2 % Immature Granulocyte % (Auto) 0.6 % Immature Granulocyte # (Auto) 0.14 K/uL Platelet Estimate NORMAL Giant Platelets 1+ Spherocytes 1+ Sodium Level 133 mmol/L Potassium Level 4.2 mmol/L Chloride Level 105 mmol/L Carbon Dioxide Level 19 mmol/L Anion Gap 8.0 mmol/L Blood Urea Nitrogen 30 mg/dl BUN/Creatinine Ratio 34.6 Random Glucose 97 mg/dl Calcium Level 7.4 mg/dl Phosphorus Level 3.7 mg/dl Magnesium Level 1.8 mg/dl Patient Name: RHIANNA MARTINEZ Unit Number: [id number] Dictated: 02/13/171240 Transcribed: 02/13/171240 ARG Printed Date/Time: [~ rep prt dt]/[~ rep prt tm] [~ rep ct labl] - [~ rep ct ivnm] [facility] Radiology Department [place] [id number] Dictated: 02/13/171240 Transcribed: 02/13/171240 ARG Printed Date/Time: [~ rep prt dt]/[~ rep prt tm] [~ rep ct labl] - [~ rep ct ivnm] [~ rep ct add3]] CT ANGIOGRAM OF THE CHEST CLINICAL HISTORY: Atypical chest pain and shortness of breath COMPARISON STUDY: CT scan of the abdomen pelvis dated 11/14/2016, chest x-ray dated 02/13/2017 TECHNIQUE: Following the IV administration of 92 mL of [id number]-320, CT angiogram of the thorax was performed from the thoracic inlet to the lung bases utilizing the pulmonary embolus protocol. Images are reviewed in the axial, sagittal, and coronal planes. IV contrast was administered without complication. MIP imaging was performed. A dose lowering technique was utilized adhering to the principles of ALARA. CT DOSE: 238.84 mGycm FINDINGS: There are borderline enlarged bilateral hilar lymph nodes. There is no pathologic mediastinal lymphadenopathy. There is no pathologic axillary lymphadenopathy. There was no evidence of thoracic aortic dilatation. The study is compromised due to respiratory motion artifact. There are no pulmonary artery filling defects viewed as suspicious for acute pulmonary embolism. No pleural effusions are visualized. There are multifocal bilateral nodular airspace opacities. Several these demonstrate cavitation including an 8 mm left apical nodule, and 13 mm right upper lobe nodule. There is mucoid impaction within the right lower lobe bronchus. There is suspected splenomegaly. IMPRESSION: 1. Technically limited study secondary to patient motion artifact 2. There are no pulmonary artery filling defects visualized to indicate acute pulmonary embolism 3. Right lower lobe bronchus mucoid impaction 4. Multiple bilateral point nodules/airspace opacities the largest of which is located within the right lower lobe measuring 2.5 cm. 2 of these nodules demonstrate cavitation. 5. Diagnostic considerations include infection, collagen vascular disease, septic emboli, and less likely given the patient's age, metastatic disease. 6. Clinical and imaging follow-up is recommended Electronically signed by: Eugene Luna M.D. 02/13/2017 12:48 PM Dictated Date/Time: 02/13/2017 12:41 PM The status of this report is Signed. Draft = Not yet reviewed or approved by Radiologist. Signed = Reviewed and approved by Radiologist. <AttendingPhy></AttendingPhy> <FamilyPhy>Talia Altamirano M.D.</FamilyPhy > <PrimaryPhy>Talia Altamirano M.D.</PrimaryPhy> <UnitNumber>[id number]</ UnitNumber> <VisitNumber>[id number]</VisitNumber> <PatientName>RHIANNA MARTINEZ</PatientName> <DateOfBirth>1990</DateOfBirth> <Location>[facility]</ Location> <ServiceDate>02/13/17</ServiceDate> <MNE>ESINDI</MNE> <OrderingPhy> Adri Brand PA-C</OrderingPhy> <OrderingPhyMNE>f rep ord dr lane</OrderingPhyMNE > <DictatingPhyMNE>f rep dict dr lane</DictatingPhyMNE> <CCListMNE>f rep ct mne</ CCListMNE> <AdmittingPhyMNE>f pt admit dr lane</AdmittingPhyMNE> <AttendingPhyMNE >f pt attend dr lane</AttendingPhyMNE> <ConsultingPhyMNE>f pt consult dr lane</ConsultingPhyMNE> <FamilyPhyMNE>f pt fam dr lane</FamilyPhyMNE> <OtherPhyMNE>f pt other dr lane</OtherPhyMNE> < PrimaryPhyMNE>f pt prim care dr lane</PrimaryPhyMNE> <ReferringPhyMNE>f pt referring dr lane</ReferringPhyMNE> Assessment & Plan 27-year-old female with indwelling Sauceda catheter now with probable staphylococcal bacteremia with what appears to be septic pulmonary emboli. This raises the concern for right-sided endocarditis with given indwelling catheter. Patient should be continued on IV vancomycin, would consider discontinuation of caspofungin and Zosyn as long as no other organisms identified. I think patient can be discontinued from airborne precautions. Will discuss with all involved. Will follow.
[2017-02-14] MEDS: METHADONE ORAL SOLN 2 MG/1ML PO SCH (10:26)
--- NOTE | 2017-02-14 10:41 | Hospitalist Progress Note ---
Hospitalist Progress Note Date of Service Feb 14, 2017. (Rena Hager PA-C) Subjective Pt evaluation today including: conversation w/ patient, physical exam, chart review, lab review, review of studies, conversation w/ internal audit consultant (Intensivists) , review of inpatient medication list Pain: Back Pain and Rib Pain PO Intake: Fluids only Patient seen and evaluated. BP remains low in 70s systolic. Patient reporting baseline 90-100 systolic and supported on previous vitals from other hospital encounters She states she does feel a little better since arriving but not much. She takes in oral fluids but having almost instantaneous output from ileostomy. BCx with gram + cocci and currently on Vancomycin. She is afebrile but leukocytosis of 24. Hgb gtt from 10 to 7 but likely from hemoconcentration She is + 3 L since arrival to hospital with and additional 1 L bolus infusing now and BP with some improvement but largely in 70-80s systolic. Discussed with intensivists and will move to ICU for further monitoring. Constitutional: + fever, + chills ENT: No nasal symptoms, No trouble swallowing (Does drink oral fluids but no ) Respiratory: + cough, + sputum, + shortness of breath Cardiovascular: + chest pain (diffuse chest wall tenderness with palpation) Abdomen: + problem reported (increased output in ileostomy), No pain, No nausea, No vomiting Musculoskeletal: No swelling, No calf pain Female : No dysuria Heme: No abnormal bleeding/bruising (Rnea Hager, PA-C) Medications Current Inpatient Medications Medications (Trade) Dose Ordered Sig/Faith Route Start Time Stop Time Status Last Admin Dose Admin Ioversol (Optiray 320) 100 ml UD PRN IV 02/13/17 12:00 02/17/17 11:59 Heparin Sodium (Porcine) (Heparin Sq 5000 Unit/0.5ml) 5,000 unit Q8 SQ 02/13/17 22:00 03/15/17 13:59 Sodium Chloride 1,000 ml @ 100 mls/hr Q10H IV 02/13/17 17:30 03/15/17 13:33 02/14/17 04:18 100 MLS/HR Acetaminophen (Tylenol Tab) 650 mg Q4H PRN PO 02/13/17 13:45 03/15/17 13:44 Ondansetron HCl (Zofran Inj) 4 mg Q6H PRN IV 02/13/17 13:45 03/15/17 13:44 Hydrocortisone Sodium Succinate 50 mg/Syringe 1 ml @ 4 mls/min Q8H IV 02/13/17 20:00 03/15/17 13:59 02/14/17 04:18 4 MLS/MIN Citalopram Hydrobromide (celeXA TAB) 40 mg DAILY PO 02/14/17 09:00 03/16/17 08:59 02/14/17 09:27 40 MG Folic Acid (Folvite Tab) 400 mcg DAILY PO 02/14/17 09:00 03/16/17 08:59 02/14/17 09:27 400 MCG Methadone HCl (Methadone HCl) 117 mg DAILY PO 02/14/17 09:00 03/16/17 08:59 Pantoprazole Sodium (Protonix Tab) 40 mg QAM PO 02/14/17 09:00 03/16/17 08:59 02/14/17 09:27 40 MG Vancomycin HCl (Consult) 1 ea UD PRN N/A 02/13/17 16:30 03/15/17 16:29 Non-Formulary Medication (Patient'S Own Controlled Med) 1 ea DAILY N/A 02/14/17 09:00 02/28/17 08:59 Caspofungin 50 mg/ Sodium Chloride 260 ml @ 260 mls/hr Q24H IV 02/14/17 20:00 03/16/17 19:59 Piperacillin Sod/ Tazobactam Sod 3.375 gm/Dextrose 115 ml @ 28.75 mls/ hr Q8H IV 02/14/17 14:00 02/21/17 13:59 Piperacillin Sod/ Tazobactam Sod (Consult) 1 ea UD PRN N/A 02/14/17 07:45 03/16/17 07:44 Vancomycin HCl 1000 mg/Sodium Chloride 270 ml @ 125 mls/hr NOW STAT IV 02/14/17 08:27 02/14/17 10:36 02/14/17 09:19 125 MLS/HR Vancomycin HCl 1000 mg/Sodium Chloride 270 ml @ 125 mls/hr Q8@0000,0800,1600 IV 02/14/17 16:00 02/27/17 15:59 (Rena Hager PA-C) Objective Vital Signs Date Time Temp Pulse Resp B/P (MAP) Pulse Ox O2 Delivery O2 Flow Rate FiO2 02/14/17 08:09 37.0 75 16 79/36 (50) 98 Room Air 02/14/17 05:45 85/78 (80) 02/14/17 04:23 36.9 77 20 77/35 (49) 100 Room Air 02/14/17 04:00 Room Air 02/14/17 00:00 Room Air 02/13/17 23:30 37.1 73 16 83/39 (54) 99 Room Air 02/13/17 20:00 Room Air 02/13/17 19:12 36.4 94 16 73/33 (46) 98 Room Air 02/13/17 17:41 36.4 105 20 88/47 Room Air 3.0 108 02/13/17 17:40 36.4 105 20 88/47 (61) 100 Room Air 02/13/17 16:41 115 77/42 96 02/13/17 15:33 116 87/50 100 Nasal Cannula 3.0 02/13/17 14:48 112 92/59 100 Nasal Cannula 3.0 02/13/17 14:42 110 75/44 98 Nasal Cannula 3.0 02/13/17 14:26 106 85/52 100 Nasal Cannula 3.0 02/13/17 14:01 116 88/48 100 Nasal Cannula 3.0 02/13/17 12:08 116 02/13/17 11:53 120 109/61 100 Nasal Cannula 3.0 02/13/17 11:50 100 Nasal Cannula 3.0 02/13/17 11:43 100 Nasal Cannula 3.0 02/13/17 11:43 100 Nasal Cannula 3.0 (Rena Hager, PA-C) Physical Exam General Appearance: + mild distress (irritable/restless), + cachetic Eyes: sclerae normal ENT: hearing grossly normal Neck: supple, no JVD, trachea midline Respiratory/Chest: no respiratory distress, no accessory muscle use, + rhonchi Cardiovascular: regular rate, rhythm, no gallop, no murmur Abdomen: normal bowel sounds, + pertinent finding (ileostomy present with excessive leaking onto gown) Extremities: no pedal edema, no calf tenderness Neurologic/Psychiatric: alert, oriented x 3 Skin: normal color, warm/dry (Rena Hager, ADNNIE) Laboratory Results Last 24 Hours Test 02/13/17 11:30 02/13/17 11:41 02/13/17 14:23 02/13/17 20:18 White Blood Count 4.66 K/uL Red Blood Count 3.81 M/uL Hemoglobin 10.8 g/dL Hematocrit 33.2 % Mean Corpuscular Volume 87.1 fL Mean Corpuscular Hemoglobin 28.3 pg Mean Corpuscular Hemoglobin Concent 32.5 g/dl Platelet Count 150 K/uL Neutrophils (%) (Auto) 91.9 % Lymphocytes (%) (Auto) 6.2 % Monocytes (%) (Auto) 0.4 % Eosinophils (%) (Auto) 0.2 % Basophils (%) (Auto) 0.0 % Neutrophils # (Auto) 4.28 K/uL Lymphocytes # (Auto) 0.29 K/uL Monocytes # (Auto) 0.02 K/uL Eosinophils # (Auto) 0.01 K/uL Basophils # (Auto) 0.00 K/uL RDW Standard Deviation 55.4 fL RDW Coefficient of Variation 17.4 % Immature Granulocyte % (Auto) 1.3 % Immature Granulocyte # (Auto) 0.06 K/uL Toxic Vacuolation 3+ Platelet Estimate NORMAL Large Platelets 1+ Prothrombin Time 12.3 SECONDS Prothromb Time International Ratio 1.2 Activated Partial Thromboplast Time 28.7 SECONDS Partial Thromboplastin Ratio 1.1 D-Dimer 6020 ug/L FEU Sodium Level 132 mmol/L Potassium Level 3.7 mmol/L Chloride Level 101 mmol/L Carbon Dioxide Level 19 mmol/L Anion Gap 12.0 mmol/L Blood Urea Nitrogen 38 mg/dl Creatinine 1.29 mg/dl Est Creatinine Clear Calc Drug Dose 50.8 ml/min Estimated GFR () 64.8 Estimated GFR (Non- 55.9 BUN/Creatinine Ratio 29.2 Random Glucose 117 mg/dl Calcium Level 9.2 mg/dl Magnesium Level 1.7 mg/dl Total Bilirubin 2.9 mg/dl Aspartate Amino Transf (AST/SGOT) 12 U/L Alanine Aminotransferase (ALT/SGPT) 25 U/L Alkaline Phosphatase 695 U/L Troponin I 0.036 ng/ml Total Protein 8.8 gm/dl Albumin 2.5 gm/dl Globulin 6.3 gm/dl Albumin/Globulin Ratio 0.4 Human Chorionic Gonadotropin, Qual NEG Influenza Type A Antigen Neg for Influ A Influenza Type B Antigen Neg for Influ B Bedside Lactic Acid Venous 2.83 mmol/L Lactic Acid Level 2.0 mmol/L Urine Color DK YELLOW Urine Appearance CLEAR Urine pH 6.0 Urine Specific [place] > 1.045 Urine Protein 2+ Urine Glucose (UA) NEG Urine Ketones TRACE Urine Occult Blood 2+ Urine Nitrite POS Urine Bilirubin 2+ Urine Urobilinogen NEG Urine Leukocyte Esterase TRACE Urine WBC (Auto) 10-30 /hpf Urine RBC (Auto) >30 /hpf Urine Hyaline Casts (Auto) 1-5 /lpf Urine Epithelial Cells (Auto) >30 /lpf Urine Bacteria (Auto) NEG Urine Test NEG Test 02/13/17 21:08 02/14/17 05:25 Creatinine 1.23 mg/dl 0.88 mg/dl Est Creatinine Clear Calc Drug Dose 50.6 ml/min 74.9 ml/min Estimated GFR () 68.6 102.9 Estimated GFR (Non- 59.2 88.8 Random Vancomycin Level 21.1 mcg/ml 22.2 mcg/ml White Blood Count 24.12 K/uL Red Blood Count 2.50 M/uL Hemoglobin 7.0 g/dL Hematocrit 21.8 % Mean Corpuscular Volume 87.2 fL Mean Corpuscular Hemoglobin 28.0 pg Mean Corpuscular Hemoglobin Concent 32.1 g/dl Platelet Count 152 K/uL Mean Platelet Volume 12.3 fL Neutrophils (%) (Auto) 90.3 % Lymphocytes (%) (Auto) 6.9 % Monocytes (%) (Auto) 2.2 % Eosinophils (%) (Auto) 0.0 % Basophils (%) (Auto) 0.0 % Neutrophils # (Auto) 21.77 K/uL Lymphocytes # (Auto) 1.66 K/uL Monocytes # (Auto) 0.53 K/uL Eosinophils # (Auto) 0.01 K/uL Basophils # (Auto) 0.01 K/uL RDW Standard Deviation 55.3 fL RDW Coefficient of Variation 17.2 % Immature Granulocyte % (Auto) 0.6 % Immature Granulocyte # (Auto) 0.14 K/uL Platelet Estimate NORMAL Giant Platelets 1+ Spherocytes 1+ Sodium Level 133 mmol/L Potassium Level 4.2 mmol/L Chloride Level 105 mmol/L Carbon Dioxide Level 19 mmol/L Anion Gap 8.0 mmol/L Blood Urea Nitrogen 30 mg/dl BUN/Creatinine Ratio 34.6 Random Glucose 97 mg/dl Calcium Level 7.4 mg/dl Phosphorus Level 3.7 mg/dl Magnesium Level 1.8 mg/dl (Rena Hager, EDVINC) Assessment and Plan 27 yo female with sepsis secondary bacteremia possible pna Sepsis POA 2/2 Gram + Cocci Bacteremia and Possible PNA vs Line Infection vs UTI vs PEG tube site: Hypotensive - Afebrile but leukocytosis of 24; normal BPs for her are 90-100 but never as low as 70s systolic and looking at previous hospital encounters she is normally 90-100 systolic and will transfer to the ICU for closer monitoring - Multiple episodes of fungemia - Henry tropicalis and new central line placed ; PNA in Nov with treatment with Levaquin and BCx with henry tropicalis again with Caspofungin treatment - Concern for septic emboli and endocarditis - DEVIN is on order - Caspofungin 50 mg daily, Zosyn, and Vancomycin Question of TB: - Risk factors present but not favoring TB - Quantiferon sent; currently on airborne precautions H/O Gastric Bypass (2006) with Multiple Complications and on TPN: Short Gut Syndrome - Has had approx. 13 abdominal surgeries related to SBO and requiring resection does have Ileostomy -- Per records there is consideration for reversal of Ileostomy - TPN on hold currently and does date in orals - per nursing she eats minimal solid foods - PEG tube fell out and will need replaced in [place] - Possible need for line removal? DYLLAN: - Cr up to 1.3 which resolved with IVF Adrenal Insufficiency: - Was on treatment as outpatient and is established with Endocrine and was pending further evaluation - Solu-Cortef 50 mg IV Q8H H/O Narcotic Abuse on Methadone: - Abstinence x 2 years DVT Prophylaxis: Heparin 5000 units SC Q8H Disposition: From home and lives with father Continued [facility] stay due to: multiple IV medications needed (Rena Hager, EDVINC) i personally examined pt and verified all jacobson points estrada Hagre PAC back pain b/l lower back ostomy bag leaking although nursing notes that it appears pt may be tearing holes in it as it's been frequently replaced notes that her next trip to [place] is "to be reconnected" although it's not clear when that may be no sob. feels weak. all other ROS otherwise negative except for as above vitals noted breathing unlabored no pallor or icterus, appearing moderately uncomfortable from back pain. ost - R>L Lspine paraspinals high tone/tender/ decreased ROM - direct/myofascial - tissue texture improved some, pt tolerated well a/p sepsis/bacteremia/hypotension (likely multifactorial from sepsis ?adrenal insufficiency and general frailty/malnutrition as this is not behaving as a purely septic shock situation) - continue vanco pending further ID&S on blood cultures, zen bazan needs to be removed, continue antifungals until fungal cultures have more time to grow given 2x fungemia recently, continue zosyn until further growth on cultures. anemia without acute blood loss may need transfusion check B12 recent iron levels OK. somatic dysfunction Lspine - OMT as above, voltaren gel otherwise as above (Yoan Renteria, D.Karan.)
[2017-02-14] MEDS ORDERED: KETOROLAC TROMETHAMINE 15 MG/ML VIAL IV ONE (11:00)
--- NOTE | 2017-02-14 13:21 | Pulmonology Progress Note ---
Pulmonary Progress Note Date of Service Feb 14, 2017. Attending Dr. Garcia Subjective At this time the patient is only complaining of pleuritic type chest pain. Objective Patient notably fatigued and having difficulty sitting up during my examination but no signs of tachypnea or respiratory insufficiency at this time Vital signs reviewed notably becoming more hypotensive Respiratory: Clear to auscultation bilaterally Cardiac: S1-S2 regular rate and rhythm Abdomen: Ostomy as well as PEG tube site in place no signs of breakdown at this time Extremities: No clubbing cyanosis or edema, there is a ingrown toenail on the right great toe Microbiology: Staph species being acquired from both the blood 2 and swab around the ostomy sites Assessment & Plan 27-year-old female admitted with multiple pulmonary nodules some cavitation and bacteremia: #1 pulmonary nodules: At this time the most likely etiology of the patient's pulmonary nodules as her staph bacteremia. Infectious disease currently following. No acute intervention necessary such as bronchoscopy. #2 hypotensive: Patient is becoming more hypotensive and is to be moved to the intensive care unit this time. Sign off: At this time the pulmonary team will sign off Data Medications: Current Inpatient Medications Medications (Trade) Dose Ordered Sig/Faith Route Start Time Stop Time Status Last Admin Dose Admin Ioversol (Optiray 320) 100 ml UD PRN IV 02/13/17 12:00 02/17/17 11:59 Heparin Sodium (Porcine) (Heparin Sq 5000 Unit/0.5ml) 5,000 unit Q8 SQ 02/13/17 22:00 03/15/17 13:59 Sodium Chloride 1,000 ml @ 100 mls/hr Q10H IV 02/13/17 17:30 03/15/17 13:33 02/14/17 04:18 100 MLS/HR Acetaminophen (Tylenol Tab) 650 mg Q4H PRN PO 02/13/17 13:45 03/15/17 13:44 Ondansetron HCl (Zofran Inj) 4 mg Q6H PRN IV 02/13/17 13:45 03/15/17 13:44 Hydrocortisone Sodium Succinate 50 mg/Syringe 1 ml @ 4 mls/min Q8H IV 02/13/17 20:00 03/15/17 13:59 02/14/17 13:04 4 MLS/MIN Citalopram Hydrobromide (celeXA TAB) 40 mg DAILY PO 02/14/17 09:00 03/16/17 08:59 02/14/17 09:27 40 MG Folic Acid (Folvite Tab) 400 mcg DAILY PO 02/14/17 09:00 03/16/17 08:59 02/14/17 09:27 400 MCG Methadone HCl (Methadone HCl) 117 mg DAILY PO 02/14/17 09:00 03/16/17 08:59 02/14/17 10:26 117 MG Pantoprazole Sodium (Protonix Tab) 40 mg QAM PO 02/14/17 09:00 03/16/17 08:59 02/14/17 09:27 40 MG Vancomycin HCl (Consult) 1 ea UD PRN N/A 02/13/17 16:30 03/15/17 16:29 Non-Formulary Medication (Patient'S Own Controlled Med) 1 ea DAILY N/A 02/14/17 09:00 02/28/17 08:59 02/14/17 09:00 1 EA Caspofungin 50 mg/ Sodium Chloride 260 ml @ 260 mls/hr Q24H IV 02/14/17 20:00 03/16/17 19:59 Piperacillin Sod/ Tazobactam Sod 3.375 gm/Dextrose 115 ml @ 28.75 mls/ hr Q8H IV 02/14/17 14:00 02/21/17 13:59 Piperacillin Sod/ Tazobactam Sod (Consult) 1 ea UD PRN N/A 02/14/17 07:45 03/16/17 07:44 Vancomycin HCl 1000 mg/Sodium Chloride 270 ml @ 125 mls/hr Q8@0000,0800,1600 IV 02/14/17 16:00 02/27/17 15:59 Vital Signs: Date Time Temp Pulse Resp B/P (MAP) Pulse Ox O2 Delivery O2 Flow Rate FiO2 02/14/17 12:30 36.1 69 22 73/45 (54) 100 Room Air 02/14/17 12:00 Room Air 02/14/17 08:09 37.0 75 16 79/36 (50) 98 Room Air 02/14/17 08:00 Room Air 02/14/17 05:45 85/78 (80) 02/14/17 04:23 36.9 77 20 77/35 (49) 100 Room Air 02/14/17 04:00 Room Air 02/14/17 00:00 Room Air 02/13/17 23:30 37.1 73 16 83/39 (54) 99 Room Air 02/13/17 20:00 Room Air 02/13/17 19:12 36.4 94 16 73/33 (46) 98 Room Air 02/13/17 17:41 36.4 105 20 88/47 Room Air 3.0 108 02/13/17 17:40 36.4 105 20 88/47 (61) 100 Room Air 02/13/17 16:41 115 77/42 96 02/13/17 15:33 116 87/50 100 Nasal Cannula 3.0 02/13/17 14:48 112 92/59 100 Nasal Cannula 3.0 02/13/17 14:42 110 75/44 98 Nasal Cannula 3.0 02/13/17 14:26 106 85/52 100 Nasal Cannula 3.0 02/13/17 14:01 116 88/48 100 Nasal Cannula 3.0 Laboratory Results: Last 24 Hours Test 02/13/17 14:23 02/13/17 20:18 02/13/17 21:08 02/14/17 05:25 Lactic Acid Level 2.0 mmol/L Urine Color DK YELLOW Urine Appearance CLEAR Urine pH 6.0 Urine Specific [place] > 1.045 Urine Protein 2+ Urine Glucose (UA) NEG Urine Ketones TRACE Urine Occult Blood 2+ Urine Nitrite POS Urine Bilirubin 2+ Urine Urobilinogen NEG Urine Leukocyte Esterase TRACE Urine WBC (Auto) 10-30 /hpf Urine RBC (Auto) >30 /hpf Urine Hyaline Casts (Auto) 1-5 /lpf Urine Epithelial Cells (Auto) >30 /lpf Urine Bacteria (Auto) NEG Urine Test NEG Creatinine 1.23 mg/dl 0.88 mg/dl Est Creatinine Clear Calc Drug Dose 50.6 ml/min 74.9 ml/min Estimated GFR () 68.6 102.9 Estimated GFR (Non- 59.2 88.8 Random Vancomycin Level 21.1 mcg/ml 22.2 mcg/ml White Blood Count 24.12 K/uL Red Blood Count 2.50 M/uL Hemoglobin 7.0 g/dL Hematocrit 21.8 % Mean Corpuscular Volume 87.2 fL Mean Corpuscular Hemoglobin 28.0 pg Mean Corpuscular Hemoglobin Concent 32.1 g/dl Platelet Count 152 K/uL Mean Platelet Volume 12.3 fL Neutrophils (%) (Auto) 90.3 % Lymphocytes (%) (Auto) 6.9 % Monocytes (%) (Auto) 2.2 % Eosinophils (%) (Auto) 0.0 % Basophils (%) (Auto) 0.0 % Neutrophils # (Auto) 21.77 K/uL Lymphocytes # (Auto) 1.66 K/uL Monocytes # (Auto) 0.53 K/uL Eosinophils # (Auto) 0.01 K/uL Basophils # (Auto) 0.01 K/uL RDW Standard Deviation 55.3 fL RDW Coefficient of Variation 17.2 % Immature Granulocyte % (Auto) 0.6 % Immature Granulocyte # (Auto) 0.14 K/uL Platelet Estimate NORMAL Giant Platelets 1+ Spherocytes 1+ Sodium Level 133 mmol/L Potassium Level 4.2 mmol/L Chloride Level 105 mmol/L Carbon Dioxide Level 19 mmol/L Anion Gap 8.0 mmol/L Blood Urea Nitrogen 30 mg/dl BUN/Creatinine Ratio 34.6 Random Glucose 97 mg/dl Calcium Level 7.4 mg/dl Phosphorus Level 3.7 mg/dl Magnesium Level 1.8 mg/dl
[2017-02-14] MEDS: PIPERACILL/TAZOBAC IV 3.375 GM in DEXTROSE 5% 100ML IV SCH ×2 (14:30→21:07)
[2017-02-14] MEDS ORDERED: HYDROCORTISONE IV 100 MG in SYRINGE 0 ML IV ONE (14:30)
[2017-02-14 14:50] LABS: HEMATOCRIT 22.3 % (37-47); HEMOGLOBIN 7.1 g/dL (12.0-16.0); MEAN CELL VOLUME 87.8 fL (80-100); MEAN CORPUSCULAR HGB CONC 31.8 g/dl (32-36); PLATELET COUNT 149 K/uL (130-400); RED CELL DISTRIBUTION WIDTH CV 17.3 % (11.5-14.5); RED CELL DISTRIBUTION WIDTH SD 55.5 fL (36.4-46.3); WHITE BLOOD COUNT 23.91 K/uL (4.8-10.8)
[2017-02-14 15:16] LABS: BASO ABS # 0.01 K/uL (0-0.2); EOS ABS # 0.01 K/uL (0-0.5); LYMPH % 4.5 %; LYMPH ABS # 1.07 K/uL (1.2-3.4); MONO % 2.6 %; MONO ABS # 0.62 K/uL (0.11-0.59); NEUT % 92.5 %
[2017-02-14] MEDS: VANCOMYCIN INJ 1,000 MG in SODIUM CHLORIDE 0.9% 250ML 250 ML IV SCH (16:09)
[2017-02-14] MEDS: ACETAMINOPHEN 325 MG TAB PO PRN (16:17)
[2017-02-14] MEDS: MIDODRINE 2.5 MG TAB PO SCH (17:00)
--- NOTE | 2017-02-14 19:42 | Critical Care Consultation ---
Critical Care Consultation Date of Consultation: Feb 14, 2017. Attending Physician: Yoan Renteria D.O. Reason for Consultation: Sepsis. History of Present Illness Dear Dr. Renteria: Thank you for your kind referral of Mrs. Curiel to critical care service. This is a 27-year-old female who has a history of bariatric surgery requiring multiple interventions in the past according to her. She has been followed at [facility]. The patient had colostomy in place and removal of large amount of her small bowel according to her. The patient has been malnourished and treated with TPN via Sauceda catheter on the left since June 2016. That catheter was infected causing fungemia with Shelli tropicalis and staph infection. The patient was treated with course of antibiotic and the catheter was removed. Another catheter was placed in November 2016 on the right side, presented to the hospital also with feeling weak and pain all over. The patient is known to have history of heroin addiction and she has been on methadone 117 mg according to the records. The patient denies any recent shooting but she was asking for Rx for pain. The patient changed her colostomy bag by herself. The patient was found to have a blood pressure in the low 80s however her blood pressure usually runs in that range. 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 The patient was admitted to the ICU for further management and started on broad-spectrum antibiotic per infectious disease. The patient underwent a CAT scan of the chest which revealed multiple lesions appear to be cavitary. Although the patient was placed on airborne precaution to rule out tuberculosis however the findings are not classic and consistent with septic emboli. This is not tuberculosis. Likely this represents an infected tunneled catheter. Cardiology was consulted for DEVIN in the morning. When interviewing the patient, she has no specific symptoms except for pain all over and asking for narcotics. She denies any shortness of breath or chest pain , she did not have any abdominal pain or nausea or vomiting, she does have good output from her colostomy. She appeared to be malnourished. No fever was reported and no constitutional symptoms. Past Medical/Surgical History As above and the first section. Family History No pertinent family history Noncontributory. Social History Smoking Status: Current Every Day Smoker Drug Use: heroin Marital Status: single Occupation Status: employed Allergies Coded Allergies: Adhesives (Verified Allergy, Mild, ERRYTHEMA, 12/11/17) Eucalyptus Oil (Verified Allergy, Mild, hives, 02/13/17) Home Medications Scheduled Citalopram Hydrobromide (Celexa), 40 MG PO DAILY Folic Acid (Folic Acid), 1 TAB PO DAILY Hydrocortisone (Cortef), 5 MG PO HS Hydrocortisone (Cortef), 15 MG PO QAM Methadone Hcl (Methadone Hcl Intensol), 117 MG PO DAILY Omeprazole (Prilosec), 40 MG PO DAILY Tpn Infusion (Tpn Infusion), 1 EA IV DAILY Scheduled PRN Acetaminophen (Tylenol), 500 MG PO Q4H PRN for Pain Hydroxyzine Pamoate (Vistaril), 25 MG PO HS PRN for Sleep Current Inpatient Medications Current Inpatient Medications Medications (Trade) Dose Ordered Sig/Faith Route Start Time Stop Time Status Last Admin Dose Admin Ioversol (Optiray 320) 100 ml UD PRN IV 02/13/17 12:00 02/17/17 11:59 Heparin Sodium (Porcine) (Heparin Sq 5000 Unit/0.5ml) 5,000 unit Q8 SQ 02/13/17 22:00 03/15/17 13:59 02/14/17 14:27 5,000 UNIT Sodium Chloride 1,000 ml @ 100 mls/hr Q10H IV 02/13/17 17:30 03/15/17 13:33 02/14/17 13:30 100 MLS/HR Acetaminophen (Tylenol Tab) 650 mg Q4H PRN PO 02/13/17 13:45 03/15/17 13:44 02/14/17 16:17 650 MG Ondansetron HCl (Zofran Inj) 4 mg Q6H PRN IV 02/13/17 13:45 03/15/17 13:44 Citalopram Hydrobromide (celeXA TAB) 40 mg DAILY PO 02/14/17 09:00 03/16/17 08:59 02/14/17 09:27 40 MG Folic Acid (Folvite Tab) 400 mcg DAILY PO 02/14/17 09:00 03/16/17 08:59 02/14/17 09:27 400 MCG Methadone HCl (Methadone HCl) 117 mg DAILY PO 02/14/17 09:00 03/16/17 08:59 02/14/17 10:26 117 MG Pantoprazole Sodium (Protonix Tab) 40 mg QAM PO 02/14/17 09:00 03/16/17 08:59 02/14/17 09:27 40 MG Vancomycin HCl (Consult) 1 ea UD PRN N/A 02/13/17 16:30 03/15/17 16:29 Non-Formulary Medication (Patient'S Own Controlled Med) 1 ea DAILY N/A 02/14/17 09:00 02/28/17 08:59 02/14/17 09:00 1 EA Caspofungin 50 mg/ Sodium Chloride 260 ml @ 260 mls/hr Q24H IV 02/14/17 20:00 03/16/17 19:59 Piperacillin Sod/ Tazobactam Sod 3.375 gm/Dextrose 115 ml @ 28.75 mls/ hr Q8H IV 02/14/17 14:00 02/21/17 13:59 02/14/17 14:30 28.75 MLS/HR Piperacillin Sod/ Tazobactam Sod (Consult) 1 ea UD PRN N/A 02/14/17 07:45 03/16/17 07:44 Vancomycin HCl 1000 mg/Sodium Chloride 270 ml @ 125 mls/hr Q8@0000,0800,1600 IV 02/14/17 16:00 02/27/17 15:59 02/14/17 16:09 125 MLS/HR Hydrocortisone Sodium Succinate 100 mg/Syringe 2 ml @ 4 mls/min Q8H IV 02/14/17 22:00 03/16/17 21:59 Midodrine (Proamatine Tab) 5 mg TID@08,,17 PO 02/14/17 17:00 03/16/17 16:59 02/14/17 17:00 5 MG Review of Systems Constitutional: No fever, No chills, No sweats, No weight loss, No weakness, No fatigue, No problem reported Respiratory: No cough, No sputum, No wheezing, No shortness of breath, No dyspnea on exertion, No dyspnea at rest, No hemoptysis, No problem reported Cardiovascular: No chest pain, No orthopnea, No PND, No edema, No claudication , No palpitations, No problem reported Abdomen: + problem reported Musculoskeletal: + muscle pain Genitourinary - Female: No dysuria, No urinary frequency, No urinary urgency, No urinary incontinence, No urinary retention, No hematuria, No dysmenorrhea, No menorrhagia, No metrorrhagia, No rash, No vaginal bleeding, No vaginal discharge, No vaginal itching, No vulvodynia, No , No problem reported Neurologic: + problem reported Integumentary: No rash, No itch, No new/changing skin lesions, No color change , No bleeding, No problem reported Allergic / Immunologic: No environmental allergies, No seasonal allergies, No pet sensitivities, No food allergies, No hives, No frequent infections, No poor healing, No prolonged convalescence, No problem reported Physical Exam Date Time Temp Pulse Resp B/P (MAP) Pulse Ox O2 Delivery O2 Flow Rate FiO2 02/14/17 17:00 73 99 02/14/17 16:30 66 99 02/14/17 16:00 67 83/43 (49) 99 02/14/17 15:51 65 81/40 (53) 02/14/17 15:30 Room Air 02/14/17 15:30 95 92 02/14/17 15:30 76 22 83/43 (56) 100 Room Air 02/14/17 15:00 68 99 02/14/17 14:00 37.0 65 18 79/42 (54) 99 Room Air 02/14/17 14:00 67 79/42 (54) 100 02/14/17 13:10 36.1 69 22 100 02/14/17 12:30 36.1 69 22 73/45 (54) 100 Room Air 02/14/17 12:00 Room Air 02/14/17 08:09 37.0 75 16 79/36 (50) 98 Room Air 02/14/17 08:00 Room Air 02/14/17 05:45 85/78 (80) 02/14/17 04:23 36.9 77 20 77/35 (49) 100 Room Air 02/14/17 04:00 Room Air 02/14/17 00:00 Room Air 02/13/17 23:30 37.1 73 16 83/39 (54) 99 Room Air 02/13/17 20:00 Room Air General Appearance: uncomfortable, in pain, mild distress Eyes: PERRLA, EOMI ENT: normal mouth exam Neck: normal range of motion Respiratory: breath sounds normal Cardiovasular: regular rate/rhythm, normal S1S2, no M/G/R Abdomen: non tender, other Back: normal inspection Upper Extremities: no edema Neuro: alert, oriented x 3, normal motor exam Psychiatric: flat affect Laboratory Results Last 24 Hours Test 02/13/17 20:18 02/13/17 21:08 02/14/17 05:25 02/14/17 14:31 Urine Color DK YELLOW Urine Appearance CLEAR Urine pH 6.0 Urine Specific [place] > 1.045 Urine Protein 2+ Urine Glucose (UA) NEG Urine Ketones TRACE Urine Occult Blood 2+ Urine Nitrite POS Urine Bilirubin 2+ Urine Urobilinogen NEG Urine Leukocyte Esterase TRACE Urine WBC (Auto) 10-30 /hpf Urine RBC (Auto) >30 /hpf Urine Hyaline Casts (Auto) 1-5 /lpf Urine Epithelial Cells (Auto) >30 /lpf Urine Bacteria (Auto) NEG Urine Test NEG Creatinine 1.23 mg/dl 0.88 mg/dl Est Creatinine Clear Calc Drug Dose 50.6 ml/min 74.9 ml/min Estimated GFR () 68.6 102.9 Estimated GFR (Non- 59.2 88.8 Random Vancomycin Level 21.1 mcg/ml 22.2 mcg/ml White Blood Count 24.12 K/uL 23.91 K/uL Red Blood Count 2.50 M/uL 2.54 M/uL Hemoglobin 7.0 g/dL 7.1 g/dL Hematocrit 21.8 % 22.3 % Mean Corpuscular Volume 87.2 fL 87.8 fL Mean Corpuscular Hemoglobin 28.0 pg 28.0 pg Mean Corpuscular Hemoglobin Concent 32.1 g/dl 31.8 g/dl Platelet Count 152 K/uL 149 K/uL Mean Platelet Volume 12.3 fL 12.0 fL Neutrophils (%) (Auto) 90.3 % 92.5 % Lymphocytes (%) (Auto) 6.9 % 4.5 % Monocytes (%) (Auto) 2.2 % 2.6 % Eosinophils (%) (Auto) 0.0 % 0.0 % Basophils (%) (Auto) 0.0 % 0.0 % Neutrophils # (Auto) 21.77 K/uL 22.10 K/uL Lymphocytes # (Auto) 1.66 K/uL 1.07 K/uL Monocytes # (Auto) 0.53 K/uL 0.62 K/uL Eosinophils # (Auto) 0.01 K/uL 0.01 K/uL Basophils # (Auto) 0.01 K/uL 0.01 K/uL RDW Standard Deviation 55.3 fL 55.5 fL RDW Coefficient of Variation 17.2 % 17.3 % Immature Granulocyte % (Auto) 0.6 % 0.4 % Immature Granulocyte # (Auto) 0.14 K/uL 0.10 K/uL Platelet Estimate NORMAL Giant Platelets 1+ Spherocytes 1+ Sodium Level 133 mmol/L Potassium Level 4.2 mmol/L Chloride Level 105 mmol/L Carbon Dioxide Level 19 mmol/L Anion Gap 8.0 mmol/L Blood Urea Nitrogen 30 mg/dl BUN/Creatinine Ratio 34.6 Random Glucose 97 mg/dl Calcium Level 7.4 mg/dl Phosphorus Level 3.7 mg/dl Magnesium Level 1.8 mg/dl Red Blood Cell Morphology Unremarkable Diagnostic Results CAT scan of the chest which I reviewed personally revealed multiple pulmonary nodules cavitated on the right upper lobe as well. PATIENT noted also in the right lobe. Reviewed personally. Previous echocardiogram done in this patient over 2 months ago did not show abnormalities of the mitral valve normal tricuspid valve. Assessment & Plan #1 septic emboli. #2 infected tunneled catheter. #3 unclear to me whether the patient still injecting heroin via her Sauceda catheter. #4 showed loop syndrome. #5 autonomic hypotension due to #4. #6 possible adrenal insufficiency. #7 hepatosplenomegaly. Etiology could be related to portal hypertension, other etiologies need to be addressed such as hemachromatosis. #8 malnourishment. #8 narcotic abuse, on methadone. Plan: #1 continue current antibiotics. #2 consult cardiology. #3 hopefully DEVIN in the morning. To rule out vegetation on the tricuspid or mitral valve. #4 the patient is asking for morphine, I instructed her and discourage her from using any narcotics while she is on methadone. #5 in case the tunneled line is infected, the patient will have 2 options if she has no other IV access. According to her she did have multiple PICC lines in the past which all got infected. One option is to continue to use a tunneled catheter if there is no vegetation of the cardiac valves, other option is to remove it awaiting for resolution of bacteremia. And he was peripheral antibiotic. #6 continue the rest of her medication. #7 start the patient admitted to midodrine 5 mg by mouth 3 times a day. #8 agree with hydrocortisone. #9 hepatosplenomegaly is concerning for portal hypertension. Other infiltrative disease such as hemachromatosis should be excluded. #10 the patient does not meet criteria for ICU stay. We'll transfer the patient to telemetry. In that regard I've spoken to Dr. Renteria, I appreciate his acceptance of this case. #11 except blood pressure around 80 systolic given the fact the patient blood pressure would be a little side due to cachexia. Her mental status has been maintained and she does not have any symptoms due to hypotension. Case discussed with the staff in details. Critical care time spent with the patient was 45 minutes.
[2017-02-14] MEDS ORDERED: CASPOFUNGIN INJ 50 MG in SODIUM CHLORIDE 0.9% 250ML 250 ML IV SCH (20:00)
[2017-02-14] MEDS: HYDROCORTISONE IV 100 MG in SYRINGE 0 ML IV SCH (21:09)
[2017-02-15] VITALS (9 sets, daily range): BP systolic 78–99; BP diastolic 33–67; PULSE 48–63; TEMP 36.2–36.9; O2SAT 95–100
[2017-02-15] MEDS: VANCOMYCIN INJ 1,000 MG in SODIUM CHLORIDE 0.9% 250ML 250 ML IV SCH ×2 (00:13→08:10)
[2017-02-15] MEDS: ACETAMINOPHEN 325 MG TAB PO PRN (04:33)
[2017-02-15] MEDS: HEPARIN SOD 5000 UNIT/0.5 ML CARP SQ SCH ×2 (05:33→13:06)
[2017-02-15] MEDS: SODIUM CHLORIDE 0.9% 1000ML 1,000 ML IV SCH (05:58)
[2017-02-15] MEDS: HYDROCORTISONE IV 100 MG in SYRINGE 0 ML IV SCH ×2 (05:59→13:07)
[2017-02-15] MEDS: PIPERACILL/TAZOBAC IV 3.375 GM in DEXTROSE 5% 100ML IV SCH ×2 (05:59→13:06)
[2017-02-15] MEDS ORDERED: VANCOMYCIN TROUGH ONE ×2 (07:30→20:00)
[2017-02-15 08:03] LABS: HEMATOCRIT 20.2 % (37-47); HEMOGLOBIN 6.5 g/dL (12.0-16.0); MEAN CELL VOLUME 87.8 fL (80-100); MEAN CORPUSCULAR HEMOGLOBIN 28.3 pg (25-34); MEAN CORPUSCULAR HGB CONC 32.2 g/dl (32-36); MEAN PLATELET VOLUME 12.4 fL (7.4-10.4); PLATELET COUNT 140 K/uL (130-400); RED CELL DISTRIBUTION WIDTH CV 17.2 % (11.5-14.5); RED CELL DISTRIBUTION WIDTH SD 54.7 fL (36.4-46.3); WHITE BLOOD COUNT 18.01 K/uL (4.8-10.8)
[2017-02-15] MEDS: METHADONE ORAL SOLN 2 MG/1ML PO SCH (08:11)
[2017-02-15] MEDS: CITALOPRAM 40 MG TAB PO SCH (08:11)
[2017-02-15] MEDS: FoLIC ACID TAB 400 MCG TAB PO SCH (08:11)
[2017-02-15] MEDS: PANTOprazole SOD 40 MG TAB PO SCH (08:11)
[2017-02-15] MEDS: PATIENT'S OWN CONTROLLED MED SCH (08:14)
[2017-02-15 08:16] LABS: CALCIUM 7.9 mg/dl (8.5-10.1); CREATININE 0.75 mg/dl (0.60-1.20); IG# 0.06 K/uL (0.00-0.02); LYMPH % 6.6 %; LYMPH ABS # 1.19 K/uL (1.2-3.4); MONO % 2.4 %; MONO ABS # 0.43 K/uL (0.11-0.59); NEUT % 90.7 %; NEUT ABS # 16.33 K/uL (1.4-6.5); POTASSIUM 3.7 mmol/L (3.5-5.1)
[2017-02-15] MEDS: MIDODRINE 2.5 MG TAB PO SCH ×3 (08:42→16:47)
[2017-02-15] MEDS: DICLOFENAC SOD 1% GEL 100 GM TUBE EXT SCH ×3 (08:43→16:47)
[2017-02-15] MEDS ORDERED: KETOROLAC TROMETHAMINE 15 MG/ML VIAL IV PRN (10:15)
--- NOTE | 2017-02-15 10:58 | Pharmacy Progress Note ---
Pharmacy Abx Dose Short Note Date of Service Feb 15, 2017. Assessment & Plan Assessment 27 year old female receiving VANCOMYCIN/zosyn/caspofungin for treatment of MRSA bactermia/possible cavitary lesion/wound/possible endocarditis Day # 3 of antimicrobial therapy. Plan Vancomycin * Trough level of 28.7 mcg/mL is supratherapeutic. New bag was stopped ~1/2 way through, estimate ~ 500mg given * Will repeat level for 2000 tonight to ensure level drops to appropriate level , without falling subtherapeutic given confirmed MRSA infection * If within 15-20 range then: * Start 750 mg IV every 10 hours * If >20 * will push start time as appropriate * Goal trough level : 15 to 20 mcg/mL * Trough or random level ordered for: 02/15/17 @1999 Pharmacy will continue to follow and will adjust dose/frequency as necessary. Thank you.
--- NOTE | 2017-02-15 11:15 | ECHOCARDIOGRAM REPORT ---
*NOTICE TO RECEIVING [employer]Y This information is strictly Confidential and protected under [place] law. [place] law prohibits you from making any further disclosure of this information unless further disclosure is expressly permitted by the written consent of the person to whom it pertains or is authorized by law. A general authorization for the release of medical or other information is not sufficient for this purpose. Hospital accepts no responsibility if the information is made available to any other person, INCLUDING THE PATIENT. Interpretation Summary * Name: RHIANNA MARTINEZ Study Date: 02/15/2017 09:04 AM BP: 79/37 mmHg * Patient Location: C.2E\S\E205\S\1 HR: 55 * : 1990 (M/d/yyyy) Gender: Female Height: 63 in * Age: 27 yrs Ethnicity: CA Weight: 110 lb * Ordering Physician: Matt Mora * Referring Physician: Self, Referred * Performed By: Jazlyn Schafer RDCS * * Reason For Study: Endocarditis * BSA: 1.5 m2 * -- Conclusions -- * Left ventricular systolic function is normal. * No regional wall motion abnormalities noted. * Ejection Fraction = 55-60%. * A small (1 cm in length) mass is seen on the right coronary cusp of the aortic valve which demonstrates independent motion suggesting a vegetation. Procedure Details * A complete two-dimensional transthoracic echocardiogram was performed (2D, M-mode, Doppler and color flow Doppler). Left Ventricle * The left ventricle is normal in size. * There is normal left ventricular wall thickness. * Ejection Fraction = 55-60%. * Left ventricular systolic function is normal. * No regional wall motion abnormalities noted. Right Ventricle * The right ventricle is normal size. * The right ventricular systolic function is normal as assessed by tricuspid annular plane systolic excursion (TAPSE) (normal >1.5 cm). Atria * The left atrial size is normal. * Right atrial size is normal. * No ASD detected; PFO is not assessed. Mitral Valve * The mitral valve is normal in structure and function. * There is no mitral regurgitation noted. Tricuspid Valve * The tricuspid valve anatomy is normal. * There is no tricuspid stenosis. * There is mild tricuspid regurgitation. Aortic Valve * The aortic valve is trileaflet. * A small (1 cm in length) mass is seen on the right coronary cusp of the aortic valve which demonstrates independent motion suggesting a vegetation. * Aortic stenosis is absent. * No aortic regurgitation is present. Pulmonic Valve * The pulmonary valve is not well seen, but the Doppler examination is normal without significant regurgitation or stenosis. Great Vessels * The aortic root is normal size. * The pulmonary artery is not well visualized, but is probably normal size. Pericardium/Pleural * There is no pericardial effusion. Great Vessels * Normal inferior vena cava size and collapsability with sniff indicates a normal right atrial pressure of 3 mmHg MMode 2D Measurements and Calculations IVSd 0.79 cm LVIDd 3.3 cm LVIDs 2.3 cm LVPWd 1.1 cm IVS/LVPW 0.73 FS 29.6 % EDV(Teich) 44.7 ml ESV(Teich) 18.8 ml EF(Teich) 57.9 % EDV(cubed) 36.5 ml ESV(cubed) 12.7 ml EF(cubed) 65.2 % LV mass(C)d 85.9 grams LV mass(C)dI 57.3 grams/m\S\2 SV(Teich) 25.9 ml SI(Teich) 17.3 ml/m\S\2 SV(cubed) 23.8 ml SI(cubed) 15.9 ml/m\S\2 Ao root diam 2.4 cm Ao root area 4.7 cm\S\2 ACS 1.7 cm LA dimension 2.5 cm asc Aorta Diam 1.8 cm LA/Ao 1.0 LVOT diam 1.7 cm LVOT area 2.2 cm\S\2 LVAd ap4 25.2 cm\S\2 LVLd ap4 8.2 cm EDV(MOD-sp4) 64.7 ml EDV(sp4-el) 66.0 ml LVAs ap4 14.1 cm\S\2 LVLs ap4 6.6 cm ESV(MOD-sp4) 25.5 ml ESV(sp4-el) 25.7 ml EF(MOD-sp4) 60.6 % EF(sp4-el) 61.1 % LVAd ap2 24.1 cm\S\2 LVLd ap2 7.8 cm EDV(MOD-sp2) 62.9 ml EDV(sp2-el) 62.9 ml LVAs ap2 14.2 cm\S\2 LVLs ap2 6.2 cm ESV(MOD-sp2) 27.6 ml ESV(sp2-el) 27.9 ml EF(MOD-sp2) 56.1 % EF(sp2-el) 55.6 % LVLd %diff -4.04 % EDV(MOD-bp) 64.6 ml LVLs %diff -7.64 % ESV(MOD-bp) 27.6 ml EF(MOD-bp) 57.3 % SV(MOD-sp4) 39.2 ml SI(MOD-sp4) 26.1 ml/m\S\2 SV(MOD-sp2) 35.3 ml SI(MOD-sp2) 23.5 ml/m\S\2 SV(MOD-bp) 37.0 ml SI(MOD-bp) 24.7 ml/m\S\2 SV(sp4-el) 40.4 ml SI(sp4-el) 26.9 ml/m\S\2 SV(sp2-el) 35.0 ml SI(sp2-el) 23.3 ml/m\S\2 Doppler Measurements and Calculations MV E max kaley 122.9 cm/sec MV dec time 0.25 sec Ao V2 max 115.6 cm/sec Ao max PG 5.3 mmHg Ao max PG (full) 1.9 mmHg KEV(V,A) 1.8 cm\S\2 KEV(V,D) 1.8 cm\S\2 LV V1 max PG 3.4 mmHg LV V1 max 92.7 cm/sec PA V2 max 70.6 cm/sec PA max PG 2.0 mmHg PA acc slope 280.0 cm/sec\S\2 PA acc time 0.24 sec TR max kaley 205.2 cm/sec PA pr(Accel) -29.33 mmHg
--- NOTE | 2017-02-15 13:03 | Hospitalist Progress Note ---
Hospitalist Progress Note Date of Service Feb 15, 2017. (Rena Hager PA-C) Subjective Pt evaluation today including: conversation w/ patient, physical exam, chart review, lab review, review of studies, review of inpatient medication list Patient seen and evaluated. No acute events overnight. Feeling somewhat better today compared to yesterday. Still with a lot of output in ostomy bag. Cx with MRSA with is also growing in PEG tube site. States she does not use this PEG tube and it was placed only with anticipation of ileostomy reversal. She is tearful and frustrated with her medical conditions. Stating she hasn't given up because of her child but feels like she can't take much more. Hgb dropped to 6.5 today but asymptomatic. Possibly due to severe malnutrition that she is chronically severely anemic. Reports that she has had to get multiple transfusions due to low blood counts Constitutional: + fatigue, No fever, No chills Respiratory: + cough, + sputum, No shortness of breath Cardiovascular: + chest pain (improving; b/l lower ribs) Abdomen: + problem reported (copious drainage from ileostomy), No pain, No nausea, No vomiting Musculoskeletal: No swelling, No calf pain Female : No dysuria Heme: No abnormal bleeding/bruising Skin: No rash (Rena Hager, EDVINC) Medications Current Inpatient Medications Medications (Trade) Dose Ordered Sig/Faith Route Start Time Stop Time Status Last Admin Dose Admin Ioversol (Optiray 320) 100 ml UD PRN IV 02/13/17 12:00 02/17/17 11:59 Heparin Sodium (Porcine) (Heparin Sq 5000 Unit/0.5ml) 5,000 unit Q8 SQ 02/13/17 22:00 03/15/17 13:59 02/14/17 21:08 5,000 UNIT Sodium Chloride 1,000 ml @ 100 mls/hr Q10H IV 02/13/17 17:30 03/15/17 13:33 02/15/17 05:58 100 MLS/HR Acetaminophen (Tylenol Tab) 650 mg Q4H PRN PO 02/13/17 13:45 03/15/17 13:44 02/15/17 04:33 650 MG Ondansetron HCl (Zofran Inj) 4 mg Q6H PRN IV 02/13/17 13:45 03/15/17 13:44 Citalopram Hydrobromide (celeXA TAB) 40 mg DAILY PO 02/14/17 09:00 03/16/17 08:59 02/15/17 08:11 40 MG Folic Acid (Folvite Tab) 400 mcg DAILY PO 02/14/17 09:00 03/16/17 08:59 02/15/17 08:11 400 MCG Methadone HCl (Methadone HCl) 117 mg DAILY PO 02/14/17 09:00 03/16/17 08:59 02/15/17 08:11 117 MG Pantoprazole Sodium (Protonix Tab) 40 mg QAM PO 02/14/17 09:00 03/16/17 08:59 02/15/17 08:11 40 MG Vancomycin HCl (Consult) 1 ea UD PRN N/A 02/13/17 16:30 03/15/17 16:29 Non-Formulary Medication (Patient'S Own Controlled Med) 1 ea DAILY N/A 02/14/17 09:00 02/28/17 08:59 02/14/17 09:00 1 EA Caspofungin 50 mg/ Sodium Chloride 260 ml @ 260 mls/hr Q24H IV 02/14/17 20:00 03/16/17 19:59 02/14/17 19:48 260 MLS/HR Piperacillin Sod/ Tazobactam Sod 3.375 gm/Dextrose 115 ml @ 28.75 mls/ hr Q8H IV 02/14/17 14:00 02/21/17 13:59 02/15/17 05:59 28.75 MLS/HR Piperacillin Sod/ Tazobactam Sod (Consult) 1 ea UD PRN N/A 02/14/17 07:45 03/16/17 07:44 Hydrocortisone Sodium Succinate 100 mg/Syringe 2 ml @ 4 mls/min Q8H IV 02/14/17 22:00 03/16/17 21:59 02/15/17 05:59 4 MLS/MIN Midodrine (Proamatine Tab) 5 mg TID@08,12,17 PO 02/14/17 17:00 03/16/17 16:59 02/15/17 11:29 5 MG Diclofenac Sodium (Voltaren 1% Top Gel) 1 appln QID EXT 02/15/17 09:00 03/17/17 08:59 02/15/17 12:33 1 APPLN Ketorolac Tromethamine (Toradol Inj) 15 mg Q12H PRN IV 02/15/17 10:15 02/20/17 10:14 Vancomycin HCl 750 mg/Sodium Chloride 265 ml @ 125 mls/hr Q10H IV 02/15/17 21:00 03/01/17 20:59 Future Hold (Rena Hager PA-C) Objective Vital Signs Date Time Temp Pulse Resp B/P (MAP) Pulse Ox O2 Delivery O2 Flow Rate FiO2 02/15/17 12:46 36.5 49 16 87/55 96 02/15/17 12:31 36.3 48 15 80/53 95 02/15/17 11:40 Room Air 02/15/17 11:25 36.5 63 22 78/61 (67) 99 Room Air 02/15/17 07:57 36.7 56 14 80/40 (53) 98 Room Air 02/15/17 07:18 Room Air 02/15/17 07:18 Room Air 02/15/17 04:00 Room Air 02/15/17 03:15 36.9 55 16 79/37 (51) 97 Room Air 02/15/17 00:05 36.4 61 16 84/33 (50) 97 Room Air 02/15/17 00:00 Room Air 02/14/17 20:00 Room Air 02/14/17 19:28 36.8 61 14 78/39 (52) 99 Room Air 02/14/17 17:00 73 99 02/14/17 16:30 66 99 02/14/17 16:00 67 83/43 (49) 99 02/14/17 15:51 65 81/40 (53) 02/14/17 15:30 Room Air 02/14/17 15:30 95 92 02/14/17 15:30 76 22 83/43 (56) 100 Room Air 02/14/17 15:00 68 99 02/14/17 14:00 37.0 65 18 79/42 (54) 99 Room Air 02/14/17 14:00 67 79/42 (54) 100 02/14/17 13:10 36.1 69 22 100 (Rena Hager PA-C) Physical Exam General Appearance: no apparent distress, + cachetic ENT: hearing grossly normal Neck: supple, no JVD, trachea midline Respiratory/Chest: lungs clear, normal breath sounds, no respiratory distress, no accessory muscle use Cardiovascular: regular rate, rhythm, no gallop, no murmur Abdomen: normal bowel sounds, soft, + pertinent finding (ileostomy with copious liquid output; fistula in RLQ) Extremities: no pedal edema, no calf tenderness Neurologic/Psychiatric: alert, oriented x 3, + pertinent finding ( intermittently tearful) Skin: normal color, warm/dry (Rena Hager, JESUS-C) Laboratory Results Last 24 Hours Test 02/14/17 14:31 02/14/17 16:40 02/15/17 07:36 White Blood Count 23.91 K/uL 18.01 K/uL Red Blood Count 2.54 M/uL 2.30 M/uL Hemoglobin 7.1 g/dL 6.5 g/dL Hematocrit 22.3 % 20.2 % Mean Corpuscular Volume 87.8 fL 87.8 fL Mean Corpuscular Hemoglobin 28.0 pg 28.3 pg Mean Corpuscular Hemoglobin Concent 31.8 g/dl 32.2 g/dl Platelet Count 149 K/uL 140 K/uL Mean Platelet Volume 12.0 fL 12.4 fL Neutrophils (%) (Auto) 92.5 % 90.7 % Lymphocytes (%) (Auto) 4.5 % 6.6 % Monocytes (%) (Auto) 2.6 % 2.4 % Eosinophils (%) (Auto) 0.0 % 0.0 % Basophils (%) (Auto) 0.0 % 0.0 % Neutrophils # (Auto) 22.10 K/uL 16.33 K/uL Lymphocytes # (Auto) 1.07 K/uL 1.19 K/uL Monocytes # (Auto) 0.62 K/uL 0.43 K/uL Eosinophils # (Auto) 0.01 K/uL 0.00 K/uL Basophils # (Auto) 0.01 K/uL 0.00 K/uL RDW Standard Deviation 55.5 fL 54.7 fL RDW Coefficient of Variation 17.3 % 17.2 % Immature Granulocyte % (Auto) 0.4 % 0.3 % Immature Granulocyte # (Auto) 0.10 K/uL 0.06 K/uL Red Blood Cell Morphology Unremarkable Unremarkable Bedside Glucose 119 mg/dl Sodium Level 136 mmol/L Potassium Level 3.7 mmol/L Chloride Level 110 mmol/L Carbon Dioxide Level 16 mmol/L Anion Gap 10.0 mmol/L Blood Urea Nitrogen 29 mg/dl Creatinine 0.75 mg/dl Est Creatinine Clear Calc Drug Dose 88.4 ml/min Estimated GFR () 124.8 Estimated GFR (Non- 107.7 BUN/Creatinine Ratio 38.9 Random Glucose 128 mg/dl Calcium Level 7.9 mg/dl Vitamin B12 Level 549 pg/mL 25-Hydroxy Vitamin D Total 20.1 ng/ml Vancomycin Level Trough 28.7 mcg/ml (Rena Hager, PA-C) Assessment and Plan 27 yo female with sepsis secondary bacteremia possible pna Sepsis POA 2/2 MRSA Bacteremia from PEG Site: - Surprisingly largely asymptomatic with hypotension and anemia and is ambulating - reporting some improvement but still generally weak - Multiple episodes of fungemia - Henry tropicalis and new central line placed after first episode; PNA in Nov with treatment with Levaquin and BCx with henry tropicalis again with Caspofungin treatment - Caspofungin 50 mg daily given fungal cultures take longer and Vancomycin; have D/C'd Zosyn at this time Endocarditis: - Echocardiogram reveals vegetation on R coronary cusps of Aortic Valve - will need long-term Abx treatment for this Acute on Chronic Anemia Normocytic: - Given largely asymptomatic suggestion this is a chronic disease/malnutrition related anemia - Transfuse 1 unit PRBCs on 02/15 and continue to monitor H&H Question of TB: - Risk factors present but not favoring TB - Quantiferon sent - airborne precautions removed H/O Gastric Bypass (2006) with Multiple Complications and on TPN: Short Gut Syndrome - Has had approx. 13 abdominal surgeries related to SBO and requiring resection does have Ileostomy -- Per records there is consideration for reversal of Ileostomy - TPN on hold currently - PEG tube fell out and will need replaced in [place] - has not utilized PEG tube and only placed for anticipation of ileostomy reversal; no with evidence of infection likely hold on placing PEG DYLLAN: RESOLVED - Cr up to 1.3 on admission which resolved with IVF Adrenal Insufficiency: - Was on treatment as outpatient and is established with Endocrine and was pending further evaluation - Solu-Cortef 50 mg IV Q8H and Midodrine TID H/O Narcotic Abuse on Methadone: - Abstinence x 2 years DVT Prophylaxis: Heparin 5000 units SC Q8H Disposition: From home and lives with father - Likely need quick F/U with [facility] for PEG tube placement; may need ileostomy reversed to support improved nutrition Continued [facility] stay due to: multiple IV medications needed Discharge planning: home with home health (Rena Hager, PA-C) pt seen/case d/w A [facility] PAC sleeping comfortably at the time i see her, time before she was in bathroom case d/w A Alley extensively, as well as E Ser MS3 case also d/w her surgeon at [facility] don coon noted nad breathing unlabored BP improving no pallor or icterus sepsis/septic emboli/MRSA bacteremia probable line infection -vanco -remove zaldivar malnutrition/short gut -[facility] surgeons would like to reattach her shannan but obviously need infection cleared first anemia - likely relates more to hypoproliferative from malnutrition and acute blood loss Hgb dropped further - transfuse as above hypotension - seems multifactoriall w baseline low BP/malnutrition likely as foundation w elements of hypovolemia from anemia and elements of septic physiology at play as well - but without multiorgan failure despite prolonged hypotension, for clarification sake does not appear to be a predominantly septic shock mechanism, just a part of the situation otherwise as above (Yoan Renteria, D.Karan.)
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
[2017-02-15 14:02] LABS: QUANTIF MITOGEN-NIL 0.02 IU/ML; QUANTIFERON INDETERMINATE (NEGATIVE); QUANTIFERON NIL 0.15 IU/ML
[2017-02-15] MEDS ORDERED: NURSING VERBAL MED ORDER ONE (15:00)
--- NOTE | 2017-02-15 18:01 | Medical Student: [facility] ---
Med Student Progress Note Date of Service Feb 15, 2017. Subjective Pt evaluation today including: conversation w/ patient, conversation w/ family , physical exam, chart review, lab review Voiding: no voiding problems Rebecca Curiel is a 26-year-old female who presented to the ER on 02/13 for complaints of trouble breathing, fever, cough, and chest pain. She has an extensive past medical and surgical history, including obesity, depression/ anxiety, anemia, and more recently failure to thrive. She is also status post gastric bypass and revision, ileostomy, and PEG tube placement. has suffered from complications of the gastric bypass surgery and has since had thirteen total abdominal surgeries since her bypass. In August 2016, she had a volvulus repair, small bowel resection, ileostomy, and a Sauceda catheter placed. In September and November 2016, she was hospitalized for bacteremia ( cultures grew E. coli, Klebsiella, and Enterobacter) and fungemia (cultures grew Shelli), respectively. During her latter hospitalization, the catheter was removed and replaced on the right. In January 2017, had HCAP treated with capsofungin. She also has a history of IV drug use, but reports abstinence from opioids for nearly two years and is on methadone. Since being hospitalized, her PEG tube and blood cultures have grown MRSA. came in with the aforementioned symptoms that started approximately a week ago. She receives TPN through a right Sauceda catheter. She says her PEG tube had fallen out a week ago. She reports subjective fevers. Was unable to obtain more information pertaining to the HPI throughout the interview, as patient became frustrated and tearful with her medical condition. Reports being "sick and tired of feeling sick and tired." Denies SI. Expressed a desire for reconnection and a J-tube but states her surgeons in [place] have not given the ok to perform the surgery yet. Stated that she would like to be connected with counseling. Pt reports fatigue, malaise, and chills. Denies nausea, vomiting, or abdominal discomfort at this time. Review of Systems Constitutional: + chills, No fever Respiratory: + cough Cardiac: No chest pain Abdomen: No nausea, No vomiting Psychiatric: + depression symptoms Endo: + fatigue Objective Vital Signs Date Time Temp Pulse Resp B/P (MAP) Pulse Ox O2 Delivery O2 Flow Rate FiO2 02/15/17 16:00 Room Air 02/15/17 15:21 36.2 52 18 99/67 (78) 98 Room Air 02/15/17 13:48 36.5 52 16 91/47 100 02/15/17 13:11 36.5 48 16 93/51 100 02/15/17 12:46 36.5 49 16 87/55 96 02/15/17 12:31 36.3 48 15 80/53 95 02/15/17 11:40 Room Air 02/15/17 11:25 36.5 63 22 78/61 (67) 99 Room Air 02/15/17 07:57 36.7 56 14 80/40 (53) 98 Room Air 02/15/17 07:18 Room Air 02/15/17 07:18 Room Air 02/15/17 04:00 Room Air 02/15/17 03:15 36.9 55 16 79/37 (51) 97 Room Air 02/15/17 00:05 36.4 61 16 84/33 (50) 97 Room Air 02/15/17 00:00 Room Air 02/14/17 20:00 Room Air 02/14/17 19:28 36.8 61 14 78/39 (52) 99 Room Air Physical Exam General Appearance: WD/WN, no apparent distress Eyes: bilateral eyes normal inspection, bilateral eyes PERRL, bilateral eyes EOMI Respiratory/Chest: chest non-tender, lungs clear, normal breath sounds, no respiratory distress, no accessory muscle use Cardiovascular: regular rate, rhythm, no edema, no gallop, no JVD, no murmur Abdomen: + tenderness Neurologic/Psychiatric: alert, oriented x 3 Laboratory Results Last 24 Hours Test 02/15/17 07:36 02/15/17 16:30 White Blood Count 18.01 K/uL Red Blood Count 2.30 M/uL Hemoglobin 6.5 g/dL Hematocrit 20.2 % Mean Corpuscular Volume 87.8 fL Mean Corpuscular Hemoglobin 28.3 pg Mean Corpuscular Hemoglobin Concent 32.2 g/dl Platelet Count 140 K/uL Mean Platelet Volume 12.4 fL Neutrophils (%) (Auto) 90.7 % Lymphocytes (%) (Auto) 6.6 % Monocytes (%) (Auto) 2.4 % Eosinophils (%) (Auto) 0.0 % Basophils (%) (Auto) 0.0 % Neutrophils # (Auto) 16.33 K/uL Lymphocytes # (Auto) 1.19 K/uL Monocytes # (Auto) 0.43 K/uL Eosinophils # (Auto) 0.00 K/uL Basophils # (Auto) 0.00 K/uL RDW Standard Deviation 54.7 fL RDW Coefficient of Variation 17.2 % Immature Granulocyte % (Auto) 0.3 % Immature Granulocyte # (Auto) 0.06 K/uL Red Blood Cell Morphology Unremarkable Sodium Level 136 mmol/L Potassium Level 3.7 mmol/L Chloride Level 110 mmol/L Carbon Dioxide Level 16 mmol/L Anion Gap 10.0 mmol/L Blood Urea Nitrogen 29 mg/dl Creatinine 0.75 mg/dl Est Creatinine Clear Calc Drug Dose 88.4 ml/min Estimated GFR () 124.8 Estimated GFR (Non- 107.7 BUN/Creatinine Ratio 38.9 Random Glucose 128 mg/dl Calcium Level 7.9 mg/dl Vitamin B12 Level 549 pg/mL 25-Hydroxy Vitamin D Total 20.1 ng/ml Vancomycin Level Trough 28.7 mcg/ml Assessment and Plan Assessment and Plan: is a 27 year old female who is status post gastric bypass, small bowel resection, ileostomy, and PEG tube placement with a history of obesity remotely and failure to thrive recently, depression/anxiety, and illicit drug use who presented on 02/13 for cough, fever, shortness of breath, and chest pain. Workup revealed MRSA positive blood and PEG tube cultures and cavitary lung lesions secondary to septic emboli. Echocardiogram suggests endocarditis. Bacteremia leading to endocarditis, septic emboli -given her MRSA positive cultures and recent history of fungemia, continue with IV vancomycin and caspofungin -Zosyn discontinued to avoid risk of C. difficile infection -consider removing Sauceda catheter once infection is controlled - likely source of current infection given the right-sided leaflet vegetations and septic pulmonary emboli. It will continue to be a nidus for infection Failure to thrive -her weight loss, poor nutrition from malabsorption, fatigue that causes inactivity, and depressive symptoms suggest failure to thrive -peripheral parenteral nutrition discussed with nutrition team; would be an acceptable alternative to TPN if Sauceda catheter ultimately is removed Anemia (Hb 6.5) -likely secondary to malnutrition -transfuse one unit pRBC and monitor response Anxiety and depression -psych suggests switching Celexa to Lexapro and augmenting with Abilify. Abilify has worked well in the past for such purposes according to -have psych arrange aftercare, which should include a psychiatrist and counselor Continued [facility] stay due to: abnormal vital signs, inadequate po fluid intake, multiple IV medications needed Discharge planning: home with home health
--- NOTE | 2017-02-15 20:02 | Infectious Disease Progress Nt ---
Progress Note Date of Service Feb 15, 2017. Subjective Pt evaluation today including: conversation w/ patient, physical exam, chart review, lab review, review of studies, conversation w/ outbound sales consultant, review of inpatient medication list Patient has had echocardiogram which shows presence of probable aortic valve vegetation. Blood cultures growing MRSA. Patient threatening to leave the hospital AMA. All Other Systems: Reviewed and Negative Medications Current Inpatient Medications Medications (Trade) Dose Ordered Sig/Faith Route Start Time Stop Time Status Last Admin Dose Admin Ioversol (Optiray 320) 100 ml UD PRN IV 02/13/17 12:00 02/17/17 11:59 Heparin Sodium (Porcine) (Heparin Sq 5000 Unit/0.5ml) 5,000 unit Q8 SQ 02/13/17 22:00 03/15/17 13:59 02/15/17 13:06 5,000 UNIT Sodium Chloride 1,000 ml @ 100 mls/hr Q10H IV 02/13/17 17:30 03/15/17 13:33 02/15/17 05:58 100 MLS/HR Acetaminophen (Tylenol Tab) 650 mg Q4H PRN PO 02/13/17 13:45 03/15/17 13:44 02/15/17 04:33 650 MG Ondansetron HCl (Zofran Inj) 4 mg Q6H PRN IV 02/13/17 13:45 03/15/17 13:44 Folic Acid (Folvite Tab) 400 mcg DAILY PO 02/14/17 09:00 03/16/17 08:59 02/15/17 08:11 400 MCG Methadone HCl (Methadone HCl) 117 mg DAILY PO 02/14/17 09:00 03/16/17 08:59 02/15/17 08:11 117 MG Pantoprazole Sodium (Protonix Tab) 40 mg QAM PO 02/14/17 09:00 03/16/17 08:59 02/15/17 08:11 40 MG Vancomycin HCl (Consult) 1 ea UD PRN N/A 02/13/17 16:30 03/15/17 16:29 Non-Formulary Medication (Patient'S Own Controlled Med) 1 ea DAILY N/A 02/14/17 09:00 02/28/17 08:59 02/14/17 09:00 1 EA Caspofungin 50 mg/ Sodium Chloride 260 ml @ 260 mls/hr Q24H IV 02/14/17 20:00 03/16/17 19:59 02/14/17 19:48 260 MLS/HR Hydrocortisone Sodium Succinate 100 mg/Syringe 2 ml @ 4 mls/min Q8H IV 02/14/17 22:00 03/16/17 21:59 02/15/17 13:07 4 MLS/MIN Midodrine (Proamatine Tab) 5 mg TID@08,,17 PO 02/14/17 17:00 03/16/17 16:59 02/15/17 16:47 5 MG Diclofenac Sodium (Voltaren 1% Top Gel) 1 appln QID EXT 02/15/17 09:00 03/17/17 08:59 02/15/17 16:47 1 APPLN Ketorolac Tromethamine (Toradol Inj) 15 mg Q12H PRN IV 02/15/17 10:15 02/20/17 10:14 Vancomycin HCl 750 mg/Sodium Chloride 265 ml @ 125 mls/hr Q10H IV 02/15/17 21:00 03/01/17 20:59 Future Hold Escitalopram Oxalate (Lexapro Tab) 20 mg QAM PO 02/16/17 09:00 03/18/17 08:59 Aripiprazole (Abilify Tab) 2.5 mg HS PO 02/15/17 21:00 03/17/17 20:59 Heparin Sodium (Porcine) (Heparin 10 Unit/ ml 5 ml Flush) 5 ml PRN PRN FLUSH 02/15/17 15:15 03/17/17 15:14 Ergocalciferol (Vitamin D Cap) 50,000 interunit Th@0900 PO 02/16/17 09:00 03/18/17 08:59 Objective Vital Signs Date Time Temp Pulse Resp B/P (MAP) Pulse Ox O2 Delivery O2 Flow Rate FiO2 02/15/17 16:00 Room Air 02/15/17 15:21 36.2 52 18 99/67 (78) 98 Room Air 02/15/17 13:48 36.5 52 16 91/47 100 02/15/17 13:11 36.5 48 16 93/51 100 02/15/17 12:46 36.5 49 16 87/55 96 02/15/17 12:31 36.3 48 15 80/53 95 02/15/17 11:40 Room Air 02/15/17 11:25 36.5 63 22 78/61 (67) 99 Room Air 02/15/17 07:57 36.7 56 14 80/40 (53) 98 Room Air 02/15/17 07:18 Room Air 02/15/17 07:18 Room Air 02/15/17 04:00 Room Air 02/15/17 03:15 36.9 55 16 79/37 (51) 97 Room Air 02/15/17 00:05 36.4 61 16 84/33 (50) 97 Room Air 02/15/17 00:00 Room Air 02/14/17 20:00 Room Air Physical Exam General Appearance: no apparent distress, + cachetic, + thin Eyes: normal inspection, sclerae normal ENT: normal ENT inspection, pharynx normal Neck: supple, no adenopathy, thyroid normal, trachea midline Respiratory/Chest: chest non-tender, lungs clear, normal breath sounds, no respiratory distress Cardiovascular: regular rate, rhythm, no gallop, no murmur Abdomen: normal bowel sounds, soft, no organomegaly, + tenderness, + pertinent finding (Drainage around PEG site) Extremities: non-tender, no calf tenderness Neurologic/Psychiatric: alert, oriented x 3 Skin: normal color, no rash Lymphatic: no adenopathy Laboratory Results RUN DATE: 02/15/17 [facility] LAB PAGE 1 RUN TIME: 39 Specimen Inquiry PATIENT: RHIANNA MARTINEZ Betzaida LOC: [facility] [place] U # : [id number] AGE/SX: 27/F ROOM: [facility] REG : 02/13/[address]: Yoan Renteria D.O. : 1990 BED: 1 DIS : STATUS: ADM IN TLOC: SPEC #: [id number] YESY: 02/13/17 STATUS: COMP REQ #: [id number] RECD: 02/13/[address]: Adri Brand PA- C SOURCE: BLOOD ENTR: 02/13/[address]: Talia Altamirano M.D. [facility]: Pradip Little M.D. ORDERED: BLOOD CULTURE Procedure Result Verified Site BLD CULT Final 02/15/17-07 Organism 1 STAPHYLOCOCCUS AUREUS SENS SENSITIVITY TO FOLLOW SENSITIVITY RESULT INDICATES A METHICILLIN RESISTANT STAPH. AUREUS. PHONED TO FELICIA WILKES ON 02/15/17 AT 0718 BY Valentin Sanchez. Results were verbalized back to LULÚ. RESULTS WERE ALSO CALLED TO [facility] CONTROL ANSWERING MACHINE ON 02/15/17 BY LULÚ. Phoned Positive Blood Culture Gram Stain Report to BRI IAN on 02/14/17 At 0107 By NITIN. Results were verbalized back to NITIN. 1. STAPHYLOCOCCUS AUREUS Target Route Dose RX AB Cost M.I.C. IQ ------ ----- ------ -- ------ -------- - ------ TRIMET/SULFA S <=0.5/ 9.5 * OXACILLIN R * >2 VANCOMYCIN S 1 ERYTHROMYCIN R >4 TETRACYCLINE S <=4 CLINDAMYCIN S <=0.5 DAPTOMYCIN S <=0.5 RIFAMPIN S <=1 S = SENSITIVE I = INTERMEDIATE R = RESISTANT END OF REPORT Last 24 Hours Test 02/15/17 07:36 02/15/17 16:30 White Blood Count 18.01 K/uL Red Blood Count 2.30 M/uL Hemoglobin 6.5 g/dL Hematocrit 20.2 % Mean Corpuscular Volume 87.8 fL Mean Corpuscular Hemoglobin 28.3 pg Mean Corpuscular Hemoglobin Concent 32.2 g/dl Platelet Count 140 K/uL Mean Platelet Volume 12.4 fL Neutrophils (%) (Auto) 90.7 % Lymphocytes (%) (Auto) 6.6 % Monocytes (%) (Auto) 2.4 % Eosinophils (%) (Auto) 0.0 % Basophils (%) (Auto) 0.0 % Neutrophils # (Auto) 16.33 K/uL Lymphocytes # (Auto) 1.19 K/uL Monocytes # (Auto) 0.43 K/uL Eosinophils # (Auto) 0.00 K/uL Basophils # (Auto) 0.00 K/uL RDW Standard Deviation 54.7 fL RDW Coefficient of Variation 17.2 % Immature Granulocyte % (Auto) 0.3 % Immature Granulocyte # (Auto) 0.06 K/uL Red Blood Cell Morphology Unremarkable Sodium Level 136 mmol/L Potassium Level 3.7 mmol/L Chloride Level 110 mmol/L Carbon Dioxide Level 16 mmol/L Anion Gap 10.0 mmol/L Blood Urea Nitrogen 29 mg/dl Creatinine 0.75 mg/dl Est Creatinine Clear Calc Drug Dose 88.4 ml/min Estimated GFR () 124.8 Estimated GFR (Non- 107.7 BUN/Creatinine Ratio 38.9 Random Glucose 128 mg/dl Calcium Level 7.9 mg/dl Vitamin B12 Level 549 pg/mL 25-Hydroxy Vitamin D Total 20.1 ng/ml Vancomycin Level Trough 28.7 mcg/ml Assessment and Plan 27-year-old female with indwelling Sauceda catheter now with MRSA bacteremia With aortic valve vegetation and with likely septic pulmonary emboli. Would recommend continuation of IV vancomycin, and patient needs to have catheter removed. Patient will require prolonged IV 6 weeks of antibiotic therapy for probable endocarditis. Will discuss with all involved.
[2017-02-15] MEDS ORDERED: LORAZEPAM 0.5 MG TAB PO STA (20:45)
[2017-02-15] MEDS ORDERED: ARIPIprazole TAB 5 MG TAB PO SCH (21:00)
[2017-02-15] MEDS ORDERED: VANCOMYCIN INJ 750 MG in SODIUM CHLORIDE 0.9% 250ML 250 ML IV SCH (21:00)
--- NOTE | 2017-02-15 21:31 | Progress Note ---
Progress Note Date of Service Feb 15, 2017. Progress Note informed by dr bach that pt wanted to sign out AMA, she had gone to discuss with patient but patient was still adamant on leaving i quickly came then to try to discuss with her - she was extremely upset and already had nursing taking out her IVs and was telling me that she was leaving no matter what. 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 discussed catastrophic risks of undertreated/untreated endocarditis describing septic emboli strokes in detail as one of the most feared but realistic manifestations, and that it would likely not kill her but would lead to a situation where she was even more impaired in a terrible way; also discussed risk of as a very real possibility. she expressed understanding but was adamant on leaving anyway. appears that she would likely be due for vanco soon - probably in the next ~ 3hrs or so - based on earlier in the day levels. unfortunately she refused her most recent level so this is inexact at best - explained this to pt. she noted she had "some antibiotics" at home and she would give herself a dose tonight and then go to [place] tomorrow. i explained that her current infection is MRSA and therefore what she has at home is unlikely to be effective, and also that home treatment for this type of infection is risky at best, catastrophically terrible with mcc consequences at worst. while suboptimal , explained that if she is leaving here no matter what it would be critical that she go straight to [facility] so that she is able to receive her next dosing of vanco on time. offered to arrange transfer from here to [facility] formally but she was refusing to stay no matter what. left AMA without signing AMA paper, but was verbally well aware of risks and how much of a risky and dangerous decision this was mother expressed understanding of situation as well, and noted that since patient was leaving against advice she would at least try to ensure patient arrived at [place] by midnight in time for when her next vanco dose would likely be due. mother offered appreciation of our efforts.
--- NOTE | 2017-02-16 08:55 | Cardiology Consultation ---
Cardiology Consultation Date of Service Feb 16, 2017. Cardiology Consultation I was consulted to perform a DEVIN. Transthoracic echocardiogram noted an aortic valve vegetation. DEVIN not necessary.
[2017-02-16] MEDS ORDERED: ESCITALOPRAM OXALATE 20 MG TAB PO SCH (09:00)
[2017-02-16] MEDS ORDERED: ERGOCALCIFEROL 50,000 INTER.UNIT CAP PO SCH (09:00)
--- NOTE | 2017-02-22 22:23 | Discharge Summary ---
Discharge Summary Date of Service Feb 22, 2017. Discharge Summary Admission Date: Feb 13, 2017 at 13:37 Discharge Date: Feb 15, 2017 Discharge Disposition: Home Principal Diagnosis: Severe Sepsis from MRSA Bacteremia, Endocarditis and Possible Septic Emboli Problems/Secondary Diagnoses: 1. S/P Gastric Bypass 2. Short Gut Syndrome 3. S/P Ileostomy 4. Severe Malnutrition requiring TPN 5. Recurrent Fungemia 6. Previous Heroin Abuse currently on Methadone 7. Chronic Anemia Immunizations: Have You Had Influenza Vaccine: No Influenza Vaccine Date: Nov 05, 2007 History of Tetanus Vaccine?: Unknown History of Pneumococcal: No History of Hepatitis B Vaccine: Yes but date is unknown by patient Hepatitis Immunization Date: Feb 06, 2005 Procedures: CT ANGIOGRAM OF THE CHEST FINDINGS: There are borderline enlarged bilateral hilar lymph nodes. There is no pathologic mediastinal lymphadenopathy. There is no pathologic axillary lymphadenopathy. There was no evidence of thoracic aortic dilatation. The study is compromised due to respiratory motion artifact. There are no pulmonary artery filling defects viewed as suspicious for acute pulmonary embolism. No pleural effusions are visualized. There are multifocal bilateral nodular airspace opacities. Several these demonstrate cavitation including an 8 mm left apical nodule, and 13 mm right upper lobe nodule. There is mucoid impaction within the right lower lobe bronchus. There is suspected splenomegaly. IMPRESSION: 1. Technically limited study secondary to patient motion artifact 2. There are no pulmonary artery filling defects visualized to indicate acute pulmonary embolism 3. Right lower lobe bronchus mucoid impaction 4. Multiple bilateral point nodules/airspace opacities the largest of which is located within the right lower lobe measuring 2.5 cm. 2 of these nodules demonstrate cavitation. 5. Diagnostic considerations include infection, collagen vascular disease, septic emboli, and less likely given the patient's age, metastatic disease. 6. Clinical and imaging follow-up is recommended ECHOCARDIOGRAM * Left ventricular systolic function is normal. * No regional wall motion abnormalities noted. * Ejection Fraction = 55-60%. * A small (1 cm in length) mass is seen on the right coronary cusp of the aortic valve which demonstrates independent motion suggesting a vegetation. Consultations: 1. Cardiology 2. Infectious Disease 3. Psychiatry 4. Pulmonology 5. Critical Care Discharge Exam Assessment completed on 02/16 earlier in the day as follows: REVIEW OF SYSTEMS: Constitutional: + fatigue, No fever, No chills Respiratory: + cough, + sputum, No shortness of breath Cardiovascular: + chest pain (improving; b/l lower ribs) Abdomen: + problem reported (copious drainage from ileostomy), No pain, No nausea, No vomiting Musculoskeletal: No swelling, No calf pain Female : No dysuria Heme: No abnormal bleeding/bruising Skin: No rash Physical Exam General Appearance: no apparent distress, + cachetic ENT: hearing grossly normal Neck: supple, no JVD, trachea midline Respiratory/Chest: lungs clear, normal breath sounds, no respiratory distress, no accessory muscle use Cardiovascular: regular rate, rhythm, no gallop, no murmur Abdomen: normal bowel sounds, soft, + pertinent finding (ileostomy with copious liquid output; fistula in RLQ) Extremities: no pedal edema, no calf tenderness Neurologic/Psychiatric: alert, oriented x 3, + pertinent finding ( intermittently tearful) Skin: normal color, warm/dry Hospital Course ADMISSION: 27 yo female with complicated medical history. s/p gastric bypass with complications of ileostomy and subsequent short gut syndrome. Has been receiving nutrition via TPN through Sauceda catheter. Over past several months she has had several bouts of fungemia. In November she has a week long hospitalization for Shelli tropicalis and was treated with Caspofungin. After repeat cultures were clean, a new central line was placed and she completed an additional week of treatment. She returned to the hospital in early January with pneumonia and requested to be treated as outpatient since she already had the central line access. Discharged on Levaquin. However, blood cultures grew out Shelli tropicalis again and she was treated again with Caspofungin. The patient recovered from that infection and was doing reasonably well. Of note, her PEG tube fell out recently and was going to have it replaced but did not go down to [place]. Over the past week she has felt weak and generally malaised. Fever and chills, dyspnea, cough with yellow/green sputum, no blood. Poor appetite. Still getting nutrition via TPN. In the ED her WBC was 4 but with 91% neutrophils. Cr was elevated for her at 1.3 (baseline 0.9). CT of the chest showed several nodules, two of which had cavitations. Risk factors for TB include incarceration for a total of 13 months, out for over a year. Her weight has been stable. No night sweats. HOSPITAL COURSE: Ms. Curiel was admitted for Sepsis due to MRSA Bacteremia with Endocarditis and Suspected Septic Emboli. Wound culture of PEG site with MRSA and possible source of bacteremia. She subsequently presented with hypotension with readings in the 70s systolically and acute on chronic anemia with Hgb of 6.5 requiring transfusion of 1 unit PRBC. Surprisingly patient was largely asymptomatic but was initially placed in ICU for monitoring given hypotension. She was initiated on stress dosing of Solu-Cortef given her underlying adrenal insufficiency and midodrine. Ultimately blood transfusion improved blood pressure. She was treated initially with Zosyn, Vancomycin, and Caspofungin. She was continued on Caspofungin and Vancomycin after culture results obtained. Echocardiogram revealed vegetation on the R coronary cusps of aortic valve and infectious disease recommended at least [address] therapy. [address] with multiple nodules and initial concern for TB and quantiferon sent however this may reflect a septic emboli. Suspected that her Sauceda would likely need removed, no drug screen was completed on admission. Patient reporting abstinence from narcotics x 2 years and is currently on Methadone. Patient expressed concern for reversing her ileostomy and replacing her PEG which dislodged. Initially, she stated she would rather not have a PEG and this was only placed in anticipated of reversing her ileostomy. Explained that [facility] could not place the PEG and she would need to have follow-up with her surgeon in [place] and planned to set this up as soon as she was medically cleared for release from the hospital. She initially agreed with this plan as this acute infection would limit surgical intervention at this time. However, on 02/15 patient stated she wanted to leave the hospital. Stated she had multiple frustrations of IV beeping, ostomy dressing, and that her PEG and ileostomy could not be fixed. She said she would leave [facility] and go [place] [facility] Her mother was present and stated she would do her best to make sure she gets there right away. Dr. Renteria explained the severity of her condition and the need for ongoing therapy including risk of detrimental effects including possible . She stated she would take antibiotics she had at home and go [place] [facility] [place] [place] and she was advised that likely this would not be good coverage and risky to take this approach. Transportation [place] [facility] [place] offered but refused. She left [facility] without signing the AMA documents. [facility] [place] appro[place] 1 day after stating she did arrive and to discuss current studies and interventions performed here to continue treatment at their facility. i personally examined pt and verified all jacobson points w A Alley PAC tried to dissuade patient from AMA but no avail. encouraged her to then proceed shannan to [facility] [place] [place] so she woulnd't have break in her care (she refused my offer to try to set up actual hospital to hospital transfer) - she did eventually arrive at [facility] [place] - not as fast as i had implored, but did arrive. left angrily under her own power storming off unit. reiterated critical importance of complete care for this with pt's mother who appeared distraught at her daughter's actions. otherwise as above and as per progress notes. Total Time Spent: Greater than 30 minutes This includes examination of the patient, discharge planning, medication reconciliation, and communication with other providers. Discharge Instructions Please refer to the electronic Patient Visit Report (Discharge Instructions) for additional information. Additional Copies To Talia Altamirano M.D.
--- NOTE | 2017-04-08 09:14 | EDITING REQUIRED CODING QUERY ---
CODING QUERY To promote full compliance with coding requirements relating to patient care, provider participation is requested in all cases of benefits representative uncertainty. Please assist us with the question(s) below: Coding Question(s): Please clarify if pneumonia was: Ruled out ( ) Present on Admission ( ) Other ( x ) please see progress notes- septic emboli Unspecified ( ) Physician's Response(s): Thank you Mulu Smallwood Principal Diagnosis: "_that condition established after study, to be chiefly responsible for occasioning the admission of the patient to the hospital for care." Co-Existing Principal Diagnosis: "_when two or more diagnoses equally meet the criteria for principal diagnosis as determined by the circumstances of admission, diagnostic work up, and/or therapy provided, and the Alphabetic Index, Tabular List, or another coding guideline does not provide sequencing direction, any one of the diagnoses may be sequenced first." "When the physician has documented what appears to be a current diagnosis in the body of the record, but has not included the diagnosis in the final diagnostic statement, the physician should be asked whether the diagnosis should be added." ([facility] 2 QTR90. p3-4)
--- NOTE | 2017-04-08 09:16 | EDITING REQUIRED CODING QUERY ---
SEPSIS To promote full compliance with coding requirements relating to patient care, physician participation is requested in all cases of reroller hand uncertainty. Please assist us with the question(s) below: In responding to this query, please exercise your independent professional judgement. The fact that a question is asked does not imply that any particular answer is desired or expected. We appreciate your clarification on this issue. Throughout the medical record, you have clearly documented a localized infection and your patient has clinical evidence of a generalized sepsis or severe sepsis. The term urosepsis is a nonspecific entity and is coded as an UTI. If the patient has sepsis, severe sepsis, from an urinary source or some other source, please clarify in your response below. The medical record reflects the following clinical findings: (With dates as appropriate) (Body temperature of >38.3 C(101 F) or <36 C(96.8F), pulse >90/minute, respirations >20/minute, WBC count >12,000 or <4,000, altered mental status, significant edema or positive fluid balance, hyperglycemia without diabetes, hypotension, metabolic acidosis (elev. lactate level, anion gap or reduced blood pH), shock, positive blood culture (enter organism) Please refer to progress notes as all of below is there, thanks! (x )Bacteremia (Nonspecific laboratory finding of bacteria in the blood) Specify Organism ( x ) Present on Admission ( ) Not present on admission ( ) Unable to clinically determine (x ) Septicemia (Systemic disease associated with the presence of pathogenic microorganisms in the blood): Specify Organism ( x ) Present on Admission ( ) Not present on admission ( ) Unable to clinically determine ( x ) Sepsis Specify Organism Specify Associated Condition/Diagnosis (x ) Present on Admission ( ) Not present on admission ( ) Unable to clinically determine ( ) Severe Sepsis (Sepsis associated with acute organ dysfunction)not present Specify Organism Specify Associated Condition/Diagnosis ( ) Present on Admission (x ) Not present on admission ( ) Unable to clinically determine ( ) Septic Shock (Severe sepsis with acute circulatory failure, unexplained by other causes) not present ( ) Present on Admission (x ) Not present on admission ( ) Unable to clinically determine ( ) Other, patient has:
--- NOTE | 2017-04-08 09:25 | EDITING REQUIRED CODING QUERY ---
CODING QUERY To promote full compliance with coding requirements relating to patient care, provider participation is requested in all cases of purifying plant operator uncertainty. Please assist us with the question(s) below: Coding Question(s): Please clarify if the Sauceda line was infected and was the cause of sepsis/bacteremia. Strongly suspected Physician's Response(s): Thank you Mulu Smallwood Principal Diagnosis: "_that condition established after study, to be chiefly responsible for occasioning the admission of the patient to the hospital for care." Co-Existing Principal Diagnosis: "_when two or more diagnoses equally meet the criteria for principal diagnosis as determined by the circumstances of admission, diagnostic work up, and/or therapy provided, and the Alphabetic Index, Tabular List, or another coding guideline does not provide sequencing direction, any one of the diagnoses may be sequenced first." "When the physician has documented what appears to be a current diagnosis in the body of the record, but has not included the diagnosis in the final diagnostic statement, the physician should be asked whether the diagnosis should be added." ([facility] 2 QTR90. p3-4)
== END 2017-02-15 20:45 | disposition left against medical advice (07) | DRG 871 ==
LOC: C.EDB 10:15 → C.2E 13:37 → ENRESERV 13:53 → CANRESERV 13:53 → EDBEDREQ 14:17 → ENRESERV 15:59 → C.MSICU 02-14 12:47 → ENRESERV 02-14 17:34 → C.2E 02-14 18:09
PROVIDERS: ADMIT Internal Medicine; ATTEND Family Medicine
DX: A41.9 Sepsis, unspecified organism (principal); E43 Unspecified severe protein-calorie malnutrition; I26.90 Septic pulmonary embolism without acute cor pulmonale; T82.898A Other specified complication of vascular prosthetic devices, implants and grafts, initial encounter; I38 Endocarditis, valve unspecified; E27.40 Unspecified adrenocortical insufficiency; I76 Septic arterial embolism; K91.2 Postsurgical malabsorption, not elsewhere classified; F34.9 Persistent mood [affective] disorder, unspecified; F32.9 Major depressive disorder, single episode, unspecified; F11.11 Opioid abuse, in remission; Y83.1 Surgical operation with implant of artificial internal device as the cause of abnormal reaction of the patient, or of later complication, without mention of misadventure at the time of the procedure; I95.9 Hypotension, unspecified; A49.01 Methicillin susceptible Staphylococcus aureus infection, unspecified site; K94.29 Other complications of gastrostomy; F17.200 Nicotine dependence, unspecified, uncomplicated; R91.1 Solitary pulmonary nodule; F41.9 Anxiety disorder, unspecified; Z98.84 Bariatric surgery status; D64.9 Anemia, unspecified; R91.8 Other nonspecific abnormal finding of lung field; Z62.810 Personal history of physical and sexual abuse in childhood

== ENCOUNTER → 2017-02-13 | Outpatient (CLI) | payer OTHER ==
[2017-02-13 10:21] LABS: BASO % 0.1 %; BASO ABS # 0.01 K/uL (0-0.2); EOS % 0.6 %; EOS ABS # 0.07 K/uL (0-0.5); HEMATOCRIT 29.1 % (37-47); HEMOGLOBIN 9.3 g/dL (12.0-16.0); IG# 0.05 K/uL (0.00-0.02); LYMPH % 8.4 %; LYMPH ABS # 1.04 K/uL (1.2-3.4); MEAN CELL VOLUME 87.4 fL (80-100); MEAN CORPUSCULAR HEMOGLOBIN 27.9 pg (25-34); MEAN PLATELET VOLUME 12.4 fL (7.4-10.4); MONO % 2.2 %; MONO ABS # 0.27 K/uL (0.11-0.59); NEUT % 88.3 %; NEUT ABS # 10.91 K/uL (1.4-6.5); PLATELET COUNT 195 K/uL (130-400); RED CELL DISTRIBUTION WIDTH CV 17.5 % (11.5-14.5); RED CELL DISTRIBUTION WIDTH SD 55.5 fL (36.4-46.3); WHITE BLOOD COUNT 12.35 K/uL (4.8-10.8)
[2017-02-13 10:29] LABS: ALBUMIN 2.4 gm/dl (3.4-5.0); ALT/SGPT 28 U/L (12-78); AST/SGOT 13 U/L (15-37); BLOOD UREA NITROGEN 36 mg/dl (7-18); CARBON DIOXIDE 22 mmol/L (21-32); CREATININE 0.94 mg/dl (0.60-1.20); GLUCOSE 95 mg/dl (70-99); POTASSIUM 3.9 mmol/L (3.5-5.1); SODIUM 131 mmol/L (136-145)
[2017-02-13 10:32] LABS: ALKALINE PHOSPHATASE 582 U/L (45-117); TOTAL PROTEIN 8.6 gm/dl (6.4-8.2)
== END | disposition home or self-care (01) ==
LOC: C.LABSPEC 10:10
PROVIDERS: ATTEND Surgery
DX: Z45.2 Encounter for adjustment and management of vascular access device (principal); F32.9 Major depressive disorder, single episode, unspecified; J18.9 Pneumonia, unspecified organism; F41.9 Anxiety disorder, unspecified